=== PATIENT | female | born 1935 | race Caucasian/White ===

== ENCOUNTER 2016-07-01 | Outpatient (CLI) | END 2016-07-01 10:40 | disposition EMS.NT ==

== ENCOUNTER 2016-07-24 09:45 | Outpatient (CLI) | payer MEDICARE, MEDICAID | END 2016-07-24 09:46 | disposition home or self-care (01) | DX: R63.4 Abnormal weight loss (principal) ==

== ENCOUNTER 2016-09-04 15:56 | Outpatient (CLI) | payer OTHER, MEDICARE, MEDICAID | END 2016-09-04 15:57 | disposition critical access hospital (66) | DX: Z04.1 Encounter for examination and observation following transport accident (principal); V47.5XXA Car driver injured in collision with fixed or stationary object in traffic accident, initial encounter; Y92.414 Local residential or business street as the place of occurrence of the external cause | CPT/HCPCS: A0425; A0429 ==

== ENCOUNTER 2016-09-04 16:02 | Emergency (ER) | payer MEDICARE, MEDICAID | END 2016-09-04 17:35 | disposition home or self-care (01) | DX: Z04.1 Encounter for examination and observation following transport accident (principal); V47.0XXA Car driver injured in collision with fixed or stationary object in nontraffic accident, initial encounter; R25.1 Tremor, unspecified; M75.01 Adhesive capsulitis of right shoulder; I10 Essential (primary) hypertension; E11.9 Type 2 diabetes mellitus without complications; Z79.84 Long term (current) use of oral hypoglycemic drugs; Z79.82 Long term (current) use of aspirin ==

== ENCOUNTER 2017-05-08 08:11 | Outpatient (CLI) | payer MEDICARE, MEDICAID | END 2017-05-08 08:12 | disposition EMS.NT | LOC: EMS 08:11 | PROVIDERS: ATTEND Surgery | DX: M25.562 Pain in left knee (principal); W01.0XXA Fall on same level from slipping, tripping and stumbling without subsequent striking against object, initial encounter; Y93.K1 Activity, walking an animal; Y92.008 Other place in unspecified non-institutional (private) residence as the place of occurrence of the external cause ==

== ENCOUNTER 2017-06-02 16:04 | Outpatient (CLI) | payer MEDICARE, MEDICAID | END 2017-06-02 16:05 | disposition EMS.NT | LOC: EMS 16:04 | PROVIDERS: ATTEND Surgery | DX: Z03.89 Encounter for observation for other suspected diseases and conditions ruled out (principal) ==

== ENCOUNTER 2017-06-06 15:24 | Outpatient (CLI) | payer MEDICARE, MEDICAID | END 2017-06-06 15:25 | disposition critical access hospital (66) | LOC: EMS 15:24 | PROVIDERS: ATTEND Surgery | DX: S01.81XA Laceration without foreign body of other part of head, initial encounter (principal); W19.XXXA Unspecified fall, initial encounter; Y93.9 Activity, unspecified; Y92.9 Unspecified place or not applicable | CPT/HCPCS: A0425; A0429 ==

== ENCOUNTER 2017-06-06 15:31 | Emergency (ER) | payer MEDICARE, MEDICAID ==
--- NOTE | 2017-06-06 15:42 | ED Physician Documentation ---
PD HPI Fall - Stated complaint Stated Complaint: FALL - History obtained from History obtained from: Patient, EMS - History of Present Illness Mechanism of injury: Other (81-year-old woman with history of essential tremor and frozen right shoulder who sometimes uses a cane but is not very scientology about it has had 2 falls over the last day. She fell at home last night injuring her nose. She also fell today injuring the back of her head and her left knee. Tetanus is unknown.) Review of Systems Ten Systems: 10 systems reviewed and negative Constitutional: reports: Reviewed and negative Throat: reports: Reviewed and negative Cardiac: reports: Reviewed and negative Respiratory: reports: Reviewed and negative PD PAST MEDICAL HISTORY - Past Medical History Cardiovascular: Hypertension, High cholesterol, Arrhythmia, Other Respiratory: Sleep apnea Neuro: Headache/migraine Endocrine/Autoimmune: Type 2 diabetes GI: GERD, Colon polyps : Incontinence, Chronic bladder infection Psych: Depression, Anxiety - Past Surgical History Past Surgical History: Yes General: 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 - Present Medications Home Medications: Ambulatory Orders Medication Instructions Recorded Confirmed Atenolol 10 mg PO DAILY 11/21/14 09/04/16 Atorvastatin Calcium 40 mg PO DAILY 11/21/14 09/04/16 Escitalopram Oxalate 20 mg PO DAILY 11/21/14 09/04/16 Gabapentin 600 mg PO BID 11/21/14 09/04/16 LORazepam [Lorazepam] 2 mg PO DAILY 11/21/14 09/04/16 Losartan Potassium 0 mg PO DAILY 11/21/14 09/04/16 Aspirin Chewable [[facility] 81 mg PO DAILY 09/04/16 09/04/16 Aspirin] Propranolol [Inderal] 10 mg PO DAILY 09/04/16 06/06/17 metFORMIN [Glucophage] 500 mg PO DAILY 09/04/16 06/06/17 - Allergies Allergies/Adverse Reactions: Allergies Allergy/AdvReac Type Severity Reaction Status Date / Time codeine [Codeine] AdvReac Intermediate Nausea Verified 06/06/17 15:41 - Social History Does the pt smoke?: No Smoking Status: Never smoker Does the pt drink ETOH?: No Does the pt have substance abuse?: No - Family History Family history: reports: Non contributory - Immunizations Immunizations are current?: Yes PD ED PE NORMAL - Vitals Vital signs reviewed: Yes - General General: Alert and oriented X 3, Other (Tremulous especially in the facial muscles which is pre-existing per her.) - HEENT HEENT: Other (Large pupils bilaterally with sequela of previous cataract repair , both are reactive. Deep abrasion over the right parietal area without deformity. Nothing that needs sutures or specific intervention.) - Neck Neck: Supple, no meningeal sign, No bony TTP - Cardiac Cardiac: RRR, No murmur - Respiratory Respiratory: No respiratory distress, Clear bilaterally - Abdomen Abdomen: Soft, Non tender, Non distended - Extremities Extremities: Other (There is an abrasion over the anterior part of the left knee with mild underlying tenderness but no limited range of motion.) - Neuro Neuro: Alert and oriented X 3, Normal speech Eye Opening: Spontaneous Motor: Obeys Commands Verbal: Oriented GCS Score: 15 - Psych Psych: Normal mood, Normal affect Results - Vitals Vitals: Vital Signs - 24 hr 06/06/17 06/06/17 06/06/17 15:37 16:25 17:31 Temperature 37.3 C 36.6 C Heart Rate 64 60 61 Respiratory 18 16 15 Rate Blood Pressure 140/82 H 129/70 176/83 H O2 Saturation 97 96 100 Oxygen O2 Source [] Room air O2 Source Room air - Labs Labs: Laboratory Tests 06/06/17 06/06/17 06/06/17 15:50 15:50 18:20 WBC 6.8 RBC 4.23 Hgb 12.5 Hct 37.8 MCV 89.4 MCH 29.6 MCHC 33.1 RDW 14.7 Plt Count 287 MPV 8.3 Neut # 3.9 Lymph # 1.9 [place] # 0.7 Eos # 0.1 Baso # 0.1 Absolute Nucleated RBC 0.00 Nucleated RBC % 0.0 Sodium 134 L Potassium 3.8 Chloride 99 L Carbon Dioxide 26 Anion Gap 9.0 BUN 13 Creatinine 0.5 Estimated GFR (MDRD) 118 Glucose 124 H Calcium 9.6 Total Bilirubin 0.8 AST 19 ALT 12 Alkaline Phosphatase 42 Total Protein 7.1 Albumin 4.1 Globulin 3.0 Albumin/Globulin Ratio 1.4 Lipase 28 Urine Color YELLOW Urine Clarity CLEAR Urine pH 6.0 Ur Specific [place] 1.015 Urine Protein NEGATIVE Urine Glucose (UA) NEGATIVE Urine Ketones TRACE Urine Occult Blood NEGATIVE Urine Nitrite NEGATIVE Urine Bilirubin NEGATIVE Urine Urobilinogen 0.2 (NORMAL) Ur Leukocyte Esterase NEGATIVE Ur Microscopic Review NOT INDICATED Urine Culture Comments NOT INDICATED Ethyl Alcohol < 5.0 - Rads (name of study) CT Head/ Cspine and L knee XR Radiology: EMP read contemporaneously (Degenerative and age-related changes without acute disease.) Procedures - Laceration (location) nasal bridge Length in cm: 1 Wound type: Linear Wound Preparation: Irrigated copiously NS Skin layer closure: Dermabond Other: Tetanus UTD Complexity: Simple PD MEDICAL DECISION MAKING - ED course Complexity details: reviewed old records (had tetanus in 2012) ED course: 81-year-old woman with 2 falls in the last 24 hours, she has an abrasion on her nasal bridge which had persistent bleeding and was Dermabond it. She also had an abrasion on the back of her head which did not require specific intervention. Relevant imaging was negative. She was ambulatory here with a walker without specific complaints. Departure - Departure Disposition: 01 Home, Self Care Clinical Impression: Fall Qualifiers: Encounter type: initial encounter Qualified Code(s): W19.XXXA - Unspecified fall, initial encounter Scalp contusion Qualifiers: Encounter type: initial encounter Qualified Code(s): S00.03XA - Contusion of scalp, initial encounter Nasal abrasion Qualifiers: Encounter type: initial encounter Qualified Code(s): S00.31XA - Abrasion of nose, initial encounter Contusion of left knee Qualifiers: Encounter type: initial encounter Qualified Code(s): S80.02XA - Contusion of left knee, initial encounter Condition: Good Record reviewed to determine appropriate education?: Yes Instructions: ED Head Injury Closed Comments: Follow-up with your family doctor, make the next available appointment. Return if worse. Soap and water on your wounds is fine, no other specific treatment is necessary. Tylenol as needed for pain. Your blood pressure was elevated today on check into the emergency department. This does not mean that you have hypertension, it is a common phenomenon to come to the emergency department and have elevated blood pressure. I recommend that you see your primary care physician within the week to have it rechecked when you are feeling better.
[2017-06-06 15:58] LABS: BASOPHILS # (AUTO) 0.1 10^3/uL (0.0-0.1); BASOPHILS % (AUTO) 1.4 %; EOSINOPHILS # (AUTO) 0.1 10^3/uL (0.0-0.7); EOSINOPHILS % (AUTO) 1.5 %; HCT - HEMATOCRIT 37.8 % (37.0-47.0); HGB - HEMOGLOBIN 12.5 g/dL (12.0-16.0); LYMPHOCYTES # (AUTO) 1.9 10^3/uL (1.5-3.5); LYMPHOCYTES % (AUTO) 28.5 %; MEAN CORPUSCULAR HEMOGLOBIN 29.6 pg (27.0-31.0); MEAN CORPUSCULAR HGB CONC 33.1 g/dL (32.0-36.0); MEAN CORPUSCULAR VOLUME 89.4 fL (81.0-99.0); MEAN PLATELET VOLUME 8.3 fL (7.9-10.8); MONOCYTES # (AUTO) 0.7 10^3/uL (0.0-1.0); MONOCYTES % (AUTO) 10.5 %; NEUTROPHILS # (AUTO) 3.9 10^3/uL (1.5-6.6); NEUTROPHILS % (AUTO) 58.1 %; RED BLOOD COUNT 4.23 10^6/uL (4.20-5.40); RED CELL DISTRIBUTION WIDTH 14.7 % (12.0-15.0); UNCORRECTED WHITE BLOOD COUNT 6.8 x10^3/uL; WHITE BLOOD COUNT 6.8 x10^3/uL (4.8-10.8)
[2017-06-06 16:09] LABS: ALBUMIN/GLOBULIN RATIO 1.4 (1.0-2.2); BILIRUBIN,TOTAL 0.8 mg/dL (0.2-1.0); BUN - BLOOD UREA NITROGEN 13 mg/dL (6-20); CALCIUM 9.6 mg/dL (8.5-10.3); CARBON DIOXIDE - CO2 26 mmol/L (21-32); CHLORIDE 99 mmol/L (101-111); CREATININE 0.5 mg/dL (0.4-1.0); GFR - MDRD 118 (>89); GLUCOSE 124 mg/dL (70-100); LIPASE 28 U/L (22-51); POTASSIUM 3.8 mmol/L (3.5-5.0); SODIUM 134 mmol/L (135-145); TOTAL PROTEIN 7.1 g/dL (6.7-8.2)
--- NOTE | 2017-06-06 16:21 | XRAY Report ---
EXAM: LEFT KNEE RADIOGRAPHY EXAM DATE: 06/06/2017 04:06 PM. CLINICAL HISTORY: Fall, pain. COMPARISON: 05/17/2013. TECHNIQUE: 4 views, including oblique views. FINDINGS: Bones: Osteopenia. No definite fracture or other bone lesion. Joints: Moderate to marked 3 compartment joint space narrowing with small marginal osteophytes. Media l compartment sclerosis. No definite effusion. Soft Tissues: Unremarkable. IMPRESSION: Moderate to marked degenerative joint disease. [facility] Referring Provider Line: [phone] SITE ID: [id number]
--- NOTE | 2017-06-06 16:27 | CT Report ---
EXAM: CT HEAD EXAM DATE: 06/06/2017 04:14 PM. CLINICAL HISTORY: Fall, head inj. COMPARISON: 11/21/2014. TECHNIQUE: Multiaxial CT images were obtained from the foramen magnum to the vertex. Reformats: Coron al. IV contrast: None. In accordance with CT protocol optimization, one or more of the following dose reduction techniques w ere utilized for this exam: automated exposure control, adjustment of mA and/or KV based on patient s ize, or use of iterative reconstructive technique. FINDINGS: Parenchyma: No intraparenchymal hemorrhage. No evidence of mass, midline shift, or CT findings of acu te infarction. Lou-white differentiation is distinct. Diffuse chronic microangiopathic white matter changes. Extraaxial Spaces: Normal for age. No subdural or epidural collections. Ventricles: The ventricles and cortical sulci are enlarged, consistent with age-related tissue loss. Sinuses and orbits: Imaged paranasal sinuses, orbits, and mastoids show no significant abnormality. Bones: Unremarkable. Other: None. IMPRESSION: Generalized age-related cortical atrophic changes without evidence of acute intracranial abnormality. [facility] Referring Provider Line: [phone] SITE ID: [id number]
--- NOTE | 2017-06-06 16:30 | CT Report ---
EXAM: CT CERVICAL SPINE WITHOUT CONTRAST DATE: 06/06/2017 04:14 PM. HISTORY: Fall, pain. COMPARISONS: 05/17/2013. TECHNIQUE: Thin-section axial images were acquired of the cervical spine without contrast. Post-proce ssing: Coronal and sagittal reformats. Other: None. In accordance with CT protocol optimization, one or more of the following dose reduction techniques w ere utilized for this exam: automated exposure control, adjustment of mA and/or KV based on patient s ize, or use of iterative reconstructive technique. FINDINGS: Alignment: No scoliosis or spondylolisthesis. Bones: No fracture or bone lesion. Interspace Levels/Facets: Mild disk space narrowing at C5-C6 with marginal lipping. Mild generalized degenerative changes. Musculature: Unremarkable. Other: Groundglass density in right lung apex similar to previous study. Otherwise unremarkable. No p revertebral soft tissue swelling. IMPRESSION: Chronic findings. No acute disease. [facility] Referring Provider Line: [phone] SITE ID: [id number]
[2017-06-06 17:32] VITALS: BP 176/83
[2017-06-06 18:32] LABS: BILIRUBIN,URINE NEGATIVE (NEGATIVE)
[2017-06-06 18:35] LABS: UA CHARGE (STRIP ONLY) YES; UR CULTURE IF IND NOT INDICATED
== END 2017-06-06 19:50 | disposition home or self-care (01) ==
LOC: EDUNIT# → ED 15:31
DX: S01.21XA Laceration without foreign body of nose, initial encounter (principal); S00.03XA Contusion of scalp, initial encounter; S80.02XA Contusion of left knee, initial encounter; W01.0XXA Fall on same level from slipping, tripping and stumbling without subsequent striking against object, initial encounter; Y92.009 Unspecified place in unspecified non-institutional (private) residence as the place of occurrence of the external cause; I10 Essential (primary) hypertension; E78.00 Pure hypercholesterolemia, unspecified; E11.9 Type 2 diabetes mellitus without complications; Z79.84 Long term (current) use of oral hypoglycemic drugs
CPT/HCPCS: 12011; 36415; 70450; 72125; 73564; 80053; 81003; 83690; 85025; 99283; 99284; G0480; 80320; 81001; 87086

== ENCOUNTER 2017-07-06 09:36 | Outpatient (CLI) | payer MEDICARE, MEDICAID | END 2017-07-06 09:37 | disposition EMS.NT | LOC: EMS 09:36 | PROVIDERS: ATTEND Surgery | DX: R53.1 Weakness (principal); W18.11XA Fall from or off toilet without subsequent striking against object, initial encounter; Y92.031 Bathroom in apartment as the place of occurrence of the external cause ==

== ENCOUNTER 2017-07-14 10:35 | Outpatient (CLI) | payer MEDICARE, MEDICAID | END 2017-07-14 10:36 | disposition EMS.NT | LOC: EMS 10:35 | PROVIDERS: ATTEND Surgery | DX: R10.10 Upper abdominal pain, unspecified (principal); R07.81 Pleurodynia ==

== ENCOUNTER 2017-08-16 13:31 | Outpatient (CLI) | payer MEDICARE, MEDICAID | END 2017-08-16 13:32 | disposition EMS.NT | LOC: EMS 13:31 | PROVIDERS: ATTEND Surgery | DX: Z03.89 Encounter for observation for other suspected diseases and conditions ruled out (principal); W01.0XXA Fall on same level from slipping, tripping and stumbling without subsequent striking against object, initial encounter; Y92.039 Unspecified place in apartment as the place of occurrence of the external cause ==

== ENCOUNTER 2017-08-22 12:26 | Outpatient (CLI) | payer MEDICARE, MEDICAID | END 2017-08-22 12:27 | disposition critical access hospital (66) | LOC: EMS 12:26 | PROVIDERS: ATTEND Surgery | DX: R25.9 Unspecified abnormal involuntary movements (principal); R41.82 Altered mental status, unspecified; R51 Headache; R42 Dizziness and giddiness ==

== ENCOUNTER 2017-08-22 12:29 | Emergency (ER) | payer MEDICARE, MEDICAID ==
[2017-08-22 12:58] LABS: BILIRUBIN,URINE NEGATIVE (NEGATIVE); GLUCOSE, URINE (UA) 250 mg/dL (NEGATIVE); KETONES,URINE (UA) >=80 mg/dL (NEGATIVE); LEUKOCYTE ESTERASE, URINE NEGATIVE (NEGATIVE); NITRITE,URINE NEGATIVE (NEGATIVE); OCCULT BLOOD,URINE SMALL (NEGATIVE); PROTEIN,URINE 100 mg/dL (NEGATIVE); UROBILINOGEN,URINE 0.2 (NORMAL) E.U./dL (NORMAL)
[2017-08-22 12:59] LABS: CLARITY,URINE CLEAR (CLEAR)
[2017-08-22] MEDS ORDERED: HYDROcod/ACETAM 5/325 MG TABLET PO STA (13:10)
[2017-08-22] MEDS ORDERED: SODIUM CHLORIDE 0.9% 1,000 ML IV ONE (13:11)
[2017-08-22 13:12] LABS: RBC,URINE 0-5 /HPF (0-5); SQUAMOUS EPITHELIAL CELL,UR NONE SEEN (<= Few)
[2017-08-22 13:13] LABS: BACTERIA,URINE None Seen /HPF (None Seen); CASTS, URINE 0-2 Hyaline Casts /LPF
--- NOTE | 2017-08-22 13:18 | ED Physician Documentation ---
PD HPI FOCAL NEURO - Stated complaint Stated Complaint: YOUNG/DIZZINESS - Chief complaint Chief Complaint: Neuro - History obtained from History obtained from: Patient, Family, EMS - History of Present Illness Timing - onset: Yesterday (This is an 81-year-old woman with severe essential tremor, at baseline usually walks on her own. Over the last day she has been veering to the right and her daughter went over her place today and found her laying on the couch soiled with urine. She is very weak and complains of low back pain. She also had a headache yesterday.) Review of Systems Constitutional: reports: Fatigue. 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 - Present Medications Home Medications: Ambulatory Orders Medication Instructions Recorded Confirmed Atorvastatin Calcium 40 mg PO DAILY 11/21/14 09/04/16 Gabapentin 600 mg PO BID 11/21/14 09/04/16 LORazepam [Lorazepam] 2 mg PO DAILY 11/21/14 09/04/16 Losartan Potassium 0 mg PO DAILY 11/21/14 09/04/16 Aspirin Chewable [[facility] 81 mg PO DAILY 09/04/16 09/04/16 Aspirin] Propranolol [Inderal] 10 mg PO DAILY 09/04/16 06/06/17 metFORMIN [Glucophage] 500 mg PO DAILY 09/04/16 06/06/17 - Allergies Allergies/Adverse Reactions: Allergies Allergy/AdvReac Type Severity Reaction Status Date / Time codeine [Codeine] AdvReac Intermediate Nausea Verified 08/22/17 12:54 - Social History Does the pt smoke?: No Smoking Status: Never smoker Does the pt drink ETOH?: No Does the pt have substance abuse?: No - Immunizations Immunizations are current?: Yes PD ED PE NORMAL - Vitals Vital signs reviewed: Yes - General General: Alert and oriented X 3, Other (She is a severe essential tremor, she is very weak and is basically a 2 person assist to sit her up.) - HEENT HEENT: PERRL, Other (Extraocular movements are okay laterally in either direction but does not seem to be able to look up or down either side.) - Neck Neck: Supple, no meningeal sign, No bony TTP - Cardiac Cardiac: RRR, No murmur - Respiratory Respiratory: No respiratory distress, Clear bilaterally - Abdomen Abdomen: Normal bowel sounds, Soft, Non tender - Back Back: No CVA TTP, No spinal TTP - Extremities Extremities: No edema, No calf tenderness / cord - Neuro Neuro: Alert and oriented X 3 Eye Opening: Spontaneous Motor: Obeys Commands Verbal: Oriented GCS Score: 15 - Psych Psych: Normal mood, Normal affect Results - Vitals Vitals: Vital Signs - 24 hr 08/22/17 08/22/17 08/22/17 12:31 13:25 14:54 Temperature 37.1 C 36.7 C Heart Rate 97 89 94 Respiratory 20 18 Rate Blood Pressure 181/77 H 158/96 H 173/92 H O2 Saturation 96 100 08/22/17 08/22/17 08/22/17 15:02 15:11 15:18 Temperature Heart Rate 101 H 107 H 114 H Respiratory 20 Rate Blood Pressure 160/82 H 150/73 H 135/74 H O2 Saturation 100 08/22/17 15:25 Temperature 37.4 C Heart Rate 101 H Respiratory 18 Rate Blood Pressure 128/88 H O2 Saturation 99 Oxygen O2 Source [] Room air O2 Source Room air - EKG (time done) 1433 Rate: Rate (enter#) (90) Rhythm: NSR [place]: Normal Intervals: Normal MO Ischemia: Normal ST segments Computer interpretation: Disagree with computer - Labs Labs: Laboratory Tests 08/22/17 08/22/17 08/22/17 12:45 14:26 14:26 WBC 12.7 H RBC 4.30 Hgb 12.9 Hct 37.7 MCV 87.7 MCH 30.0 MCHC 34.2 RDW 14.0 Plt Count 324 MPV 8.1 Neut # 10.9 H Lymph # 0.8 L [place] # 0.9 Eos # 0.0 Baso # 0.0 Absolute Nucleated RBC 0.00 Nucleated RBC % 0.0 PT INR Sodium 136 Potassium 2.9 L Chloride 102 Carbon Dioxide 20 L Anion Gap 14.0 H BUN 12 Creatinine 0.4 Estimated GFR (MDRD) 153 Glucose 197 H Calcium 9.4 Total Bilirubin 1.2 H AST 23 ALT 13 Alkaline Phosphatase 41 L Total Creatine Kinase 172 Troponin I Total Protein 7.3 Albumin 4.2 Globulin 3.1 Albumin/Globulin Ratio 1.4 Lipase 11 L Urine Color YELLOW Urine Clarity CLEAR Urine pH 6.0 Ur Specific [place] 1.025 Urine Protein 100 H Urine Glucose (UA) 250 H Urine Ketones >=80 H Urine Occult Blood SMALL H Urine Nitrite NEGATIVE Urine Bilirubin NEGATIVE Urine Urobilinogen 0.2 (NORMAL) Ur Leukocyte Esterase NEGATIVE Urine RBC 0-5 Urine WBC 0-3 Ur Squamous Epith Cells NONE SEEN Urine Bacteria None Seen Urine Casts 0-2 Hyaline Casts Ur Microscopic Review INDICATED Urine Culture Comments NOT INDICATED 08/22/17 08/22/17 14:26 14:26 WBC RBC Hgb Hct MCV MCH MCHC RDW Plt Count MPV Neut # Lymph # [place] # Eos # Baso # Absolute Nucleated RBC Nucleated RBC % PT 14.1 H INR 1.3 H Sodium Potassium Chloride Carbon Dioxide Anion Gap BUN Creatinine Estimated GFR (MDRD) Glucose Calcium Total Bilirubin AST ALT Alkaline Phosphatase Total Creatine Kinase Troponin I 0.05 Total Protein Albumin Globulin Albumin/Globulin Ratio Lipase Urine Color Urine Clarity Urine pH Ur Specific [place] Urine Protein Urine Glucose (UA) Urine Ketones Urine Occult Blood Urine Nitrite Urine Bilirubin Urine Urobilinogen Ur Leukocyte Esterase Urine RBC Urine WBC Ur Squamous Epith Cells Urine Bacteria Urine Casts Ur Microscopic Review Urine Culture Comments - Rads (name of study) CT head Radiology: EMP read contemporaneously (Intraventricular hemorrhage involving the third, fourth, and lateral ventricles with layering blood products in the occipital horn of the lateral ventricles. There is ventricular enlargement with a slight increase compared to June 06, 2017, there is also parenchymal volume loss and chronic white matter changes with a remote left frontal infarct that are unchanged from prior.) 1v chest Radiology: EMP read contemporaneously (NAD) L spine CT Radiology: EMP read contemporaneously (No acute fracture, grade 1 2 anterolisthesis of L4-L5 with a right L4 pars interarticularis defect and moderate to severe right foraminal stenosis and canal stenosis. 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 Notable that she has trouble with extraocular movements on examination and head CT is notable for intraventricular hemorrhage near the brainstem. Images were sent to [facility] and she was started on a Cardene drip. Accepted by Dr Wu at [facility] at 1442. [place] completed. ALNW unable to fly due to ice/wind - Critical Care Time(min): 45 Time Includes: Direct patient care, Review records, Reassess patient, Document care, Coordinate care, Medical consult, Family consult for tx dec Data interpretation: Labs Procedures included in critical care time: Peripheral IV Procedures excluded from critical care time: EKG Departure - Departure Disposition: 02 Transfer Acute Care Hosp Clinical Impression: Intraventricular hemorrhage, Muscle weakness Altered mental status Qualifiers: Altered mental status type: disorientation Qualified Code(s): R41.0 - Disorientation, unspecified Condition: Critical Discharge Date/Time: 08/22/17 15:30
--- NOTE | 2017-08-22 14:21 | CT Preliminary Report ---
Exam: CT HEAD W/O IMPRESSION: 1. Intraventricular hemorrhage involving the third ventricle, fourth ventricles and lateral ventricle s with layering blood products within the occipital horn of both lateral ventricles. 2. Ventricular enlargement with slight increase in size compared to 06/06/2017. 3. Parenchymal volumes loss and chronic white matter changes. Remote left frontal lobe infarct, uncha nged. [facility] SITE ID: [id number]
--- NOTE | 2017-08-22 14:25 | XRAY Report ---
EXAM: CHEST RADIOGRAPHY EXAM DATE: 08/22/2017 02:11 PM. CLINICAL HISTORY: Back pain, altered, R weakness. COMPARISON: 05/17/2013. TECHNIQUE: 1 view. FINDINGS: Lungs/Pleura: No focal opacities evident. No pleural effusion. No pneumothorax. Mediastinum: Cardiomegaly. Aortic tortuosity. Other: Surgical clips are seen in the right upper quadrant as before. IMPRESSION: 1. No acute disease in the chest. [facility] Referring Provider Line: [phone] SITE ID: [id number]
[2017-08-22 14:32] LABS: BASOPHILS % (AUTO) 0.3 %; HGB - HEMOGLOBIN 12.9 g/dL (12.0-16.0); LYMPHOCYTES # (AUTO) 0.8 10^3/uL (1.5-3.5); LYMPHOCYTES % (AUTO) 6.2 %; MEAN CORPUSCULAR HGB CONC 34.2 g/dL (32.0-36.0); MEAN CORPUSCULAR VOLUME 87.7 fL (81.0-99.0); MEAN PLATELET VOLUME 8.1 fL (7.9-10.8); MONOCYTES # (AUTO) 0.9 10^3/uL (0.0-1.0); MONOCYTES % (AUTO) 7.3 %; NEUTROPHILS # (AUTO) 10.9 10^3/uL (1.5-6.6); NEUTROPHILS % (AUTO) 86.2 %; PLT - PLATELET COUNT 324 10^3/uL (130-450); WHITE BLOOD COUNT 12.7 x10^3/uL (4.8-10.8)
[2017-08-22 14:38] LABS: INR 1.3 (0.8-1.2); PT - PROTHROMBIN TIME 14.1 secs (9.9-12.6)
[2017-08-22] MEDS ORDERED: niCARdipine 20 MG/200 ML 20 MG/200 ML BAG IV STA (14:41)
--- NOTE | 2017-08-22 14:49 | CT Report ---
EXAM: CT HEAD EXAM DATE: 08/22/2017 01:59 PM. CLINICAL HISTORY: Back pain. Altered level of consciousness. Right-sided weakness. COMPARISON: 06/06/2017. TECHNIQUE: Multiaxial CT images were obtained from the foramen magnum to the vertex. Reformats: Coron al. IV contrast: None. In accordance with CT protocol optimization, one or more of the following dose reduction techniques w ere utilized for this exam: automated exposure control, adjustment of mA and/or KV based on patient s ize, or use of iterative reconstructive technique. FINDINGS: Parenchyma: Parenchymal volume loss with periventricular regions of low attenuation. Prior left front al lobe infarct. No midline shift. Extraaxial Spaces: Extra-axial spaces are prominent. No subdural or epidural collections identified. Ventricles: Intraventricular hemorrhage is noted seen within the lateral ventricles in both the front al and occipital horns, layering within the occipital horns, as well as largely within the third vent ricle which appears slightly more prominent in size. In addition, there are intraventricular blood pr oducts in the fourth ventricle. Ventricles are slightly larger in size. Sinuses and Orbits: Imaged paranasal sinuses, orbits, and mastoids show no significant abnormality. Bones: No evidence of fracture or calvarial defect. Other: Changes are seen from bilateral lens surgery. Otherwise globes and orbits are unremarkable. Va scular calcifications are noted. IMPRESSION: 1. Intraventricular hemorrhage involving the third ventricle, fourth ventricles and lateral ventricle s with layering blood products within the occipital horn of both lateral ventricles. 2. Ventricular enlargement with slight increase in size compared to 06/06/2017. 3. Parenchymal volume loss and chronic white matter changes. Remote left frontal lobe infarct, unchan ged. Critical result: Findings discussed with Dr. Mittal at 1419 hours on 08/22/2017. [facility] Referring Provider Line: [phone] SITE ID: [id number]
[2017-08-22 14:50] LABS: ALBUMIN 4.2 g/dL (3.2-5.5); ALBUMIN/GLOBULIN RATIO 1.4 (1.0-2.2); BILIRUBIN,TOTAL 1.2 mg/dL (0.2-1.0); CALCIUM 9.4 mg/dL (8.5-10.3); CREATININE 0.4 mg/dL (0.4-1.0); TOTAL PROTEIN 7.3 g/dL (6.7-8.2)
--- NOTE | 2017-08-22 14:58 | CT Report ---
EXAM: CT LUMBAR SPINE WITHOUT CONTRAST EXAM DATE: 08/22/2017 02:15 PM. CLINICAL HISTORY: Back pain, altered, R weakness. COMPARISONS: 07/10/2005 CT. TECHNIQUE: Thin-section axial images were acquired of the lumbar spine from T12 to S1 without contras t. Post-processing: Coronal and sagittal reformats. Other: None. In accordance with CT protocol optimization, one or more of the following dose reduction techniques w ere utilized for this exam: automated exposure control, adjustment of mA and/or KV based on patient s ize, or use of iterative reconstructive technique. FINDINGS: Alignment: Interstitial subluxation of L4 on L5 measuring 8 mm. Minimal anterior subluxation of L5 on S1. Bones: Five [id number] lumbar vertebral bodies are present. No fractures or bone lesions. Disk Levels/Facets: Anterior subluxation of L4 on L5 with broad-based disk bulge and advanced facet arthrosis causing mod erate to severe foraminal stenosis, mild left foraminal stenosis and mild spinal canal stenosis. Mild stenosis of ventral thecal sac at additional levels due to small disk bulges. Advanced multilevel fa cet arthrosis. Moderate right foraminal stenosis at L5-S1 Musculature: Fatty atrophy. Other: Severe right hydronephrosis likely increased from 2005 without dilation of the right ureter. S igmoid diverticulosis. IMPRESSION: 1. No acute fracture. 2. Grade 1/2 anterolisthesis of L4 on L5 with a right L4 pars interarticularis defect intervene to mo derate to severe right foraminal stenosis and mild spinal canal stenosis. 3. Minimal anterolisthesis of L5 on S1. Moderate right L5-S1 foraminal stenosis. Advanced multilevel facet arthrosis. 4. Severe right hydronephrosis is likely increased from 2005 and favored to represent chronic UPJ obs truction. [facility] Referring Provider Line: [phone] SITE ID: [id number]
[2017-08-22 15:37] VITALS: BP 128/88
[2017-08-22] MEDS ORDERED: niCARdipine 20 MG/200 ML 20 MG/200 ML BAG IV ONE (15:39)
== END 2017-08-22 15:30 | disposition short-term general hospital (02) ==
LOC: EDUNIT# → ED 12:29
DX: I61.5 Nontraumatic intracerebral hemorrhage, intraventricular (principal); M62.81 Muscle weakness (generalized); R41.0 Disorientation, unspecified; I10 Essential (primary) hypertension; E78.00 Pure hypercholesterolemia, unspecified; E11.9 Type 2 diabetes mellitus without complications; Z79.84 Long term (current) use of oral hypoglycemic drugs; Z79.82 Long term (current) use of aspirin
CPT/HCPCS: 36415; 51701; 70450; 71045; 72131; 80053; 81001; 82550; 83690; 84484; 85025; 85610; 93005; 96365; 99284; 99291; A9270; 81003; 87086; 99285

== ENCOUNTER 2017-08-22 15:36 | Outpatient (CLI) | payer MEDICARE, MEDICAID | END 2017-08-22 15:37 | disposition short-term general hospital (02) | LOC: EMS 15:36 | PROVIDERS: ATTEND Surgery | DX: I62.9 Nontraumatic intracranial hemorrhage, unspecified (principal); R51 Headache; R42 Dizziness and giddiness; R41.82 Altered mental status, unspecified; R25.9 Unspecified abnormal involuntary movements | CPT/HCPCS: A0170; A0425; A0426; A0429 ==

== ENCOUNTER 2017-09-16 12:00 | Outpatient (CLI) | payer MEDICAID, MEDICARE, OTHER ==
[2017-09-16 13:32] LABS: BUN - BLOOD UREA NITROGEN 13 mg/dL (6-20); CALCIUM 8.9 mg/dL (8.5-10.3); CARBON DIOXIDE - CO2 25 mmol/L (21-32); CHLORIDE 94 mmol/L (101-111); GLUCOSE 133 mg/dL (70-100); SODIUM 127 mmol/L (135-145)
[2017-09-16 13:43] LABS: CREATININE < 0.3 mg/dL (0.4-1.0); GFR - MDRD 214 (>89)
== END 2017-09-16 12:01 ==
LOC: LAB.R 12:00
DX: I60.0 Nontraumatic subarachnoid hemorrhage from carotid siphon and bifurcation (principal)
CPT/HCPCS: 80048

== ENCOUNTER 2017-10-29 19:15 | Outpatient (CLI) | payer MEDICARE, MEDICAID ==
[2017-10-29 20:23] LABS: CALCIUM 8.7 mg/dL (8.5-10.3); CREATININE 0.4 mg/dL (0.4-1.0)
== END 2017-10-29 19:16 | disposition home or self-care (01) ==
LOC: LAB.R 19:15
DX: R79.89 Other specified abnormal findings of blood chemistry (principal); I10 Essential (primary) hypertension
CPT/HCPCS: 80048

== ENCOUNTER 2017-12-23 08:00 | Outpatient (CLI) | payer MEDICARE, MEDICAID ==
[2017-12-23 13:16] LABS: BASOPHILS % (AUTO) 0.8 %; EOSINOPHILS # (AUTO) 0.2 10^3/uL (0.0-0.7); EOSINOPHILS % (AUTO) 3.6 %; HGB - HEMOGLOBIN 11.9 g/dL (12.0-16.0); LYMPHOCYTES # (AUTO) 1.5 10^3/uL (1.5-3.5); LYMPHOCYTES % (AUTO) 29.1 %; MEAN CORPUSCULAR HEMOGLOBIN 32.3 pg (27.0-31.0); MEAN CORPUSCULAR VOLUME 97.9 fL (81.0-99.0); MEAN PLATELET VOLUME 8.8 fL (7.9-10.8); MONOCYTES # (AUTO) 0.5 10^3/uL (0.0-1.0); MONOCYTES % (AUTO) 10.6 %; NEUTROPHILS # (AUTO) 2.9 10^3/uL (1.5-6.6); NEUTROPHILS % (AUTO) 55.9 %; PLT - PLATELET COUNT 291 10^3/uL (130-450); RED BLOOD COUNT 3.68 10^6/uL (4.20-5.40); RED CELL DISTRIBUTION WIDTH 13.1 % (12.0-15.0); WHITE BLOOD COUNT 5.2 x10^3/uL (4.8-10.8)
[2017-12-23 13:27] LABS: ALBUMIN 3.5 g/dL (3.2-5.5); BILIRUBIN,TOTAL 0.6 mg/dL (0.2-1.0); CALCIUM 9.2 mg/dL (8.5-10.3); CREATININE 0.6 mg/dL (0.4-1.0); MAGNESIUM 2.1 mg/dL (1.7-2.8); TOTAL PROTEIN 6.9 g/dL (6.7-8.2)
[2017-12-23 13:35] LABS: HB2 TOTAL 12.7 g/dL; HEMOGLOBIN A1C 0.61 g/dL; HEMOGLOBIN A1C % 6.5 % (4.6-6.2)
== END 2017-12-23 08:01 | disposition home or self-care (01) ==
LOC: LAB.R 08:00
DX: R79.89 Other specified abnormal findings of blood chemistry (principal); I13.0 Hypertensive heart and chronic kidney disease with heart failure and stage 1 through stage 4 chronic kidney disease, or unspecified chronic kidney disease; R94.6 Abnormal results of thyroid function studies; R73.09 Other abnormal glucose
CPT/HCPCS: 80053; 83036; 83735; 83880; 84134; 84443; 85025

== ENCOUNTER 2018-02-11 18:05 | Outpatient (CLI) | payer MEDICARE, MEDICAID ==
[2018-02-11 19:32] LABS: CALCIUM 9.4 mg/dL (8.5-10.3); CREATININE 0.5 mg/dL (0.4-1.0)
[2018-02-11 19:37] LABS: HB2 TOTAL 12.6 g/dL; HEMOGLOBIN A1C 0.73 g/dL; HEMOGLOBIN A1C % 7.5 % (4.6-6.2)
== END 2018-02-11 18:06 | disposition home or self-care (01) ==
LOC: LAB.R 18:05
DX: E11.65 Type 2 diabetes mellitus with hyperglycemia (principal)
CPT/HCPCS: 80048; 83036

== ENCOUNTER 2018-03-07 20:12 | Outpatient (CLI) | payer MEDICARE, MEDICAID | END 2018-03-07 20:13 | disposition critical access hospital (66) | LOC: EMS 20:12 | PROVIDERS: ATTEND Surgery | DX: M25.562 Pain in left knee (principal); W18.30XA Fall on same level, unspecified, initial encounter; Y93.E2 Activity, laundry; Y92.032 Bedroom in apartment as the place of occurrence of the external cause | CPT/HCPCS: A0425; A0429 ==

== ENCOUNTER 2018-03-07 20:21 | Emergency (ER) | payer MEDICARE, MEDICAID ==
[2018-03-07 20:36] VITALS: BP 120/91
--- NOTE | 2018-03-07 21:06 | ED Physician Documentation ---
PD HPI LOWER EXT INJURY - Stated complaint Stated Complaint: GLF, KNEE PX - Chief complaint Chief Complaint: Ext Problem - History obtained from History obtained from: Patient - History of Present Illness PD HPI LOW EXT INJURY LOCATION: Left, Knee Type of injury: Fall, Blunt / blow Where injury occurred: Home Timing - onset: Today Timing - duration: Minutes (30) Pain level max: 5 Pain level now: 0 Improved by: Rest Worsened by: Moving Associated symptoms: No: Weakness, Numbness, Tingling, Swelling, Discolored Similar symptoms before: Has not had sx before Recently seen: Not recently seen Review of Systems Constitutional: denies: Fever PD PAST MEDICAL HISTORY - Past Medical History Past Medical History: Yes Cardiovascular: Hypertension, High cholesterol, Arrhythmia, Other Respiratory: Sleep apnea Neuro: None Endocrine/Autoimmune: Type 2 diabetes GI: GERD, Colon polyps TOP STEEP TENDER: None : Incontinence, Chronic bladder infection HEENT: None Psych: Depression, Anxiety - Past Surgical History Past Surgical History: Yes General: 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 Ortho: Other /TOP STEEP TENDER: Hysterectomy - Present Medications Home Medications: Ambulatory Orders Medication Instructions Recorded Confirmed Atorvastatin Calcium 40 mg PO DAILY 11/21/14 09/04/16 Gabapentin 600 mg PO BID 11/21/14 09/04/16 LORazepam [Lorazepam] 2 mg PO DAILY 11/21/14 09/04/16 Losartan Potassium 0 mg PO DAILY 11/21/14 09/04/16 Aspirin Chewable [[place] 81 mg PO DAILY 09/04/16 09/04/16 Aspirin] Propranolol [Inderal] 10 mg PO DAILY 09/04/16 06/06/17 metFORMIN [Glucophage] 500 mg PO DAILY 09/04/16 06/06/17 - Allergies Allergies/Adverse Reactions: Allergies Allergy/AdvReac Type Severity Reaction Status Date / Time codeine [Codeine] AdvReac Intermediate Nausea Verified 03/07/18 20:29 - Social History Does the pt smoke?: No Smoking Status: Never smoker Does the pt drink ETOH?: No Does the pt have substance abuse?: No - Immunizations Immunizations are current?: Yes - POLST Patient has POLST: No Results - Vitals Vitals: Vital Signs - 24 hr 03/07/18 20:28 Temperature 37.1 C Heart Rate 99 Respiratory 18 Rate Blood Pressure 120/91 H O2 Saturation 98 Oxygen O2 Source [With Activity] Room air O2 Source Room air - Rads (name of study) XR knee Radiology: Final report received (IMPRESSION: 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 Medial knee soft tissue swelling. No evidence for acute fracture. ) PD MEDICAL DECISION MAKING - ED course ED course: Reevaluation the patient resting comfortably, her pain appears to be under control and the patient appears appropriate for discharge home. I discussed with her the findings on the x-ray. I advised close follow-up with primary care. I discussed warning signs and recommended returning to the emergency department for any worsening or any concerns - Sepsis Event Vital Signs: Vital Signs - 24 hr 03/07/18 20:28 Temperature 37.1 C Heart Rate 99 Respiratory 18 Rate Blood Pressure 120/91 H O2 Saturation 98 Oxygen O2 Source [With Activity] Room air O2 Source Room air Departure - Departure Disposition: 01 Home, Self Care Clinical Impression: Knee pain, acute Qualifiers: Laterality: left Qualified Code(s): M25.562 - Pain in left knee Condition: Good Instructions: ED Knee Pain [facility] Follow-Up: Oscar Li PA [Primary Care Provider] - Comments: Please return to the ER for worsening symptoms or any concerns
--- NOTE | 2018-03-07 21:31 | XRAY Report ---
Reason: fall, direct blow Procedure Date: 03/07/2018 Accession Number: [id number] / [id number] Procedure: XR - Knee 2 View LT CPT Code: FULL RESULT: EXAM: LEFT KNEE RADIOGRAPHY EXAM DATE: 03/07/2018 09:09 PM. CLINICAL HISTORY: Fall, direct blow. Left knee pain and redness after ground-level fall. COMPARISON: None. TECHNIQUE: 2 views. FINDINGS: Bones: Normal. No fractures or bone lesions. Joints: Moderate medial compartment femoral tibial joint space narrowing and osteophytes. Mild patellofemoral osteophytes. No subluxation. No knee joint effusion. Soft Tissues: Medial knee soft tissue swelling. 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 Medial knee soft tissue swelling. No evidence for acute fracture. RADIA
== END 2018-03-07 21:53 | disposition home or self-care (01) ==
LOC: EDBD → EDUNIT# → ED 20:21
DX: M25.562 Pain in left knee (principal); I10 Essential (primary) hypertension; E11.9 Type 2 diabetes mellitus without complications; Z79.82 Long term (current) use of aspirin; Z79.84 Long term (current) use of oral hypoglycemic drugs; W19.XXXA Unspecified fall, initial encounter; Y93.01 Activity, walking, marching and hiking; Y92.009 Unspecified place in unspecified non-institutional (private) residence as the place of occurrence of the external cause
CPT/HCPCS: 99282; 99283

== ENCOUNTER 2018-03-10 12:33 | Outpatient (CLI) | payer MEDICARE, MEDICAID | END 2018-03-10 12:34 | disposition critical access hospital (66) | LOC: EMS 12:33 | PROVIDERS: ATTEND Surgery | DX: R56.9 Unspecified convulsions (principal) | CPT/HCPCS: A0425; A0429 ==

== ENCOUNTER 2018-03-10 12:37 | Emergency (ER) | payer MEDICARE, MEDICAID ==
--- NOTE | 2018-03-10 12:57 | ED Physician Documentation ---
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 There was then some general tremoring of extremities. This stopped in few seconds and the patient awoke. She was foggy and disoriented for few minutes but improved by time of EMS arrival.). No: Incontinent Injury during seizure: None. No: Fell, Head injury, Bit tongue Associated symptoms: Other (weakness and poor appetite/intake the past 2 days. Had gotten out of [facility] and back to her apartment just a week or so ago.). No: Headache, Chest pain, Nausea / vomiting Contributing factors: No: Changed meds, Low blood sugar Similar symptoms before: Has not had sx before Review of Systems Constitutional: denies: Fever Nose: denies: Rhinorrhea / runny nose, Congestion Throat: denies: Sore throat Cardiac: denies: Chest pain / pressure, Palpitations Respiratory: denies: Dyspnea, Cough GI: reports: Nausea. denies: Abdominal Pain, Vomiting, Diarrhea : denies: Dysuria Skin: denies: Abrasion (s), Laceration (s) Neurologic: reports: Generalized weakness. denies: Focal weakness, Altered mental status, Headache PD PAST MEDICAL HISTORY - Past Medical History Cardiovascular: Hypertension, High cholesterol, Arrhythmia, Other Respiratory: Sleep apnea Neuro: Parkinson's Endocrine/Autoimmune: Type 2 diabetes GI: GERD, Colon polyps MACHINE EDGE BANDER: None : Incontinence, Chronic bladder infection HEENT: None Psych: Depression, Anxiety - Past Surgical History Past Surgical History: Yes General: 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 Ortho: Other /MACHINE EDGE BANDER: Hysterectomy - Present Medications Home Medications: Ambulatory Orders Medication Instructions Recorded Confirmed Losartan Potassium 0 mg PO DAILY 11/21/14 09/04/16 Propranolol [Inderal] 10 mg PO DAILY 09/04/16 06/06/17 metFORMIN [Glucophage] 500 mg PO DAILY 09/04/16 06/06/17 Carbidopa/Levodopa 25/100 [Sinemet 03/10/18 25 mg/100 mg] Cephalexin [Keflex] 500 mg PO BID #14 capsule 03/10/18 Escitalopram [Lexapro] 20 mg 03/10/18 Melatonin 03/10/18 03/10/18 Mirtazapine 03/10/18 Ondansetron HCl [Zofran] 4 mg PO Q6H PRN #15 tablet 03/10/18 Potassium Chloride [Micro-K] 10 meq PO 03/10/18 Ubidecarenone [Co Q-10] 03/10/18 hydrALAZINE [Apresoline] 03/10/18 03/10/18 - Allergies Allergies/Adverse Reactions: Allergies Allergy/AdvReac Type Severity Reaction Status Date / Time codeine [Codeine] AdvReac Intermediate Nausea Verified 03/10/18 12:50 - Social History Does the pt smoke?: No Smoking Status: Never smoker Does the pt drink ETOH?: No Does the pt have substance abuse?: No - Immunizations Immunizations are current?: Yes - POLST Patient has POLST: No PD ED PE NORMAL - Vitals Vital signs reviewed: Yes - General General: Alert and oriented X 3, No acute distress, Well developed/nourished - HEENT HEENT: Atraumatic, Ears normal, Pharynx benign. No: Moist mucous membranes - Neck Neck: Supple, no meningeal sign, No adenopathy - Cardiac Cardiac: RRR, No murmur - Respiratory Respiratory: Clear bilaterally - Abdomen Abdomen: Soft, Non tender - Female Female : Deferred - Rectal Rectal: Deferred - Back Back: No CVA TTP - Derm Derm: Normal color, Warm and dry - Extremities Extremities: No deformity, No tenderness to palpate, Normal ROM s pain, No edema, No calf tenderness / cord - Neuro Neuro: Alert and oriented X 3, imaging technologist 2-12 intact, No motor deficit, No sensory deficit, Normal speech, Other (slight tremor c/w parkinsons) Eye Opening: Spontaneous Motor: Obeys Commands Verbal: Oriented GCS Score: 15 - Psych Psych: Normal mood Results - Vitals Vitals: Vital Signs - 24 hr 03/10/18 03/10/18 03/10/18 12:45 14:50 15:58 Temperature 36.5 C 37 C Heart Rate 64 70 67 Respiratory 20 18 18 Rate Blood Pressure 97/56 L 149/72 H 146/95 H O2 Saturation 98 100 99 Oxygen O2 Source [With Activity] Room air O2 Source Room air - EKG (time done) 13:48 Rate: Rate (enter#) (66) Rhythm: NSR [place]: Normal Intervals: Normal VT Ischemia: Normal ST segments. No: ST elevation c/w ischemia, ST depression - Labs Labs: Laboratory Tests 03/10/18 03/10/18 03/10/18 13:40 13:40 13:40 WBC 7.6 RBC 4.01 L Hgb 12.6 Hct 37.0 MCV 92.2 MCH 31.3 H MCHC 34.0 RDW 13.5 Plt Count 268 MPV 8.5 Neut # (Auto) 5.2 Lymph # (Auto) 1.7 [place] # (Auto) 0.6 Eos # (Auto) 0.1 Baso # (Auto) 0.0 Absolute Nucleated RBC 0.00 Nucleated RBC % 0.0 Sodium 138 Potassium 3.7 Chloride 102 Carbon Dioxide 25 Anion Gap 11.0 BUN 15 Creatinine 0.6 Estimated GFR (MDRD) 96 Glucose 196 H Calcium 9.4 Magnesium 2.1 Total Bilirubin 0.8 AST 21 ALT < 10 L Alkaline Phosphatase 50 Troponin I < 0.04 Total Protein 6.7 Albumin 3.8 Globulin 2.9 Albumin/Globulin Ratio 1.3 Lipase 32 Urine Color Urine Clarity Urine pH Ur Specific [place] Urine Protein Urine Glucose (UA) Urine Ketones Urine Occult Blood Urine Nitrite Urine Bilirubin Urine Urobilinogen Ur Leukocyte Esterase Urine RBC Urine WBC Urine WBC Clumps Ur Squamous Epith Cells Urine Bacteria Ur Microscopic Review Urine Culture Comments 03/10/18 13:50 WBC RBC Hgb Hct MCV MCH MCHC RDW Plt Count MPV Neut # (Auto) Lymph # (Auto) [place] # (Auto) Eos # (Auto) Baso # (Auto) Absolute Nucleated RBC Nucleated RBC % Sodium Potassium Chloride Carbon Dioxide Anion Gap BUN Creatinine Estimated GFR (MDRD) Glucose Calcium Magnesium Total Bilirubin AST ALT Alkaline Phosphatase Troponin I Total Protein Albumin Globulin Albumin/Globulin Ratio Lipase Urine Color YELLOW Urine Clarity CLEAR Urine pH 5.5 Ur Specific [place] 1.015 Urine Protein NEGATIVE Urine Glucose (UA) NEGATIVE Urine Ketones NEGATIVE Urine Occult Blood NEGATIVE Urine Nitrite POSITIVE H Urine Bilirubin NEGATIVE Urine Urobilinogen 0.2 (NORMAL) Ur Leukocyte Esterase TRACE H Urine RBC 0-5 Urine WBC 6-10 H Urine WBC Clumps PRESENT Ur Squamous Epith Cells NONE SEEN Urine Bacteria Many H Ur Microscopic Review INDICATED Urine Culture Comments INDICATED - Rads (name of study) head CT Radiology: Prelim report reviewed (age related changes. No acute process. ) PD MEDICAL DECISION MAKING - ED course Complexity details: reviewed results, re-evaluated patient (she is feeling much better with IV fluids. ), considered differential (syncope vs seizure, without history of seizures. She had been not feeling well for 2-3 days, was just back out of careage to her apartment and said she had not been eating nor drinking well the past couple days. ), d/w patient, d/w family (granddaughter) - Sepsis Event Vital Signs: Vital Signs - 24 hr 03/10/18 03/10/18 03/10/18 12:45 14:50 15:58 Temperature 36.5 C 37 C Heart Rate 64 70 67 Respiratory 20 18 18 Rate Blood Pressure 97/56 L 149/72 H 146/95 H O2 Saturation 98 100 99 Oxygen O2 Source [With Activity] Room air O2 Source Room air Departure - Departure Disposition: 01 Home, Self Care Clinical Impression: Dehydration Episode of syncope Qualifiers: Syncope type: unspecified Qualified Code(s): R55 - Syncope and collapse UTI (urinary tract infection) Qualifiers: Urinary tract infection type: acute cystitis Hematuria presence: without hematuria Qualified Code(s): N30.00 - Acute cystitis without hematuria Condition: Stable Record reviewed to determine appropriate education?: Yes Instructions: ED Dehydration, ED Fainting Unkn Cause Follow-Up: Oscar Li PA [Primary Care Provider] - Prescriptions: Cephalexin [Keflex] 500 mg PO BID #14 capsule Ondansetron HCl [Zofran] 4 mg PO Q6H PRN #15 tablet PRN Reason: Nausea / Vomiting Comments: Encourage you to drink lots of fluids. I think your episode today was a fainting episode and likely related to under hydration and your bladder infection. Cephalexin as directed for a week for the infection. Ondansetron if needed for nausea. Drink lots of fluids. Continue your other usual medicines. Recheck if recurrent episodes of fainting or seizure like activity as we would have to then rethink the cause. Right now your blood tests vital signs and head scan are normal so does not show a more significant cause. Discharge Date/Time: 03/10/18 15:59
[2018-03-10] MEDS ORDERED: SODIUM CHLORIDE 0.9% 1,000 ML IV ONE ×2 (13:28→13:30)
[2018-03-10 13:47] LABS: BASOPHILS % (AUTO) 0.6 %; EOSINOPHILS # (AUTO) 0.1 10^3/uL (0.0-0.7); EOSINOPHILS % (AUTO) 1.1 %; HGB - HEMOGLOBIN 12.6 g/dL (12.0-16.0); LYMPHOCYTES # (AUTO) 1.7 10^3/uL (1.5-3.5); LYMPHOCYTES % (AUTO) 21.9 %; MEAN CORPUSCULAR HEMOGLOBIN 31.3 pg (27.0-31.0); MEAN CORPUSCULAR VOLUME 92.2 fL (81.0-99.0); MEAN PLATELET VOLUME 8.5 fL (7.9-10.8); MONOCYTES # (AUTO) 0.6 10^3/uL (0.0-1.0); MONOCYTES % (AUTO) 7.8 %; NEUTROPHILS # (AUTO) 5.2 10^3/uL (1.5-6.6); NEUTROPHILS % (AUTO) 68.6 %; PLT - PLATELET COUNT 268 10^3/uL (130-450); RED BLOOD COUNT 4.01 10^6/uL (4.20-5.40); RED CELL DISTRIBUTION WIDTH 13.5 % (12.0-15.0); WHITE BLOOD COUNT 7.6 x10^3/uL (4.8-10.8)
[2018-03-10 13:59] LABS: ALBUMIN 3.8 g/dL (3.2-5.5); ALBUMIN/GLOBULIN RATIO 1.3 (1.0-2.2); ALKALINE PHOSPHATASE 50 IU/L (42-121); ALT ALANINE AMINOTRANSFERASE < 10 IU/L (10-60); AST ASPARTATE AMINOTRANSFERASE 21 IU/L (10-42); BILIRUBIN,TOTAL 0.8 mg/dL (0.2-1.0); BUN - BLOOD UREA NITROGEN 15 mg/dL (6-20); CALCIUM 9.4 mg/dL (8.5-10.3); CARBON DIOXIDE - CO2 25 mmol/L (21-32); CHLORIDE 102 mmol/L (101-111); CREATININE 0.6 mg/dL (0.4-1.0); GFR - MDRD 96 (>89); GLUCOSE 196 mg/dL (70-100); LIPASE 32 U/L (22-51); MAGNESIUM 2.1 mg/dL (1.7-2.8); SODIUM 138 mmol/L (135-145); TOTAL PROTEIN 6.7 g/dL (6.7-8.2)
[2018-03-10 14:16] LABS: BILIRUBIN,URINE NEGATIVE (NEGATIVE); GLUCOSE, URINE (UA) NEGATIVE (NEGATIVE); KETONES,URINE (UA) NEGATIVE (NEGATIVE); LEUKOCYTE ESTERASE, URINE TRACE (NEGATIVE); NITRITE,URINE POSITIVE (NEGATIVE); OCCULT BLOOD,URINE NEGATIVE (NEGATIVE); PH,URINE 5.5 PH (5.0-7.5); PROTEIN,URINE NEGATIVE (NEGATIVE); UROBILINOGEN,URINE 0.2 (NORMAL) E.U./dL (NORMAL)
[2018-03-10 14:21] LABS: CLARITY,URINE CLEAR (CLEAR)
[2018-03-10 14:22] LABS: BACTERIA,URINE Many /HPF (None Seen); RBC,URINE 0-5 /HPF (0-5); SQUAMOUS EPITHELIAL CELL,UR NONE SEEN (<= Few); WBC CLUMPS,URINE PRESENT
--- NOTE | 2018-03-10 14:38 | XRAY Report ---
Reason: fainting episode Procedure Date: 03/10/2018 Accession Number: [id number] / [id number] Procedure: XR - Chest 2 View X-Ray CPT Code: 27295 FULL RESULT: EXAM: CHEST RADIOGRAPHY EXAM DATE: 03/10/2018 02:22 PM. CLINICAL HISTORY: Fainting episode. COMPARISON: None. TECHNIQUE: 2 views. FINDINGS: Lungs/Pleura: No focal opacities evident. No pleural effusion. No pneumothorax. Normal volumes. Mediastinum: Borderline heart size. Heart and mediastinal contours appear otherwise unremarkable. Upper abdominal clips are noted. IMPRESSION: No evidence of acute thoracic process [facility]
[2018-03-10] MEDS ORDERED: cefTRIAXone 1 GM VIAL IVP STA (14:42)
--- NOTE | 2018-03-10 14:43 | CT Report ---
Reason: sycnope vs seizure Procedure Date: 03/10/2018 Accession Number: [id number] / [id number] Procedure: CT - Head W/O CPT Code: FULL RESULT: EXAM: CT HEAD EXAM DATE: 03/10/2018 02:16 PM. CLINICAL HISTORY: Sycnope vs seizure. COMPARISON: 11/21/2014 brain MRI. TECHNIQUE: Multiaxial CT images were obtained from the foramen magnum to the vertex. Reformats: Coronal. IV contrast: None. In accordance with CT protocol optimization, one or more of the following dose reduction techniques were utilized for this exam: automated exposure control, adjustment of mA and/or KV based on patient size, or use of iterative reconstructive technique. FINDINGS: Parenchyma: No intraparenchymal hemorrhage. No evidence of mass, midline shift, or CT findings of infarction. Lou-white differentiation is distinct. There is mild to moderate parenchymal volume loss. There are moderate periventricular hypoattenuating foci, suggesting chronic sequela of microvascular angiopathy. Extraaxial Spaces: No subdural or epidural collections identified. Ventricles: Otherwise normal in size and position. Sinuses and Orbits: Postsurgical orbits are noted. Imaged paranasal sinuses, orbits, and mastoids otherwise show no significant abnormality. Bones: No evidence of fracture or calvarial defect. 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 No evidence of acute intracranial process. [facility]IA
[2018-03-10 15:59] VITALS: BP 146/95
== END 2018-03-10 15:59 | disposition home or self-care (01) ==
LOC: EDUNIT# → ED 12:37
DX: E86.0 Dehydration (principal); R55 Syncope and collapse; N30.00 Acute cystitis without hematuria; I10 Essential (primary) hypertension; E11.9 Type 2 diabetes mellitus without complications; Z79.84 Long term (current) use of oral hypoglycemic drugs
CPT/HCPCS: 36415; 70450; 71046; 80053; 81001; 81003; 83690; 83735; 84484; 85025; 87077; 87086; 87181; 93005; 93010; 96361; 96374; 99283

== ENCOUNTER 2018-03-19 19:20 | Outpatient (CLI) | payer MEDICARE, MEDICAID | END 2018-03-19 19:21 | disposition critical access hospital (66) | LOC: EMS 19:20 | PROVIDERS: ATTEND Surgery | DX: R29.6 Repeated falls (principal); R53.1 Weakness | CPT/HCPCS: A0425; A0427 ==

== ENCOUNTER 2018-03-19 19:24 | Emergency (ER) | payer MEDICARE, MEDICAID ==
[2018-03-19 20:03] LABS: BASOPHILS % (AUTO) 0.2 %; EOSINOPHILS # (AUTO) 0.2 10^3/uL (0.0-0.7); EOSINOPHILS % (AUTO) 2.5 %; HGB - HEMOGLOBIN 11.7 g/dL (12.0-16.0); LYMPHOCYTES # (AUTO) 2.1 10^3/uL (1.5-3.5); LYMPHOCYTES % (AUTO) 32.2 %; MEAN CORPUSCULAR HGB CONC 34.5 g/dL (32.0-36.0); MEAN CORPUSCULAR VOLUME 92.7 fL (81.0-99.0); MEAN PLATELET VOLUME 8.7 fL (7.9-10.8); MONOCYTES # (AUTO) 0.7 10^3/uL (0.0-1.0); MONOCYTES % (AUTO) 11.3 %; NEUTROPHILS # (AUTO) 3.5 10^3/uL (1.5-6.6); NEUTROPHILS % (AUTO) 53.8 %; PLT - PLATELET COUNT 285 10^3/uL (130-450); RED BLOOD COUNT 3.67 10^6/uL (4.20-5.40); RED CELL DISTRIBUTION WIDTH 14.1 % (12.0-15.0); WHITE BLOOD COUNT 6.6 x10^3/uL (4.8-10.8)
[2018-03-19 20:24] LABS: ALBUMIN 3.7 g/dL (3.2-5.5); ALBUMIN/GLOBULIN RATIO 1.3 (1.0-2.2); BILIRUBIN,TOTAL 0.3 mg/dL (0.2-1.0); CALCIUM 9.2 mg/dL (8.5-10.3); CREATININE 0.5 mg/dL (0.4-1.0); TOTAL PROTEIN 6.6 g/dL (6.7-8.2)
--- NOTE | 2018-03-19 20:54 | CT Report ---
Reason: fall head injury Procedure Date: 03/19/2018 Accession Number: [id number] / [id number] Procedure: CT - Head W/O CPT Code: FULL RESULT: EXAM: CT HEAD EXAM DATE: 03/19/2018 08:39 PM. CLINICAL HISTORY: Fall head injury. COMPARISON: 03/10/2018. TECHNIQUE: Multiaxial CT images were obtained from the foramen magnum to the vertex. Reformats: Sagittal and coronal. IV contrast: None. In accordance with CT protocol optimization, one or more of the following dose reduction techniques were utilized for this exam: automated exposure control, adjustment of mA and/or KV based on patient size, or use of iterative reconstructive technique. FINDINGS: Parenchyma: No intraparenchymal hemorrhage. No evidence of mass, midline shift, or CT findings of acute infarction. Lou-white differentiation is distinct. Diffuse chronic microangiopathic white matter changes are evident. Extraaxial Spaces: Normal for age. No subdural or epidural collections identified. Ventricles: The ventricles and cortical sulci are enlarged, consistent with age-related tissue loss. Sinuses and orbits: Imaged paranasal sinuses, orbits, and mastoids show no significant abnormality. Bones: No evidence of fracture or calvarial defect. Other: None. IMPRESSION: Generalized age-related cortical atrophic changes without evidence of acute intracranial abnormality or significant interval change. RADIA
[2018-03-19 21:27] LABS: BILIRUBIN,URINE NEGATIVE (NEGATIVE); GLUCOSE, URINE (UA) 250 mg/dL (NEGATIVE); KETONES,URINE (UA) NEGATIVE (NEGATIVE); LEUKOCYTE ESTERASE, URINE TRACE (NEGATIVE); NITRITE,URINE NEGATIVE (NEGATIVE); OCCULT BLOOD,URINE NEGATIVE (NEGATIVE); PH,URINE 5.5 PH (5.0-7.5); PROTEIN,URINE NEGATIVE (NEGATIVE); UROBILINOGEN,URINE 0.2 (NORMAL) E.U./dL (NORMAL)
--- NOTE | 2018-03-19 21:32 | XRAY Report ---
Reason: fall, injury Procedure Date: 03/19/2018 Accession Number: [id number] / [id number] Procedure: XR - Pelvis 1 View CPT Code: FULL RESULT: EXAM: PELVIS RADIOGRAPHY EXAM DATE: 03/19/2018 09:12 PM. CLINICAL HISTORY: Fall, injury. COMPARISON: None. TECHNIQUE: 1 view. FINDINGS: Bones: Normal. No fracture or bone lesion. Joints: The visualized hip, pubis symphysis, and sacroiliac joints are preserved. No subluxation. Soft Tissues: Multiple phleboliths within the pelvis. IMPRESSION: No evidence of fracture. [facility]
--- NOTE | 2018-03-19 21:34 | XRAY Report ---
Reason: fall, injury Procedure Date: 03/19/2018 Accession Number: [id number] / [id number] Procedure: XR - Elbow 2 View LT CPT Code: FULL RESULT: EXAM: LEFT ELBOW RADIOGRAPHY EXAM DATE: 03/19/2018 09:12 PM. CLINICAL HISTORY: Fall, injury. COMPARISON: None. TECHNIQUE: 2 views. FINDINGS: Bones: Normal. No fractures or bone lesions. Joints: Normal. No effusion. No subluxation. Soft Tissues: An intravenous line is present at the antecubital fossa. IMPRESSION: Normal elbow radiography. [facility]IA
[2018-03-19 21:36] LABS: CLARITY,URINE CLEAR (CLEAR)
--- NOTE | 2018-03-19 21:36 | XRAY Report ---
Reason: fall, injury Procedure Date: 03/19/2018 Accession Number: [id number] / [id number] Procedure: XR - Sacrum/Coccyx CPT Code: FULL RESULT: EXAM: SACRUM AND COCCYX RADIOGRAPHY EXAM DATE: 03/19/2018 09:12 PM. HISTORY: Fall, injury. COMPARISONS: None. TECHNIQUE: 3 views. FINDINGS: Alignment: Normal. The sacrum and coccyx are normally aligned. Bones: Normal. No fracture or bone lesion. Joints: No dislocation. 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 Soft Tissues: Unremarkable. IMPRESSION: 1. No definite evidence of sacrococcygeal fracture. 2. 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 RADIA
[2018-03-19 21:37] LABS: BACTERIA,URINE None Seen /HPF (None Seen); RBC,URINE None Seen /HPF (0-5); SQUAMOUS EPITHELIAL CELL,UR NONE SEEN (<= Few)
--- NOTE | 2018-03-19 21:42 | XRAY Report ---
Reason: fall, weakness Procedure Date: 03/19/2018 Accession Number: [id number] / [id number] Procedure: XR - Chest 2 View X-Ray CPT Code: 16740 FULL RESULT: EXAM: CHEST RADIOGRAPHY EXAM DATE: 03/19/2018 09:12 PM. CLINICAL HISTORY: Fall, weakness. COMPARISON: Chest x-ray 03/10/2018. TECHNIQUE: 2 views. FINDINGS: Lungs/Pleura: No focal opacities evident. No pleural effusion. No pneumothorax. Normal volumes. Mediastinum: Normal heart size with aortic tortuosity. Other: Surgical clips in the right upper quadrant. IMPRESSION: 1. No acute pulmonary consolidation. 2. Prominent tortuosity of the thoracic aorta, similar to the prior exam. RADIA
[2018-03-19 21:57] VITALS: BP 135/75
--- NOTE | 2018-03-19 21:59 | ED Physician Documentation ---
History of Present Illness - Stated complaint Stated Complaint: FALLS, WEAKNESS, DEC BP WHEN STANDING - Chief complaint Chief Complaint: Neuro - History obtained from History obtained from: Patient - Additonal information Additional information: 82-year-old female presents the emergency department after falling today while at home. The patient reports becoming weak and falling backwards striking her head, left elbow and buttocks. The patient reports head pain, left elbow pain and sacrum pain. The patient denies chest pain, palpitations, syncope before or after the event. The patient reports a skin tear on her left elbow. No other associated symptoms. Symptoms are described as moderate. Review of Systems Constitutional: denies: Fever Eyes: denies: Discharge Ears: denies: Ear pain Nose: denies: Congestion Throat: denies: Sore throat Cardiac: denies: Chest pain / pressure Respiratory: denies: Cough GI: denies: Abdominal Pain : denies: Dysuria Skin: reports: Other (Skin tear) Musculoskeletal: reports: Extremity pain Neurologic: reports: Generalized weakness, Head injury. denies: Difficulty speaking PD PAST MEDICAL HISTORY - Past Medical History Cardiovascular: Hypertension, High cholesterol, Arrhythmia, Other Respiratory: Sleep apnea Neuro: Parkinson's Endocrine/Autoimmune: Type 2 diabetes GI: GERD, Colon polyps PARTS CLEANER: None : Incontinence, Chronic bladder infection HEENT: None Psych: Depression, Anxiety - Past Surgical History Past Surgical History: Yes General: 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 Ortho: Other /PARTS CLEANER: Hysterectomy - Present Medications Home Medications: Ambulatory Orders Medication Instructions Recorded Confirmed Losartan Potassium 0 mg PO DAILY 11/21/14 09/04/16 Propranolol [Inderal] 10 mg PO DAILY 09/04/16 06/06/17 metFORMIN [Glucophage] 500 mg PO DAILY 09/04/16 06/06/17 Carbidopa/Levodopa 25/100 [Sinemet 03/10/18 25 mg/100 mg] Cephalexin [Keflex] 500 mg PO BID #14 capsule 03/10/18 Escitalopram [Lexapro] 20 mg 03/10/18 Melatonin 03/10/18 03/10/18 Mirtazapine 03/10/18 Ondansetron HCl [Zofran] 4 mg PO Q6H PRN #15 tablet 03/10/18 Potassium Chloride [Micro-K] 10 meq PO 03/10/18 Ubidecarenone [Co Q-10] 03/10/18 hydrALAZINE [Apresoline] 03/10/18 03/10/18 - Allergies Allergies/Adverse Reactions: Allergies Allergy/AdvReac Type Severity Reaction Status Date / Time codeine [Codeine] AdvReac Intermediate Nausea Verified 03/19/18 19:29 - Social History Does the pt smoke?: No Smoking Status: Never smoker Does the pt drink ETOH?: No Does the pt have substance abuse?: No - Immunizations Immunizations are current?: Yes - POLST Patient has POLST: No PD ED PE NORMAL - General General: Alert and oriented X 3 - HEENT HEENT: PERRL, EOMI, Ears normal. No: Atraumatic (The patient has tenderness in the posterior aspect of the head, there is no laceration, no crepitus, no step- offs or hematomas observed on examination) - Neck Neck: No bony TTP - Cardiac Cardiac: RRR - Respiratory Respiratory: Clear bilaterally - Abdomen Abdomen: Soft, Non tender, Non distended - Derm Derm: Other (The patient has a small skin tear Over the olecranon of the left elbow; there is no area that would benefit from suture repair) - Extremities Extremities: No deformity, Normal ROM s pain, Other (The patient has full active range of motion of bilateral shoulders, elbows and wrists. The patient is tender palpation in the left elbow. The patient has normal radial pulses bilaterally and normal cap refill. The patient has full active range of motion of the bilateral hips, knees and ankles the patient is tender palpation over the sacrum. Normal dorsalis pedis pulses and normal cap refill) - Neuro Neuro: Alert and oriented X 3, No motor deficit, Normal speech - Psych Psych: Normal affect Results - Vitals Vitals: Vital Signs - 24 hr 03/19/18 03/19/18 03/19/18 19:26 21:21 21:57 Temperature 36.8 C Heart Rate 79 61 68 Respiratory 20 18 16 Rate Blood Pressure 138/75 H 175/89 H 135/75 H O2 Saturation 98 100 98 Oxygen O2 Source [With Activity] Room air O2 Source Room air - Labs Labs: Laboratory Tests 03/19/18 03/19/18 03/19/18 19:52 19:52 19:52 WBC 6.6 RBC 3.67 L Hgb 11.7 L Hct 34.0 L MCV 92.7 MCH 32.0 H MCHC 34.5 RDW 14.1 Plt Count 285 MPV 8.7 Neut # (Auto) 3.5 Lymph # (Auto) 2.1 [place] # (Auto) 0.7 Eos # (Auto) 0.2 Baso # (Auto) 0.0 Absolute Nucleated RBC 0.00 Nucleated RBC % 0.0 Sodium 138 Potassium 4.0 Chloride 105 Carbon Dioxide 25 Anion Gap 8.0 BUN 17 Creatinine 0.5 Estimated GFR (MDRD) 118 Glucose 232 H Calcium 9.2 Total Bilirubin 0.3 AST 23 ALT 16 Alkaline Phosphatase 46 Total Creatine Kinase 32 Troponin I Total Protein 6.6 L Albumin 3.7 Globulin 2.9 Albumin/Globulin Ratio 1.3 Lipase 38 Urine Color Urine Clarity Urine pH Ur Specific [place] Urine Protein Urine Glucose (UA) Urine Ketones Urine Occult Blood Urine Nitrite Urine Bilirubin Urine Urobilinogen Ur Leukocyte Esterase Urine RBC Urine WBC Ur Squamous Epith Cells Urine Bacteria Ur Microscopic Review Urine Culture Comments 03/19/18 03/19/18 19:52 21:21 WBC RBC Hgb Hct MCV MCH MCHC RDW Plt Count MPV Neut # (Auto) Lymph # (Auto) [place] # (Auto) Eos # (Auto) Baso # (Auto) Absolute Nucleated RBC Nucleated RBC % Sodium Potassium Chloride Carbon Dioxide Anion Gap BUN Creatinine Estimated GFR (MDRD) Glucose Calcium Total Bilirubin AST ALT Alkaline Phosphatase Total Creatine Kinase Troponin I < 0.04 Total Protein Albumin Globulin Albumin/Globulin Ratio Lipase Urine Color YELLOW Urine Clarity CLEAR Urine pH 5.5 Ur Specific [place] <=1.005 Urine Protein NEGATIVE Urine Glucose (UA) 250 H Urine Ketones NEGATIVE Urine Occult Blood NEGATIVE Urine Nitrite NEGATIVE Urine Bilirubin NEGATIVE Urine Urobilinogen 0.2 (NORMAL) Ur Leukocyte Esterase TRACE H Urine RBC None Seen Urine WBC 4-5 Ur Squamous Epith Cells NONE SEEN Urine Bacteria None Seen Ur Microscopic Review INDICATED Urine Culture Comments INDICATED - Rads (name of study) CT head Radiology: Final report received (IMPRESSION: Generalized age-related cortical atrophic changes without evidence of acute intracranial abnormality or significant interval change.) XR pelvis/sacrum Radiology: Final report received (IMPRESSION: No evidence of fracture. IMPRESSION:1. No definite evidence of sacrococcygeal fracture. 2. 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 ) Elbow Radiology: Final report received (IMPRESSION: Normal elbow radiography. ) CXR Radiology: Final report received (1. No acute pulmonary consolidation. 2. Promi nent tortuosity of the thoracic aorta, similar to the prior exam. ) PD MEDICAL DECISION MAKING - ED course ED course: The patient sustained a fall at home today That thankfully did not result in any serious injury and the patient's metabolic workup is unremarkable. The patient appears appropriate for discharge home since there was no acute finding on her workup that would necessitate admission to the hospital. The patient and her daughter are comfortable with this plan. I discussed with them ways to manage the skin tear on her elbow. Nursing will address that here in the emergency department. I discussed warning signs and recommended returning to the emergency department for any worsening or concerns. - Sepsis Event Vital Signs: Vital Signs - 24 hr 03/19/18 03/19/18 03/19/18 19:26 21:21 21:57 Temperature 36.8 C Heart Rate 79 61 68 Respiratory 20 18 16 Rate Blood Pressure 138/75 H 175/89 H 135/75 H O2 Saturation 98 100 98 Oxygen O2 Source [With Activity] Room air O2 Source Room air Departure - Departure Disposition: 01 Home, Self Care Clinical Impression: Weakness Fall Qualifiers: Encounter type: initial encounter Qualified Code(s): W19.XXXA - Unspecified fall, initial encounter Head injury Qualifiers: Encounter type: initial encounter Qualified Code(s): S09.90XA - Unspecified injury of head, initial encounter Contusion of sacrum Qualifiers: Encounter type: initial encounter Qualified Code(s): S30.0XXA - Contusion of lower back and pelvis, initial encounter Skin tear of elbow without complication Qualifiers: Encounter type: initial encounter Laterality: left Qualified Code(s): S51.012A - Laceration without foreign body of left elbow, initial encounter Elbow contusion Qualifiers: Encounter type: initial encounter Laterality: left Qualified Code(s): S50.02XA - Contusion of left elbow, initial encounter Condition: Good Instructions: ED Contusion Back, ED Head Injury Closed Ch, ED Laceration All, ED Contusion Elbow Ch Follow-Up: Oscar Li PA [Primary Care Provider] - Within 1 week Comments: Please return to the emergency department for worsening symptoms or any concerns.
== END 2018-03-19 22:20 | disposition home or self-care (01) ==
LOC: EDUNIT# → ED 19:24
DX: S09.90XA Unspecified injury of head, initial encounter (principal); S30.0XXA Contusion of lower back and pelvis, initial encounter; S51.012A Laceration without foreign body of left elbow, initial encounter; S50.02XA Contusion of left elbow, initial encounter; I10 Essential (primary) hypertension; E11.9 Type 2 diabetes mellitus without complications; Z79.84 Long term (current) use of oral hypoglycemic drugs; W19.XXXA Unspecified fall, initial encounter; W22.8XXA Striking against or struck by other objects, initial encounter; Y92.009 Unspecified place in unspecified non-institutional (private) residence as the place of occurrence of the external cause
CPT/HCPCS: 36415; 70450; 71046; 72170; 72220; 80053; 81001; 81003; 82550; 83690; 84484; 85025; 87086; 93005; 99283; 99284

== ENCOUNTER 2018-07-08 13:33 | Outpatient (CLI) | payer MEDICARE, MEDICAID ==
[2018-07-08 18:55] LABS: BASOPHILS # (AUTO) 0.1 10^3/uL (0.0-0.1); BASOPHILS % (AUTO) 0.9 %; EOSINOPHILS # (AUTO) 0.1 10^3/uL (0.0-0.7); EOSINOPHILS % (AUTO) 1.4 %; HGB - HEMOGLOBIN 10.8 g/dL (12.0-16.0); LYMPHOCYTES # (AUTO) 1.8 10^3/uL (1.5-3.5); LYMPHOCYTES % (AUTO) 27.8 %; MEAN CORPUSCULAR HEMOGLOBIN 26.3 pg (27.0-31.0); MEAN CORPUSCULAR VOLUME 82.2 fL (81.0-99.0); MEAN PLATELET VOLUME 8.7 fL (7.9-10.8); MONOCYTES # (AUTO) 0.6 10^3/uL (0.0-1.0); MONOCYTES % (AUTO) 9.7 %; NEUTROPHILS # (AUTO) 3.9 10^3/uL (1.5-6.6); NEUTROPHILS % (AUTO) 60.2 %; PLT - PLATELET COUNT 364 10^3/uL (130-450); RED BLOOD COUNT 4.11 10^6/uL (4.20-5.40); RED CELL DISTRIBUTION WIDTH 16.7 % (12.0-15.0); WHITE BLOOD COUNT 6.5 x10^3/uL (4.8-10.8)
[2018-07-08 19:46] LABS: % IRON SATURATION 10 % (20-50); ALBUMIN/GLOBULIN RATIO 1.3 (1.0-2.2); ALKALINE PHOSPHATASE 50 IU/L (42-121); ALT ALANINE AMINOTRANSFERASE < 10 IU/L (10-60); AST ASPARTATE AMINOTRANSFERASE 19 IU/L (10-42); BILIRUBIN,TOTAL 0.5 mg/dL (0.2-1.0); BUN - BLOOD UREA NITROGEN 16 mg/dL (6-20); CALCIUM 9.6 mg/dL (8.5-10.3); CARBON DIOXIDE - CO2 25 mmol/L (21-32); CHLORIDE 105 mmol/L (101-111); CREATININE 0.6 mg/dL (0.4-1.0); GFR - MDRD 96 (>89); GLUCOSE 180 mg/dL (70-100); IRON 40 ug/dL (28-170); PREALBUMIN 23 mg/dL (18-45); SODIUM 138 mmol/L (135-145); TOTAL IRON BINDING CAPACITY 385 ug/dL (250-450); TOTAL PROTEIN 7.1 g/dL (6.7-8.2); TRANSFERRIN 275 mg/dL (192-382)
[2018-07-08 19:50] LABS: HB2 TOTAL 11.1 g/dL; HEMOGLOBIN A1C 0.61 g/dL; HEMOGLOBIN A1C % 7.2 % (4.6-6.2)
[2018-07-08 19:58] LABS: FERRITIN 8.6 ng/mL (11.0-306.8)
== END 2018-07-08 23:59 | disposition home or self-care (01) ==
LOC: LAB.WCP 13:33
PROVIDERS: ATTEND Family Medicine
DX: I10 Essential (primary) hypertension (principal); E11.9 Type 2 diabetes mellitus without complications; G20 Parkinson's disease; D50.9 Iron deficiency anemia, unspecified
CPT/HCPCS: 36415; 80053; 82728; 83036; 83540; 84134; 84443; 84466; 85025

== ENCOUNTER 2019-04-07 10:35 | Outpatient (CLI) | payer MEDICARE, MEDICAID ==
[2019-04-07 10:55] LABS: BASOPHILS # (AUTO) 0.1 10^3/uL (0.0-0.1); BASOPHILS % (AUTO) 0.9 %; EOSINOPHILS # (AUTO) 0.2 10^3/uL (0.0-0.7); EOSINOPHILS % (AUTO) 3.2 %; LYMPHOCYTES # (AUTO) 1.6 10^3/uL (1.5-3.5); LYMPHOCYTES % (AUTO) 28.4 %; MEAN CORPUSCULAR HEMOGLOBIN 28.5 pg (27.0-31.0); MEAN CORPUSCULAR HGB CONC 31.8 g/dL (32.0-36.0); MEAN CORPUSCULAR VOLUME 89.6 fL (81.0-99.0); MEAN PLATELET VOLUME 9.9 fL (7.9-10.8); MONOCYTES # (AUTO) 0.5 10^3/uL (0.0-1.0); MONOCYTES % (AUTO) 8.3 %; NEUTROPHILS # (AUTO) 3.3 10^3/uL (1.5-6.6); NEUTROPHILS % (AUTO) 58.8 %; PLT - PLATELET COUNT 358 10^3/uL (130-450); RED BLOOD COUNT 3.86 10^6/uL (4.20-5.40); RED CELL DISTRIBUTION WIDTH 16.2 % (12.0-15.0); WHITE BLOOD COUNT 5.7 x10^3/uL (4.8-10.8)
[2019-04-07 11:13] LABS: ALBUMIN 3.7 g/dL (3.2-5.5); ALBUMIN/GLOBULIN RATIO 1.2 (1.0-2.2); ALKALINE PHOSPHATASE 50 IU/L (42-121); ALT ALANINE AMINOTRANSFERASE < 10 IU/L (10-60); AST ASPARTATE AMINOTRANSFERASE 13 IU/L (10-42); BILIRUBIN,TOTAL 0.5 mg/dL (0.2-1.0); BUN - BLOOD UREA NITROGEN 17 mg/dL (6-20); CALCIUM 9.4 mg/dL (8.5-10.3); CARBON DIOXIDE - CO2 27 mmol/L (21-32); CHLORIDE 102 mmol/L (101-111); CHOL/HDL RATIO 2.6 (<4.4); CHOLESTEROL 110 mg/dL; CK- CREATINE KINASE 49 IU/L (22-269); CREATININE 0.5 mg/dL (0.4-1.0); GFR - MDRD 118 (>89); GLUCOSE 223 mg/dL (70-100); HDL CHOLESTEROL 42 mg/dL; LDL CHOLESTEROL,CALCULATED 50 mg/dL; LDL/HDL RATIO 1.2 (<4.4); SODIUM 140 mmol/L (135-145); TOTAL PROTEIN 6.9 g/dL (6.7-8.2); VLDL CHOLESTEROL 18 mg/dL
[2019-04-07 11:25] LABS: HB2 TOTAL 11.5 g/dL; HEMOGLOBIN A1C 0.9 g/dL; HEMOGLOBIN A1C % 9.3 % (4.6-6.2)
[2019-04-07 11:46] LABS: THYROID STIMULATING HORMONE 1.23 uIU/mL (0.34-5.60)
== END 2019-04-07 10:36 | disposition home or self-care (01) ==
LOC: LAB 10:35
PROVIDERS: ATTEND Internal Medicine
DX: R41.0 Disorientation, unspecified (principal); E11.9 Type 2 diabetes mellitus without complications; I63.9 Cerebral infarction, unspecified; R25.1 Tremor, unspecified; F32.9 Major depressive disorder, single episode, unspecified; Z79.899 Other long term (current) drug therapy; Z13.6 Encounter for screening for cardiovascular disorders
CPT/HCPCS: 36415; 80053; 80061; 82550; 82607; 83036; 83721; 84443; 85025

== ENCOUNTER 2019-06-18 16:20 | Outpatient (CLI) | payer MEDICARE, MEDICAID | END 2019-06-18 16:21 | disposition critical access hospital (66) | LOC: EMS 16:20 | PROVIDERS: ATTEND Surgery | DX: R53.1 Weakness (principal); R03.0 Elevated blood-pressure reading, without diagnosis of hypertension; R25.1 Tremor, unspecified; R26.2 Difficulty in walking, not elsewhere classified | CPT/HCPCS: A0425; A0429 ==

== ENCOUNTER 2019-06-18 16:25 | Emergency (ER) | payer MEDICARE, MEDICAID ==
--- NOTE | 2019-06-18 16:40 | ED Physician Documentation ---
History of Present Illness - Stated complaint Stated Complaint: GLF - Chief complaint Chief Complaint: General - History obtained from History obtained from: Patient (This is an 83-year-old woman who lives alone. She has a history of essential tremor and intraventricular hemorrhage a couple of years ago. She sat down on the couch and was too weak to get back up which is very atypical. 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 : Incontinence, Chronic bladder infection HEENT: None Psych: Depression, Anxiety - Past Surgical History Past Surgical History: Yes General: 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 Ortho: Other /INSTRUMENTATION TECHNOLOGIST: Hysterectomy - Present Medications Home Medications: Ambulatory Orders Medication Instructions Recorded Confirmed Losartan Potassium 0 mg PO DAILY 11/21/14 09/04/16 Propranolol [Inderal] 10 mg PO DAILY 09/04/16 06/06/17 metFORMIN [Glucophage] 500 mg PO DAILY 09/04/16 06/06/17 Carbidopa/Levodopa 25/100 [Sinemet 03/10/18 25 mg/100 mg] Cephalexin [Keflex] 500 mg PO BID #14 capsule 03/10/18 Escitalopram [Lexapro] 20 mg 03/10/18 Melatonin 03/10/18 03/10/18 Mirtazapine 03/10/18 Ondansetron HCl [Zofran] 4 mg PO Q6H PRN #15 tablet 03/10/18 Potassium Chloride [Micro-K] 10 meq PO 03/10/18 Ubidecarenone [Co Q-10] 03/10/18 hydrALAZINE [Apresoline] 03/10/18 03/10/18 Ciprofloxacin HCl 250 mg PO BID #10 tablet 06/18/19 - Allergies Allergies/Adverse Reactions: Allergies Allergy/AdvReac Type Severity Reaction Status Date / Time codeine [Codeine] AdvReac Intermediate Nausea Verified 06/18/19 16:28 - Social History Does the pt smoke?: No Smoking Status: Never smoker Does the pt drink ETOH?: No Does the pt have substance abuse?: No - Immunizations Immunizations are current?: Yes - POLST Patient has POLST: No PD ED PE NORMAL - Vitals Vital signs reviewed: Yes - General General: Alert and oriented X 3, No acute distress (Severe Essential tremor) - HEENT HEENT: Other (She has extraocular movements normal in the horizontal direction but has significant difficulty looking up more than down.) - Neck Neck: Supple, no meningeal sign, No bony TTP - Cardiac Cardiac: RRR, No murmur - Respiratory Respiratory: No respiratory distress, Clear bilaterally - Abdomen Abdomen: Normal bowel sounds, Soft, Non tender - Back Back: No CVA TTP, No spinal TTP - Derm Derm: Normal color, Warm and dry - Extremities Extremities: No edema, No calf tenderness / cord, Other (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) - Neuro Neuro: Alert and oriented X 3, inter fold roll cutter 2-12 intact, No motor deficit, No sensory deficit, Normal speech Results - Vitals Vitals: Vital Signs - 24 hr 06/18/19 16:28 Temperature 37.0 C Heart Rate 81 Respiratory 14 Rate Blood Pressure 183/105 H O2 Saturation 97 Oxygen O2 Source [With Activity] Room air O2 Source Room air - Labs Labs: Laboratory Tests 06/18/19 06/18/19 06/18/19 17:20 17:20 17:20 WBC 7.0 RBC 4.33 Hgb 12.6 Hct 39.8 MCV 91.9 MCH 29.1 MCHC 31.7 L RDW 15.5 H Plt Count 307 MPV 10.4 Neut # (Auto) 3.2 Lymph # (Auto) 3.0 [place] # (Auto) 0.7 Eos # (Auto) 0.1 Baso # (Auto) 0.0 Absolute Nucleated RBC 0.00 Nucleated RBC % 0.0 PT INR Sodium 140 Potassium 3.6 Chloride 105 Carbon Dioxide 26 Anion Gap 9.0 BUN 12 Creatinine 0.5 Estimated GFR (MDRD) 118 Glucose 171 H Lactic Acid 1.4 Calcium 9.9 Total Bilirubin 0.7 AST 20 ALT 17 Alkaline Phosphatase 47 Total Creatine Kinase 25 Total Protein 7.2 Albumin 4.0 Globulin 3.2 Albumin/Globulin Ratio 1.3 Lipase 34 Urine Color Urine Clarity Urine pH Ur Specific [place] Urine Protein Urine Glucose (UA) Urine Ketones Urine Occult Blood Urine Nitrite Urine Bilirubin Urine Urobilinogen Ur Leukocyte Esterase Ur Microscopic Review Urine Culture Comments Ethyl Alcohol < 5.0 06/18/19 06/18/19 17:20 17:51 WBC RBC Hgb Hct MCV MCH MCHC RDW Plt Count MPV Neut # (Auto) Lymph # (Auto) [place] # (Auto) Eos # (Auto) Baso # (Auto) Absolute Nucleated RBC Nucleated RBC % PT 13.1 H INR 1.2 Sodium Potassium Chloride Carbon Dioxide Anion Gap BUN Creatinine Estimated GFR (MDRD) Glucose Lactic Acid Calcium Total Bilirubin AST ALT Alkaline Phosphatase Total Creatine Kinase Total Protein Albumin Globulin Albumin/Globulin Ratio Lipase Urine Color YELLOW Urine Clarity HAZY Urine pH 5.0 Ur Specific [place] >=1.030 H Urine Protein NEGATIVE Urine Glucose (UA) 250 H Urine Ketones 15 H Urine Occult Blood NEGATIVE Urine Nitrite NEGATIVE Urine Bilirubin NEGATIVE Urine Urobilinogen 0.2 (NORMAL) Ur Leukocyte Esterase TRACE H Ur Microscopic Review INDICATED Urine Culture Comments Not Reportable Ethyl Alcohol PD MEDICAL DECISION MAKING - ED course ED course: 83-year-old woman presents by ambulance after a lift assist because she was too weak to get off the couch today. She really did not want any specific intervention or testing, but her examination is concerning for either hydrocephalus or progressive supranuclear palsy. Her head CT is without acute change. She wanted to be discharged. We will try road testing her first to make sure she is steady. Departure - Departure Disposition: Home, Self Care Clinical Impression: Muscle weakness UTI (urinary tract infection) Qualifiers: Urinary tract infection type: acute cystitis Hematuria presence: without hematuria Qualified Code(s): N30.00 - Acute cystitis without hematuria Condition: Good Record reviewed to determine appropriate education?: Yes Instructions: ED UTI Cystitis Female Follow-Up: Roseann Ramirez MD [Physician No Access] - (next available) Prescriptions: Ciprofloxacin HCl 250 mg PO BID #10 tablet Comments: As discussed, today your examination is concerning for something called progressive supranuclear palsy. I think he should follow-up with a neurologist to better evaluate this. You need to walk with a walker until that is clarified. Return if worse.
[2019-06-18 17:27] LABS: BASOPHILS % (AUTO) 0.6 %; EOSINOPHILS # (AUTO) 0.1 10^3/uL (0.0-0.7); EOSINOPHILS % (AUTO) 1.4 %; HGB - HEMOGLOBIN 12.6 g/dL (12.0-16.0); LYMPHOCYTES % (AUTO) 42.7 %; MEAN CORPUSCULAR HEMOGLOBIN 29.1 pg (27.0-31.0); MEAN CORPUSCULAR HGB CONC 31.7 g/dL (32.0-36.0); MEAN CORPUSCULAR VOLUME 91.9 fL (81.0-99.0); MEAN PLATELET VOLUME 10.4 fL (7.9-10.8); MONOCYTES # (AUTO) 0.7 10^3/uL (0.0-1.0); MONOCYTES % (AUTO) 9.6 %; NEUTROPHILS # (AUTO) 3.2 10^3/uL (1.5-6.6); NEUTROPHILS % (AUTO) 45.4 %; PLT - PLATELET COUNT 307 10^3/uL (130-450); RED BLOOD COUNT 4.33 10^6/uL (4.20-5.40); RED CELL DISTRIBUTION WIDTH 15.5 % (12.0-15.0)
[2019-06-18 17:32] LABS: INR 1.2 (0.8-1.2); PT - PROTHROMBIN TIME 13.1 secs (9.9-12.6)
--- NOTE | 2019-06-18 17:32 | CT Report ---
Reason: weak, unable to look up Procedure Date: 06/18/2019 Accession Number: [id number] / [id number] Procedure: CT - HEAD WO CPT Code: Final Report FULL RESULT: EXAM: CT HEAD EXAM DATE: 06/18/2019 04:54 PM. CLINICAL HISTORY: Weak, unable to look up. Fall. COMPARISON: HEAD W/O 03/19/2018 8:39 PM. TECHNIQUE: Multiaxial CT images were obtained from the foramen magnum to the vertex. Reformats: Sagittal and coronal. IV contrast: None. In accordance with CT protocol optimization, one or more of the following dose reduction techniques were utilized for this exam: automated exposure control, adjustment of mA and/or KV based on patient size, or use of iterative reconstructive technique. FINDINGS: Parenchyma: No acute intraparenchymal hemorrhage. No evidence of midline shift. Lou-white differentiation is distinct. Generalized cerebral volume loss. Nonspecific hypodense changes into the periventricular white matter, which can be seen with chronic small vessel ischemic disease. Extraaxial Spaces: No subdural or epidural collections identified. Ventricles: Ex vacuo dilation of the ventricles. Sinuses and Orbits: Imaged paranasal sinuses, orbits, and mastoids show no significant abnormality. Bones: No evidence of fracture or calvarial defect. Other: None. IMPRESSION: No acute intracranial findings. An acute infarct may not be visible by CT. Follow-up examinations recommended as clinically indicated. [facility]
[2019-06-18 17:41] LABS: ALBUMIN/GLOBULIN RATIO 1.3 (1.0-2.2); ALKALINE PHOSPHATASE 47 IU/L (42-121); ALT ALANINE AMINOTRANSFERASE 17 IU/L (10-60); AST ASPARTATE AMINOTRANSFERASE 20 IU/L (10-42); BILIRUBIN,TOTAL 0.7 mg/dL (0.2-1.0); BUN - BLOOD UREA NITROGEN 12 mg/dL (6-20); CALCIUM 9.9 mg/dL (8.5-10.3); CARBON DIOXIDE - CO2 26 mmol/L (21-32); CHLORIDE 105 mmol/L (101-111); CK- CREATINE KINASE 25 IU/L (22-269); CREATININE 0.5 mg/dL (0.4-1.0); GFR - MDRD 118 (>89); GLUCOSE 171 mg/dL (70-100); LIPASE 34 U/L (22-51); SODIUM 140 mmol/L (135-145); TOTAL PROTEIN 7.2 g/dL (6.7-8.2)
[2019-06-18 17:59] LABS: GLUCOSE, URINE (UA) 250 mg/dL (NEGATIVE); KETONES,URINE (UA) 15 mg/dL (NEGATIVE); LEUKOCYTE ESTERASE, URINE TRACE (NEGATIVE); NITRITE,URINE NEGATIVE (NEGATIVE); OCCULT BLOOD,URINE NEGATIVE (NEGATIVE); PROTEIN,URINE NEGATIVE (NEGATIVE); UROBILINOGEN,URINE 0.2 (NORMAL) E.U./dL (NORMAL)
[2019-06-18 18:02] LABS: BILIRUBIN,URINE NEGATIVE (NEGATIVE); CLARITY,URINE HAZY (CLEAR); ICTOTEST,URINE NEGATIVE
[2019-06-18] MEDS ORDERED: CIPROFLOXACIN 250 MG TABLET PO STA (18:08)
[2019-06-18 18:10] LABS: BACTERIA,URINE Moderate /HPF (None Seen); RBC,URINE 0-5 /HPF (0-5); SQUAMOUS EPITHELIAL CELL,UR NONE SEEN (<= Few)
[2019-06-18 18:20] VITALS: BP 170/91
== END 2019-06-18 18:33 | disposition home or self-care (01) ==
LOC: EDBD → EDUNIT# → ED 16:25
DX: M62.81 Muscle weakness (generalized) (principal); N30.00 Acute cystitis without hematuria; I10 Essential (primary) hypertension; E11.9 Type 2 diabetes mellitus without complications; Z79.84 Long term (current) use of oral hypoglycemic drugs; G20 Parkinson's disease
CPT/HCPCS: 36415; 70450; 80053; 81001; 82550; 83605; 83690; 85025; 85610; 87086; 99283; 99284; A9270; 80320; 81003

== ENCOUNTER 2019-06-23 10:08 | Outpatient (CLI) | payer MEDICARE, MEDICAID | END 2019-06-23 10:09 | disposition EMS.NT | LOC: EMS 10:08 | PROVIDERS: ATTEND Surgery | DX: Z03.89 Encounter for observation for other suspected diseases and conditions ruled out (principal) ==

== ENCOUNTER 2019-06-26 11:10 | Outpatient (CLI) | payer MEDICARE, MEDICAID | END 2019-06-26 11:11 | disposition critical access hospital (66) | LOC: EMS 11:10 | PROVIDERS: ATTEND Surgery | DX: R53.1 Weakness (principal) | CPT/HCPCS: A0425; A0429 ==

== ENCOUNTER 2019-06-26 11:17 | Emergency (ER) | payer MEDICARE, MEDICAID ==
[2019-06-26 12:33] LABS: BASOPHILS # (AUTO) 0.1 10^3/uL (0.0-0.1); BASOPHILS % (AUTO) 0.9 %; EOSINOPHILS # (AUTO) 0.1 10^3/uL (0.0-0.7); EOSINOPHILS % (AUTO) 1.3 %; HGB - HEMOGLOBIN 11.9 g/dL (12.0-16.0); LYMPHOCYTES # (AUTO) 2.1 10^3/uL (1.5-3.5); LYMPHOCYTES % (AUTO) 38.1 %; MEAN CORPUSCULAR HGB CONC 31.8 g/dL (32.0-36.0); MEAN CORPUSCULAR VOLUME 91.2 fL (81.0-99.0); MEAN PLATELET VOLUME 10.3 fL (7.9-10.8); MONOCYTES # (AUTO) 0.5 10^3/uL (0.0-1.0); MONOCYTES % (AUTO) 9.3 %; NEUTROPHILS # (AUTO) 2.8 10^3/uL (1.5-6.6); NEUTROPHILS % (AUTO) 50.2 %; PLT - PLATELET COUNT 298 10^3/uL (130-450); RED CELL DISTRIBUTION WIDTH 15.8 % (12.0-15.0); WHITE BLOOD COUNT 5.5 x10^3/uL (4.8-10.8)
--- NOTE | 2019-06-26 12:45 | XRAY Report ---
Reason: weakness Procedure Date: 06/26/2019 Accession Number: [id number] / [id number] Procedure: XR - Chest 1 View X-Ray CPT Code: 19685 Final Report FULL RESULT: EXAM: CHEST RADIOGRAPHY EXAM DATE: 06/26/2019 12:19 PM. CLINICAL HISTORY: Lethargy. COMPARISON: CHEST 2 VIEW 03/19/2018 8:37 PM. TECHNIQUE: 1 view. FINDINGS: Lungs/Pleura: No focal opacities evident. No pleural effusion. No pneumothorax. Mediastinum: Mild aortic unfolding. The heart size lies within normal limits. 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 There is a healed fracture of the right surgical neck of humerus. IMPRESSION: No acute pathology. [facility]
[2019-06-26 12:46] LABS: ALBUMIN 3.7 g/dL (3.2-5.5); ALBUMIN/GLOBULIN RATIO 1.3 (1.0-2.2); BILIRUBIN,TOTAL 0.7 mg/dL (0.2-1.0); CALCIUM 9.4 mg/dL (8.5-10.3); CREATININE 0.5 mg/dL (0.4-1.0); TOTAL PROTEIN 6.5 g/dL (6.7-8.2)
--- NOTE | 2019-06-26 13:33 | ED Physician Documentation ---
History of Present Illness - Stated complaint Stated Complaint: WEAKNESS - Chief complaint Chief Complaint: General - History obtained from History obtained from: Patient - Additonal information Additional information: This is an 83-year-old woman who lives alone and has had to call the ambulance 3 of the last 5 days because she could not get up out of bed. She was in [facility] 3 months for similar episode of weakness and went back home to live alone since February. She is currently being treated for urinary tract infection. She has an aide that comes and 4-1/2 days a week but her daughter also checks on her most nights and make sure that she has eaten. She will eat the food that the aide has made because she thinks the aide does not wash her hands. There is conflicting stories about whether or not she has fallen patient is adamant that she has not fallen. She denies any pain anywhere. Sounds like she really did not want to come to the emergency department today but because it was the third call was pretty much insisted upon. Review of Systems Constitutional: denies: Fever Ears: denies: Ear pain Nose: denies: Congestion Throat: denies: Sore throat Cardiac: denies: Chest pain / pressure, Palpitations Respiratory: denies: Dyspnea GI: denies: Abdominal Pain, Nausea, Vomiting, Diarrhea : reports: Other (Current antibiotics for urinary tract infection). denies: Dysuria Skin: denies: Rash Neurologic: reports: Generalized weakness. denies: Focal weakness, Syncope, Head injury PD PAST MEDICAL HISTORY - Past Medical History Past Medical History: Yes Cardiovascular: Hypertension, High cholesterol, Arrhythmia, Other Respiratory: Sleep apnea Neuro: Parkinson's Endocrine/Autoimmune: Type 2 diabetes GI: GERD, Colon polyps [employer] NETWORK ENGINEER: None : Incontinence, Chronic bladder infection HEENT: None Psych: Depression, Anxiety - Past Surgical History Past Surgical History: Yes General: 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 Ortho: Other /[employer]WORK ENGINEER: Hysterectomy - Present Medications Home Medications: Ambulatory Orders Medication Instructions Recorded Confirmed Losartan Potassium 0 mg PO DAILY 11/21/14 06/26/19 Propranolol [Inderal] 10 mg PO BID 09/04/16 06/06/17 metFORMIN [Glucophage] 500 mg PO DAILY 09/04/16 06/26/19 Carbidopa/Levodopa 25/100 [Sinemet 200 mg PO DAILY 03/10/18 06/26/19 25 mg/100 mg] Cephalexin [Keflex] 500 mg PO BID #14 capsule 03/10/18 06/26/19 Escitalopram [Lexapro] 20 mg PO DAILY 03/10/18 Melatonin 5 mg PO DAILY 03/10/18 06/26/19 Mirtazapine 7.5 mg PO BID 03/10/18 06/26/19 Ondansetron HCl [Zofran] 4 mg PO Q6H PRN #15 tablet 03/10/18 06/26/19 Potassium Chloride [Micro-K] 10 meq PO DAILY 03/10/18 06/26/19 Ubidecarenone [Co Q-10] 100 mg PO DAILY 03/10/18 06/26/19 hydrALAZINE [Apresoline] 25 mg PO DAILY 03/10/18 06/26/19 Ciprofloxacin HCl 250 mg PO BID #10 tablet 06/18/19 06/26/19 - Allergies Allergies/Adverse Reactions: Allergies Allergy/AdvReac Type Severity Reaction Status Date / Time codeine [Codeine] AdvReac Intermediate Nausea Verified 06/26/19 11:26 - Social History Does the pt smoke?: No Smoking Status: Never smoker Does the pt drink ETOH?: No Does the pt have substance abuse?: No - Immunizations Immunizations are current?: Yes - POLST Patient has POLST: No PD ED PE NORMAL - Vitals Vital signs reviewed: Yes - General General: Alert and oriented X 3, No acute distress, Well developed/nourished - HEENT HEENT: Atraumatic, PERRL. No: Moist mucous membranes (Mucous membranes are dry) - Neck Neck: No adenopathy, No JVD - Cardiac Cardiac: RRR, No murmur, Strong equal pulses - Respiratory Respiratory: No respiratory distress, Clear bilaterally - Abdomen Abdomen: Normal bowel sounds, Soft, Other - Derm Derm: Normal color, Warm and dry, No rash - Extremities Extremities: No tenderness to palpate, Normal ROM s pain, No edema - Neuro Neuro: Alert and oriented X 3, environmental adviser 2-12 intact, No motor deficit, No sensory deficit, Normal speech, Other (She is noted to have a resting tremor) - Psych Psych: Normal mood, Normal affect Results - Vitals Vitals: Vital Signs - 24 hr 06/26/19 06/26/19 06/26/19 11:17 12:36 14:22 Temperature 36.9 C Heart Rate 76 66 75 Respiratory 20 16 17 Rate Blood Pressure 153/89 H 148/62 H 148/62 H O2 Saturation 97 94 95 06/26/19 16:48 Temperature 36.7 C Heart Rate 82 Respiratory 14 Rate Blood Pressure 160/97 H O2 Saturation 96 Oxygen O2 Source [] Room air O2 Source Room air - EKG (time done) 1218 Rate: Rate (enter#) (68) Rhythm: NSR Intervals: No: Wide QRS Ischemia: Non specific changes Other comments: Other comments (Artifact) - Labs Labs: Laboratory Tests 06/26/19 06/26/19 06/26/19 12:27 12:27 12:27 WBC 5.5 RBC 4.10 L Hgb 11.9 L Hct 37.4 MCV 91.2 MCH 29.0 MCHC 31.8 L RDW 15.8 H Plt Count 298 MPV 10.3 Neut # (Auto) 2.8 Lymph # (Auto) 2.1 [place] # (Auto) 0.5 Eos # (Auto) 0.1 Baso # (Auto) 0.1 Absolute Nucleated RBC 0.00 Nucleated RBC % 0.0 Sodium 143 Potassium 3.8 Chloride 106 Carbon Dioxide 29 Anion Gap 8.0 BUN 19 Creatinine 0.5 Estimated GFR (MDRD) 118 Glucose 158 H Calcium 9.4 Total Bilirubin 0.7 AST 18 ALT 13 Alkaline Phosphatase 47 Troponin I High Sens 4.2 Total Protein 6.5 L Albumin 3.7 Globulin 2.8 Albumin/Globulin Ratio 1.3 Lipase 40 Urine Color Urine Clarity Urine pH Ur Specific [place] Urine Protein Urine Glucose (UA) Urine Ketones Urine Occult Blood Urine Nitrite Urine Bilirubin Urine Urobilinogen Ur Leukocyte Esterase Ur Microscopic Review Urine Culture Comments 06/26/19 13:50 WBC RBC Hgb Hct MCV MCH MCHC RDW Plt Count MPV Neut # (Auto) Lymph # (Auto) [place] # (Auto) Eos # (Auto) Baso # (Auto) Absolute Nucleated RBC Nucleated RBC % Sodium Potassium Chloride Carbon Dioxide Anion Gap BUN Creatinine Estimated GFR (MDRD) Glucose Calcium Total Bilirubin AST ALT Alkaline Phosphatase Troponin I High Sens Total Protein Albumin Globulin Albumin/Globulin Ratio Lipase Urine Color YELLOW Urine Clarity CLEAR Urine pH 5.5 Ur Specific [place] >=1.030 H Urine Protein NEGATIVE Urine Glucose (UA) 250 H Urine Ketones 15 H Urine Occult Blood NEGATIVE Urine Nitrite NEGATIVE Urine Bilirubin NEGATIVE Urine Urobilinogen 0.2 (NORMAL) Ur Leukocyte Esterase NEGATIVE Ur Microscopic Review NOT INDICATED Urine Culture Comments NOT INDICATED - Rads (name of study) CXR Radiology: See rad report (Neg acute) PD MEDICAL DECISION MAKING - ED course Complexity details: reviewed results, d/w patient, d/w family ED course: Patient's urinalysis is very concentrated and she does not have signs of urinary tract infection. She is currently on antibiotics. She is not anemic and her kidney function is good. Chest x-ray shows no pneumonia. She will be hydrated with a liter of fluids and the daughter feels like she can go home tonight but had a discussion with the patient that she cannot keep calling 911 for lift assist or they may need to seek placement. Departure - Departure Disposition: 01 Home, Self Care Clinical Impression: Dehydration, Weakness Condition: Good Instructions: ED Dehydration Follow-Up: Bre Spivey MD [Primary Care Provider] - Comments: Make sure that you are drinking plenty of fluids and eating regular meals. Follow-up with your primary care provider as needed. Return to the emergency department as needed. Discharge Date/Time: 06/26/19 17:44
[2019-06-26 14:29] LABS: BILIRUBIN,URINE NEGATIVE (NEGATIVE); GLUCOSE, URINE (UA) 250 mg/dL (NEGATIVE); KETONES,URINE (UA) 15 mg/dL (NEGATIVE); LEUKOCYTE ESTERASE, URINE NEGATIVE (NEGATIVE); NITRITE,URINE NEGATIVE (NEGATIVE); OCCULT BLOOD,URINE NEGATIVE (NEGATIVE); PH,URINE 5.5 PH (5.0-7.5); PROTEIN,URINE NEGATIVE (NEGATIVE); UROBILINOGEN,URINE 0.2 (NORMAL) E.U./dL (NORMAL)
[2019-06-26 14:30] LABS: CLARITY,URINE CLEAR (CLEAR)
[2019-06-26] MEDS ORDERED: SODIUM CHLORIDE 0.9% 1,000 ML IV ONE (15:14)
[2019-06-26 16:49] VITALS: BP 160/97
== END 2019-06-26 17:44 | disposition home or self-care (01) ==
LOC: EDUNIT# → ED 11:17
DX: E86.0 Dehydration (principal); R53.1 Weakness; I10 Essential (primary) hypertension; E11.9 Type 2 diabetes mellitus without complications; Z79.84 Long term (current) use of oral hypoglycemic drugs; G20 Parkinson's disease
CPT/HCPCS: 36415; 51701; 71045; 80053; 81001; 81003; 83690; 84484; 85025; 87086; 93005; 96360; 99283

== ENCOUNTER 2019-07-09 07:37 | Outpatient (CLI) | payer MEDICARE, MEDICAID | END 2019-07-09 07:38 | disposition EMS.NT | LOC: EMS 07:37 | PROVIDERS: ATTEND Surgery | DX: Z03.89 Encounter for observation for other suspected diseases and conditions ruled out (principal) ==

== ENCOUNTER 2019-07-17 15:52 | Outpatient (CLI) | payer MEDICARE, MEDICAID | END 2019-07-17 15:53 | disposition EMS.NT | LOC: EMS 15:52 | PROVIDERS: ATTEND Surgery | DX: Z03.89 Encounter for observation for other suspected diseases and conditions ruled out (principal) ==

== ENCOUNTER 2019-07-20 11:36 | Outpatient (CLI) | payer MEDICARE, MEDICAID | END 2019-07-20 11:37 | disposition EMS.NT | LOC: EMS 11:36 | PROVIDERS: ATTEND Surgery | DX: Z03.89 Encounter for observation for other suspected diseases and conditions ruled out (principal) ==

== ENCOUNTER 2019-07-20 19:08 | Outpatient (CLI) | payer MEDICARE, MEDICAID | END 2019-07-20 19:09 | disposition critical access hospital (66) | LOC: EMS 19:08 | PROVIDERS: ATTEND Surgery | DX: R53.1 Weakness (principal); W01.0XXA Fall on same level from slipping, tripping and stumbling without subsequent striking against object, initial encounter; Y92.039 Unspecified place in apartment as the place of occurrence of the external cause | CPT/HCPCS: A0425; A0429 ==

== ENCOUNTER 2019-07-20 19:11 | Emergency (ER) | payer MEDICARE, MEDICAID ==
--- NOTE | 2019-07-20 19:30 | ED Physician Documentation ---
PD HPI HEAD INJURY - Stated complaint Stated Complaint: GENERALIZED WEAKNESS - Chief complaint Chief Complaint: Neuro - History obtained from History obtained from: Patient, EMS - History of Present Illness Mechanism of head injury: Other (The history is primarily obtained from the nurse to obtain history from EMS. The patient apparently has progressive dementia and she lives at home by herself and does have a supervisor general who checks on her once daily however her supervisor general did not show up to evaluate her today EMS then went on a well check and found the patient sitting on the floor with no signs of trauma and brought the patient to the emergency department for evaluation.The patient denies any complaints currently however she is not oriented to time but she is oriented to place and person.) Review of Systems Unable to obtain: Dementia PD PAST MEDICAL HISTORY - Past Medical History Cardiovascular: Hypertension, High cholesterol, Arrhythmia, Other Respiratory: Sleep apnea Neuro: Parkinson's Endocrine/Autoimmune: Type 2 diabetes GI: GERD, Colon polyps SERVICES MGR: None : Incontinence, Chronic bladder infection HEENT: None Psych: Depression, Anxiety - Past Surgical History Past Surgical History: Yes General: 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 Ortho: Other /SERVICES MGR: Hysterectomy - Present Medications Home Medications: Ambulatory Orders Medication Instructions Recorded Confirmed Losartan Potassium 0 mg PO DAILY 11/21/14 06/26/19 Propranolol [Inderal] 10 mg PO BID 09/04/16 06/06/17 metFORMIN [Glucophage] 500 mg PO DAILY 09/04/16 06/26/19 Carbidopa/Levodopa 25/100 [Sinemet 200 mg PO DAILY 03/10/18 06/26/19 25 mg/100 mg] Cephalexin [Keflex] 500 mg PO BID #14 capsule 03/10/18 06/26/19 Escitalopram [Lexapro] 20 mg PO DAILY 03/10/18 Melatonin 5 mg PO DAILY 03/10/18 06/26/19 Mirtazapine 7.5 mg PO BID 03/10/18 06/26/19 Ondansetron HCl [Zofran] 4 mg PO Q6H PRN #15 tablet 03/10/18 06/26/19 Potassium Chloride [Micro-K] 10 meq PO DAILY 03/10/18 06/26/19 Ubidecarenone [Co Q-10] 100 mg PO DAILY 03/10/18 06/26/19 hydrALAZINE [Apresoline] 25 mg PO DAILY 03/10/18 06/26/19 Ciprofloxacin HCl 250 mg PO BID #10 tablet 06/18/19 06/26/19 - Allergies Allergies/Adverse Reactions: Allergies Allergy/AdvReac Type Severity Reaction Status Date / Time codeine [Codeine] AdvReac Intermediate Nausea Verified 06/26/19 11:26 - Social History Does the pt smoke?: No Smoking Status: Never smoker Does the pt drink ETOH?: No Does the pt have substance abuse?: No - Immunizations Immunizations are current?: Yes - POLST Patient has POLST: No PD ED PE NORMAL - Vitals Vital signs reviewed: Yes - General General: No acute distress, Other (The patient's disheveled there is no obvious signs of trauma there is no skull depression or deformities she does arrive in a c-collar however the c-collar was removed by myself.As there is no cervical tenderness palpation there is no obvious signs of trauma the patient is able to move all of her extremities and follow commands.) - HEENT HEENT: PERRL, Other (The patient has dry mucous membranes she has poor hygiene and poor dentition) - Neck Neck: Supple, no meningeal sign - Cardiac Cardiac: RRR, No murmur - Respiratory Respiratory: Clear bilaterally - Abdomen Abdomen: Normal bowel sounds, Soft, Non tender, Non distended - Derm Derm: Warm and dry - Extremities Extremities: No deformity - Neuro Neuro: Other (The patient is confused, she is not oriented to time or place but she will respond appropriately there is no gross deformities there is no obvious facial droop or unilateral weakness.) - Psych Psych: Normal mood, Normal affect Results - Vitals Vitals: Vital Signs - 24 hr 07/20/19 07/20/19 07/20/19 19:13 21:20 23:17 Temperature 36.4 C L Heart Rate 72 75 64 Respiratory 18 14 18 Rate Blood Pressure 123/71 111/65 124/55 L O2 Saturation 97 94 100 07/21/19 07/21/19 01:00 01:30 Temperature Heart Rate 81 82 Respiratory 17 11 L Rate Blood Pressure 124/57 L 146/123 H O2 Saturation 95 92 Oxygen O2 Source [] Room air O2 Source Room air - EKG (time done) 19:55 Rhythm: NSR [place]: Normal Intervals: Normal CO QRS: Normal Ischemia: T wave inversion Other comments: Other comments - Labs Labs: Laboratory Tests 07/20/19 07/20/19 07/20/19 19:56 19:56 19:56 WBC 8.6 RBC 4.08 L Hgb 12.1 Hct 37.0 MCV 90.7 MCH 29.7 MCHC 32.7 RDW 14.7 Plt Count 286 MPV 10.5 Neut # (Auto) 6.3 Lymph # (Auto) 1.4 L [place] # (Auto) 0.7 Eos # (Auto) 0.1 Baso # (Auto) 0.1 Absolute Nucleated RBC 0.00 Nucleated RBC % 0.0 PT 12.9 H INR 1.1 APTT 23.4 L Sodium 139 Potassium 3.6 Chloride 103 Carbon Dioxide 25 Anion Gap 11.0 BUN 14 Creatinine 0.5 Estimated GFR (MDRD) 118 Glucose 274 H Lactic Acid Calcium 9.1 Total Bilirubin 0.8 AST 24 ALT < 10 L Alkaline Phosphatase 40 L Total Creatine Kinase 25 CK-MB (CK-2) Troponin I High Sens B-Natriuretic Peptide Total Protein 6.5 L Albumin 3.8 Globulin 2.7 Albumin/Globulin Ratio 1.4 Lipase 35 TSH Urine Color Urine Clarity Urine pH Ur Specific [place] Urine Protein Urine Glucose (UA) Urine Ketones Urine Occult Blood Urine Nitrite Urine Bilirubin Urine Urobilinogen Ur Leukocyte Esterase Ur Microscopic Review Urine Culture Comments Salicylates < 6.0 Urine Opiates Screen Ur Oxycodone Screen Urine Methadone Screen Ur Propoxyphene Screen Acetaminophen < 10 L Ur Barbiturates Screen Ur Tricyclics Screen Ur Phencyclidine Scrn Ur Amphetamine Screen U Methamphetamines Scrn U Benzodiazepines Scrn Urine Cocaine Screen U Cannabinoids Screen Ethyl Alcohol < 5.0 07/20/19 07/20/19 07/20/19 19:56 19:56 19:56 WBC RBC Hgb Hct MCV MCH MCHC RDW Plt Count MPV Neut # (Auto) Lymph # (Auto) [place] # (Auto) Eos # (Auto) Baso # (Auto) Absolute Nucleated RBC Nucleated RBC % PT INR APTT Sodium Potassium Chloride Carbon Dioxide Anion Gap BUN Creatinine Estimated GFR (MDRD) Glucose Lactic Acid 2.5 H Calcium Total Bilirubin AST ALT Alkaline Phosphatase Total Creatine Kinase CK-MB (CK-2) 0.8 Troponin I High Sens B-Natriuretic Peptide 62 Total Protein Albumin Globulin Albumin/Globulin Ratio Lipase TSH Urine Color Urine Clarity Urine pH Ur Specific [place] Urine Protein Urine Glucose (UA) Urine Ketones Urine Occult Blood Urine Nitrite Urine Bilirubin Urine Urobilinogen Ur Leukocyte Esterase Ur Microscopic Review Urine Culture Comments Salicylates Urine Opiates Screen Ur Oxycodone Screen Urine Methadone Screen Ur Propoxyphene Screen Acetaminophen Ur Barbiturates Screen Ur Tricyclics Screen Ur Phencyclidine Scrn Ur Amphetamine Screen U Methamphetamines Scrn U Benzodiazepines Scrn Urine Cocaine Screen U Cannabinoids Screen Ethyl Alcohol 07/20/19 07/20/19 07/21/19 19:56 19:56 00:10 WBC RBC Hgb Hct MCV MCH MCHC RDW Plt Count MPV Neut # (Auto) Lymph # (Auto) [place] # (Auto) Eos # (Auto) Baso # (Auto) Absolute Nucleated RBC Nucleated RBC % PT INR APTT Sodium Potassium Chloride Carbon Dioxide Anion Gap BUN Creatinine Estimated GFR (MDRD) Glucose Lactic Acid Calcium Total Bilirubin AST ALT Alkaline Phosphatase Total Creatine Kinase CK-MB (CK-2) Troponin I High Sens 7.0 B-Natriuretic Peptide Total Protein Albumin Globulin Albumin/Globulin Ratio Lipase TSH 1.41 Urine Color YELLOW Urine Clarity CLEAR Urine pH 5.5 Ur Specific [place] 1.015 Urine Protein NEGATIVE Urine Glucose (UA) 250 H Urine Ketones [place]ACE Urine Occult Blood NEGATIVE Urine Nitrite NEGATIVE Urine Bilirubin NEGATIVE Urine Urobilinogen 0.2 (NORMAL) Ur Leukocyte Esterase NEGATIVE Ur Microscopic Review NOT INDICATED Urine Culture Comments NOT INDICATED Salicylates Urine Opiates Screen NEGATIVE Ur Oxycodone Screen NEGATIVE Urine Methadone Screen NEGATIVE Ur Propoxyphene Screen NEGATIVE Acetaminophen Ur Barbiturates Screen NEGATIVE Ur Tricyclics Screen NEGATIVE Ur Phencyclidine Scrn NEGATIVE Ur Amphetamine Screen NEGATIVE U Methamphetamines Scrn NEGATIVE U Benzodiazepines Scrn NEGATIVE Urine Cocaine Screen NEGATIVE U Cannabinoids Screen NEGATIVE Ethyl Alcohol Departure - Departure Disposition: 01 Home, Self Care Clinical Impression: Dementia Qualifiers: Dementia type: unspecified type Dementia behavioral disturbance: without behavioral disturbance Qualified Code(s): F03.90 - Unspecified dementia without behavioral disturbance Condition: Fair Instructions: ED Dementia Caregiver Support Follow-Up: Bre Spivey MD [Primary Care Provider] - Tomorrow
[2019-07-20] MEDS ORDERED: SODIUM CHLORIDE 0.9% 1,000 ML IV ONE (19:50)
[2019-07-20 20:07] LABS: BASOPHILS # (AUTO) 0.1 10^3/uL (0.0-0.1); BASOPHILS % (AUTO) 0.6 %; EOSINOPHILS # (AUTO) 0.1 10^3/uL (0.0-0.7); EOSINOPHILS % (AUTO) 0.9 %; HGB - HEMOGLOBIN 12.1 g/dL (12.0-16.0); LYMPHOCYTES # (AUTO) 1.4 10^3/uL (1.5-3.5); LYMPHOCYTES % (AUTO) 16.1 %; MEAN CORPUSCULAR HEMOGLOBIN 29.7 pg (27.0-31.0); MEAN CORPUSCULAR HGB CONC 32.7 g/dL (32.0-36.0); MEAN CORPUSCULAR VOLUME 90.7 fL (81.0-99.0); MEAN PLATELET VOLUME 10.5 fL (7.9-10.8); MONOCYTES # (AUTO) 0.7 10^3/uL (0.0-1.0); MONOCYTES % (AUTO) 8.4 %; NEUTROPHILS # (AUTO) 6.3 10^3/uL (1.5-6.6); NEUTROPHILS % (AUTO) 73.5 %; PLT - PLATELET COUNT 286 10^3/uL (130-450); RED BLOOD COUNT 4.08 10^6/uL (4.20-5.40); RED CELL DISTRIBUTION WIDTH 14.7 % (12.0-15.0); WHITE BLOOD COUNT 8.6 x10^3/uL (4.8-10.8)
[2019-07-20 20:10] LABS: INR 1.1 (0.8-1.2); PT - PROTHROMBIN TIME 12.9 secs (9.9-12.6)
[2019-07-20 20:18] LABS: PARTIAL THROMBOPLASTIN TIME 23.4 secs (24.9-33.3)
[2019-07-20 20:21] LABS: ACETAMINOPHEN < 10 ug/mL (10-30); ALBUMIN 3.8 g/dL (3.2-5.5); ALBUMIN/GLOBULIN RATIO 1.4 (1.0-2.2); ALKALINE PHOSPHATASE 40 IU/L (42-121); ALT ALANINE AMINOTRANSFERASE < 10 IU/L (10-60); AST ASPARTATE AMINOTRANSFERASE 24 IU/L (10-42); BILIRUBIN,TOTAL 0.8 mg/dL (0.2-1.0); BUN - BLOOD UREA NITROGEN 14 mg/dL (6-20); CALCIUM 9.1 mg/dL (8.5-10.3); CARBON DIOXIDE - CO2 25 mmol/L (21-32); CHLORIDE 103 mmol/L (101-111); CK- CREATINE KINASE 25 IU/L (22-269); CREATININE 0.5 mg/dL (0.4-1.0); GFR - MDRD 118 (>89); GLUCOSE 274 mg/dL (70-100); LIPASE 35 U/L (22-51); SALICYLATE < 6.0 mg/dL; SODIUM 139 mmol/L (135-145); TOTAL PROTEIN 6.5 g/dL (6.7-8.2)
--- NOTE | 2019-07-20 20:22 | XRAY Report ---
Reason: ams Procedure Date: 07/20/2019 Accession Number: [id number] / [id number] Procedure: XR - Chest 1 View X-Ray CPT Code: 73550 Final Report FULL RESULT: EXAM: CHEST RADIOGRAPHY EXAM DATE: 07/20/2019 08:13 PM. CLINICAL HISTORY: Altered mental status. COMPARISON: CHEST 1 VIEW 06/26/2019 12:02 PM. TECHNIQUE: 1 view. FINDINGS: Lungs/Pleura: No focal opacities evident. No pleural effusion. No pneumothorax. Mediastinum: Within exam limitations, the cardiomediastinal contour is normal. Other: Chronic right shoulder abnormalities noted. IMPRESSION: No acute abnormality or interval change. RADIA
--- NOTE | 2019-07-20 20:36 | CT Report ---
Reason: AMS Procedure Date: 07/20/2019 Accession Number: [id number] / [id number] Procedure: CT - HEAD WO CPT Code: Final Report FULL RESULT: EXAM: CT HEAD WITHOUT CONTRAST. EXAM DATE: 07/20/2019 08:22 PM. CLINICAL HISTORY: Altered mental status. COMPARISON: HEAD W/O 06/18/2019 4:49 PM. TECHNIQUE: Multiaxial CT images were obtained from the foramen magnum to the vertex. Reformats: Sagittal and coronal. IV contrast: None. In accordance with CT protocol optimization, one or more of the following dose reduction techniques were utilized for this exam: automated exposure control, adjustment of mA and/or KV based on patient size, or use of iterative reconstructive technique. FINDINGS: Parenchyma: Mild periventricular low density white matter changes without evidence of acute infarction or hemorrhage. Extraaxial Spaces: Normal for age. No subdural or epidural collections identified. Ventricles: Normal in size and position. Sinuses and Orbits: Hypoplastic left mastoid air cells. The right mastoid sinus and paranasal sinuses are unremarkable. The orbits are unremarkable. Bones: No evidence of fracture or calvarial defect. Other: None. IMPRESSION: No acute intracranial normality. RADIA
[2019-07-21 00:30] LABS: MUDS CUTOFF CONCENTRATIONS CUTOFF CONC BELOW:
[2019-07-21 00:35] LABS: BILIRUBIN,URINE NEGATIVE (NEGATIVE); GLUCOSE, URINE (UA) 250 mg/dL (NEGATIVE); KETONES,URINE (UA) TRACE mg/dL (NEGATIVE); LEUKOCYTE ESTERASE, URINE NEGATIVE (NEGATIVE); NITRITE,URINE NEGATIVE (NEGATIVE); OCCULT BLOOD,URINE NEGATIVE (NEGATIVE); PH,URINE 5.5 PH (5.0-7.5); PROTEIN,URINE NEGATIVE (NEGATIVE); UROBILINOGEN,URINE 0.2 (NORMAL) E.U./dL (NORMAL)
[2019-07-21 00:40] LABS: CLARITY,URINE CLEAR (CLEAR)
[2019-07-21 00:44] LABS: AMPHETAMINE SCREEN,URINE NEGATIVE (NEGATIVE); BENZODIAZEPINES SCREEN, URINE NEGATIVE (NEGATIVE); COCAINE SCREEN URINE NEGATIVE (NEGATIVE); METHADONE SCREEN, URINE NEGATIVE (NEGATIVE); METHAMPHETAMINES SCREEN, URINE NEGATIVE (NEGATIVE); OPIATE SCREEN, URINE NEGATIVE (NEGATIVE); OXYCODONE SCREEN, URINE NEGATIVE (NEGATIVE); PROPOXYPHENE SCREEN, URINE NEGATIVE (NEGATIVE); TRICYCLIC ANTIDEPRESSANT,URINE NEGATIVE (NEGATIVE)
[2019-07-21 01:32] VITALS: BP 146/123
== END 2019-07-21 02:40 | disposition home or self-care (01) ==
LOC: EDUNIT# → ED 19:11
DX: G20 Parkinson's disease (principal); F02.80 Dementia in other diseases classified elsewhere, unspecified severity, without behavioral disturbance, psychotic disturbance, mood disturbance, and anxiety; I10 Essential (primary) hypertension; E11.9 Type 2 diabetes mellitus without complications; Z79.84 Long term (current) use of oral hypoglycemic drugs
CPT/HCPCS: 36415; 51701; 51798; 70450; 71045; 80053; 80306; 80307; 80320; 80329; 81001; 81003; 82550; 82553; 83605; 83690; 83880; 84443; 84484; 85025; 85610; 85730; 87086; 93005; 99281

== ENCOUNTER 2019-08-08 17:00 | Outpatient (CLI) | payer MEDICARE, MEDICAID ==
[2019-08-08 18:11] LABS: BASOPHILS % (AUTO) 0.6 %; EOSINOPHILS # (AUTO) 0.1 10^3/uL (0.0-0.7); EOSINOPHILS % (AUTO) 1.1 %; LYMPHOCYTES # (AUTO) 2.7 10^3/uL (1.5-3.5); LYMPHOCYTES % (AUTO) 40.9 %; MEAN CORPUSCULAR HEMOGLOBIN 29.4 pg (27.0-31.0); MEAN CORPUSCULAR HGB CONC 32.2 g/dL (32.0-36.0); MEAN CORPUSCULAR VOLUME 91.4 fL (81.0-99.0); MEAN PLATELET VOLUME 10.5 fL (7.9-10.8); MONOCYTES # (AUTO) 0.7 10^3/uL (0.0-1.0); MONOCYTES % (AUTO) 9.9 %; NEUTROPHILS # (AUTO) 3.1 10^3/uL (1.5-6.6); NEUTROPHILS % (AUTO) 47.2 %; PLT - PLATELET COUNT 372 10^3/uL (130-450); RED BLOOD COUNT 4.42 10^6/uL (4.20-5.40); RED CELL DISTRIBUTION WIDTH 14.4 % (12.0-15.0); WHITE BLOOD COUNT 6.6 x10^3/uL (4.8-10.8)
[2019-08-08 18:25] LABS: ALBUMIN 4.3 g/dL (3.2-5.5); ALBUMIN/GLOBULIN RATIO 1.3 (1.0-2.2); BILIRUBIN,TOTAL 0.6 mg/dL (0.2-1.0); CALCIUM 9.9 mg/dL (8.5-10.3); CREATININE 0.5 mg/dL (0.4-1.0); TOTAL PROTEIN 7.6 g/dL (6.7-8.2)
[2019-08-08 18:32] LABS: HB2 TOTAL 12.9 g/dL; HEMOGLOBIN A1C 0.8 g/dL; HEMOGLOBIN A1C % 7.8 % (4.6-6.2)
--- NOTE | 2019-08-09 14:19 | XRAY Report ---
Reason: DECLINE IN FUNCTIONAL STATUS, HIP JOINT PAIN, RIGH Procedure Date: 08/08/2019 Accession Number: [id number] / [id number] Procedure: XR - Hip w/Pelvis 2-3V RT CPT Code: Final Report FULL RESULT: EXAM: RIGHT HIP RADIOGRAPHY EXAM DATE: 08/08/2019 05:31 PM. CLINICAL HISTORY: Decline in functional status, hip joint pain, right. COMPARISON: PELVIS 1 VIEW 03/19/2018 8:37 PM. TECHNIQUE: 2 views. FINDINGS: Bones: Normal. No fractures or bone lesion. Joints: Mild bilateral hip joint space narrowing similar to prior. Mild osteitis pubis. Soft Tissues: Numerous pelvic phleboliths. Degenerative changes in the lower lumbar spine. IMPRESSION: 1. Mild bilateral hip osteoarthritis. Unchanged. RADIA
--- NOTE | 2019-08-09 14:19 | XRAY Report ---
Reason: DECLINE IN FUNCTIONAL STATUS, HIP JOINT PAIN, RIGH Procedure Date: 08/08/2019 Accession Number: [id number] / [id number] Procedure: XR - Shoulder 3 View RT CPT Code: Final Report FULL RESULT: EXAM: RIGHT SHOULDER RADIOGRAPHY EXAM DATE: 08/08/2019 05:31 PM. CLINICAL HISTORY: Decline in functional status, hip joint pain, right. COMPARISON: None. TECHNIQUE: 3 views. FINDINGS: Bones: Normal. No fracture or bone lesion. Joints: Severe glenohumeral joint space narrowing with large marginal osteophyte formation and subchondral sclerosis. Small osteophytes at the acromioclavicular joint. Soft tissues: Unremarkable. IMPRESSION: 1. Severe glenohumeral osteoarthritis. RADIA
== END 2019-08-08 17:01 | disposition home or self-care (01) ==
LOC: DI 17:00
PROVIDERS: ATTEND Family Medicine
DX: M19.011 Primary osteoarthritis, right shoulder (principal); M16.0 Bilateral primary osteoarthritis of hip; E11.49 Type 2 diabetes mellitus with other diabetic neurological complication; G20 Parkinson's disease; G31.84 Mild cognitive impairment of uncertain or unknown etiology; R63.4 Abnormal weight loss; D50.9 Iron deficiency anemia, unspecified; I49.9 Cardiac arrhythmia, unspecified; R25.1 Tremor, unspecified
CPT/HCPCS: 36415; 80053; 83036; 85025

== ENCOUNTER 2019-08-11 07:42 | Outpatient (CLI) | payer MEDICARE, MEDICAID | END 2019-08-11 07:43 | disposition EMS.NT | LOC: EMS 07:42 | PROVIDERS: ATTEND Surgery | DX: Z03.89 Encounter for observation for other suspected diseases and conditions ruled out (principal) ==

== ENCOUNTER 2019-08-19 10:10 | Outpatient (CLI) | payer MEDICARE, MEDICAID | END 2019-08-19 10:11 | disposition EMS.NT | LOC: EMS 10:10 | PROVIDERS: ATTEND Surgery | DX: R19.8 Other specified symptoms and signs involving the digestive system and abdomen (principal) ==

== ENCOUNTER 2019-08-24 09:30 | Outpatient (CLI) | payer MEDICARE, MEDICAID | END 2019-08-24 09:31 | disposition EMS.NT | LOC: EMS 09:30 | PROVIDERS: ATTEND Surgery | DX: R53.1 Weakness (principal) ==

== ENCOUNTER 2019-09-09 10:10 | Outpatient (CLI) | payer MEDICARE, MEDICAID | END 2019-09-09 10:11 | disposition EMS.NT | LOC: EMS 10:10 | PROVIDERS: ATTEND Surgery | DX: Z03.89 Encounter for observation for other suspected diseases and conditions ruled out (principal) ==

== ENCOUNTER 2019-09-14 19:53 | Outpatient (CLI) | payer MEDICARE, MEDICAID | END 2019-09-14 23:59 | disposition critical access hospital (66) | LOC: EMS 19:53 | PROVIDERS: ATTEND Surgery | DX: K92.1 Melena (principal); R53.1 Weakness | CPT/HCPCS: A0425; A0429 ==

== ENCOUNTER 2019-09-14 19:58 | Emergency (ER) | payer MEDICARE, MEDICAID ==
--- NOTE | 2019-09-14 20:18 | ED Physician Documentation ---
History of Present Illness - Stated complaint Stated Complaint: WEAKNESS - Chief complaint Chief Complaint: General - History obtained from History obtained from: Patient (the patient is an 83 y/o f who p/w a cc of weakness from ems. she was noted to have had a large dark bm on her self. denies taking anticoagulants. denies any complaints other than that. denies fevers, crockett, cp, rash, recent abx use or bloody stools.) Review of Systems Constitutional: reports: Reviewed and negative Eyes: reports: Reviewed and negative Ears: reports: Reviewed and negative Nose: reports: Reviewed and negative Throat: reports: Reviewed and negative Cardiac: reports: Reviewed and negative Respiratory: reports: Reviewed and negative GI: reports: Bloody / black stool : reports: Reviewed and negative Skin: reports: Reviewed and negative Musculoskeletal: reports: Reviewed and negative Neurologic: reports: Reviewed and negative Psychiatric: reports: Reviewed and negative Endocrine: reports: Reviewed and negative Immunocompromised: reports: Reviewed and negative PD PAST MEDICAL HISTORY - Past Medical History Cardiovascular: Hypertension, High cholesterol, Arrhythmia, Other Respiratory: Sleep apnea Neuro: Parkinson's Endocrine/Autoimmune: Type 2 diabetes GI: GERD, Colon polyps RESEARCH EDITOR: None : Incontinence, Chronic bladder infection HEENT: None Psych: Depression, Anxiety - Past Surgical History Past Surgical History: Yes General: 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 Ortho: Other /RESEARCH EDITOR: Hysterectomy - Present Medications Home Medications: Ambulatory Orders Medication Instructions Recorded Confirmed Losartan Potassium 12.5 mg PO DAILY 11/21/14 06/26/19 Propranolol [Inderal] 5 mg PO BID 09/04/16 06/06/17 metFORMIN [Glucophage] 500 mg PO DAILY 09/04/16 06/26/19 Carbidopa/Levodopa 25/100 [Sinemet 200 mg PO DAILY 03/10/18 06/26/19 25 mg/100 mg] Escitalopram [Lexapro] 20 mg PO DAILY 03/10/18 Melatonin 5 mg PO DAILY 03/10/18 06/26/19 Mirtazapine 0.5 tab PO BID 03/10/18 06/26/19 Atorvastatin Calcium 20 mg 09/14/19 Primidone 12.5 mg 09/14/19 - Allergies Allergies/Adverse Reactions: Allergies Allergy/AdvReac Type Severity Reaction Status Date / Time codeine [Codeine] AdvReac Intermediate Nausea Verified 09/14/19 20:28 - Social History Does the pt smoke?: No Smoking Status: Never smoker Does the pt drink ETOH?: No Does the pt have substance abuse?: No - Immunizations Immunizations are current?: Yes - POLST Patient has POLST: No PD ED PE NORMAL - Vitals Vital signs reviewed: Yes - General General: Alert and oriented X 3, No acute distress, Well developed/nourished - HEENT HEENT: Atraumatic, PERRL, Moist mucous membranes, Pharynx benign - Neck Neck: Supple, no meningeal sign, No adenopathy, No JVD - Cardiac Cardiac: RRR, No murmur, Strong equal pulses - Respiratory Respiratory: No respiratory distress, Clear bilaterally - Abdomen Abdomen: Normal bowel sounds, Soft, Non tender, Non distended - Rectal Rectal: Other (female nurse in room, patient is covered in dark stool, no blood, good rectal tone, hemoccult pending.) - Back Back: No CVA TTP, No spinal TTP - Derm Derm: Normal color, Warm and dry, No rash - Extremities Extremities: No deformity, No tenderness to palpate, Normal ROM s pain, No edema, No calf tenderness / cord - Neuro Neuro: Alert and oriented X 3, 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, No motor deficit, No sensory deficit, Normal speech - Psych Psych: Normal mood, Normal affect Results - Vitals Vitals: Vital Signs - 24 hr 09/14/19 09/14/19 20:01 22:41 Temperature 37.5 C Heart Rate 80 81 Respiratory 14 14 Rate Blood Pressure 122/69 151/87 H O2 Saturation 96 99 Oxygen O2 Source [] Room air O2 Source Nasal cannula - EKG (time done) 20:33 Rate: Other (no stemi) - Labs Labs: Microbiology 09/14/19 20:20 Occult Blood - Final Stool Laboratory Tests 09/14/19 09/14/19 09/14/19 20:33 20:33 20:33 WBC 7.0 RBC 3.84 L Hgb 11.6 L Hct 36.2 L MCV 94.3 MCH 30.2 MCHC 32.0 RDW 15.1 H Plt Count 304 MPV 10.8 Neut # (Auto) 3.9 Lymph # (Auto) 2.2 Walsh # (Auto) 0.8 Eos # (Auto) 0.1 Baso # (Auto) 0.0 Absolute Nucleated RBC 0.00 Nucleated RBC % 0.0 PT 12.8 H INR 1.1 APTT 26.7 Sodium Potassium Chloride Carbon Dioxide Anion Gap BUN Creatinine Estimated GFR (MDRD) Glucose Lactic Acid 2.8 H Calcium Magnesium Total Creatine Kinase Troponin I High Sens TSH Urine Color Urine Clarity Urine pH Ur Specific [place] Urine Protein Urine Glucose (UA) Urine Ketones Urine Occult Blood Urine Nitrite Urine Bilirubin Urine Urobilinogen Ur Leukocyte Esterase Ur Microscopic Review Urine Culture Comments Urine Opiates Screen Ur Oxycodone Screen Urine Methadone Screen Ur Propoxyphene Screen Ur Barbiturates Screen Ur Tricyclics Screen Ur Phencyclidine Scrn Ur Amphetamine Screen U Methamphetamines Scrn U Benzodiazepines Scrn Urine Cocaine Screen U Cannabinoids Screen Ethyl Alcohol 09/14/19 09/14/19 09/14/19 20:33 21:04 21:04 WBC RBC Hgb Hct MCV MCH MCHC RDW Plt Count MPV Neut # (Auto) Lymph # (Auto) Walsh # (Auto) Eos # (Auto) Baso # (Auto) Absolute Nucleated RBC Nucleated RBC % PT INR APTT Sodium 139 Potassium 3.1 L Chloride 106 Carbon Dioxide 23 Anion Gap 10.0 BUN 29 H Creatinine 0.6 Estimated GFR (MDRD) 95 Glucose 178 H Lactic Acid Calcium 9.2 Magnesium 1.9 Total Creatine Kinase 27 Troponin I High Sens 7.0 TSH 1.05 Urine Color Urine Clarity Urine pH Ur Specific [place] Urine Protein Urine Glucose (UA) Urine Ketones Urine Occult Blood Urine Nitrite Urine Bilirubin Urine Urobilinogen Ur Leukocyte Esterase Ur Microscopic Review Urine Culture Comments Urine Opiates Screen Ur Oxycodone Screen Urine Methadone Screen Ur Propoxyphene Screen Ur Barbiturates Screen Ur Tricyclics Screen Ur Phencyclidine Scrn Ur Amphetamine Screen U Methamphetamines Scrn U Benzodiazepines Scrn Urine Cocaine Screen U Cannabinoids Screen Ethyl Alcohol < 5.0 09/14/19 21:50 WBC RBC Hgb Hct MCV MCH MCHC RDW Plt Count MPV Neut # (Auto) Lymph # (Auto) Walsh # (Auto) Eos # (Auto) Baso # (Auto) Absolute Nucleated RBC Nucleated RBC % PT INR APTT Sodium Potassium Chloride Carbon Dioxide Anion Gap BUN Creatinine Estimated GFR (MDRD) Glucose Lactic Acid Calcium Magnesium Total Creatine Kinase Troponin I High Sens TSH Urine Color YELLOW Urine Clarity CLEAR Urine pH 5.0 Ur Specific [place] >=1.030 H Urine Protein NEGATIVE Urine Glucose (UA) 250 H Urine Ketones TRACE Urine Occult Blood NEGATIVE Urine Nitrite NEGATIVE Urine Bilirubin NEGATIVE Urine Urobilinogen 0.2 (NORMAL) Ur Leukocyte Esterase NEGATIVE Ur Microscopic Review NOT INDICATED Urine Culture Comments NOT INDICATED Urine Opiates Screen NEGATIVE Ur Oxycodone Screen NEGATIVE Urine Methadone Screen NEGATIVE Ur Propoxyphene Screen NEGATIVE Ur Barbiturates Screen NEGATIVE Ur Tricyclics Screen NEGATIVE Ur Phencyclidine Scrn NEGATIVE Ur Amphetamine Screen NEGATIVE U Methamphetamines Scrn NEGATIVE U Benzodiazepines Scrn NEGATIVE Urine Cocaine Screen NEGATIVE U Cannabinoids Screen NEGATIVE Ethyl Alcohol PD MEDICAL DECISION MAKING - ED course Complexity details: re-evaluated patient (workup is unremarkable, patient has some dementia at baseline, no signs of infection, cth unremarkable, cxr, ekg, labs unremarkable. patient will be dcd home and f/u w pcp this week.), considered differential (gi bleed, metabolic derangement, acs, uti, intracranial process) Departure - Departure Disposition: 01 Home, Self Care Clinical Impression: Weakness Condition: Stable Instructions: ED Weakness [facility]O Follow-Up: Oscar Bergeron MD [Primary Care Provider] - Tomorrow Discharge Date/Time: 09/14/19 22:42
[2019-09-14] MEDS ORDERED: SODIUM CHLORIDE 0.9% 1,000 ML IV ONE (20:27)
[2019-09-14 20:39] LABS: BASOPHILS % (AUTO) 0.6 %; EOSINOPHILS # (AUTO) 0.1 10^3/uL (0.0-0.7); HGB - HEMOGLOBIN 11.6 g/dL (12.0-16.0); LYMPHOCYTES # (AUTO) 2.2 10^3/uL (1.5-3.5); LYMPHOCYTES % (AUTO) 31.9 %; MEAN CORPUSCULAR HEMOGLOBIN 30.2 pg (27.0-31.0); MEAN CORPUSCULAR VOLUME 94.3 fL (81.0-99.0); MEAN PLATELET VOLUME 10.8 fL (7.9-10.8); MONOCYTES # (AUTO) 0.8 10^3/uL (0.0-1.0); MONOCYTES % (AUTO) 10.9 %; NEUTROPHILS # (AUTO) 3.9 10^3/uL (1.5-6.6); NEUTROPHILS % (AUTO) 55.5 %; PLT - PLATELET COUNT 304 10^3/uL (130-450); RED BLOOD COUNT 3.84 10^6/uL (4.20-5.40); RED CELL DISTRIBUTION WIDTH 15.1 % (12.0-15.0)
[2019-09-14 20:45] LABS: INR 1.1 (0.8-1.2); PT - PROTHROMBIN TIME 12.8 secs (9.9-12.6)
[2019-09-14 20:52] LABS: PARTIAL THROMBOPLASTIN TIME 26.7 secs (24.9-33.3)
--- NOTE | 2019-09-14 20:52 | XRAY Report ---
Reason: ams Procedure Date: 09/14/2019 Accession Number: [id number] / [id number] Procedure: XR - Chest 1 View X-Ray CPT Code: 71758 Final Report FULL RESULT: EXAM: CHEST RADIOGRAPHY EXAM DATE: 09/14/2019 08:33 PM. CLINICAL HISTORY: Altered mental status. Weakness. COMPARISON: CHEST 1 VIEW 07/20/2019 7:49 PM. TECHNIQUE: Upright AP view. FINDINGS: Lungs/Pleura: No focal opacities evident. No pleural effusion. No pneumothorax. Mediastinum: Within exam limitations, the cardiomediastinal contour is normal. Other: Bilateral shoulder chronic arthritis. Minimal right convex thoracic spine curvature. IMPRESSION: No evidence of active cardiopulmonary disease. RADIA
--- NOTE | 2019-09-14 21:20 | CT Report ---
Reason: weakness Procedure Date: 09/14/2019 Accession Number: [id number] / [id number] Procedure: CT - HEAD WO CPT Code: Final Report FULL RESULT: EXAM: CT HEAD EXAM DATE: 09/14/2019 09:01 PM. CLINICAL HISTORY: Weakness. COMPARISON: HEAD W/O 07/20/2019 8:20 PM. TECHNIQUE: Multiaxial CT images were obtained from the foramen magnum to the vertex. Reformats: Sagittal and coronal. IV contrast: None. In accordance with CT protocol optimization, one or more of the following dose reduction techniques were utilized for this exam: automated exposure control, adjustment of mA and/or KV based on patient size, or use of iterative reconstructive technique. FINDINGS: Parenchyma: No intraparenchymal hemorrhage. No mass-effect or midline shift. Lou-white differentiation is distinct. Scattered areas of decreased attenuation in the periventricular and deep white matter. No change compared to 07/20/2019. Extraaxial Spaces: Normal for age. No subdural or epidural collections identified. Ventricles: Normal in size and position. Sinuses and Orbits: Imaged paranasal sinuses, orbits, and mastoids show no significant abnormality. Bones: Hyperostosis frontalis. No fractures. Other: None. IMPRESSION: No acute intracranial abnormality. RADIA
[2019-09-14 21:22] LABS: BUN - BLOOD UREA NITROGEN 29 mg/dL (6-20); CALCIUM 9.2 mg/dL (8.5-10.3); CARBON DIOXIDE - CO2 23 mmol/L (21-32); CHLORIDE 106 mmol/L (101-111); CK- CREATINE KINASE 27 IU/L (22-269); CREATININE 0.6 mg/dL (0.4-1.0); GLUCOSE 178 mg/dL (70-100); MAGNESIUM 1.9 mg/dL (1.7-2.8); SODIUM 139 mmol/L (135-145)
[2019-09-14 22:06] LABS: MUDS CUTOFF CONCENTRATIONS CUTOFF CONC BELOW:
[2019-09-14 22:08] LABS: BILIRUBIN,URINE NEGATIVE (NEGATIVE); GLUCOSE, URINE (UA) 250 mg/dL (NEGATIVE); KETONES,URINE (UA) TRACE mg/dL (NEGATIVE); LEUKOCYTE ESTERASE, URINE NEGATIVE (NEGATIVE); NITRITE,URINE NEGATIVE (NEGATIVE); OCCULT BLOOD,URINE NEGATIVE (NEGATIVE); PROTEIN,URINE NEGATIVE (NEGATIVE); UROBILINOGEN,URINE 0.2 (NORMAL) E.U./dL (NORMAL)
[2019-09-14 22:10] LABS: CLARITY,URINE CLEAR (CLEAR)
[2019-09-14 22:17] LABS: AMPHETAMINE SCREEN,URINE NEGATIVE (NEGATIVE); BENZODIAZEPINES SCREEN, URINE NEGATIVE (NEGATIVE); COCAINE SCREEN URINE NEGATIVE (NEGATIVE); METHADONE SCREEN, URINE NEGATIVE (NEGATIVE); METHAMPHETAMINES SCREEN, URINE NEGATIVE (NEGATIVE); OPIATE SCREEN, URINE NEGATIVE (NEGATIVE); OXYCODONE SCREEN, URINE NEGATIVE (NEGATIVE); PROPOXYPHENE SCREEN, URINE NEGATIVE (NEGATIVE); TRICYCLIC ANTIDEPRESSANT,URINE NEGATIVE (NEGATIVE)
[2019-09-14 22:42] VITALS: BP 151/87
== END 2019-09-14 22:42 | disposition home or self-care (01) ==
LOC: EDUNIT# → ED 19:58
DX: R53.1 Weakness (principal); I10 Essential (primary) hypertension; E11.9 Type 2 diabetes mellitus without complications; F03.90 Unspecified dementia, unspecified severity, without behavioral disturbance, psychotic disturbance, mood disturbance, and anxiety; Z79.84 Long term (current) use of oral hypoglycemic drugs; G20 Parkinson's disease
CPT/HCPCS: 36415; 70450; 71045; 80048; 80306; 80320; 81001; 81003; 82272; 82274; 82550; 83605; 83735; 84443; 84484; 85025; 85610; 85730; 87086; 93005; 96360; 99283

== ENCOUNTER 2019-10-12 13:55 | Outpatient (CLI) | payer MEDICARE, MEDICAID | END 2019-10-12 13:56 | disposition critical access hospital (66) | LOC: EMS 13:55 | PROVIDERS: ATTEND Surgery | DX: R53.1 Weakness (principal); R41.0 Disorientation, unspecified | CPT/HCPCS: A0425; A0429 ==

== ENCOUNTER 2019-10-12 13:59 | Emergency (ER) | payer MEDICARE, MEDICAID ==
[2019-10-12] MEDS ORDERED: SODIUM CHLORIDE 0.9% 1,000 ML IV ONE (14:29)
--- NOTE | 2019-10-12 14:34 | ED Physician Documentation ---
History of Present Illness - Stated complaint Stated Complaint: WEAKNESS - Chief complaint Chief Complaint: General - History obtained from History obtained from: Patient, EMS - History of Present Illness Timing: Today Pain level max: 0 Pain level now: 0 - Additonal information Additional information: Patient is an 83-year-old female with a history of tremors and dementia. She states that today she had trouble getting out of bed and so called 911 to help her. She states she did not want to come to the hospital but the EMS crew forced her to come. She states that this happens quite often and that the weakness passes within a few hours. No fall. No headache. No abdominal pain. No focal neurological deficits. Nothing makes it better or worse. Review of Systems Ten Systems: 10 systems reviewed and negative Constitutional: denies: Fever, Chills Throat: denies: Sore throat Cardiac: denies: Chest pain / pressure Respiratory: denies: Cough GI: denies: Vomiting, Diarrhea : denies: Dysuria, Frequency, Hesitancy Musculoskeletal: denies: Neck pain, Back pain Neurologic: denies: Focal weakness, Numbness, Confused, Headache, Head injury, LOC PD PAST MEDICAL HISTORY - Past Medical History Cardiovascular: Hypertension, High cholesterol, Arrhythmia, Other Respiratory: Sleep apnea Neuro: Parkinson's Endocrine/Autoimmune: Type 2 diabetes GI: GERD, Colon polyps HOG WORKER: 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 : Incontinence, Chronic bladder infection HEENT: None Psych: Depression, Anxiety - Past Surgical History Past Surgical History: Yes General: 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 Ortho: Other /HOG WORKER: Hysterectomy - Present Medications Home Medications: Ambulatory Orders Medication Instructions Recorded Confirmed Losartan Potassium 12.5 mg PO DAILY 11/21/14 06/26/19 Propranolol [Inderal] 5 mg PO BID 09/04/16 06/06/17 metFORMIN [Glucophage] 500 mg PO DAILY 09/04/16 06/26/19 Carbidopa/Levodopa 25/100 [Sinemet 200 mg PO DAILY 03/10/18 06/26/19 25 mg/100 mg] Escitalopram [Lexapro] 20 mg PO DAILY 03/10/18 Melatonin 5 mg PO DAILY 03/10/18 06/26/19 Mirtazapine 0.5 tab PO BID 03/10/18 06/26/19 Atorvastatin Calcium 20 mg 09/14/19 Primidone 12.5 mg 09/14/19 Cephalexin [Keflex] 500 mg PO Q6H #20 capsule 10/12/19 - Allergies Allergies/Adverse Reactions: Allergies Allergy/AdvReac Type Severity Reaction Status Date / Time codeine [Codeine] AdvReac Intermediate Nausea Verified 10/12/19 14:13 - Social History Does the pt smoke?: No Smoking Status: Never smoker Does the pt drink ETOH?: No Does the pt have substance abuse?: No - Immunizations Immunizations are current?: Yes - POLST Patient has POLST: No PD ED PE NORMAL - Vitals Vital signs reviewed: Yes - General General: Alert and oriented X 3, No acute distress - HEENT HEENT: PERRL, Moist mucous membranes - Neck Neck: Supple, no meningeal sign - Cardiac Cardiac: RRR, Strong equal pulses - Respiratory Respiratory: No respiratory distress, Clear bilaterally - Abdomen Abdomen: Soft, Non tender, Non distended - Back Back: No spinal TTP - Derm Derm: Warm and dry - Extremities Extremities: No edema, No calf tenderness / cord - Neuro Neuro: Alert and oriented X 3, No motor deficit, No sensory deficit, Other (tremor present) - Psych Psych: Normal mood, Normal affect Results - Vitals Vitals: Vital Signs - 24 hr 10/12/19 10/12/19 14:07 15:03 Temperature 36.8 C Heart Rate 80 76 Respiratory 20 20 Rate Blood Pressure 156/100 H 164/80 H O2 Saturation 100 96 Oxygen O2 Source [With Activity] Room air O2 Source Room air - Labs Labs: Laboratory Tests 10/12/19 10/12/19 10/12/19 14:20 15:29 15:29 WBC 6.5 RBC 4.11 L Hgb 12.4 Hct 39.3 MCV 95.6 MCH 30.2 MCHC 31.6 L RDW 14.9 Plt Count 298 MPV 10.4 Neut # (Auto) 3.3 Lymph # (Auto) 2.4 [place] # (Auto) 0.6 Eos # (Auto) 0.1 Baso # (Auto) 0.0 Absolute Nucleated RBC 0.00 Nucleated RBC % 0.0 Sodium 140 Potassium 3.4 L Chloride 106 Carbon Dioxide 27 Anion Gap 7.0 BUN 19 Creatinine 0.6 Estimated GFR (MDRD) 95 Glucose 126 H Calcium 8.8 Total Bilirubin 0.8 AST 19 ALT 17 Alkaline Phosphatase 40 L Total Protein 7.2 Albumin 4.0 Globulin 3.2 Albumin/Globulin Ratio 1.3 Lipase 34 Urine Color DARK YELLOW Urine Clarity HAZY Urine pH 5.5 Ur Specific [place] 1.025 Urine Protein NEGATIVE Urine Glucose (UA) 250 H Urine Ketones NEGATIVE Urine Occult Blood NEGATIVE Urine Nitrite NEGATIVE Urine Bilirubin NEGATIVE Urine Urobilinogen 0.2 (NORMAL) Ur Leukocyte Esterase MODERATE H Urine RBC 0-5 Urine WBC 11-25 H Ur Epithelial Cells RARE Transitional Ur Squamous Epith Cells RARE Squamous Urine Bacteria Few Ur Microscopic Review INDICATED Urine Culture Comments INDICATED PD MEDICAL DECISION MAKING - ED course Complexity details: reviewed old records, reviewed results, re-evaluated patient, considered differential, d/w patient ED course: Patient with a UTI. Given Rocephin. She is able to ambulate well in the emergency department. She would like to go home. No evidence of sepsis. Patient counseled regarding signs and symptoms for which I believe and urgent re-evaluation would be necessary. Patient with good understanding of and agreement to plan and is comfortable going home at this time This document was made in part using voice recognition software. While efforts are made to proofread this document, sound alike and grammatical errors may occur. Departure - Departure Disposition: 01 Home, Self Care Clinical Impression: UTI (urinary tract infection) Qualifiers: Urinary tract infection type: acute cystitis Hematuria presence: without hematuria Qualified Code(s): N30.00 - Acute cystitis without hematuria Condition: Good Instructions: ED UTI Cystitis Female Follow-Up: Oscar Bergeron MD [Primary Care Provider] - Within 1 week Prescriptions: Cephalexin [Keflex] 500 mg PO Q6H #20 capsule Comments: Take all antibiotics until gone. Return if you worsen. Drink plenty of fluids and rest.
[2019-10-12 14:57] LABS: BILIRUBIN,URINE NEGATIVE (NEGATIVE); GLUCOSE, URINE (UA) 250 mg/dL (NEGATIVE); KETONES,URINE (UA) NEGATIVE (NEGATIVE); LEUKOCYTE ESTERASE, URINE MODERATE (NEGATIVE); NITRITE,URINE NEGATIVE (NEGATIVE); OCCULT BLOOD,URINE NEGATIVE (NEGATIVE); PH,URINE 5.5 PH (5.0-7.5); PROTEIN,URINE NEGATIVE (NEGATIVE); UROBILINOGEN,URINE 0.2 (NORMAL) E.U./dL (NORMAL)
[2019-10-12 14:58] LABS: CLARITY,URINE HAZY (CLEAR)
[2019-10-12 15:11] LABS: BACTERIA,URINE Few /HPF (None Seen); EPITHELIAL CELLS,UR RARE Transitional /HPF (<= Few); RBC,URINE 0-5 /HPF (0-5); SQUAMOUS EPITHELIAL CELL,UR RARE Squamous (<= Few)
[2019-10-12] MEDS ORDERED: cefTRIAXone 1 GM VIAL IVP STA (15:20)
[2019-10-12 15:36] LABS: BASOPHILS % (AUTO) 0.6 %; EOSINOPHILS # (AUTO) 0.1 10^3/uL (0.0-0.7); EOSINOPHILS % (AUTO) 2.2 %; HGB - HEMOGLOBIN 12.4 g/dL (12.0-16.0); LYMPHOCYTES # (AUTO) 2.4 10^3/uL (1.5-3.5); LYMPHOCYTES % (AUTO) 36.9 %; MEAN CORPUSCULAR HEMOGLOBIN 30.2 pg (27.0-31.0); MEAN CORPUSCULAR HGB CONC 31.6 g/dL (32.0-36.0); MEAN CORPUSCULAR VOLUME 95.6 fL (81.0-99.0); MEAN PLATELET VOLUME 10.4 fL (7.9-10.8); MONOCYTES # (AUTO) 0.6 10^3/uL (0.0-1.0); MONOCYTES % (AUTO) 8.5 %; NEUTROPHILS # (AUTO) 3.3 10^3/uL (1.5-6.6); NEUTROPHILS % (AUTO) 51.5 %; PLT - PLATELET COUNT 298 10^3/uL (130-450); RED BLOOD COUNT 4.11 10^6/uL (4.20-5.40); RED CELL DISTRIBUTION WIDTH 14.9 % (12.0-15.0); WHITE BLOOD COUNT 6.5 x10^3/uL (4.8-10.8)
[2019-10-12 15:48] LABS: ALBUMIN/GLOBULIN RATIO 1.3 (1.0-2.2); BILIRUBIN,TOTAL 0.8 mg/dL (0.2-1.0); CALCIUM 8.8 mg/dL (8.5-10.3); CREATININE 0.6 mg/dL (0.4-1.0); TOTAL PROTEIN 7.2 g/dL (6.7-8.2)
[2019-10-12 16:37] VITALS: BP 190/94
== END 2019-10-12 16:35 | disposition home or self-care (01) ==
LOC: EDUNIT# → ED 13:59
DX: N30.00 Acute cystitis without hematuria (principal); I10 Essential (primary) hypertension; I49.9 Cardiac arrhythmia, unspecified; G47.30 Sleep apnea, unspecified; G20 Parkinson's disease; F02.80 Dementia in other diseases classified elsewhere, unspecified severity, without behavioral disturbance, psychotic disturbance, mood disturbance, and anxiety; E11.9 Type 2 diabetes mellitus without complications; E78.00 Pure hypercholesterolemia, unspecified; R32 Unspecified urinary incontinence; F32.9 Major depressive disorder, single episode, unspecified; F41.9 Anxiety disorder, unspecified; Z79.84 Long term (current) use of oral hypoglycemic drugs
CPT/HCPCS: 36415; 80053; 81001; 81003; 83690; 85025; 87086; 96374; 99284

== ENCOUNTER 2019-10-19 11:15 | Outpatient (CLI) | payer MEDICARE, MEDICAID | END 2019-10-19 11:16 | disposition EMS.NT | LOC: EMS 11:15 | PROVIDERS: ATTEND Surgery | DX: Z03.89 Encounter for observation for other suspected diseases and conditions ruled out (principal) ==

== ENCOUNTER 2019-10-25 10:08 | Outpatient (CLI) | payer MEDICARE, MEDICAID | END 2019-10-25 10:09 | disposition EMS.NT | LOC: EMS 10:08 | PROVIDERS: ATTEND Surgery | DX: R53.1 Weakness (principal) ==

== ENCOUNTER 2019-12-04 10:44 | Outpatient (CLI) | payer MEDICARE, MEDICAID | END 2019-12-04 10:45 | disposition critical access hospital (66) | LOC: EMS 10:44 | PROVIDERS: ATTEND Surgery | DX: R47.81 Slurred speech (principal); R29.810 Facial weakness; R53.1 Weakness | CPT/HCPCS: A0425; A0429 ==

== ENCOUNTER 2019-12-04 10:49 | Inpatient (IN) | payer MEDICARE, MEDICAID ==
[2019-12-04] MEDS ORDERED: SODIUM CHLORIDE 0.9% 1,000 ML IV STA (10:56)
[2019-12-04] MEDS ORDERED: MORPHINE 2 MG/ML CARPUJECT IVP STA (10:57)
[2019-12-04 11:06] LABS: BASOPHILS % (AUTO) 0.4 %; EOSINOPHILS # (AUTO) 0.1 10^3/uL (0.0-0.7); HGB - HEMOGLOBIN 13.3 g/dL (12.0-16.0); LYMPHOCYTES # (AUTO) 1.6 10^3/uL (1.5-3.5); LYMPHOCYTES % (AUTO) 23.1 %; MEAN CORPUSCULAR HEMOGLOBIN 29.9 pg (27.0-31.0); MEAN CORPUSCULAR HGB CONC 31.5 g/dL (32.0-36.0); MEAN CORPUSCULAR VOLUME 94.8 fL (81.0-99.0); MEAN PLATELET VOLUME 10.3 fL (7.9-10.8); MONOCYTES # (AUTO) 0.7 10^3/uL (0.0-1.0); MONOCYTES % (AUTO) 10.3 %; NEUTROPHILS # (AUTO) 4.5 10^3/uL (1.5-6.6); NEUTROPHILS % (AUTO) 65.1 %; PLT - PLATELET COUNT 296 10^3/uL (130-450); RED BLOOD COUNT 4.45 10^6/uL (4.20-5.40); RED CELL DISTRIBUTION WIDTH 13.8 % (12.0-15.0); WHITE BLOOD COUNT 6.9 x10^3/uL (4.8-10.8)
[2019-12-04 11:19] LABS: INR 1.1 (0.8-1.2); PT - PROTHROMBIN TIME 12.3 secs (9.9-12.6)
[2019-12-04 11:21] LABS: ALBUMIN 4.1 g/dL (3.2-5.5); ALBUMIN/GLOBULIN RATIO 1.1 (1.0-2.2); ALKALINE PHOSPHATASE 48 IU/L (42-121); ALT ALANINE AMINOTRANSFERASE < 10 IU/L (10-60); AST ASPARTATE AMINOTRANSFERASE 22 IU/L (10-42); BILIRUBIN,TOTAL 0.7 mg/dL (0.2-1.0); BUN - BLOOD UREA NITROGEN 30 mg/dL (6-20); CALCIUM 9.9 mg/dL (8.5-10.3); CARBON DIOXIDE - CO2 30 mmol/L (21-32); CHLORIDE 101 mmol/L (101-111); CREATININE 0.4 mg/dL (0.4-1.0); GLUCOSE 157 mg/dL (70-100); LIPASE 34 U/L (22-51); SODIUM 140 mmol/L (135-145); TOTAL PROTEIN 7.7 g/dL (6.7-8.2)
[2019-12-04 11:26] LABS: PARTIAL THROMBOPLASTIN TIME 27.4 secs (24.9-33.3)
--- NOTE | 2019-12-04 11:35 | CT Report ---
Reason: right face/side weakness this morning Procedure Date: 12/04/2019 Accession Number: [id number] / [id number] Procedure: CT - Head W/O Stroke Protocol CPT Code: Final Report FULL RESULT: PROCEDURE: Head W/O Stroke Protocol INDICATIONS: right face/side weakness this morning TECHNIQUE: Noncontrast 4.5 mm thick angled axial sections acquired from the foramen magnum to the vertex. For radiation dose reduction, the following was used: automated exposure control, adjustment of mA and/or kV according to patient size. COMPARISON: Head CT 09/14/2019. FINDINGS: Image quality: Excellent. CSF spaces: Basal cisterns are patent. No extra-axial fluid collections. There is mild to moderate cerebral volume loss with prominence of ventricles and sulci. Brain: No intracranial hemorrhage, mass, or mass effect. Lou-white matter interface appears preserved. There are periventricular and subcortical white matter hypodensities consistent with mild to moderate chronic small vessel ischemic changes. Skull and face: Calvarium and visualized facial bones are intact, without suspicious lesions. Sinuses: Visualized sinuses and mastoids are clear. IMPRESSION: 1. No acute intracranial abnormality. Specifically, no imaging contraindications to TPA identified. 2. Mild to moderate chronic white matter small vessel ischemic changes and cerebral volume loss. Findings discussed with Dr. Haynes on 12/04/2019 at 11:32 AM. Reviewed by: Yo Godoy MD on 12/04/2019 11:34 AM PDT Approved by: Yo Godoy MD on 12/04/2019 11:34 AM PDT Station ID: [id number]
[2019-12-04 11:59] LABS: BILIRUBIN,URINE NEGATIVE (NEGATIVE); GLUCOSE, URINE (UA) NEGATIVE (NEGATIVE); KETONES,URINE (UA) TRACE mg/dL (NEGATIVE); LEUKOCYTE ESTERASE, URINE NEGATIVE (NEGATIVE); NITRITE,URINE NEGATIVE (NEGATIVE); OCCULT BLOOD,URINE NEGATIVE (NEGATIVE); PROTEIN,URINE NEGATIVE (NEGATIVE); UROBILINOGEN,URINE 0.2 (NORMAL) E.U./dL (NORMAL)
--- NOTE | 2019-12-04 12:02 | CT Report ---
Reason: L sided facial droop Procedure Date: 12/04/2019 Accession Number: [id number] / [id number] Procedure: CT - ANGIO HEAD W/WO CPT Code: Final Report FULL RESULT: PROCEDURE: ANGIO HEAD W/WO INDICATIONS: L sided facial droop CONTRAST: IV CONTRAST: Optiray 320 ml: 80 PO CONTRAST: *NO PO CONTRAST TECHNIQUE: Precontrast 4.5 mm thick angled axial sections acquired from the foramen magnum to the vertex. After the administration of intravenous contrast, 1 mm thick sections acquired through the [place] of [place]. Postcontrast 4.5 mm thick sections then re-acquired from the foramen magnum to the vertex. 3-dimensional xkwxfkn-qbkwwsanl-bhehrairnm (MIP) and/or volume rendering reformats were acquired of the central intracranial vasculature. For radiation dose reduction, the following was used: automated exposure control, adjustment of mA and/or kV according to patient size. COMPARISON: Head CT dated 09/14/2019. CTA neck dated 04/06/2014 FINDINGS: Image quality: Excellent. Anterior circulation: Intracranial internal carotid arteries are normal in size and flow. The flow within the paired anterior cerebral arteries is normal and symmetric. The flow within the middle cerebral arteries is normal and symmetric. The anterior communicating artery is seen. No aneurysms are seen. Posterior circulation: Dominant right vertebral artery. Very diminutive left vertebral artery noted, demonstrating occlusion of the P1 segment as for. 3-4 mm prominent infundibulum seen at the origin of the left posterior cerebral artery. Normal appearing basilar artery. CSF spaces: Ventricles are normal in size and shape. Basal cisterns are patent. No extra-axial fluid collections. Brain: No midline shift. No intracranial bleeds or masses. Lou-white matter interface appears intact. Skull and face: Calvarium and facial bones appear intact, without suspicious lesions. Sinuses: Visualized sinuses and mastoids are clear. IMPRESSION: Normal appearance of the anterior circulation Dominant right vertebral artery. Redemonstrated diminutive left WINDER FIXER with occlusion of the P1 segment as before. Reviewed by: Fidel Martin MD on 12/04/2019 12:01 PM PDT Approved by: Fidel Martin MD on 12/04/2019 12:01 PM PDT Station ID: [id number]
[2019-12-04] MEDS ORDERED: ASPIRIN CHEW 81 MG TABLET PO STA (12:05)
[2019-12-04 12:06] LABS: CLARITY,URINE CLEAR (CLEAR)
[2019-12-04] MEDS ORDERED: IOVERSOL 320 100 ML VIAL IVP ONE (12:07)
--- NOTE | 2019-12-04 12:10 | CT Report ---
Reason: L sided facial droop, L neck pain Procedure Date: 12/04/2019 Accession Number: [id number] / [id number] Procedure: CT - ANGIO NECK W CPT Code: Final Report FULL RESULT: PROCEDURE: ANGIO NECK W INDICATIONS: L sided facial droop, L neck pain CONTRAST: IV CONTRAST: Optiray 320 ml: 80 PO CONTRAST: *NO PO CONTRAST TECHNIQUE: After the administration of intravenous contrast, 1.5 mm axial sections acquired from the aortic arch to the [place] of [place]. Coronal 3-D maximum intensity projection (MIP) and/or volume rendering reformats were then performed. For radiation dose reduction, the following was used: automated exposure control, adjustment of mA and/or kV according to patient size. COMPARISON: CTA neck dated 04/06/2014. FINDINGS: Image quality: Excellent. Carotid system: The great vessels demonstrate a conventional anatomy as they arise from the aortic arch. The origins of the common carotid arteries appear patent. The bifurcation regions appear normal bilaterally. The internal carotid arteries demonstrate normal caliber and course. Posterior circulation: Dominant appearance of the right vertebral artery as before. There is unchanged appearance of infundibulum at the origin of the left posterior cerebral artery which is diminutive, and occluded at the P1 segment as before. Scattered atherosclerotic plaque seen in the aorta and great vessels. Tortuous appearance of the right subclavian and common carotid arteries Soft tissues: Visualized neck soft tissues demonstrate no suspicious abnormalities. The thyroid gland is normal in size. Bones: No suspicious bony lesions. Visualized cervical spine appears normally aligned. 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 No hemodynamically significant ICA stenosis The estimate of stenosis included in the report of the imaging study was calculated using the NASCET method Reviewed by: Fidel Martin MD on 12/04/2019 12:08 PM PDT Approved by: Fidel Martin MD on 12/04/2019 12:08 PM PDT Station ID: [id number]
--- NOTE | 2019-12-04 12:23 | ED Physician Documentation ---
PD HPI FOCAL NEURO - Stated complaint Stated Complaint: POSS STROKE - Chief complaint Chief Complaint: Neuro - History obtained from History obtained from: Patient, Family, EMS, Caregiver - History of Present Illness Timing - onset: Today (Unclear the exact onset time. She is followed by her caregiver who came in this morning around 845 and noted the patient to be confused with difficulty speaking and to have a new right facial droop and right arm weakness. The patient had had difficulty going to the bathroom last night around 2 AM and slumped to the floor and needed assistance getting back up. At that point there was no notice of focal weaknesses per se according to the daughter. The patient had been having general weakness and a bit of confusion increased over baseline for the last couple of days.) Timing - duration: Hours (unknown exactly, from 2 to 8 hours.) Timing - details: Still present in ED Time of symptom onset unknown: Time of onset unknown Severity of deficit: Moderate Weakness: Face, Arm, Right. No: Leg Numbness: Face, Arm, Right. No: Leg Associated symptoms: No: Headache Contributing factors: negative: Anticoagulated, Atrial fibrillation Baseline status: positive: A&OX3, ambulatory, indep, Walker, Mildly confused Similar symptoms before: Has not had sx before Recently seen: Not recently seen Review of Systems Constitutional: reports: Myalgias, Fatigue. denies: Fever Nose: denies: Rhinorrhea / runny nose, Congestion Throat: denies: Sore throat Cardiac: reports: Chest pain / pressure. denies: Palpitations, Pedal edema, Calf pain GI: denies: Nausea, Vomiting, Diarrhea PD PAST MEDICAL HISTORY - Past Medical History Cardiovascular: Hypertension, High cholesterol, Arrhythmia, Other Respiratory: Sleep apnea Neuro: Parkinson's Endocrine/Autoimmune: Type 2 diabetes GI: GERD, Colon polyps HOP PICKER: None : Incontinence, Chronic bladder infection HEENT: None Psych: Depression, Anxiety - Past Surgical History Past Surgical History: Yes General: 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 Ortho: Other /HOP PICKER: Hysterectomy HEENT: Cataracts - Present Medications Home Medications: Ambulatory Orders Medication Instructions Recorded Confirmed Propranolol [Inderal] 10 mg PO BID 09/04/16 12/04/19 metFORMIN [Glucophage] 500 mg PO BID 09/04/16 12/04/19 Escitalopram [Lexapro] 20 mg PO DAILY 03/10/18 12/04/19 Mirtazapine 7.5 mg PO QPM 03/10/18 12/04/19 Atorvastatin Calcium 20 mg PO QPM 09/14/19 12/04/19 Primidone 25 mg PO QPM 09/14/19 12/04/19 Glimepiride [Amaryl] 2 mg PO DAILY 12/04/19 12/04/19 - Allergies Allergies/Adverse Reactions: Allergies Allergy/AdvReac Type Severity Reaction Status Date / Time codeine [Codeine] AdvReac Intermediate Nausea Verified 12/04/19 11:16 ssri Allergy Unknown Uncoded 12/04/19 11:16 - Social History Does the pt smoke?: No Smoking Status: Never smoker Does the pt drink ETOH?: No Does the pt have substance abuse?: No - Immunizations Immunizations are current?: Yes - POLST Patient has POLST: No PD ED PE NORMAL - Vitals Vital signs reviewed: Yes - General General: Alert and oriented X 3, No acute distress, Well developed/nourished - HEENT HEENT: Ears normal, Pharynx benign, Other (some right facial droop). No: Moist mucous membranes - Neck Neck: Supple, no meningeal sign, No adenopathy, No bruit - Cardiac Cardiac: RRR, No murmur - Respiratory Respiratory: Clear bilaterally - Abdomen Abdomen: Soft, Non tender, Non distended - Back Back: No CVA TTP - Derm Derm: Normal color, Warm and dry - Extremities Extremities: No deformity, No tenderness to palpate, Normal ROM s pain, No edema, No calf tenderness / cord - Neuro Neuro: Alert and oriented X 3, No motor deficit, Normal speech Eye Opening: Spontaneous Motor: Obeys Commands Verbal: Confused GCS Score: 14 NIHSS - Level of Consciousness Level of consciousness: (0) Alert, Keenly responsive LOC Questions: (1) Answers one Q correctly LOC Commands: (0) Performs both correctly - Gaze Best Gaze: (0) Normal - Visual Visual: (0) No loss - Facial Palsy Facial Palsy: (1) Minor paralysis - Motor Arms (both separate) Motor Arm (right): (1) Drift Motor Arm (left): (0) No drift - Motor Legs (both separate) Motor Leg (right): (0) No drift Motor Leg (left): (0) No drift - Limb Ataxia Limb Ataxia: (1) Present in 1 limb - Sensory Sensory: (0) Normal - Best Language Best Language: (1) [id number] - Dysarthria Dysarthria: (0) Normal - Extinction and Inattention (formally neg Extinction and inattention: (0) No abnormality - Total Score/Results Total Score/Result: 5 Results - Vitals Vitals: Vital Signs - 24 hr 12/04/19 12/04/19 12/04/19 10:53 11:19 11:49 Temperature 36.7 C Heart Rate 66 66 63 Respiratory 18 11 L 12 Rate Blood Pressure 141/82 H 141/69 H 140/67 H O2 Saturation 96 94 100 12/04/19 12:19 Temperature Heart Rate 67 Respiratory 16 Rate Blood Pressure 123/61 O2 Saturation 99 Oxygen O2 Source [With Activity] Room air O2 Source Room air - Labs Labs: Laboratory Tests 12/04/19 12/04/19 12/04/19 10:50 10:50 10:50 WBC 6.9 RBC 4.45 Hgb 13.3 Hct 42.2 MCV 94.8 MCH 29.9 MCHC 31.5 L RDW 13.8 Plt Count 296 MPV 10.3 Neut # (Auto) 4.5 Lymph # (Auto) 1.6 [place] # (Auto) 0.7 Eos # (Auto) 0.1 Baso # (Auto) 0.0 Absolute Nucleated RBC 0.00 Nucleated RBC % 0.0 PT 12.3 INR 1.1 APTT 27.4 Sodium 140 Potassium 3.5 Chloride 101 Carbon Dioxide 30 Anion Gap 9.0 BUN 30 H Creatinine 0.4 Estimated GFR (MDRD) 152 Glucose 157 H Calcium 9.9 Total Bilirubin 0.7 AST 22 ALT < 10 L Alkaline Phosphatase 48 Troponin I High Sens Total Protein 7.7 Albumin 4.1 Globulin 3.6 Albumin/Globulin Ratio 1.1 Lipase 34 Urine Color Urine Clarity Urine pH Ur Specific [place] Urine Protein Urine Glucose (UA) Urine Ketones Urine Occult Blood Urine Nitrite Urine Bilirubin Urine Urobilinogen Ur Leukocyte Esterase Ur Microscopic Review Urine Culture Comments 12/04/19 12/04/19 10:50 11:44 WBC RBC Hgb Hct MCV MCH MCHC RDW Plt Count MPV Neut # (Auto) Lymph # (Auto) [place] # (Auto) Eos # (Auto) Baso # (Auto) Absolute Nucleated RBC Nucleated RBC % PT INR APTT Sodium Potassium Chloride Carbon Dioxide Anion Gap BUN Creatinine Estimated GFR (MDRD) Glucose Calcium Total Bilirubin AST ALT Alkaline Phosphatase Troponin I High Sens 5.5 Total Protein Albumin Globulin Albumin/Globulin Ratio Lipase Urine Color DARK YELLOW Urine Clarity CLEAR Urine pH 5.0 Ur Specific [place] 1.025 Urine Protein NEGATIVE Urine Glucose (UA) NEGATIVE Urine Ketones TRACE Urine Occult Blood NEGATIVE Urine Nitrite NEGATIVE Urine Bilirubin NEGATIVE Urine Urobilinogen 0.2 (NORMAL) Ur Leukocyte Esterase NEGATIVE Ur Microscopic Review NOT INDICATED Urine Culture Comments NOT INDICATED - Rads (name of study) head CT Radiology: Prelim report reviewed, Discussed with rads (age related changes, no acute process), See rad report head/neck angio Radiology: Prelim report reviewed, Discussed with rads (no significant stenoses. ), See rad report PD MEDICAL DECISION MAKING - ED course Complexity details: considered differential ('s strokelike symptoms with right weakness some confusion. However she has had a couple of days of more general weakness so we will look for infections or electrolyte problems or such. She is not a intervention candidate based on timing of symptoms and unknown onset. I talked with [facility] neurology that suggested regular stroke work-up and to start an aspirin.), d/w patient Departure - Departure Disposition: ED Place in Observation Clinical Impression: Right sided weakness, Confusion Condition: Stable Record reviewed to determine appropriate education?: Yes Discharge Date/Time: 12/04/19 12:39
[2019-12-04] MEDS ORDERED: ONDANSETRON 4 MG/2 ML VIAL IVP PRN (12:28)
[2019-12-04] MEDS ORDERED: SODIUM CHLORIDE FLUSH 0.9% 10 ML SYRINGE IVP PRN (12:28)
[2019-12-04] MEDS ORDERED: ACETAMINOPHEN 325 MG TABLET PO PRN (12:28)
[2019-12-04] MEDS: D5NS W/20 MEQ KCL 1,000 ML IV SCH (13:32)
--- NOTE | 2019-12-04 15:09 | HISTORY & PHYSICAL EXAMINATION ---
DATE OF SERVICE: 12/04/2019 Physician: Ashlyn Melo MD CC PCP HISTORY OF PRESENT ILLNESS: This is an 84-year-old, white female with a history of diabetes, dementia, she has a tremor, but states she does not have Parkinson's. There is a history of hypertension and anxiety. 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 When the daughter last saw her, which was early this morning, the patient was still sleeping and when the caregiver arrived to awake her, the caregiver noticed right facial droop and right arm and leg weakness. EMS was called. This patient's last known well is therefore last night. In the ER, she was noted to be generally weak, had an overall tremor, bradykinetic with flat facies. She did have slight weakness of the right lower facial muscles plus right arm and leg weakness. She underwent a CT of the head and CTA of the head and neck, which did not show stroke but saw microangiopathy changes. There was no hemorrhage or midline shift. She was out of the window to have any intervention done by [facility]. Patient is being placed in Observation status to evaluate a TIA versus a stroke. PAST MEDICAL HISTORY: Diabetes, hypertension, dementia, Parkinson's disease, anxiety. ALLERGIES: CODEINE AND SSRIs. MEDICATIONS 1. Lipitor 20 mg every night. 2. Carbidopa/levodopa 25/100 mg daily. 3. Lexapro 20 mg daily. 4. Losartan 12.5 mg daily. 5. Melatonin 5 mg daily. 6. Metformin 500 mg daily. 7. Mirtazapine half a tablet of 7.5 mg b.i.d. 8. Primidone 12.5 mg daily. 9. Propranolol 10 mg b.i.d. FAMILY HISTORY: Patient states that there are no inherited diseases in the family. Patient had 8 children, 2 have . SOCIAL HISTORY: Patient is a nonsmoker, who never smoked in her life, drinks no alcohol, no illicit drug use history. According to the ER provider, the patient lives with her daughter, but the patient herself claims that she lives alone and the daughter visits every night after work. REVIEW OF SYSTEMS: A comprehensive review of systems was performed by chart review and talking to the patient, the pertinent positives are listed above, the rest are negative. PHYSICAL EXAMINATION GENERAL: Elderly, thin white female. She is bradykinetic with a resting tremor of her hands and has flat facies. VITAL SIGNS: Blood pressure 140/60, heart rate 70 and regular, afebrile, and room air saturation 100%. HEENT: Shows temporal wasting, moist oral mucosa, flat facies. NECK: No JVD in a vertical position. No carotid bruits. CHEST: Clear. HEART: Normal heart sounds. ABDOMEN: Soft, nontender. No guarding or rebound. EXTREMITIES: No clubbing, cyanosis or edema. Her skin has positive tenting. NEUROLOGIC: She has a resting tremor of her hands and her jaw. She has equal bilateral muscle strength during a smile and tongue protrusion. She has 4/5 strength of the right arm and right leg compared to 5/5 strength on the left. Her speech is normal and she is speaking appropriately and in full sentences. LABORATORY DATA: Normal electrolytes. Normal liver tests. Normal lipase. The BUN is 30 with creatinine 0.4. INR normal. CBC normal. Urinalysis normal. IMAGING: No chest x-ray was done. Head CT showed no acute abnormality. There were mild to moderate chronic white matter changes consistent with small vessel ischemic disease and cerebral volume loss. 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 EKG: Normal sinus rhythm at a rate of 66, ST scooping depressions in leads I, II, aVL and V4 through V6. IMPRESSION/DIAGNOSES 1. Transient ischemic attack versus possible completed cerebrovascular accident. 2. History of hypertension. 3. Parkinson's disease. 4. Dementia. 5. Prerenal azotemia. 6. Abnormal EKG. 7. History of anxiety. PLAN: Place the patient in Observation status, on telemetry watching for dysrhythmias like atrial fibrillation. Proceed to MRI imaging of the brain with MRI and MRA. She received an aspirin in the ER and continue with daily aspirin treatment. Check lipids and treat per guidelines with a potential statin. Obtain an Echo to rule out a cardiac source of embolus or an intracardiac shunt. Continue with her blood pressure medication with hold orders if blood pressure is under 140 to avoid hypoperfusion of the brain. Continue with her Parkinson's medication. Begin IV fluids for prerenal azotemia management given clinical signs of dehydration. Continue with her anxiety medication. Check troponin because of the abnormal EKG. PT and OT will be ordered to evaluate her functional status and whether rehab would be needed. If this patient's neurologic symptoms persist beyond the last known well, which was 0845 today, she could be admitted as an inpatient for diagnosis of completed stroke. DEEP VENOUS THROMBOSIS PROPHYLAXIS: SCDs. CODE STATUS: FULL CODE. I tried to confirm this with the patient and she says she does not know what she wants done; therefore, will default to being full code status. ATTESTATION: The patient is expected to be discharged or transferred to another facility within 96 hours: Yes. TD: 12/04/2019 14:37 S[place]
--- NOTE | 2019-12-04 16:48 | PHARMACY PROGRESS NOTE ---
- Best Possible Medication History Admit Date and Time: 12/04/19 1228 Processed by: Pharmacy Medication History completed: Yes Patient Interview: Completed Secondary Source(s): Physician records (PATIENT DOES NOT KNOW WHAT SHE TAKES; PHARMACY RECORD FROM ARTEM CARRILLO ), Pharmacy records, Insurance records As the person ultimately responsible for medication therapy, providers are able to order a medication from an existing home medication list in [facility] via the "Reconcile Routine" prior to Confirmation of that medication by manager product support. Such practice is discouraged except when the physician, in their clinical judgment, deems that a medical need exists for a medication without regard to previous use.
[2019-12-04] MEDS: INSULIN ASPART 300 UNIT/3 ML PEN SUBQ SCH ×2 (16:56→21:02)
[2019-12-04] MEDS: SODIUM CHLORIDE FLUSH 0.9% 10 ML SYRINGE IVP SCH (16:56)
[2019-12-04] MEDS: FAMOTIDINE 20 MG TABLET PO SCH (21:02)
[2019-12-05] MEDS: SODIUM CHLORIDE FLUSH 0.9% 10 ML SYRINGE IVP SCH ×3 (01:48→17:49)
[2019-12-05 05:29] LABS: BASOPHILS % (AUTO) 0.7 %; EOSINOPHILS # (AUTO) 0.1 10^3/uL (0.0-0.7); EOSINOPHILS % (AUTO) 2.4 %; HGB - HEMOGLOBIN 10.9 g/dL (12.0-16.0); LYMPHOCYTES % (AUTO) 43.6 %; MEAN CORPUSCULAR HEMOGLOBIN 31.8 pg (27.0-31.0); MEAN CORPUSCULAR HGB CONC 33.2 g/dL (32.0-36.0); MEAN CORPUSCULAR VOLUME 95.6 fL (81.0-99.0); MEAN PLATELET VOLUME 10.7 fL (7.9-10.8); MONOCYTES # (AUTO) 0.6 10^3/uL (0.0-1.0); MONOCYTES % (AUTO) 12.4 %; NEUTROPHILS # (AUTO) 1.9 10^3/uL (1.5-6.6); NEUTROPHILS % (AUTO) 40.7 %; PLT - PLATELET COUNT 263 10^3/uL (130-450); RED BLOOD COUNT 3.43 10^6/uL (4.20-5.40); RED CELL DISTRIBUTION WIDTH 13.8 % (12.0-15.0); WHITE BLOOD COUNT 4.6 x10^3/uL (4.8-10.8)
[2019-12-05 05:30] LABS: HEMOGLOBIN A1C 0.61 g/dL; HEMOGLOBIN A1C % 7.2 % (4.6-6.2)
[2019-12-05 05:36] LABS: BUN - BLOOD UREA NITROGEN 22 mg/dL (6-20); CALCIUM 8.9 mg/dL (8.5-10.3); CARBON DIOXIDE - CO2 28 mmol/L (21-32); CHLORIDE 107 mmol/L (101-111); CHOL/HDL RATIO 2.8 (<4.4); CHOLESTEROL 94 mg/dL; CREATININE 0.3 mg/dL (0.4-1.0); GLUCOSE 134 mg/dL (70-100); HDL CHOLESTEROL 34 mg/dL; LDL CHOLESTEROL,CALCULATED 47 mg/dL; LDL/HDL RATIO 1.4 (<4.4); SODIUM 141 mmol/L (135-145); VLDL CHOLESTEROL 13 mg/dL
[2019-12-05] MEDS: D5NS W/20 MEQ KCL 1,000 ML IV SCH (05:42)
[2019-12-05] MEDS: INSULIN ASPART 300 UNIT/3 ML PEN SUBQ SCH ×4 (08:58→21:53)
[2019-12-05] MEDS ORDERED: ASPIRIN EC 325 MG TABLET PO SCH (09:00)
[2019-12-05] MEDS: ESCITALOPRAM 10 MG TABLET PO SCH (10:01)
[2019-12-05] MEDS: FAMOTIDINE 20 MG TABLET PO SCH ×2 (10:01→21:50)
[2019-12-05] MEDS: PROPRANOLOL 10 MG TABLET PO SCH ×2 (10:01→21:53)
--- NOTE | 2019-12-05 16:35 | PROVIDER PROGRESS NOTE ---
Subjective - Prog Note Date Prog Note Date: 12/05/19 - Subjective Pt reports feeling: Improved Subjective: pt still present right side weakness. MRI is still pending now. she denies fever, chill, chest pain, shortness of breath. Current Medications - Current Medications Current Medications: Active Medications Acetaminophen (Tylenol) 650 mg PO Q4HR PRN PRN Reason: Pain 1 to 4 Aspirin (Ecotrin) 325 mg PO DAILY [facility] Last Admin: 12/05/19 10:00 Dose: 325 mg Atorvastatin Calcium (Lipitor) 20 mg PO QPM [facility] Escitalopram Oxalate (Lexapro) 20 mg PO DAILY [facility] Last Admin: 12/05/19 10:01 Dose: 20 mg Famotidine (Pepcid) 20 mg PO BID [facility] Last Admin: 12/05/19 10:01 Dose: 20 mg Potassium Chloride/Dextrose/Sod Cl () 1,000 mls @ 60 mls/hr IV .[id number] [facility] Last Admin: 12/05/19 05:42 Dose: 60 mls/hr Insulin Aspart (Novolog) 1 - 5 unit SUBQ 0800,1200,1700,2100 [facility]; Protocol Last Admin: 12/05/19 11:29 Dose: 2 unit Mirtazapine (Remeron) 7.5 mg PO QPM [facility] Ondansetron HCl (Zofran Inj) 4 mg IVP Q6HR PRN PRN Reason: Nausea / Vomiting Primidone (Mysoline) 25 mg PO QPM [facility] Propranolol HCl (Inderal) 10 mg PO BID [facility] Last Admin: 12/05/19 10:01 Dose: 10 mg Sodium Chloride (Normal Saline Flush 0.9%) 10 ml IVP PRN PRN PRN Reason: NEEDED PER PROVIDER ORDERS Sodium Chloride (Normal Saline Flush 0.9%) 10 ml IVP 0100,0900,1700 [facility] Last Admin: 12/05/19 10:01 Dose: 10 ml Propranolol [Inderal] 10 mg PO BID 09/04/16 metFORMIN [Glucophage] 500 mg PO BID 09/04/16 Escitalopram [Lexapro] 20 mg PO DAILY 03/10/18 Mirtazapine 7.5 mg PO QPM 03/10/18 Atorvastatin Calcium 20 mg PO QPM 09/14/19 Primidone 25 mg PO QPM 09/14/19 Glimepiride [Amaryl] 2 mg PO DAILY 12/04/19 Objective - Vital Signs/Intake & Output Vital Signs: Vital Signs x48h Temp Pulse Pulse Pulse Resp BP BP 12/05/19 16:12 37.0 C 80 18 144/69 H 12/05/19 12:58 69 72 154/71 H 12/05/19 11:56 37.0 C 65 18 132/72 H 12/05/19 10:30 69 72 154/71 H BP Pulse Ox Pulse Ox Pulse Ox 12/05/19 16:12 96 12/05/19 12:58 137/74 H 97 96 12/05/19 11:56 95 12/05/19 10:30 137/74 H Intake & Output: Intake & Output 12/02/19 12/03/19 12/04/19 12/05/19 23:59 23:59 23:59 23:59 Intake Total 1211 1410 Output Total 200 Balance 1211 1210 - Objective General Appearance: positive: No acute distress, Alert. negative: Lethargic Eyes Bilateral: positive: Normal inspection, PERRL, No lid inflammation ENT: positive: ENT inspection nml, No signs of dehydration, Purulent nasal drainage Neck: positive: Nml inspection, Thyroid nml, No JVD, Trachea midline. negative: Thyromegaly, Stiff neck, Tracheal deviation Respiratory: positive: Chest non-tender, No respiratory distress, Breath sounds nml. negative: Wheezes, Rhonchi Cardiovascular: positive: Regular rate & rhythm, No murmur, No gallop. negative: Irregularly irregular, Tachycardia, Bradycardia, Systolic murmur, Diastolic murmur Peripheral Pulses: 2+ Radial (R), 2+ Radial (L), 2+ Dorsalis pedis (R), 2+ Dorsalis pedis (L) Abdomen: positive: Non-tender, No organomegaly, Nml bowel sounds, No distention. negative: Tenderness, Guarding, Rebound Back: positive: Nml inspection Skin: positive: Color nml, No rash, Warm, Dry. negative: Cyanosis, Diaphoresis, Pallor Extremities: positive: Non-tender, Nml appearance. negative: Calf tenderness, Jamarcus's sign/cords Neurologic/Psychiatric: positive: Sensation nml, Weakness. negative: Sensory loss, Facial droop, Slurred/abnml speech, Depressed mood/affect - Lab Results Fish Bones: 12/05/19 04:40 12/05/19 04:40 Other Labs: Lab Results x24hrs 12/05/19 12/05/19 12/05/19 Range/Units 04:40 04:40 04:40 WBC 4.6 L (4.8-10.8) x10^3/uL RBC 3.43 L (4.20-5.40) 10^6/uL Hgb 10.9 L (12.0-16.0) g/dL Hct 32.8 L (37.0-47.0) % MCV 95.6 (81.0-99.0) fL MCH 31.8 H (27.0-31.0) pg MCHC 33.2 (32.0-36.0) g/dL RDW 13.8 (12.0-15.0) % Plt Count 263 (130-450) 10^3/uL MPV 10.7 (7.9-10.8) fL Neut # (Auto) 1.9 (1.5-6.6) 10^3/uL Lymph # (Auto) 2.0 (1.5-3.5) 10^3/uL [place] # (Auto) 0.6 (0.0-1.0) 10^3/uL Eos # (Auto) 0.1 (0.0-0.7) 10^3/uL Baso # (Auto) 0.0 (0.0-0.1) 10^3/uL Absolute Nucleated RBC 0.00 x10^3/uL Nucleated RBC % 0.0 /100WBC Sodium 141 (135-145) mmol/L Potassium 3.5 (3.5-5.0) mmol/L Chloride 107 (101-111) mmol/L Carbon Dioxide 28 (21-32) mmol/L Anion Gap 6.0 (6-13) BUN 22 H (6-20) mg/dL Creatinine 0.3 L (0.4-1.0) mg/dL Estimated GFR (MDRD) 212 (>89) Glucose 134 H (70-100) mg/dL Glycated Hemoglobin 7.2 H (4.6-6.2) % Estim Average Glucose 160 H (70-100) Calcium 8.9 (8.5-10.3) mg/dL Magnesium 2.0 (1.7-2.8) mg/dL Triglycerides 63 ( - 149) mg/dL Cholesterol 94 ( - 199) mg/dL LDL Cholesterol, Calc 47 ( - 129) mg/dL VLDL Cholesterol 13 mg/dL HDL Cholesterol 34 L (60 - ) mg/dL LDL/HDL Ratio 1.4 (<4.4) Cholesterol/HDL Ratio 2.8 (<4.4) ABX Reporting Has patient been on IV antibiotics over the past 48 hours?: No Sepsis Event Note (H) - Evaluation Current Stage of Sepsis: Ruled out Assessment/Plan - Problem List (1) Stroke-like symptoms Impression: Patient still present right side weakness. Facial droop symptoms is resolved. MRI is still pending. Continue aspirin, continue Lipitor, continue PT /OT evaluation and treatment (2) Tremor Impression: Patient continue has trauma, will continue home medication inderal (3) HTN (hypertension) Impression: Stable, will continue home medication inderal (4) T2DM (type 2 diabetes mellitus) Impression: Patient had A1c 7.2, will continue sliding scale, continue hypoglycemia protocol (5) Dementia Impression: Stable, patient has a history of dementia Qualifiers: Dementia type: unspecified type Dementia behavioral disturbance: without behavioral disturbance Qualified Code(s): F03.90 - Unspecified dementia without behavioral disturbance (6) Depression Impression: stable, will resume Lexapro, and mirtazapine
[2019-12-05] MEDS ORDERED: LORazepam 2 MG/ML VIAL IVP ONE (18:05)
[2019-12-05] MEDS ORDERED: MIRTAZAPINE 15 MG TABLET PO SCH (21:00)
[2019-12-05] MEDS ORDERED: PRIMIDONE 50 MG TABLET PO SCH (21:00)
[2019-12-05] MEDS ORDERED: ATORVASTATIN 10 MG TABLET PO SCH (21:00)
--- NOTE | 2019-12-05 21:28 | MRI Report ---
Reason: R sided weakness Procedure Date: 12/05/2019 Accession Number: [id number] / [id number] Procedure: MRI - Brain W/O CPT Code: Final Report FULL RESULT: PROCEDURE: Brain W/O INDICATIONS: R sided weakness TECHNIQUE: Noncontrast axial T1 spin echo, axial T2 fast spin echo, sagittal and axial FLAIR, coronal T2 fast spin echo, axial gradient echo, axial diffusion and ADC through the brain. COMPARISON: CT head dated 12/04/2019. FINDINGS: Image quality: Exam limited by patient motion artifact. Additionally, patient could not complete the duration of the study. CSF Spaces: Basal cisterns are patent. No extra-axial fluid collections. Ventricles are stable in size and shape. Brain: No intracranial masses. Brainstem appears normal. Diffusion-weighted images demonstrate no acute ischemic insult. No chronic ischemic insults. A focus of somewhat linear hyperintensity on the DWI sequence along the medial aspect of the left temporal lobe correlates with a hyperintense area on ADC map and is compatible with T2 shine through. Limited sagittal view demonstrates scattered T2 hyperintense foci compatible with chronic small vessel ischemic disease. Skull and face: Grossly unremarkable Sinuses: Unable to be assessed. IMPRESSION: Limited study secondary to moderate patient motion artifact. The patient was unable to complete the study. Overall, no MRI evidence for acute cerebral ischemia/infarction. Reviewed by: Kendall Singleton MD on 12/05/2019 9:27 PM PDT Approved by: Kendall Singleton MD on 12/05/2019 9:27 PM PDT Station ID: [id number]
[2019-12-06] MEDS: D5NS W/20 MEQ KCL 1,000 ML IV SCH (00:34)
[2019-12-06] MEDS: SODIUM CHLORIDE FLUSH 0.9% 10 ML SYRINGE IVP SCH ×2 (06:25→09:00)
[2019-12-06] MEDS ORDERED: PANTOPRAZOLE 40 MG TABLET PO SCH (08:00)
[2019-12-06] MEDS: INSULIN ASPART 300 UNIT/3 ML PEN SUBQ SCH ×2 (08:51→12:22)
[2019-12-06] MEDS: ESCITALOPRAM 10 MG TABLET PO SCH (08:56)
[2019-12-06] MEDS: FAMOTIDINE 20 MG TABLET PO SCH (08:56)
[2019-12-06] MEDS: PROPRANOLOL 10 MG TABLET PO SCH (08:57)
[2019-12-06] MEDS ORDERED: ASPIRIN CHEW 81 MG TABLET PO SCH (09:00)
--- NOTE | 2019-12-06 13:50 | Discharge Plan ---
Discharge Plan Problem Reviewed?: Yes Disposition: 06 Home Health Service Condition: Stable Prescriptions: Aspirin Chewable [[facility] Aspirin] 81 mg PO DAILY #10 tablet Omeprazole 20 mg PO DAILY #10 capsule. Diet: Diabetic Activity Restrictions: Activity as Tolerated Shower Restrictions: No (fall precaution, caregiver closely monitor ) Instruction Topics: TIA Health Concerns: Transient ischemic attack Plan of Treatment: your right facial droop was resolved and your right side weak was returned as your baseline. MRI of your brain did not support you have acute stroke at this time. Home health PT/OT and home health Aide are arranged for you. 81 mg Aspirin and 20 mg omeprazole are prescribed for you to prevent of stroke. you can continue your home meds as your scheduled. Care Goals: stabilization and improvement of your medical conditions. Assessment: discussed with you about the care plan, you understood. Additional Instructions or Follow Up instructions: You may followup with your PCP in one to weeks. Should your symptoms return or worsen, you may present ER or call 911 for help. Follow-Up Care: Home Health - PT, Home Health - OT No Smoking: If you smoke, Please STOP! Call for help. Follow-up with: Oscar Bergeron MD [Primary Care Provider] -
--- NOTE | 2019-12-06 14:05 | DISCHARGE SUMMARY ---
Discharge Summary Admit Date: 12/04/19 Discharge Date: 12/06/19 Discharging Provider: Cesar Cope Primary Care Provider: Oscar Rodriguez Condition at Discharge: Stable Discharge Disposition: Home Health Service Discharge Facility Name: home - DIAGNOSES Admission Diagnoses: (1) Stroke-like symptoms (2) Tremor (3) HTN (hypertension) (4) T2DM (type 2 diabetes mellitus) (5) Dementia (6) Depression Discharge Diagnoses with Status of Each Condition: (1) TIA Patient's right side weakness was resolved as her baseline. Facial droop symptoms is resolved. MRI of brain and ECHO, CTA of head and neck all were unremarkable for acute finding. pt was prescribed 81mg aspirin and 20 mg omeprazole, continue home Lipitor. PT /OT evaluation and treatment, and recommended pt has home health PT/OT, home health Aide. executive secretary social welfare was consulted for increase pt's caregiver time. Per our social work report patient canceled and reduced her social work arranged caregiver. (2) Tremor chronic, continue home medication (3) HTN (hypertension) chronic, continue home medication (4) T2DM (type 2 diabetes mellitus) chronic, Patient had A1c 7.2, continue home meds (5) Dementia Impression: chronic (6) Depression stable, continue home meds - HPI History of Present Illness: This is a 84 years old white female with a past medical history of diabetic, dementia, tremor, hypertension, anxiety, who present hospital for facial droop, right side side weakness. - HOSPITAL COURSE Hospital Course: Patient was admitted for TIA, right side facial droop, right-sided weakness. patient had MRI of brain, CTA of neck and head, echo which all show unremarkable for acute finding, patient had a PT/OT evaluation and treatment, patient was recommended to be discharged home with home health PT and OT and home health aide. Patient was prescribed 81 mg aspirin, 20 mg Omeprazole, plus patient home medication Lipitor to prevent stroke. - ALLERGIES Allergies/Adverse Reactions: Allergies Allergy/AdvReac Type Severity Reaction Status Date / Time codeine [Codeine] AdvReac Intermediate Nausea Verified 12/04/19 11:16 - MEDICATIONS Home Medications: Ambulatory Orders Medication Instructions Recorded Confirmed Propranolol [Inderal] 10 mg PO BID 09/04/16 12/04/19 metFORMIN [Glucophage] 500 mg PO BID 03/10/17 06/08/20 Escitalopram [Lexapro] 20 mg PO DAILY 03/10/18 12/04/19 Mirtazapine 7.5 mg PO QPM 03/10/18 12/04/19 Atorvastatin Calcium 20 mg PO QPM 09/14/19 12/04/19 Primidone 25 mg PO QPM 09/14/19 12/04/19 Glimepiride [Amaryl] 2 mg PO DAILY 12/04/19 12/04/19 Aspirin Chewable [[facility] 81 mg PO DAILY #10 tablet 12/06/19 Aspirin] Omeprazole 20 mg PO DAILY #10 capsule. 12/06/19 - PHYSICAL EXAM AT DISCHARGE General Appearance: positive: No acute distress, Alert. negative: Lethargic Eyes Bilateral: positive: Normal inspection, PERRL, No lid inflammation ENT: positive: ENT inspection nml, Pharynx nml, No signs of dehydration. negative: Purulent nasal drainage Neck: positive: Nml inspection, Thyroid nml, No JVD, Trachea midline. negative: Thyromegaly, Stiff neck, Tracheal deviation Respiratory: positive: Chest non-tender, No respiratory distress, Breath sounds nml. negative: Wheezes, Rales, Rhonchi Cardiovascular: positive: Regular rate & rhythm, No murmur, No gallop. negative: Irregularly irregular, Tachycardia, Bradycardia, Systolic murmur, Diastolic murmur Peripheral Pulses: positive: 2+ Abdomen: positive: Non-tender, No organomegaly, Nml bowel sounds, No distention. negative: Tenderness, Guarding, Rebound Back: positive: Nml inspection. negative: CVA tenderness (R), CVA tenderness (L) Skin: positive: Color nml, No rash, Warm, Dry. negative: Cyanosis, Diaphoresis, Pallor Extremities: positive: Non-tender, Full ROM, Nml appearance. negative: Calf tenderness, Jamarcus's sign/cords Neurologic/Psychiatric: positive: Sensation nml, Mood/affect nml. negative: Weakness, Sensory loss, Facial droop, Slurred/abnml speech, Depressed mood/affect - LABS Result Diagrams: 12/05/19 04:40 12/05/19 04:40 - SEPSIS Current Stage of Sepsis: Ruled out - FOLLOW UP Follow Up: your right facial droop was resolved and your right side weak was returned as your baseline. MRI of your brain did not support you have acute stroke at this time. Home health PT/OT and home health Aide are arranged for you. 81 mg Aspirin and 20 mg omeprazole are prescribed for you to prevent of stroke. you can continue your home meds as your scheduled. You may followup with your PCP in one to weeks. Should your symptoms return or worsen, you may present ER or call 911 for help. - TIME SPENT Time Spent in Discharge (Minutes): 30
[2019-12-06 15:31] VITALS: BP 126/72
== END 2019-12-06 16:45 | disposition home health service (06) | DRG 69 ==
LOC: EDUNIT# → EDBD → EDSEX → ED 10:49 → MS2 12:28 → OBSVTOIN 12-05 16:30
PROVIDERS: ADMIT Internal Medicine; ATTEND Nurse Practitioner Gerontology
DX: G45.9 Transient cerebral ischemic attack, unspecified (principal); E11.9 Type 2 diabetes mellitus without complications; G20 Parkinson's disease; F02.80 Dementia in other diseases classified elsewhere, unspecified severity, without behavioral disturbance, psychotic disturbance, mood disturbance, and anxiety; I10 Essential (primary) hypertension; F41.9 Anxiety disorder, unspecified; Z79.84 Long term (current) use of oral hypoglycemic drugs; I66.21 Occlusion and stenosis of right posterior cerebral artery; R94.31 Abnormal electrocardiogram [ECG] [EKG]
CPT/HCPCS: 36415; 70496; 70498; 70551; 80048; 80053; 80061; 81003; 83036; 83690; 83735; 84484; 85025; 85610; 85730; 93005; 93306; 96361; 96365; 96366; 97161; 97164; 97166; 97530; 99284; 99285; A9270; G0378; J2060; Q9967; 70450; 81001; 83721; 87086

== ENCOUNTER 2020-01-03 10:29 | Outpatient (CLI) | payer MEDICARE, MEDICAID | END 2020-01-03 10:30 | disposition critical access hospital (66) | LOC: EMS 10:29 | PROVIDERS: ATTEND Surgery | DX: M54.2 Cervicalgia (principal); X58.XXXA Exposure to other specified factors, initial encounter; Y92.009 Unspecified place in unspecified non-institutional (private) residence as the place of occurrence of the external cause | CPT/HCPCS: A0425; A0429 ==

== ENCOUNTER 2020-01-03 10:37 | Emergency (ER) | payer MEDICARE, MEDICAID ==
--- NOTE | 2020-01-03 10:45 | ED Physician Documentation ---
PD HPI Fall - Stated complaint Stated Complaint: FOUND DOWN - History obtained from History obtained from: Patient, EMS - Additional information Additional information: She has a history of Parkinson's and diabetes. Presents by ambulance because evidently at some point after 6 PM last night which was her last known normal she either fell or somehow ended up on the ground. Is unclear how long she was on the ground. Prehospital complaint was neck pain but she denies neck pain to me. She has vacillating complaints which include the blood pressure cuff and pain in her abdomen only when I am examining her. Review of Systems Ten Systems: 10 systems reviewed and negative Constitutional: denies: Fever, Chills Throat: denies: Dental pain / toothache, Sore throat Cardiac: denies: Chest pain / pressure, Palpitations Respiratory: denies: Dyspnea, Cough PD PAST MEDICAL HISTORY - Past Medical History Cardiovascular: Hypertension, High cholesterol, Arrhythmia, Other Respiratory: Sleep apnea Neuro: Parkinson's Endocrine/Autoimmune: Type 2 diabetes GI: GERD, Colon polyps RESEARCH EXECUTIVE: None : Incontinence, Chronic bladder infection HEENT: None Psych: Depression, Anxiety - Past Surgical History Past Surgical History: Yes General: 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 Ortho: Other /RESEARCH EXECUTIVE: Hysterectomy HEENT: Cataracts - Present Medications Home Medications: Ambulatory Orders Medication Instructions Recorded Confirmed Propranolol [Inderal] 10 mg PO BID 09/04/16 12/04/19 metFORMIN [Glucophage] 500 mg PO BID 09/04/16 12/04/19 Escitalopram [Lexapro] 20 mg PO DAILY 03/10/18 12/04/19 Mirtazapine 7.5 mg PO QPM 03/10/18 12/04/19 Atorvastatin Calcium 20 mg PO QPM 09/14/19 12/04/19 Primidone 25 mg PO QPM 09/14/19 12/04/19 Glimepiride [Amaryl] 2 mg PO DAILY 12/04/19 12/04/19 Aspirin Chewable [[facility] 81 mg PO DAILY #10 tablet 12/06/19 Aspirin] Omeprazole 20 mg PO DAILY #10 capsule. 12/06/19 - Allergies Allergies/Adverse Reactions: Allergies Allergy/AdvReac Type Severity Reaction Status Date / Time codeine [Codeine] AdvReac Intermediate Nausea Verified 12/04/19 11:16 ssri Allergy Unknown Uncoded 12/07/19 07:46 - Social History Does the pt smoke?: No Smoking Status: Never smoker Does the pt drink ETOH?: No Does the pt have substance abuse?: No - Immunizations Immunizations are current?: Yes - POLST Patient has POLST: No PD ED PE NORMAL - Vitals Vital signs reviewed: Yes - General General: No acute distress (She has a parkinsonian tremor), Other (She is alert and oriented to person. She does not know she is in the hospital. She gets the year right but not her age stating that she is 86.) - HEENT HEENT: PERRL, Other (She is unable to look up with either eye) - Neck Neck: Supple, no meningeal sign, No bony TTP - Cardiac Cardiac: RRR, No murmur - Respiratory Respiratory: No respiratory distress, Clear bilaterally - Abdomen Abdomen: Soft, Non tender - Extremities Extremities: Other (Cold feet bilaterally, symmetric with 4-second cap refill.) - Neuro Neuro: No motor deficit, No sensory deficit Eye Opening: Spontaneous Motor: Obeys Commands Results - Vitals Vitals: Vital Signs - 24 hr 01/03/20 01/03/20 10:54 13:26 Temperature 36.6 C 35.9 C L Heart Rate 66 61 Respiratory 11 L 18 Rate Blood Pressure 153/96 H 144/76 H O2 Saturation 99 97 Oxygen O2 Source [Without Activity] Room air O2 Source [With Activity] Room air O2 Source Room air - Labs Labs: Laboratory Tests 01/03/20 01/03/20 01/03/20 11:10 11:10 11:10 WBC 8.9 RBC 4.05 L Hgb 12.8 Hct 38.9 MCV 96.0 MCH 31.6 H MCHC 32.9 RDW 13.3 Plt Count 291 MPV 10.5 Neut # (Auto) 5.9 Lymph # (Auto) 2.2 [place] # (Auto) 0.7 Eos # (Auto) 0.1 Baso # (Auto) 0.0 Absolute Nucleated RBC 0.00 Nucleated RBC % 0.0 PT 12.2 INR 1.1 Sodium 142 Potassium 4.1 Chloride 101 Carbon Dioxide 32 Anion Gap 9.0 BUN 22 H Creatinine 0.4 Estimated GFR (MDRD) 152 Glucose 149 H Calcium 9.7 Total Bilirubin 0.8 AST 17 ALT 15 Alkaline Phosphatase 39 L Total Creatine Kinase 65 Troponin I High Sens Total Protein 7.6 Albumin 4.3 Globulin 3.3 Albumin/Globulin Ratio 1.3 Lipase 41 01/03/20 11:10 WBC RBC Hgb Hct MCV MCH MCHC RDW Plt Count MPV Neut # (Auto) Lymph # (Auto) [place] # (Auto) Eos # (Auto) Baso # (Auto) Absolute Nucleated RBC Nucleated RBC % PT INR Sodium Potassium Chloride Carbon Dioxide Anion Gap BUN Creatinine Estimated GFR (MDRD) Glucose Calcium Total Bilirubin AST ALT Alkaline Phosphatase Total Creatine Kinase Troponin I High Sens 5.2 Total Protein Albumin Globulin Albumin/Globulin Ratio Lipase PD MEDICAL DECISION MAKING - ED course ED course: 84-year-old woman presents from home, unclear downtime, up to 12+ hours. She has no specific complaints for me, was complaining of neck pain the paramedics. CT of the head and C-spine were done without pertinent positive findings. C- collar removed. No tenderness. Exam notable for some memory issues and parkinsonism. Discussed case by phone with her daughter Felipa who is her POA. They are trying to get her in to assisted living but the patient is refusing. Not sure she has capacity to do this anymore. Will ask social work to get involved. There is already an open APS case. Per paramedics she falls about thrice weekly and they are called often for lift assistance. I also wrote an email to her primary care physician discussing the potential need for a letter documenting her lack of capacity to make personal or medical related decisions anymore. Departure - Departure Disposition: 01 Home, Self Care Clinical Impression: Parkinson disease Dementia Qualifiers: Dementia type: unspecified type Dementia behavioral disturbance: without behavioral disturbance Qualified Code(s): F03.90 - Unspecified dementia without behavioral disturbance Fall Qualifiers: Encounter type: initial encounter Qualified Code(s): W19.XXXA - Unspecified fall, initial encounter Condition: Good Record reviewed to determine appropriate education?: Yes Instructions: ED Dementia Caregiver Support Follow-Up: Oscar Bergeron MD [Provider Admit Priv/Credential] - Comments: Please contact your primary care physician, I did write him an email today discussing the potential need for documentation to state that POA should be making all forward decisions given the question of whether or not the patient is competent anymore to make ongoing decisions for herself. Return if worse. Please copy note to Oscar Mcgee MD.
[2020-01-03 11:20] LABS: BASOPHILS % (AUTO) 0.3 %; EOSINOPHILS # (AUTO) 0.1 10^3/uL (0.0-0.7); EOSINOPHILS % (AUTO) 0.7 %; HGB - HEMOGLOBIN 12.8 g/dL (12.0-16.0); LYMPHOCYTES # (AUTO) 2.2 10^3/uL (1.5-3.5); LYMPHOCYTES % (AUTO) 24.8 %; MEAN CORPUSCULAR HEMOGLOBIN 31.6 pg (27.0-31.0); MEAN CORPUSCULAR HGB CONC 32.9 g/dL (32.0-36.0); MEAN PLATELET VOLUME 10.5 fL (7.9-10.8); MONOCYTES # (AUTO) 0.7 10^3/uL (0.0-1.0); MONOCYTES % (AUTO) 7.6 %; NEUTROPHILS # (AUTO) 5.9 10^3/uL (1.5-6.6); NEUTROPHILS % (AUTO) 66.3 %; PLT - PLATELET COUNT 291 10^3/uL (130-450); RED BLOOD COUNT 4.05 10^6/uL (4.20-5.40); RED CELL DISTRIBUTION WIDTH 13.3 % (12.0-15.0); WHITE BLOOD COUNT 8.9 x10^3/uL (4.8-10.8)
[2020-01-03 11:23] LABS: INR 1.1 (0.8-1.2); PT - PROTHROMBIN TIME 12.2 secs (9.9-12.6)
[2020-01-03 11:33] LABS: ALBUMIN 4.3 g/dL (3.2-5.5); ALBUMIN/GLOBULIN RATIO 1.3 (1.0-2.2); BILIRUBIN,TOTAL 0.8 mg/dL (0.2-1.0); CALCIUM 9.7 mg/dL (8.5-10.3); CREATININE 0.4 mg/dL (0.4-1.0); TOTAL PROTEIN 7.6 g/dL (6.7-8.2)
--- NOTE | 2020-01-03 11:37 | CT Report ---
PROCEDURE: CERVICAL SPINE WO INDICATIONS: FALL NECK PAIN TECHNIQUE: Noncontrast 3 mm thick sections acquired from the skull base to the T4 level. Sagittal and coronal r eformats were then constructed. For radiation dose reduction, the following was used: automated exp osure control, adjustment of mA and/or kV according to patient size. COMPARISON: CT angiogram of neck dated 12/04/2019. FINDINGS: Image quality: Excellent. Bones: No fractures or dislocations. Degenerative endplate changes and bilateral facet hypertrophic changes are again noted throughout cervical spine more prominent at C5-6 and C6-7 levels unchanged f rom prior study. Visualized superior ribs are intact. Soft tissues: Prevertebral soft tissues are normal in thickness. No paravertebral hematomas. No ap ical pneumothoraces. Right apical scarring is seen. IMPRESSION: 1. No acute cervical spine fracture or dislocation. 2. Mild to moderate degenerative disc disease throughout cervical spine unchanged from prior study. Reviewed by: Singh Tovar MD on 01/03/2020 11:36 AM PDT Approved by: Singh Tovar MD on 01/03/2020 11:36 AM PDT Station ID: [id number]
--- NOTE | 2020-01-03 11:39 | CT Report ---
PROCEDURE: HEAD WO INDICATIONS: FALL, POSS HEAD INJ TECHNIQUE: Noncontrast 4.5 mm thick angled axial sections acquired from the foramen magnum to the vertex. For r adiation dose reduction, the following was used: automated exposure control, adjustment of mA and/or kV according to patient size. COMPARISON: CT of brain dated 12/04/2019. MRI of brain dated 12/05/2019.. FINDINGS: Image quality: Excellent. CSF spaces: Basal cisterns are patent. No extra-axial fluid collections. The ventricles are symmet ruth in size and shape. Brain: No intracranial bleeds or masses. There is cerebral volume loss for age, with resultant vent ricular and sulcal prominence. There are periventricular and deep white matter chronic small vessel ischemic changes. There is intracranial internal carotid artery atherosclerosis. Skull and face: Calvarium and visualized facial bones appear intact, without suspicious lesions. Sinuses: Visualized sinuses and mastoids are clear. IMPRESSION: 1. No CT evidence of acute intracranial pathology. No significant changes from previous study. 2. Mild to moderate chronic white matter small vessel ischemic changes and cerebral volume loss. 3. No acute skull fracture. Reviewed by: Singh Tovar MD on 01/03/2020 11:38 AM PDT Approved by: Singh Tovar MD on 01/03/2020 11:38 AM PDT Station ID: [id number]
[2020-01-03 16:46] VITALS: BP 146/66
== END 2020-01-03 16:46 | disposition home or self-care (01) ==
LOC: EDUNIT# → EDBD → ED 10:37
DX: Z04.89 Encounter for examination and observation for other specified reasons (principal); G20 Parkinson's disease; F02.80 Dementia in other diseases classified elsewhere, unspecified severity, without behavioral disturbance, psychotic disturbance, mood disturbance, and anxiety; I10 Essential (primary) hypertension; E11.9 Type 2 diabetes mellitus without complications
CPT/HCPCS: 36415; 70450; 72125; 80053; 82550; 83690; 84484; 85025; 85610; 93005; 99283; 99284

== ENCOUNTER 2020-01-05 16:25 | Outpatient (CLI) | payer MEDICARE, MEDICAID | END 2020-01-05 16:26 | disposition EMS.NT | LOC: EMS 16:25 | PROVIDERS: ATTEND Surgery | DX: Z03.89 Encounter for observation for other suspected diseases and conditions ruled out (principal) ==

== ENCOUNTER 2020-01-24 07:00 | Outpatient (CLI) | payer MEDICARE, MEDICAID ==
[2020-01-24 12:15] LABS: BILIRUBIN,URINE NEGATIVE (NEGATIVE); GLUCOSE, URINE (UA) 100 mg/dL (NEGATIVE); KETONES,URINE (UA) TRACE mg/dL (NEGATIVE); LEUKOCYTE ESTERASE, URINE SMALL (NEGATIVE); NITRITE,URINE NEGATIVE (NEGATIVE); OCCULT BLOOD,URINE NEGATIVE (NEGATIVE); PH,URINE 5.5 PH (5.0-7.5); PROTEIN,URINE NEGATIVE (NEGATIVE); UROBILINOGEN,URINE 0.2 (NORMAL) E.U./dL (NORMAL)
[2020-01-24 12:25] LABS: BACTERIA,URINE None Seen /HPF (None Seen); CLARITY,URINE CLEAR (CLEAR); RBC,URINE None Seen /HPF (0-5); SQUAMOUS EPITHELIAL CELL,UR RARE Squamous (<= Few)
== END 2020-01-24 23:59 | disposition home or self-care (01) ==
LOC: LAB.R 07:00
PROVIDERS: ATTEND Family Medicine
DX: R81 Glycosuria (principal)
CPT/HCPCS: 81001

== ENCOUNTER 2020-02-11 07:37 | Outpatient (CLI) | payer MEDICARE, MEDICAID | END 2020-02-11 07:38 | disposition critical access hospital (66) | LOC: EMS 07:37 | PROVIDERS: ATTEND Surgery | DX: R53.1 Weakness (principal); R19.5 Other fecal abnormalities | CPT/HCPCS: A0425; A0427 ==

== ENCOUNTER 2020-02-11 07:41 | Emergency (ER) | payer MEDICARE, MEDICAID ==
--- NOTE | 2020-02-11 09:12 | ED Physician Documentation ---
History of Present Illness - Stated complaint Stated Complaint: WEAKNESS - Chief complaint Chief Complaint: General - History obtained from History obtained from: Patient - History of Present Illness Timing: Last night - Additonal information Additional information: 84-year-old female noticed last night that in her diaper pad she had dark stool she was concerned that this might be blood. She does have some generalized weakness which is chronic and she has Parkinson's disease. She lives alone in an apartment. Review of Systems Constitutional: denies: Fever Eyes: denies: Decreased vision Ears: denies: Ear pain Nose: denies: Congestion Throat: denies: Sore throat Cardiac: denies: Chest pain / pressure, Palpitations Respiratory: reports: Dyspnea, Cough GI: reports: Bloody / black stool. denies: Abdominal Pain, Nausea, Vomiting : denies: Dysuria, Frequency Skin: denies: Rash Musculoskeletal: denies: Neck pain, Back pain, Extremity pain Neurologic: reports: Generalized weakness. denies: Focal weakness, Numbness PD PAST MEDICAL HISTORY - Past Medical History Past Medical History: Yes Cardiovascular: Hypertension, High cholesterol, Arrhythmia, Other Respiratory: Sleep apnea Neuro: CVA, Parkinson's Endocrine/Autoimmune: Type 2 diabetes GI: GERD, Colon polyps WASTE MANAGEMENT SPECIALIST: None : Incontinence, Chronic bladder infection HEENT: None Psych: Depression, Anxiety - Past Surgical History Past Surgical History: Yes General: 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 Ortho: Other /WASTE MANAGEMENT SPECIALIST: Hysterectomy HEENT: Cataracts - Present Medications Home Medications: Ambulatory Orders Medication Instructions Recorded Confirmed Propranolol [Inderal] 10 mg PO BID 09/04/16 12/04/19 metFORMIN [Glucophage] 500 mg PO BID 09/04/16 12/04/19 Escitalopram [Lexapro] 20 mg PO DAILY 03/10/18 12/04/19 Mirtazapine 7.5 mg PO QPM 03/10/18 12/04/19 Atorvastatin Calcium 20 mg PO QPM 09/14/19 12/04/19 Primidone 25 mg PO QPM 09/14/19 12/04/19 Aspirin Chewable [[facility] 81 mg PO DAILY #10 tablet 12/06/19 Aspirin] - Allergies Allergies/Adverse Reactions: Allergies Allergy/AdvReac Type Severity Reaction Status Date / Time codeine [Codeine] AdvReac Intermediate Nausea Verified 02/11/20 07:50 ssri Allergy Unknown Uncoded 01/03/20 15:20 - Social History Does the pt smoke?: No Smoking Status: Never smoker Does the pt drink ETOH?: No Does the pt have substance abuse?: No - Immunizations Immunizations are current?: Yes - POLST Patient has POLST: No PD ED PE NORMAL - Vitals Vital signs reviewed: Yes (hypertensive ) - General General: Alert and oriented X 3, No acute distress, Well developed/nourished, Other (Thin elderly female with a vacant stare Parkinson's appears mildly anxious.) - HEENT HEENT: Atraumatic, PERRL, EOMI - Neck Neck: Supple, no meningeal sign, No bony TTP - Cardiac Cardiac: RRR, No murmur - Respiratory Respiratory: No respiratory distress, Clear bilaterally - Abdomen Abdomen: Normal bowel sounds, Soft, Non tender, Non distended, No organomegaly - Back Back: No CVA TTP, No spinal TTP - Derm Derm: Normal color, Warm and dry, No rash - Extremities Extremities: No deformity, No edema - Neuro Neuro: Alert and oriented X 3, hims coder 2-12 intact, No motor deficit, No sensory deficit, Normal speech Eye Opening: Spontaneous Motor: Obeys Commands Verbal: Oriented GCS Score: 15 - Psych Psych: Normal mood, Normal affect Results - Vitals Vitals: Vital Signs - 24 hr 02/11/20 02/11/20 02/11/20 07:50 07:54 08:04 Temperature 37.1 C Heart Rate 75 73 73 Respiratory 14 14 16 Rate Blood Pressure 169/132 H 148/113 H 120/89 H O2 Saturation 100 99 96 02/11/20 02/11/20 02/11/20 09:47 11:00 12:37 Temperature Heart Rate 77 74 77 Respiratory 14 16 15 Rate Blood Pressure 154/118 H 127/63 139/71 H O2 Saturation 97 95 97 Oxygen O2 Source [] Room air O2 Source [] Room air O2 Source Room air - Labs Labs: Microbiology 02/11/20 09:55 Occult Blood - Final Stool Laboratory Tests 02/11/20 02/11/20 02/11/20 10:06 10:06 10:25 WBC 6.1 RBC 4.17 L Hgb 13.0 Hct 40.3 MCV 96.6 MCH 31.2 H MCHC 32.3 RDW 13.7 Plt Count 278 MPV 10.7 Neut # (Auto) 3.4 Lymph # (Auto) 2.0 [place] # (Auto) 0.6 Eos # (Auto) 0.1 Baso # (Auto) 0.0 Absolute Nucleated RBC 0.00 Nucleated RBC % 0.0 Sodium 142 Potassium 3.4 L Chloride 104 Carbon Dioxide 27 Anion Gap 11.0 BUN 22 H Creatinine 0.5 Estimated GFR (MDRD) 118 Glucose 146 H Calcium 9.8 Total Bilirubin 0.6 AST 26 ALT 23 Alkaline Phosphatase 46 Total Protein 7.4 Albumin 4.2 Globulin 3.2 Albumin/Globulin Ratio 1.3 Lipase 29 Urine Color DARK YELLOW Urine Clarity CLEAR Urine pH 5.5 Ur Specific [place] >=1.030 H Urine Protein NEGATIVE Urine Glucose (UA) NEGATIVE Urine Ketones 40 H Urine Occult Blood NEGATIVE Urine Nitrite NEGATIVE Urine Bilirubin NEGATIVE Urine Urobilinogen 0.2 (NORMAL) Ur Leukocyte Esterase TRACE H Urine RBC 0-5 Urine WBC 0-3 Ur Squamous Epith Cells FEW Squamous Urine Bacteria Few Ur Microscopic Review INDICATED Urine Culture Comments INDICATED Procedures - IVC sono (time) 0900 Bedside IVC sono: IVC measures (cm) (1.64), [place] PD MEDICAL DECISION MAKING - ED course Complexity details: reviewed old records, reviewed results, re-evaluated patient, considered differential, d/w patient ED course: 84-year-old female with chronic weakness and Parkinson's disease comes to the emergency department this morning by ambulance with a complaint of dark tarry stool and concerns about the possibility of GI bleeding.She has copious dark stool in the diaper this is tested and is negative for blood. Her electrolytes are in the normal range and her blood counts are normal. Her urine does appear concentrated but her inferior vena cava appears to be adequate in size and collapse appropriately. She is encouraged to hydrate. Departure - Departure Disposition: 01 Home, Self Care Clinical Impression: Weakness Condition: Stable Instructions: ED Weakness [facility] Follow-Up: Oscar Bergeron MD [Primary Care Provider] - Comments: They there is no evidence of blood in the stool. Discharge Date/Time: 02/11/20 12:37
[2020-02-11 10:19] LABS: BASOPHILS % (AUTO) 0.5 %; EOSINOPHILS # (AUTO) 0.1 10^3/uL (0.0-0.7); EOSINOPHILS % (AUTO) 0.8 %; LYMPHOCYTES % (AUTO) 33.2 %; MEAN CORPUSCULAR HEMOGLOBIN 31.2 pg (27.0-31.0); MEAN CORPUSCULAR HGB CONC 32.3 g/dL (32.0-36.0); MEAN CORPUSCULAR VOLUME 96.6 fL (81.0-99.0); MEAN PLATELET VOLUME 10.7 fL (7.9-10.8); MONOCYTES # (AUTO) 0.6 10^3/uL (0.0-1.0); MONOCYTES % (AUTO) 9.6 %; NEUTROPHILS # (AUTO) 3.4 10^3/uL (1.5-6.6); NEUTROPHILS % (AUTO) 55.7 %; PLT - PLATELET COUNT 278 10^3/uL (130-450); RED BLOOD COUNT 4.17 10^6/uL (4.20-5.40); RED CELL DISTRIBUTION WIDTH 13.7 % (12.0-15.0); WHITE BLOOD COUNT 6.1 x10^3/uL (4.8-10.8)
[2020-02-11 10:28] LABS: ALBUMIN 4.2 g/dL (3.2-5.5); ALBUMIN/GLOBULIN RATIO 1.3 (1.0-2.2); BILIRUBIN,TOTAL 0.6 mg/dL (0.2-1.0); CALCIUM 9.8 mg/dL (8.5-10.3); CREATININE 0.5 mg/dL (0.4-1.0); TOTAL PROTEIN 7.4 g/dL (6.7-8.2)
[2020-02-11 10:55] LABS: BILIRUBIN,URINE NEGATIVE (NEGATIVE); GLUCOSE, URINE (UA) NEGATIVE (NEGATIVE); KETONES,URINE (UA) 40 mg/dL (NEGATIVE); LEUKOCYTE ESTERASE, URINE TRACE (NEGATIVE); NITRITE,URINE NEGATIVE (NEGATIVE); OCCULT BLOOD,URINE NEGATIVE (NEGATIVE); PH,URINE 5.5 PH (5.0-7.5); PROTEIN,URINE NEGATIVE (NEGATIVE); UROBILINOGEN,URINE 0.2 (NORMAL) E.U./dL (NORMAL)
[2020-02-11 11:09] LABS: CLARITY,URINE CLEAR (CLEAR); RBC,URINE 0-5 /HPF (0-5); SQUAMOUS EPITHELIAL CELL,UR FEW Squamous (<= Few)
[2020-02-11 11:10] LABS: BACTERIA,URINE Few /HPF (None Seen)
[2020-02-11 12:38] VITALS: BP 139/71
== END 2020-02-11 12:37 | disposition home or self-care (01) ==
LOC: EDUNIT# → ED 07:41
DX: R53.1 Weakness (principal); G20 Parkinson's disease; I10 Essential (primary) hypertension; E11.9 Type 2 diabetes mellitus without complications; Z79.84 Long term (current) use of oral hypoglycemic drugs
CPT/HCPCS: 36415; 80053; 81001; 81003; 82272; 83690; 85025; 87086; 99283

== ENCOUNTER 2020-03-26 12:00 | Emergency (ER) | payer MEDICARE, MEDICAID ==
--- NOTE | 2020-03-26 12:45 | ED Physician Documentation ---
History of Present Illness - Stated complaint Stated Complaint: SZ - Chief complaint Chief Complaint: Neuro - History obtained from History obtained from: Patient, Family - History of Present Illness Timing: Prior to arrival - Additonal information Additional information: 84-year-old female brought into the emergency department for evaluation of seizure-like activity. Patient does not remember event but daughter at bedside recalls that they were eating lunch approximately an hour and a half prior to arrival when patient simply slumped over to the right side and then began to jerk her shake uncontrollably for about 20 seconds. The daughter states that shortly after the shaking stopped her mom had some aphasia and she noticed that her right side of her face was more droopy than normal. She does have baseline right-sided facial droop since a CVA in 2017. There is no history of previous seizure activity. At baseline patient is ambulatory with a walker. She denies any recent cough cold congestion, no fevers, no headaches, no recent nausea vomiting diarrhea. No reports of dysuria urgency or frequency. Past medical history: Diabetes, hypertension, Parkinson's, history of CVA with right-sided deficits. Meds: Metformin primidone, propranolol, carbidopa-levodopa, Lexapro, mirtazapine, omeprazole, daily MVI. 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 : Incontinence, Chronic bladder infection HEENT: None Psych: Depression, Anxiety - Past Surgical History Past Surgical History: Yes General: 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 Ortho: Other /MACHINE GREASER: Hysterectomy HEENT: Cataracts - Present Medications Home Medications: Ambulatory Orders Medication Instructions Recorded Confirmed Propranolol [Inderal] 10 mg PO BID 09/04/16 12/04/19 metFORMIN [Glucophage] 500 mg PO BID 09/04/16 12/04/19 Escitalopram [Lexapro] 20 mg PO DAILY 03/10/18 12/04/19 Mirtazapine 7.5 mg PO QPM 03/10/18 12/04/19 Atorvastatin Calcium 20 mg PO QPM 09/14/19 12/04/19 Primidone 25 mg PO QPM 09/14/19 12/04/19 Aspirin Chewable [[facility] [place] 81 mg PO DAILY #10 tablet 12/06/19 Aspirin] - Allergies Allergies/Adverse Reactions: Allergies Allergy/AdvReac Type Severity Reaction Status Date / Time codeine [Codeine] AdvReac Intermediate Nausea Verified 02/11/20 07:50 ssri Allergy Unknown Uncoded 01/03/20 15:20 - Social History Does the pt smoke?: No Smoking Status: Never smoker Does the pt drink ETOH?: No Does the pt have substance abuse?: No - Immunizations Immunizations are current?: Yes - POLST Patient has POLST: No PD ED PE EXPANDED - General General: Alert, No acute distress - HEENT HEENT: Atraumatic, PERRL, EOMI - Eyes Eyes: PERRL - Neck Neck: Supple w/out meningeal sx - Cardiac Cardiac: Regular Rate, Regular Rhythm, Radial strong equal, Pedal strong equal (1+ PEDAL), Cap refill < 2 sec. No: Murmur Present - Respiratory Respiratory: Clear to ausultation andrea. No: Distress, Labored - Abdomen Abdomen: Normal Bowel sounds. No: Tender to palpation - Derm Derm: Normal color, Warm and dry - Extremities Extremities: Normal. No: Deformity, Tenderness - Neuro Neuro: Alert and Oriented X 3 (Mild right-sided facial droop as evidenced by right-sided tongue deviation loss of the nasolabial fold with smile.), Normal speech, Other (baseline mouth and hand tremor in setting of parkinsons). No: CNII-XII intact (normal sensation BUE to sharp and light touch, dorsiflexion BLE preserved, full strength with BUE finger extension. no pronator drift. Slow finger nose bilaterally with tremor (base line parkinsons)) - GCS Eye Opening: Spontaneous Motor: Obeys Commands Verbal: Oriented Total: 15 Results - Vitals Vitals: Vital Signs - 24 hr 03/26/20 03/26/20 03/26/20 12:07 12:12 14:06 Temperature 37.0 C Heart Rate 70 69 71 Respiratory 14 13 15 Rate Blood Pressure 120/68 116/54 L 97/75 O2 Saturation 95 96 97 03/26/20 14:36 Temperature Heart Rate 71 Respiratory 17 Rate Blood Pressure 119/72 O2 Saturation 97 Oxygen O2 Source [] Room air O2 Source [] Room air O2 Source Room air - EKG (time done) 1258 Rate: Rate (enter#) (67) Rhythm: NSR [place]: Normal Intervals: Normal [place] QRS: Normal Ischemia: Non specific changes Compare to prior EKG: Unchanged from prior EKG (sinus rythm) Computer interpretation: Disagree with computer - Labs Labs: Laboratory Tests 03/26/20 03/26/20 03/26/20 13:10 13:55 13:55 WBC 7.6 RBC 4.09 L Hgb 12.8 Hct 39.2 MCV 95.8 MCH 31.3 H MCHC 32.7 RDW 13.6 Plt Count 278 MPV 10.7 Neut # (Auto) 5.6 Lymph # (Auto) 1.3 L [place] # (Auto) 0.6 Eos # (Auto) 0.1 Baso # (Auto) 0.0 Absolute Nucleated RBC 0.00 Nucleated RBC % 0.0 Sodium 140 Potassium 3.6 Chloride 102 Carbon Dioxide 28 Anion Gap 10.0 BUN 20 Creatinine 0.6 Estimated GFR (MDRD) 95 Glucose 177 H Lactic Acid Calcium 9.7 Magnesium 2.0 Total Bilirubin 0.8 AST 21 ALT < 10 L Alkaline Phosphatase 40 L Troponin I High Sens Total Protein 7.0 Albumin 4.0 Globulin 3.0 Albumin/Globulin Ratio 1.3 Lipase 84 H TSH Urine Color YELLOW Urine Clarity CLEAR Urine pH 6.0 Ur Specific [place] 1.020 Urine Protein NEGATIVE Urine Glucose (UA) NEGATIVE Urine Ketones NEGATIVE Urine Occult Blood NEGATIVE Urine Nitrite NEGATIVE Urine Bilirubin NEGATIVE Urine Urobilinogen 0.2 (NORMAL) Ur Leukocyte Esterase NEGATIVE Ur Microscopic Review NOT INDICATED Urine Culture Comments NOT INDICATED Salicylates < 6.0 Urine Opiates Screen NEGATIVE Ur Oxycodone Screen NEGATIVE Urine Methadone Screen NEGATIVE Ur Propoxyphene Screen NEGATIVE Acetaminophen < 10 L Ur Barbiturates Screen NEGATIVE Ur Tricyclics Screen NEGATIVE Ur Phencyclidine Scrn NEGATIVE Ur Amphetamine Screen NEGATIVE U Methamphetamines Scrn NEGATIVE U Benzodiazepines Scrn NEGATIVE Urine Cocaine Screen NEGATIVE U Cannabinoids Screen NEGATIVE Ethyl Alcohol < 5.0 03/26/20 03/26/20 03/26/20 13:55 13:55 13:55 WBC RBC Hgb Hct MCV MCH MCHC RDW Plt Count MPV Neut # (Auto) Lymph # (Auto) [place] # (Auto) Eos # (Auto) Baso # (Auto) Absolute Nucleated RBC Nucleated RBC % Sodium Potassium Chloride Carbon Dioxide Anion Gap BUN Creatinine Estimated GFR (MDRD) Glucose Lactic Acid 1.5 Calcium Magnesium Total Bilirubin AST ALT Alkaline Phosphatase Troponin I High Sens 4.0 Total Protein Albumin Globulin Albumin/Globulin Ratio Lipase TSH 1.26 Urine Color Urine Clarity Urine pH Ur Specific [place] Urine Protein Urine Glucose (UA) Urine Ketones Urine Occult Blood Urine Nitrite Urine Bilirubin Urine Urobilinogen Ur Leukocyte Esterase Ur Microscopic Review Urine Culture Comments Salicylates Urine Opiates Screen Ur Oxycodone Screen Urine Methadone Screen Ur Propoxyphene Screen Acetaminophen Ur Barbiturates Screen Ur Tricyclics Screen Ur Phencyclidine Scrn Ur Amphetamine Screen U Methamphetamines Scrn U Benzodiazepines Scrn Urine Cocaine Screen U Cannabinoids Screen Ethyl Alcohol - Rads (name of study) CT head Radiology: Final report received (No acute intracranial disease process. Diffuse cerebral volume loss. Periventricular and subcortical white matter chronic microvascular ischemic changes) cxr Radiology: Final report received (There is no evidence of cardiomegaly, pneumonia or CHF.) PD MEDICAL DECISION MAKING - ED course Complexity details: reviewed old records, reviewed results, re-evaluated patient, considered differential, d/w patient, d/w family ED course: 84-year-old female presents to the emergency department for evaluation of seiz ure-like activity. Daughter reports that this afternoon when eating lunch patient slumped to the right and began to have shaking or jerking movements of all 4 extremities for about 20 seconds. At baseline daughter reports patient does have mild right-sided facial droop from an old stroke. This was noted on exam today. Her work-up included a CT of the head that did not show any acute abnormality for age. Her urine showed no signs of infection. Chest x-ray was also unremarkable. Blood chemistry and toxicology also negative. During the time here in the emergency department the patient has appeared very alert and well-appearing. We discussed that the etiology of the seizure-like activity is not known. We did discuss that this may represent new CVA though she does not appear to have any new deficits. The patient and her daughter both desire to be discharged home. I recommend very close follow-up with primary care doctor. If patient does have a return of seizure-like activity any fevers focal or changed neuro deficits she is to return to the emergency department for repeat evaluation Departure - Departure Disposition: 01 Home, Self Care Clinical Impression: Seizure Condition: Stable Record reviewed to determine appropriate education?: Yes Comments: Letty's CT of her head was essentially normal for her age today. Her labs urine EKG and chest x-ray also do not show any worrisome findings. It is unclear what caused the seizure like activity the you noticed at home. However if it returns again, she develops any fevers, if she develops sudden weakness in 1 of her arms or legs we have any concerns of stroke please return immediately to the ER. Please schedule close follow-up with her primary care doctor and continue to take all other medications as previously prescribed
--- NOTE | 2020-03-26 13:10 | CT Report ---
PROCEDURE: HEAD WO PROCEDURE: HEAD WO INDICATIONS: seizure TECHNIQUE: Noncontrast 4.5 mm thick angled axial sections acquired from the foramen magnum to the vertex. For r adiation dose reduction, the following was used: automated exposure control, adjustment of mA and/or kV according to patient size. COMPARISON: and 12/04/2019 FINDINGS: Image quality: Excellent. CSF spaces: Basal cisterns are patent. No extra-axial fluid collections. The ventricles are symmet ruth in size and shape. Brain: No intracranial bleeds or masses. There is cerebral volume loss for age, with resultant vent ricular and sulcal prominence. There are periventricular and deep white matter chronic small vessel ischemic changes. There is intracranial internal carotid artery and vertebral artery atherosclerosis . Skull and face: Calvarium and visualized facial bones appear intact, without suspicious lesions. Sinuses: Visualized sinuses and mastoids are clear. IMPRESSION: 1. No acute intracranial disease process. 2. Diffuse cerebral volume loss. 3. Periventricular and subcortical white matter chronic microvascular ischemic changes. Reviewed by: Sammi Collins MD, PhD on 03/26/2020 1:09 PM PDT Approved by: Sammi Collins MD, PhD on 03/26/2020 1:09 PM PDT Station ID: [id number]
[2020-03-26 13:19] LABS: MUDS CUTOFF CONCENTRATIONS CUTOFF CONC BELOW:
[2020-03-26 13:25] LABS: BILIRUBIN,URINE NEGATIVE (NEGATIVE); GLUCOSE, URINE (UA) NEGATIVE (NEGATIVE); KETONES,URINE (UA) NEGATIVE (NEGATIVE); LEUKOCYTE ESTERASE, URINE NEGATIVE (NEGATIVE); NITRITE,URINE NEGATIVE (NEGATIVE); OCCULT BLOOD,URINE NEGATIVE (NEGATIVE); PROTEIN,URINE NEGATIVE (NEGATIVE); UROBILINOGEN,URINE 0.2 (NORMAL) E.U./dL (NORMAL)
[2020-03-26 13:37] LABS: AMPHETAMINE SCREEN,URINE NEGATIVE (NEGATIVE); BENZODIAZEPINES SCREEN, URINE NEGATIVE (NEGATIVE); COCAINE SCREEN URINE NEGATIVE (NEGATIVE); METHADONE SCREEN, URINE NEGATIVE (NEGATIVE); METHAMPHETAMINES SCREEN, URINE NEGATIVE (NEGATIVE); OPIATE SCREEN, URINE NEGATIVE (NEGATIVE); OXYCODONE SCREEN, URINE NEGATIVE (NEGATIVE); PROPOXYPHENE SCREEN, URINE NEGATIVE (NEGATIVE); TRICYCLIC ANTIDEPRESSANT,URINE NEGATIVE (NEGATIVE)
[2020-03-26 13:39] LABS: CLARITY,URINE CLEAR (CLEAR)
[2020-03-26 13:59] LABS: BASOPHILS % (AUTO) 0.4 %; EOSINOPHILS # (AUTO) 0.1 10^3/uL (0.0-0.7); EOSINOPHILS % (AUTO) 1.1 %; HGB - HEMOGLOBIN 12.8 g/dL (12.0-16.0); LYMPHOCYTES # (AUTO) 1.3 10^3/uL (1.5-3.5); LYMPHOCYTES % (AUTO) 16.6 %; MEAN CORPUSCULAR HEMOGLOBIN 31.3 pg (27.0-31.0); MEAN CORPUSCULAR HGB CONC 32.7 g/dL (32.0-36.0); MEAN CORPUSCULAR VOLUME 95.8 fL (81.0-99.0); MEAN PLATELET VOLUME 10.7 fL (7.9-10.8); MONOCYTES # (AUTO) 0.6 10^3/uL (0.0-1.0); MONOCYTES % (AUTO) 7.5 %; NEUTROPHILS # (AUTO) 5.6 10^3/uL (1.5-6.6); NEUTROPHILS % (AUTO) 74.3 %; PLT - PLATELET COUNT 278 10^3/uL (130-450); RED BLOOD COUNT 4.09 10^6/uL (4.20-5.40); RED CELL DISTRIBUTION WIDTH 13.6 % (12.0-15.0); WHITE BLOOD COUNT 7.6 x10^3/uL (4.8-10.8)
[2020-03-26 14:18] LABS: ACETAMINOPHEN < 10 ug/mL (10-30); ALBUMIN/GLOBULIN RATIO 1.3 (1.0-2.2); ALKALINE PHOSPHATASE 40 IU/L (42-121); ALT ALANINE AMINOTRANSFERASE < 10 IU/L (10-60); AST ASPARTATE AMINOTRANSFERASE 21 IU/L (10-42); BILIRUBIN,TOTAL 0.8 mg/dL (0.2-1.0); BUN - BLOOD UREA NITROGEN 20 mg/dL (6-20); CALCIUM 9.7 mg/dL (8.5-10.3); CARBON DIOXIDE - CO2 28 mmol/L (21-32); CHLORIDE 102 mmol/L (101-111); CREATININE 0.6 mg/dL (0.4-1.0); GLUCOSE 177 mg/dL (70-100); LIPASE 84 U/L (22-51); SALICYLATE < 6.0 mg/dL; SODIUM 140 mmol/L (135-145)
--- NOTE | 2020-03-26 14:37 | XRAY Report ---
PROCEDURE: Chest 1 View X-Ray INDICATIONS: chest pain TECHNIQUE: One view of the chest was acquired. COMPARISON: 09/14/2019 single view chest FINDINGS: Surgical changes and devices: None. Lungs and pleura: No pleural effusions or pneumothorax. Lungs are clear. Mediastinum: Mediastinal contours appear normal. Heart size is normal. Bones and chest wall: No suspicious bony lesions. Overlying soft tissues appear unremarkable. IMPRESSION: Source of chest pain is not found. There is no evidence of cardiomegaly, pneumonia, or CHF. Reviewed by: Galo Venegas MD on 03/26/2020 2:36 PM PDT Approved by: Galo Venegas MD on 03/26/2020 2:36 PM PDT Station ID: [id number]
[2020-03-26 15:20] VITALS: BP 124/68
== END 2020-03-26 15:19 | disposition home or self-care (01) ==
LOC: EDUNIT# → ED 12:00
DX: R56.9 Unspecified convulsions (principal); I69.392 Facial weakness following cerebral infarction; G20 Parkinson's disease; I10 Essential (primary) hypertension; E11.9 Type 2 diabetes mellitus without complications; Z79.84 Long term (current) use of oral hypoglycemic drugs; Z79.82 Long term (current) use of aspirin
CPT/HCPCS: 36415; 51701; 70450; 71045; 80053; 80306; 80307; 80320; 80329; 81001; 81003; 83605; 83690; 83735; 84443; 84484; 85025; 87086; 93005; 99284

== ENCOUNTER 2020-04-18 11:57 | Outpatient (CLI) | payer MEDICARE, MEDICAID | END 2020-04-18 11:58 | disposition critical access hospital (66) | LOC: EMS 11:57 | PROVIDERS: ATTEND Surgery | DX: R56.9 Unspecified convulsions (principal); R11.2 Nausea with vomiting, unspecified | CPT/HCPCS: A0425; A0429 ==

== ENCOUNTER 2020-04-18 12:00 | Emergency (ER) | payer MEDICARE, MEDICAID ==
--- NOTE | 2020-04-18 12:22 | ED Physician Documentation ---
History of Present Illness - Stated complaint Stated Complaint: SZ - Chief complaint Chief Complaint: Neuro - Additonal information Additional information: 84-year-old female is brought into the emergency department via EMS for evaluation of 2 episodes of reported seizure activity early earlier this morning when patient was sitting on the couch. Each seizure lasted between 45 and 60 seconds. Per EMS they were described as [place]. Patient presents at this time post seizure. She is quiet but arouses easily and follows commands. She is able to tell me where she is out and why she is here. I did see this pleasant woman late last month for also reported seizure activity. A CT scan can of the head was unremarkable as well as the laboratory values. She did present another time to emergency department in 2018 for possible syncopal versus seizure activity as well. In the past patient had reported to me that she has a history of Parkinson's disorder for which she takes carbidopa and levodopa. At baseline she appears to have a tremor at rest on her right hand as well as some pill-rolling of her right thumb and index finger. When I asked patient today who her neurologist is she declines that she has a history of Parkinson's but they have told her to continue to take the medications anyway. pt is typically ambulatory at baseline with a walker. No recent falls, colds, fevers, congestion, n/v/d, headaches. No dysuria, urgency or frequency. In speaking with the patient's daughter she reports that after the last ED visit her primary care provider did make a referral to neurology which is pending. PMH: Diabetes, hypertension, possible Parkinson's, history of previous CVA with right-sided deficits. Meds: Metformin, propranolol, carbidopa-levodopa, Lexapro, mirtazapine, omeprazole, daily multivitamin Review of Systems Ears: reports: Reviewed and negative Nose: reports: Reviewed and negative Cardiac: reports: Reviewed and negative Respiratory: reports: Reviewed and negative GI: reports: Reviewed and negative : reports: Reviewed and negative Skin: reports: Reviewed and negative Musculoskeletal: reports: Reviewed and negative Neurologic: reports: Focal weakness (mild right sided deficits at baseline), Seizure. 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: Hysterectomy HEENT: Cataracts - Present Medications Home Medications: Ambulatory Orders Medication Instructions Recorded Confirmed Propranolol [Inderal] 10 mg PO BID 09/04/16 12/04/19 metFORMIN [Glucophage] 500 mg PO BID 09/04/16 12/04/19 Escitalopram [Lexapro] 20 mg PO DAILY 03/10/18 12/04/19 Mirtazapine 7.5 mg PO QPM 03/10/18 12/04/19 Atorvastatin Calcium 20 mg PO QPM 09/14/19 12/04/19 Primidone 25 mg PO QPM 09/14/19 12/04/19 Aspirin Chewable [[facility] 81 mg PO DAILY #10 tablet 12/06/19 Aspirin] levETIRAcetam [Keppra] 500 mg PO BID #60 udc 04/18/20 - Allergies Allergies/Adverse Reactions: Allergies Allergy/AdvReac Type Severity Reaction Status Date / Time codeine [Codeine] AdvReac Intermediate Nausea Verified 04/18/20 12:10 ssri Allergy Unknown Uncoded 01/03/20 15:20 - Social History Does the pt smoke?: No Smoking Status: Never smoker Does the pt drink ETOH?: No Does the pt have substance abuse?: No - Immunizations Immunizations are current?: Yes - POLST Patient has POLST: No PD ED PE EXPANDED - General General: Disheveled, poorly kept, Other (quiet, though arousable. ) - Eyes Eyes: PERRL, EOMI, Other (moderate amount of yellow crusting and drainage on eyelashes) - Neck Neck: Supple w/out meningeal sx. No: Adenopathy - Cardiac Cardiac: Regular Rate, Regular Rhythm, Radial strong equal, Other (Lateral lower extremities very cool to the touch. Cap refill approximately 4 seconds. DP pulses obtained Via Doppler) - Respiratory Respiratory: Clear to ausultation andrea. No: Distress, Labored - Abdomen Abdomen: Normal Bowel sounds. No: Tender to palpation - Derm Derm: Other (cool mottled lower extremities; upper extremities warm with brisk cap refill ) - Neuro Neuro: Alert and Oriented X 3, Normal speech, Other (tremor right arm at rest; ) - GCS Eye Opening: To Voice Motor: Obeys Commands Verbal: Oriented Total: 14 Results - Vitals Vitals: Vital Signs - 24 hr 04/18/20 04/18/20 04/18/20 11:59 12:10 12:28 Temperature 35.9 C L Heart Rate 62 61 61 Respiratory 16 12 12 Rate Blood Pressure 140/67 H 148/67 H 114/79 O2 Saturation 95 96 96 04/18/20 04/18/20 04/18/20 12:30 13:00 15:16 Temperature 37.0 C Heart Rate 64 64 76 Respiratory 13 12 14 Rate Blood Pressure 113/64 118/67 130/68 O2 Saturation 95 96 99 Oxygen O2 Source [] Room air O2 Source [] Room air O2 Source Room air - EKG (time done) 1216 Rate: Rate (enter#) (60) Rhythm: NSR [place]: Normal Intervals: Normal [place] QRS: Normal Ischemia: ST depression, Non specific changes Compare to prior EKG: Changed from prior EKG (previous ECG junctional) Computer interpretation: Agree with computer - Labs Labs: Laboratory Tests 04/18/20 04/18/20 04/18/20 12:26 12:26 12:26 WBC 6.6 RBC 3.86 L Hgb 12.2 Hct 37.0 MCV 95.9 MCH 31.6 H MCHC 33.0 RDW 13.8 Plt Count 282 MPV 10.3 Neut # (Auto) 4.4 Lymph # (Auto) 1.5 [place] # (Auto) 0.6 Eos # (Auto) 0.1 Baso # (Auto) 0.0 Absolute Nucleated RBC 0.00 Nucleated RBC % 0.0 PT INR APTT Sodium 139 Potassium 3.5 Chloride 100 L Carbon Dioxide 27 Anion Gap 12.0 BUN 20 Creatinine 0.4 Estimated GFR (MDRD) 152 Glucose 203 H Lactic Acid 2.0 Calcium 9.5 Total Bilirubin 0.8 AST 24 ALT < 10 L Alkaline Phosphatase 41 L Troponin I High Sens Total Protein 6.8 Albumin 3.9 Globulin 2.9 Albumin/Globulin Ratio 1.3 Lipase 35 Urine Color Urine Clarity Urine pH Ur Specific [place] Urine Protein Urine Glucose (UA) Urine Ketones Urine Occult Blood Urine Nitrite Urine Bilirubin Urine Urobilinogen Ur Leukocyte Esterase Ur Microscopic Review Urine Culture Comments 04/18/20 04/18/20 04/18/20 12:26 12:26 13:10 WBC RBC Hgb Hct MCV MCH MCHC RDW Plt Count MPV Neut # (Auto) Lymph # (Auto) [place] # (Auto) Eos # (Auto) Baso # (Auto) Absolute Nucleated RBC Nucleated RBC % PT 12.4 INR 1.1 APTT 23.9 L Sodium Potassium Chloride Carbon Dioxide Anion Gap BUN Creatinine Estimated GFR (MDRD) Glucose Lactic Acid Calcium Total Bilirubin AST ALT Alkaline Phosphatase Troponin I High Sens 3.5 Total Protein Albumin Globulin Albumin/Globulin Ratio Lipase Urine Color YELLOW Urine Clarity CLEAR Urine pH 6.0 Ur Specific [place] 1.020 Urine Protein NEGATIVE Urine Glucose (UA) 100 H Urine Ketones NEGATIVE Urine Occult Blood NEGATIVE Urine Nitrite NEGATIVE Urine Bilirubin NEGATIVE Urine Urobilinogen 0.2 (NORMAL) Ur Leukocyte Esterase NEGATIVE Ur Microscopic Review NOT INDICATED Urine Culture Comments NOT INDICATED - Rads (name of study) CXR Radiology: Final report received (no acute process) CT head Radiology: Final report received (stable study without an imaging explanation for patient's history of presenting with a seizure) PD MEDICAL DECISION MAKING - ED course Complexity details: reviewed old records, reviewed results, re-evaluated patient, considered differential, d/w patient, d/w family, d/w desktop support consultant (Dr. Emily Cope [facility]) ED course: 84-year-old female presents to the emergency department for evaluation of what sounds very classic for seizures. This a.m. she had 2 witnessed seizures at home. She was seen last month for a possible seizure activity as well. She does have a history of previous CVA with minor right-sided deficits. She does not have a history of depression. Today her screening labs and CT scan were unremarkable much like last time. However given the second close occurrence of seizures I did consult with Dr. Morocho a neurologist with [facility] neurology. She would recommend that the patient continue to follow through with neurology. However given the increasing frequency of reported seizure activity she would recommend initiating the patient on Keppra 500 mg twice a day. We did discuss the side effect profile of Keppra that [place] clued moodiness fatigue. I discussed the neurologist recommendations with the patient and her daughter at the bedside. Patient denies any history of suicidality. At this time the patient has returned to baseline. She is quite well-appearing alert and very pleasant in fact. They will continue close follow-up with primary care provider as well as neurology referral. If patient has persistent seizures or new different seizures despite taking the Keppra she is to return to the emergency department Departure - Departure Disposition: 01 Home, Self Care Clinical Impression: Seizures Condition: Stable Record reviewed to determine appropriate education?: Yes Instructions: ED Seizure Recurrent, ED Seizure Recurrent Ch Prescriptions: levETIRAcetam [Keppra] 500 mg PO BID #60 [facility] Comments: We are going to start you on a seizure medication called Keppra. Please take this twice a day. I have written you for some refills but in the long-term your neurologist or primary care doctor will have to write for this. Is very important that you continue to follow-up with the referral for neurology. I would also like you to discuss this ED visit with your primary care provider. If you have more frequent seizures or develop any fevers that are associated with seizures then please return to the emergency department. Keppra may cause moodiness and irritability. If it becomes too severe discuss alternative medications with your primary doctor
[2020-04-18 12:36] LABS: BASOPHILS % (AUTO) 0.5 %; EOSINOPHILS # (AUTO) 0.1 10^3/uL (0.0-0.7); EOSINOPHILS % (AUTO) 1.2 %; HGB - HEMOGLOBIN 12.2 g/dL (12.0-16.0); LYMPHOCYTES # (AUTO) 1.5 10^3/uL (1.5-3.5); LYMPHOCYTES % (AUTO) 22.9 %; MEAN CORPUSCULAR HEMOGLOBIN 31.6 pg (27.0-31.0); MEAN CORPUSCULAR VOLUME 95.9 fL (81.0-99.0); MEAN PLATELET VOLUME 10.3 fL (7.9-10.8); MONOCYTES # (AUTO) 0.6 10^3/uL (0.0-1.0); MONOCYTES % (AUTO) 8.8 %; NEUTROPHILS # (AUTO) 4.4 10^3/uL (1.5-6.6); NEUTROPHILS % (AUTO) 66.3 %; PLT - PLATELET COUNT 282 10^3/uL (130-450); RED BLOOD COUNT 3.86 10^6/uL (4.20-5.40); RED CELL DISTRIBUTION WIDTH 13.8 % (12.0-15.0); WHITE BLOOD COUNT 6.6 x10^3/uL (4.8-10.8)
[2020-04-18 12:41] LABS: INR 1.1 (0.8-1.2); PT - PROTHROMBIN TIME 12.4 secs (9.9-12.6)
--- NOTE | 2020-04-18 12:45 | XRAY Report ---
PROCEDURE: Chest 1 View X-Ray INDICATIONS: Seizure TECHNIQUE: One view of the chest was acquired. COMPARISON: 03/26/2020 FINDINGS: Surgical changes and devices: None. Lungs and pleura: No pleural effusions or pneumothorax. Lungs are clear. Mediastinum: Mediastinal contours appear normal. Heart size is normal. Bones and chest wall: No suspicious bony lesions. Overlying soft tissues appear unremarkable. IMPRESSION: No acute process demonstrated. Reviewed by: Griffin Pretty MD on 04/18/2020 12:44 PM PDT Approved by: Griffin Pretty MD on 04/18/2020 12:44 PM PDT Station ID: [id number]
[2020-04-18 12:46] LABS: ALBUMIN 3.9 g/dL (3.2-5.5); ALBUMIN/GLOBULIN RATIO 1.3 (1.0-2.2); ALKALINE PHOSPHATASE 41 IU/L (42-121); ALT ALANINE AMINOTRANSFERASE < 10 IU/L (10-60); AST ASPARTATE AMINOTRANSFERASE 24 IU/L (10-42); BILIRUBIN,TOTAL 0.8 mg/dL (0.2-1.0); BUN - BLOOD UREA NITROGEN 20 mg/dL (6-20); CALCIUM 9.5 mg/dL (8.5-10.3); CARBON DIOXIDE - CO2 27 mmol/L (21-32); CHLORIDE 100 mmol/L (101-111); CREATININE 0.4 mg/dL (0.4-1.0); GLUCOSE 203 mg/dL (70-100); LIPASE 35 U/L (22-51); SODIUM 139 mmol/L (135-145); TOTAL PROTEIN 6.8 g/dL (6.7-8.2)
[2020-04-18 12:48] LABS: PARTIAL THROMBOPLASTIN TIME 23.9 secs (24.9-33.3)
[2020-04-18] MEDS ORDERED: SODIUM CHLORIDE 0.9% 1,000 ML IV STA (13:04)
--- NOTE | 2020-04-18 13:30 | CT Report ---
PROCEDURE: HEAD WO INDICATIONS: seizure TECHNIQUE: Noncontrast 4.5 mm thick angled axial sections acquired from the foramen magnum to the vertex. For r adiation dose reduction, the following was used: automated exposure control, adjustment of mA and/or kV according to patient size. COMPARISON: Relation is made with prior head CTs dated 03/26/2020, 01/03/2020, 12/04/2019, and correl ation is also made with brain MRI examinations 12/05/2019 and 11/21/2014 FINDINGS: Image quality: There is streak artifact seen through the skull base. CSF spaces: Basal cisterns are patent. No extra-axial fluid collections. The ventricles are promine nt, yet symmetric. No jose guadalupe hydrocephalus is seen. Brain: No midline shift. No intracranial masses or hemorrhage. Lou-white matter interface is norm al. Brain parenchymal volume loss is seen. Chronic small vessel ischemic changes can be seen. Skull and face: Calvarium and visualized facial bones are intact, without suspicious lesions. Sinuses: Visualized sinuses and mastoids are clear. IMPRESSION: Stable study, without an imaging expiration found for the patient's presenting history of seizure. Age-appropriate brain parenchymal volume loss and chronic small vessel ischemic change can be seen. Reviewed by: Chetan Vann MD on 04/18/2020 12:28 PM JOHN Approved by: Chetan Vann MD on 04/18/2020 12:28 PM JOHN Station ID: [id number]
[2020-04-18 13:35] LABS: BILIRUBIN,URINE NEGATIVE (NEGATIVE); GLUCOSE, URINE (UA) 100 mg/dL (NEGATIVE); KETONES,URINE (UA) NEGATIVE (NEGATIVE); LEUKOCYTE ESTERASE, URINE NEGATIVE (NEGATIVE); NITRITE,URINE NEGATIVE (NEGATIVE); OCCULT BLOOD,URINE NEGATIVE (NEGATIVE); PROTEIN,URINE NEGATIVE (NEGATIVE); UROBILINOGEN,URINE 0.2 (NORMAL) E.U./dL (NORMAL)
[2020-04-18 13:37] LABS: CLARITY,URINE CLEAR (CLEAR)
[2020-04-18 15:17] VITALS: BP 130/68
== END 2020-04-18 15:58 | disposition home or self-care (01) ==
LOC: EDUNIT# → ED 12:00
DX: R56.9 Unspecified convulsions (principal); I10 Essential (primary) hypertension; E11.9 Type 2 diabetes mellitus without complications; Z79.84 Long term (current) use of oral hypoglycemic drugs
CPT/HCPCS: 36415; 51701; 70450; 71045; 80053; 81001; 81003; 83605; 83690; 84484; 85025; 85610; 85730; 87086; 93005; 99284

== ENCOUNTER 2020-05-07 09:07 | Outpatient (CLI) | payer MEDICARE, MEDICAID | END 2020-05-07 09:08 | disposition EMS.NT | LOC: EMS 09:07 | PROVIDERS: ATTEND Surgery | DX: S01.81XA Laceration without foreign body of other part of head, initial encounter (principal); W18.30XA Fall on same level, unspecified, initial encounter; Y92.032 Bedroom in apartment as the place of occurrence of the external cause ==

== ENCOUNTER 2020-05-08 12:02 | Outpatient (CLI) | payer MEDICARE, MEDICAID | END 2020-05-08 12:03 | disposition critical access hospital (66) | LOC: EMS 12:02 | PROVIDERS: ATTEND Surgery | DX: R55 Syncope and collapse (principal) | CPT/HCPCS: A0425; A0427 ==

== ENCOUNTER 2020-05-08 12:06 | Emergency (ER) | payer MEDICARE, MEDICAID ==
[2020-05-08] MEDS ORDERED: SODIUM CHLORIDE 0.9% 1,000 ML IV STA (13:04)
--- NOTE | 2020-05-08 13:35 | ED Physician Documentation ---
PD HPI SYNCOPE - Stated complaint Stated Complaint: SYNCOPE - Chief complaint Chief Complaint: Neuro - History obtained from History obtained from: Patient, Family - History of Present Illness Witnessed: Witnessed Timing - onset: Today Duration: Minutes (1) Preceding symptoms: Light headed, Generalized weakness, Other (shaking) Associated symptoms: Seizure Contributing factors: Decreased PO intake Injury occurred: None Similar symptoms before: Diagnosis (seizure) Recently seen: Emergency Dept - Additional information Additional information: 84 y/o female with a history of Parkinson's and a seizure disorder has gradually weakened this year and has had visits to the ED about once per month. She has falls and seizure. Today she was at home and getting up to go to the bathroom. She has the assistance of a care tech and her daughter that lives with her. They were behind her and she was in her walker when she had a sudden shake and collapsed. She was assisted to the ground and was unconscious for about one minute without shaking. She has come to and is normally interactive at the time of my evaluation. She was attended to last night by medics for a fall lift assist as well. She has frequent falls, she is living with her daughter and has a caregiver as well. Review of Systems Constitutional: denies: Fever Eyes: denies: Decreased vision Ears: denies: Ear pain Nose: denies: Rhinorrhea / runny nose, Congestion Throat: denies: Sore throat Cardiac: denies: Chest pain / pressure, Palpitations Respiratory: denies: Dyspnea, Cough GI: denies: Abdominal Pain, Nausea, Vomiting, Constipation, Diarrhea : denies: Dysuria, Frequency Skin: denies: Rash Musculoskeletal: denies: Neck pain, Back pain, Extremity pain Neurologic: reports: Generalized weakness. 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 : Incontinence, Chronic bladder infection HEENT: None Psych: Depression, Anxiety Musculoskeletal: None Derm: None - Past Surgical History Past Surgical History: Yes General: 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 Ortho: Other /MAINTENANCE SERVICES DISPATCHER: Hysterectomy HEENT: Cataracts - Present Medications Home Medications: Ambulatory Orders Medication Instructions Recorded Confirmed Propranolol [Inderal] 10 mg PO BID 09/04/16 12/04/19 metFORMIN [Glucophage] 500 mg PO BID 09/04/16 12/04/19 Escitalopram [Lexapro] 20 mg PO DAILY 03/10/18 12/04/19 Mirtazapine 7.5 mg PO QPM 03/10/18 12/04/19 Atorvastatin Calcium 20 mg PO QPM 09/14/19 12/04/19 Primidone 25 mg PO QPM 09/14/19 12/04/19 Aspirin Chewable [[facility] 81 mg PO DAILY #10 tablet 12/06/19 Aspirin] levETIRAcetam [Keppra] 500 mg PO BID #60 udc 04/18/20 - Allergies Allergies/Adverse Reactions: Allergies Allergy/AdvReac Type Severity Reaction Status Date / Time codeine [Codeine] AdvReac Intermediate Nausea Verified 04/18/20 12:10 ssri Allergy Unknown Uncoded 01/03/20 15:20 - Social History Does the pt smoke?: No Smoking Status: Never smoker Does the pt drink ETOH?: No Does the pt have substance abuse?: No - Immunizations Immunizations are current?: Yes - POLST Patient has POLST: No PD ED PE NORMAL - Vitals Vital signs reviewed: Yes (hypertensive mild ) - General General: No acute distress, Well developed/nourished, Other (flat affect of Parkinsons.) - HEENT HEENT: Atraumatic, PERRL, Other (dry mucous membranes) - Neck Neck: Supple, no meningeal sign - Cardiac Cardiac: RRR, No murmur - Respiratory Respiratory: No respiratory distress, Clear bilaterally - Abdomen Abdomen: Soft, Non tender, Other (thin ) - Back Back: No CVA TTP, No spinal TTP - Derm Derm: Normal color, Warm and dry, No rash - Extremities Extremities: No deformity, No edema, Other (poor cap refill to feet without edema purple color from mid foot distal. ) - Neuro Neuro: Alert and oriented X 3, roller embosser 2-12 intact, No motor deficit, No sensory deficit, Normal speech Eye Opening: Spontaneous Motor: Obeys Commands Verbal: Oriented GCS Score: 15 - Psych Psych: Normal mood, Other (flat affect of Parkinson's ) Results - Vitals Vitals: Vital Signs - 24 hr 05/08/20 05/08/20 05/08/20 12:10 14:30 16:40 Temperature 36.8 C 36.7 C 36.9 C Heart Rate 72 71 80 Respiratory 20 18 18 Rate Blood Pressure 140/74 H 150/90 H 129/73 O2 Saturation 97 99 98 Oxygen O2 Source [] Room air O2 Source [] Room air O2 Source Room air - Labs Labs: Laboratory Tests 05/08/20 05/08/20 05/08/20 13:23 13:23 15:20 WBC 7.6 RBC 3.89 L Hgb 12.0 Hct 37.8 MCV 97.2 MCH 30.8 MCHC 31.7 L RDW 13.6 Plt Count 286 MPV 10.8 Neut # (Auto) 5.7 Lymph # (Auto) 1.2 L [place] # (Auto) 0.7 Eos # (Auto) 0.1 Baso # (Auto) 0.0 Absolute Nucleated RBC 0.00 Nucleated RBC % 0.0 Sodium 142 Potassium 3.9 Chloride 99 L Carbon Dioxide 28 Anion Gap 15.0 H BUN 17 Creatinine 0.6 Estimated GFR (MDRD) 95 Glucose 242 H Calcium 9.5 Total Bilirubin 0.7 AST 23 ALT < 10 L Alkaline Phosphatase 45 Total Protein 6.7 Albumin 3.7 Globulin 3.0 Albumin/Globulin Ratio 1.2 Lipase 33 Urine Color YELLOW Urine Clarity CLEAR Urine pH 5.5 Ur Specific [place] 1.020 Urine Protein NEGATIVE Urine Glucose (UA) 250 H Urine Ketones NEGATIVE Urine Occult Blood NEGATIVE Urine Nitrite NEGATIVE Urine Bilirubin NEGATIVE Urine Urobilinogen 0.2 (NORMAL) Ur Leukocyte Esterase NEGATIVE Ur Microscopic Review NOT INDICATED Urine Culture Comments NOT INDICATED Procedures - IVC sono (time) 1245 Bedside IVC sono: IVC measures (cm) (1.3), IVC collapsed c insp (cm) (0.5), Dehydration (est <1 liter deficit) PD MEDICAL DECISION MAKING - ED course Complexity details: reviewed old records, reviewed results, re-evaluated kateryna landry, considered differential, d/w patient, d/w family ED course: 84 y/o female with a history Parkinson's and a seizure disorder has had another collapse suspected to be seizure. She is found to be mildly dehydrated and no other specific illness is uncovered. Departure - Departure Disposition: 01 Home, Self Care Clinical Impression: Dehydration Episode of syncope Qualifiers: Syncope type: unspecified Qualified Code(s): R55 - Syncope and collapse Condition: Stable Instructions: ED Dehydration Follow-Up: Oscar Bergeron MD [Primary Care Provider] -
[2020-05-08 13:40] LABS: BASOPHILS % (AUTO) 0.4 %; EOSINOPHILS # (AUTO) 0.1 10^3/uL (0.0-0.7); EOSINOPHILS % (AUTO) 0.8 %; LYMPHOCYTES # (AUTO) 1.2 10^3/uL (1.5-3.5); LYMPHOCYTES % (AUTO) 15.6 %; MEAN CORPUSCULAR HEMOGLOBIN 30.8 pg (27.0-31.0); MEAN CORPUSCULAR HGB CONC 31.7 g/dL (32.0-36.0); MEAN CORPUSCULAR VOLUME 97.2 fL (81.0-99.0); MEAN PLATELET VOLUME 10.8 fL (7.9-10.8); MONOCYTES # (AUTO) 0.7 10^3/uL (0.0-1.0); NEUTROPHILS # (AUTO) 5.7 10^3/uL (1.5-6.6); NEUTROPHILS % (AUTO) 73.9 %; PLT - PLATELET COUNT 286 10^3/uL (130-450); RED BLOOD COUNT 3.89 10^6/uL (4.20-5.40); RED CELL DISTRIBUTION WIDTH 13.6 % (12.0-15.0); WHITE BLOOD COUNT 7.6 x10^3/uL (4.8-10.8)
[2020-05-08 13:51] LABS: ALBUMIN 3.7 g/dL (3.2-5.5); ALBUMIN/GLOBULIN RATIO 1.2 (1.0-2.2); ALKALINE PHOSPHATASE 45 IU/L (42-121); ALT ALANINE AMINOTRANSFERASE < 10 IU/L (10-60); AST ASPARTATE AMINOTRANSFERASE 23 IU/L (10-42); BILIRUBIN,TOTAL 0.7 mg/dL (0.2-1.0); BUN - BLOOD UREA NITROGEN 17 mg/dL (6-20); CALCIUM 9.5 mg/dL (8.5-10.3); CARBON DIOXIDE - CO2 28 mmol/L (21-32); CHLORIDE 99 mmol/L (101-111); CREATININE 0.6 mg/dL (0.4-1.0); GLUCOSE 242 mg/dL (70-100); LIPASE 33 U/L (22-51); SODIUM 142 mmol/L (135-145); TOTAL PROTEIN 6.7 g/dL (6.7-8.2)
[2020-05-08 15:58] LABS: BILIRUBIN,URINE NEGATIVE (NEGATIVE); GLUCOSE, URINE (UA) 250 mg/dL (NEGATIVE); KETONES,URINE (UA) NEGATIVE (NEGATIVE); LEUKOCYTE ESTERASE, URINE NEGATIVE (NEGATIVE); NITRITE,URINE NEGATIVE (NEGATIVE); OCCULT BLOOD,URINE NEGATIVE (NEGATIVE); PH,URINE 5.5 PH (5.0-7.5); PROTEIN,URINE NEGATIVE (NEGATIVE); UROBILINOGEN,URINE 0.2 (NORMAL) E.U./dL (NORMAL)
[2020-05-08 16:09] LABS: CLARITY,URINE CLEAR (CLEAR)
[2020-05-08 16:41] VITALS: BP 129/73
== END 2020-05-08 17:20 | disposition home or self-care (01) ==
LOC: EDUNIT# → ED 12:06
DX: R55 Syncope and collapse (principal); E86.0 Dehydration; G40.909 Epilepsy, unspecified, not intractable, without status epilepticus; G20 Parkinson's disease; R29.6 Repeated falls; I10 Essential (primary) hypertension; E11.9 Type 2 diabetes mellitus without complications; Z79.84 Long term (current) use of oral hypoglycemic drugs; Z79.82 Long term (current) use of aspirin
CPT/HCPCS: 36415; 51701; 80053; 80177; 81001; 81003; 83690; 85025; 87086; 99282; 99283

== ENCOUNTER 2020-05-21 04:56 | Outpatient (CLI) | payer MEDICARE, MEDICAID | END 2020-05-21 04:57 | disposition EMS.NT | LOC: EMS 04:56 | PROVIDERS: ATTEND Surgery | DX: Z03.89 Encounter for observation for other suspected diseases and conditions ruled out (principal) ==

== ENCOUNTER 2020-06-13 12:34 | Outpatient (CLI) | payer MEDICARE, MEDICAID | END 2020-06-13 12:35 | disposition critical access hospital (66) | LOC: EMS 12:34 | PROVIDERS: ATTEND Surgery | DX: R56.9 Unspecified convulsions (principal) | CPT/HCPCS: A0425; A0429 ==

== ENCOUNTER 2020-06-13 12:38 | Emergency (ER) | payer MEDICARE, MEDICAID ==
--- NOTE | 2020-06-13 12:42 | ED Physician Documentation ---
PD HPI SEIZURE - Stated complaint Stated Complaint: SEIZURE - History obtained from History obtained from: Patient, Family, EMS - History of Present Illness Timing - onset: How many minutes ago (30), Today Witnessed: Witnessed Number of seizures: Single, Lasted minutes (5-10) Description of seizure activity: Generalized Injury during seizure: No: Fell, Head injury, Neck injury Associated symptoms: No: Headache, Chest pain, Palpitations, Nausea / vomiting History of seizures: Known seizure disorder (recent onset of seizures, though with prior syncope that might have been as well. Witnessed seizure 2 monthsa ago and [facility]. Was to follow up with Neurology. However daughter says insurance issues and instead have appt with Neurology [facility] next week.) Contributing factors: No: Off meds, Out of meds, Changed meds, Low blood sugar, Fever (s) Similar symptoms before: Diagnosis (newer onset seizures, with firm Dx just 2 months ago, with witnesses seizure today.) Review of Systems Constitutional: denies: Fever, Chills Nose: denies: Rhinorrhea / runny nose, Congestion Throat: reports: Other (minor lateral tongue abrasions). denies: Sore throat Cardiac: denies: Chest pain / pressure Respiratory: denies: Cough GI: denies: Abdominal Pain, Nausea, Vomiting, Diarrhea Neurologic: reports: Seizure. 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 : Incontinence, Chronic bladder infection HEENT: None Psych: Depression, Anxiety Musculoskeletal: None Derm: None - Past Surgical History Past Surgical History: Yes General: 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 Ortho: Other /DIGITAL DESIGN ENGINEER: Hysterectomy HEENT: Cataracts - Present Medications Home Medications: Ambulatory Orders Medication Instructions Recorded Confirmed Propranolol [Inderal] 10 mg PO BID 09/04/16 12/04/19 metFORMIN [Glucophage] 500 mg PO BID 09/04/16 12/04/19 Escitalopram [Lexapro] 20 mg PO DAILY 03/10/18 12/04/19 Mirtazapine 7.5 mg PO QPM 03/10/18 12/04/19 Atorvastatin Calcium 20 mg PO QPM 09/14/19 12/04/19 Primidone 25 mg PO QPM 09/14/19 12/04/19 Aspirin Chewable [[facility] 81 mg PO DAILY #10 tablet 12/06/19 Aspirin] levETIRAcetam [Keppra] 500 mg PO BID #60 udc 04/18/20 - Allergies Allergies/Adverse Reactions: Allergies Allergy/AdvReac Type Severity Reaction Status Date / Time codeine [Codeine] AdvReac Intermediate Nausea Verified 06/13/20 12:49 ssri Allergy Unknown Uncoded 06/13/20 12:49 - Social History Does the pt smoke?: No Smoking Status: Never smoker Does the pt drink ETOH?: No Does the pt have substance abuse?: No - Immunizations Immunizations are current?: Yes - POLST Patient has POLST: No PD ED PE NORMAL - Vitals Vital signs reviewed: Yes - General General: Alert and oriented X 3, Well developed/nourished - HEENT HEENT: Atraumatic, Moist mucous membranes, Pharynx benign, Other (tongue with mild abrasions left side. ) - Neck Neck: Supple, no meningeal sign, No bony TTP, No adenopathy - Cardiac Cardiac: RRR, No murmur - Respiratory Respiratory: Clear bilaterally - Abdomen Abdomen: Normal bowel sounds, Soft, Non tender, Non distended - Back Back: No CVA TTP, No spinal TTP - Derm Derm: Normal color, Warm and dry - Extremities Extremities: No deformity, No tenderness to palpate, Normal ROM s pain, No edema, No calf tenderness / cord - Neuro Neuro: Alert and oriented X 3, insights manager 2-12 intact, No motor deficit, No sensory de ficit, Normal speech Eye Opening: Spontaneous Motor: Obeys Commands Verbal: Oriented GCS Score: 15 Results - Vitals Vitals: Vital Signs - 24 hr 06/13/20 06/13/20 12:42 14:28 Temperature 35.8 C L Heart Rate 63 64 Respiratory 14 16 Rate Blood Pressure 122/73 119/61 O2 Saturation 98 100 Oxygen O2 Source [Without Activity] Room air O2 Source [With Activity] Room air O2 Source Room air - Labs Labs: Laboratory Tests 06/13/20 06/13/20 13:11 13:11 WBC 5.9 RBC 3.97 L Hgb 12.6 Hct 39.0 MCV 98.2 MCH 31.7 H MCHC 32.3 RDW 13.2 Plt Count 281 MPV 10.9 H Neut # (Auto) 3.7 Lymph # (Auto) 1.6 [place] # (Auto) 0.5 Eos # (Auto) 0.1 Baso # (Auto) 0.0 Absolute Nucleated RBC 0.00 Nucleated RBC % 0.0 Sodium 141 Potassium 3.6 Chloride 103 Carbon Dioxide 28 Anion Gap 10.0 BUN 17 Creatinine 0.5 Estimated GFR (MDRD) 118 Glucose 160 H Calcium 9.7 Magnesium 2.2 Total Bilirubin 0.5 AST 24 ALT < 10 L Alkaline Phosphatase 39 L Total Creatine Kinase 28 Total Protein 7.1 Albumin 3.9 Globulin 3.2 Albumin/Globulin Ratio 1.2 PD MEDICAL DECISION MAKING - ED course Complexity details: considered differential (known (recently) seizure disorder s/p CVA/TIA), d/w patient Departure - Departure Disposition: 01 Home, Self Care Clinical Impression: Seizure Condition: Stable Record reviewed to determine appropriate education?: Yes Instructions: ED Seizure Recurrent Comments: Usual medicines. Increase your Keppra from 500 mg twice daily to 500 mg in the morning and 1000 mg in the evening. Follow-up with the neurologist at [facility] on the as planned. Stay well-hydrated. Return as needed. Discharge Date/Time: 06/13/20 14:37
[2020-06-13] MEDS ORDERED: SODIUM CHLORIDE 0.9% 1,000 ML IV STA (13:12)
[2020-06-13] MEDS ORDERED: levETIRAcetam INJ 500 MG in SODIUM CHLORIDE 0.9% 100ML 100 ML IV STA (13:12)
[2020-06-13 13:38] LABS: BASOPHILS % (AUTO) 0.5 %; EOSINOPHILS # (AUTO) 0.1 10^3/uL (0.0-0.7); EOSINOPHILS % (AUTO) 1.7 %; HGB - HEMOGLOBIN 12.6 g/dL (12.0-16.0); LYMPHOCYTES # (AUTO) 1.6 10^3/uL (1.5-3.5); LYMPHOCYTES % (AUTO) 26.2 %; MEAN CORPUSCULAR HEMOGLOBIN 31.7 pg (27.0-31.0); MEAN CORPUSCULAR HGB CONC 32.3 g/dL (32.0-36.0); MEAN CORPUSCULAR VOLUME 98.2 fL (81.0-99.0); MEAN PLATELET VOLUME 10.9 fL (7.9-10.8); MONOCYTES # (AUTO) 0.5 10^3/uL (0.0-1.0); MONOCYTES % (AUTO) 8.4 %; NEUTROPHILS # (AUTO) 3.7 10^3/uL (1.5-6.6); PLT - PLATELET COUNT 281 10^3/uL (130-450); RED BLOOD COUNT 3.97 10^6/uL (4.20-5.40); RED CELL DISTRIBUTION WIDTH 13.2 % (12.0-15.0); WHITE BLOOD COUNT 5.9 x10^3/uL (4.8-10.8)
[2020-06-13 13:50] LABS: ALBUMIN 3.9 g/dL (3.2-5.5); ALBUMIN/GLOBULIN RATIO 1.2 (1.0-2.2); ALKALINE PHOSPHATASE 39 IU/L (42-121); ALT ALANINE AMINOTRANSFERASE < 10 IU/L (10-60); AST ASPARTATE AMINOTRANSFERASE 24 IU/L (10-42); BILIRUBIN,TOTAL 0.5 mg/dL (0.2-1.0); BUN - BLOOD UREA NITROGEN 17 mg/dL (6-20); CALCIUM 9.7 mg/dL (8.5-10.3); CARBON DIOXIDE - CO2 28 mmol/L (21-32); CHLORIDE 103 mmol/L (101-111); CK- CREATINE KINASE 28 IU/L (22-269); CREATININE 0.5 mg/dL (0.4-1.0); GLUCOSE 160 mg/dL (70-100); MAGNESIUM 2.2 mg/dL (1.7-2.8); SODIUM 141 mmol/L (135-145); TOTAL PROTEIN 7.1 g/dL (6.7-8.2)
[2020-06-13 14:28] VITALS: BP 119/61
== END 2020-06-13 14:37 | disposition home or self-care (01) ==
LOC: EDUNIT# → ED 12:38
DX: G40.909 Epilepsy, unspecified, not intractable, without status epilepticus (principal); S00.512A Abrasion of oral cavity, initial encounter; X58.XXXA Exposure to other specified factors, initial encounter; Z86.73 Personal history of transient ischemic attack (TIA), and cerebral infarction without residual deficits; G20 Parkinson's disease; I10 Essential (primary) hypertension; E11.9 Type 2 diabetes mellitus without complications; Z79.84 Long term (current) use of oral hypoglycemic drugs; Z79.82 Long term (current) use of aspirin
CPT/HCPCS: 36415; 80053; 82550; 83735; 85025; 96365; 99284

== ENCOUNTER 2020-08-03 11:53 | Outpatient (CLI) | payer MEDICARE, MEDICAID | END 2020-08-03 11:54 | disposition EMS.NT | LOC: EMS 11:53 | DX: Z03.89 Encounter for observation for other suspected diseases and conditions ruled out (principal) ==

== ENCOUNTER 2020-08-10 09:26 | Outpatient (CLI) | payer MEDICARE, MEDICAID | END 2020-08-10 09:27 | disposition EMS.NT | LOC: EMS 09:26 | DX: R56.9 Unspecified convulsions (principal) ==

== ENCOUNTER 2020-09-06 18:06 | Outpatient (CLI) | payer MEDICARE, MEDICAID | END 2020-09-06 18:07 | disposition critical access hospital (66) | LOC: EMS 18:06 | PROVIDERS: ATTEND Emergency Medicine | DX: R55 Syncope and collapse (principal) | CPT/HCPCS: A0425; A0429 ==

== ENCOUNTER 2020-09-06 18:12 | Emergency (ER) | payer MEDICARE, MEDICAID ==
--- NOTE | 2020-09-06 18:36 | ED Physician Documentation ---
PD HPI SEIZURE - Stated complaint Stated Complaint: SZ - Chief complaint Chief Complaint: Neuro - History obtained from History obtained from: Patient, EMS - Additional information Additional information: 84-year-old woman on carbidopa levodopa but states she does not have Parkinson's. She also has diabetes, hypertension, dementia. Starting to have issues with seizure-like activity in February of last year eventually was placed on Keppra. Since last night she has been having more "absence" seizures than normal. Her seizures are usually tonic-clonic. Patient describes feeling generally weak but does not remember any seizure activity. No injuries. No urinary complaints. No fevers. I spoke with her daughter Felipa by phone shortly after initial evaluation. She states that she was sitting next to her mom on the couch and she simply passed out, her head but went back and she was unconscious for a time. There was no shaking. I discussed with her that this is much more consistent with a syncopal episode than seizure and that is where we would focus. 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 : Incontinence, Chronic bladder infection HEENT: None Psych: Depression, Anxiety Musculoskeletal: None Derm: None - Past Surgical History Past Surgical History: Yes General: 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 Ortho: Other /BUILDING ADMIN: Hysterectomy HEENT: Cataracts - Present Medications Home Medications: Ambulatory Orders Medication Instructions Recorded Confirmed Propranolol [Inderal] 10 mg PO BID 09/04/16 12/04/19 metFORMIN [Glucophage] 500 mg PO BID 09/04/16 12/04/19 Escitalopram [Lexapro] 20 mg PO DAILY 03/10/18 12/04/19 Mirtazapine 7.5 mg PO QPM 03/10/18 12/04/19 Atorvastatin Calcium 20 mg PO QPM 09/14/19 12/04/19 Primidone 25 mg PO QPM 09/14/19 12/04/19 Aspirin Chewable [[facility] 81 mg PO DAILY #10 tablet 12/06/19 Aspirin] levETIRAcetam [Keppra] 500 mg PO BID #60 udc 04/18/20 Ciprofloxacin HCl [Cipro] 500 mg PO BID #20 tablet 09/06/20 - Allergies Allergies/Adverse Reactions: Allergies Allergy/AdvReac Type Severity Reaction Status Date / Time codeine [Codeine] AdvReac Intermediate Nausea Verified 09/06/20 18:19 ssri Allergy Unknown Uncoded 09/06/20 18:19 - Social History Does the pt smoke?: No Smoking Status: Never smoker Does the pt drink ETOH?: No Does the pt have substance abuse?: No - Immunizations Immunizations are current?: Yes - POLST Patient has POLST: No PD ED PE NORMAL - Vitals Vital signs reviewed: Yes - General General: No acute distress, Well developed/nourished - HEENT HEENT: PERRL, EOMI - Neck Neck: Supple, no meningeal sign, No bony TTP - Cardiac Cardiac: RRR, No murmur - Respiratory Respiratory: No respiratory distress, Clear bilaterally - Abdomen Abdomen: Normal bowel sounds, Soft, Non tender - Back Back: No CVA TTP, No spinal TTP - Derm Derm: Normal color, Warm and dry - Extremities Extremities: No edema, No calf tenderness / cord - Neuro Neuro: No motor deficit, No sensory deficit Eye Opening: Spontaneous Motor: Obeys Commands Verbal: Confused GCS Score: 14 Results - Vitals Vitals: Vital Signs - 24 hr 09/06/20 09/06/20 18:19 18:26 Temperature 36.4 C L 36.4 C L Heart Rate 71 71 Respiratory 15 15 Rate Blood Pressure 118/57 L 118/75 O2 Saturation 97 97 Oxygen O2 Source [Without Activity] Room air O2 Source [With Activity] Room air O2 Source Room air - Labs Labs: Laboratory Tests 09/06/20 09/06/20 09/06/20 19:46 19:46 19:46 WBC 10.1 RBC 3.90 L Hgb 12.2 Hct 38.0 MCV 97.4 MCH 31.3 H MCHC 32.1 RDW 13.9 Plt Count 295 MPV 9.8 Neut # (Auto) 7.6 H Lymph # (Auto) 1.3 L [place] # (Auto) 1.0 Eos # (Auto) 0.1 Baso # (Auto) 0.0 Absolute Nucleated RBC 0.00 Nucleated RBC % 0.0 Sodium 137 Potassium 4.0 Chloride 99 L Carbon Dioxide 27 Anion Gap 11.0 BUN 19 Creatinine 0.5 Estimated GFR (MDRD) 118 Glucose 150 H Calcium 9.6 Magnesium 2.0 Total Bilirubin 0.7 AST 23 ALT < 10 L Alkaline Phosphatase 43 Total Creatine Kinase 20 L Troponin I High Sens 3.8 Total Protein 7.4 Albumin 3.7 Globulin 3.7 Albumin/Globulin Ratio 1.0 Urine Color Urine Clarity Urine pH Ur Specific [place] Urine Protein Urine Glucose (UA) Urine Ketones Urine Occult Blood Urine Nitrite Urine Bilirubin Urine Urobilinogen Ur Leukocyte Esterase Urine RBC Urine WBC Ur Squamous Epith Cells Amorphous Sediment Urine Bacteria Urine Yeast Ur Microscopic Review Urine Culture Comments 09/06/20 20:14 WBC RBC Hgb Hct MCV MCH MCHC RDW Plt Count MPV Neut # (Auto) Lymph # (Auto) [place] # (Auto) Eos # (Auto) Baso # (Auto) Absolute Nucleated RBC Nucleated RBC % Sodium Potassium Chloride Carbon Dioxide Anion Gap BUN Creatinine Estimated GFR (MDRD) Glucose Calcium Magnesium Total Bilirubin AST ALT Alkaline Phosphatase Total Creatine Kinase Troponin I High Sens Total Protein Albumin Globulin Albumin/Globulin Ratio Urine Color YELLOW Urine Clarity SL. CLOUDY Urine pH 5.5 Ur Specific [place] 1.025 Urine Protein 100 H Urine Glucose (UA) NEGATIVE Urine Ketones NEGATIVE Urine Occult Blood MODERATE H Urine Nitrite POSITIVE H Urine Bilirubin NEGATIVE Urine Urobilinogen 0.2 (NORMAL) Ur Leukocyte Esterase MODERATE H Urine RBC 6-10 H Urine WBC 11-25 H Ur Squamous Epith Cells FEW Squamous Amorphous Sediment Rare Urine Bacteria Many H Urine Yeast PRESENT Ur Microscopic Review INDICATED Urine Culture Comments INDICATED PD MEDICAL DECISION MAKING - ED course ED course: This 84-year-old woman presents after syncopal episode. She has had chills today and a high normal white count. She also has mild suprapubic tenderness. Syncope work-up was negative, she does have significant pyuria and I think in combination with the above symptoms this represents UTI, especially with the chills this probably represents pyelonephritis. She is treated with Cipro pending cultures. Departure - Departure Disposition: 01 Home, Self Care Clinical Impression: UTI (urinary tract infection) Qualifiers: Urinary tract infection type: acute pyelonephritis Qualified Code(s): N10 - Acute pyelonephritis Syncope Qualifiers: Syncope type: unspecified Qualified Code(s): R55 - Syncope and collapse Condition: Stable Record reviewed to determine appropriate education?: Yes Instructions: ED Fainting Unkn Cause, ED Kidney Infec Female Prescriptions: Ciprofloxacin HCl [Cipro] 500 mg PO BID #20 tablet Comments: Call your doctor to arrange a follow-up appointment, make the next available appointment. In the interim, return anytime if worse or if new symptoms develop. We will culture your urine, the results should be done in 48-72 hours. If an antibiotic change is necessary we will call you. Return if worse in the meantime, especially if you develop increasing flank pain, fevers, or cannot keep down the medication.
--- NOTE | 2020-09-06 18:59 | XRAY Report ---
PROCEDURE: Chest 1 View X-Ray INDICATIONS: syncope TECHNIQUE: One view of the chest was acquired. COMPARISON: Chest x-ray 04/18/2020 FINDINGS: Surgical changes and devices: Clips are noted overlying the right upper quadrant. Lungs and pleura: No pleural effusions or pneumothorax. Lungs are clear. Mediastinum: Mediastinal contours appear normal. Heart size is normal. Bones and chest wall: No suspicious bony lesions. Overlying soft tissues appear unremarkable. IMPRESSION: No acute pulmonary process. Reviewed by: Nara Zamudio MD on 09/06/2020 6:58 PM [facility] Approved by: Nara Zamudio MD on 09/06/2020 6:58 PM [facility] Station ID: [id number]
--- NOTE | 2020-09-06 19:18 | CT Report ---
PROCEDURE: HEAD WO INDICATIONS: syncope TECHNIQUE: Noncontrast 4.5 mm thick angled axial sections acquired from the foramen magnum to the vertex. For r adiation dose reduction, the following was used: automated exposure control, adjustment of mA and/or kV according to patient size. COMPARISON: CT head 04/18/2020 FINDINGS: Image quality: Excellent. The ventricular system and cortical sulci demonstrate atrophy, consistent for patient's stated age. There is slight ventricular prominence in relation to gyral and sulcal atrophy, unchanged. There are areas of hypodensity in the periventricular and subcortical white matter. There is no acute intra or extra-axial fluid collection. No acute hemorrhage, mass lesion or midline shift. Brainstem is unre markable. Globes are symmetrical. Sinuses are aerated. Osseous structures are intact. IMPRESSION: 1. No acute intracranial process. 2. Moderate atrophy and chronic microvascular ischemic changes. Slight ventricular prominence in rel ation to gyral and sulcal atrophy. This could represent a more central atrophy pattern. However, in a ppropriate clinical circumstances, normal pressure hydrocephalus should be considered. Reviewed by: Nara Zamudio MD on 09/06/2020 7:16 PM PST Approved by: Nara Zamudio MD on 09/06/2020 7:16 PM PST Station ID: [id number]
[2020-09-06 19:53] LABS: BASOPHILS % (AUTO) 0.3 %; EOSINOPHILS # (AUTO) 0.1 10^3/uL (0.0-0.7); EOSINOPHILS % (AUTO) 0.8 %; HGB - HEMOGLOBIN 12.2 g/dL (12.0-16.0); LYMPHOCYTES # (AUTO) 1.3 10^3/uL (1.5-3.5); LYMPHOCYTES % (AUTO) 12.6 %; MEAN CORPUSCULAR HEMOGLOBIN 31.3 pg (27.0-31.0); MEAN CORPUSCULAR HGB CONC 32.1 g/dL (32.0-36.0); MEAN CORPUSCULAR VOLUME 97.4 fL (81.0-99.0); MEAN PLATELET VOLUME 9.8 fL (7.9-10.8); MONOCYTES % (AUTO) 10.2 %; NEUTROPHILS # (AUTO) 7.6 10^3/uL (1.5-6.6); NEUTROPHILS % (AUTO) 75.6 %; PLT - PLATELET COUNT 295 10^3/uL (130-450); RED CELL DISTRIBUTION WIDTH 13.9 % (12.0-15.0); WHITE BLOOD COUNT 10.1 x10^3/uL (4.8-10.8)
[2020-09-06 20:10] LABS: ALBUMIN 3.7 g/dL (3.2-5.5); ALKALINE PHOSPHATASE 43 IU/L (42-121); ALT ALANINE AMINOTRANSFERASE < 10 IU/L (10-60); AST ASPARTATE AMINOTRANSFERASE 23 IU/L (10-42); BILIRUBIN,TOTAL 0.7 mg/dL (0.2-1.0); BUN - BLOOD UREA NITROGEN 19 mg/dL (6-20); CALCIUM 9.6 mg/dL (8.5-10.3); CARBON DIOXIDE - CO2 27 mmol/L (21-32); CHLORIDE 99 mmol/L (101-111); CK- CREATINE KINASE 20 IU/L (22-269); CREATININE 0.5 mg/dL (0.4-1.0); GFR - MDRD 118 (>89); GLUCOSE 150 mg/dL (70-100); SODIUM 137 mmol/L (135-145); TOTAL PROTEIN 7.4 g/dL (6.7-8.2)
[2020-09-06 20:20] LABS: BILIRUBIN,URINE NEGATIVE (NEGATIVE); CLARITY,URINE SL. CLOUDY (CLEAR); GLUCOSE, URINE (UA) NEGATIVE (NEGATIVE); KETONES,URINE (UA) NEGATIVE (NEGATIVE); LEUKOCYTE ESTERASE, URINE MODERATE (NEGATIVE); NITRITE,URINE POSITIVE (NEGATIVE); OCCULT BLOOD,URINE MODERATE (NEGATIVE); PH,URINE 5.5 PH (5.0-7.5); PROTEIN,URINE 100 mg/dL (NEGATIVE); UROBILINOGEN,URINE 0.2 (NORMAL) E.U./dL (NORMAL)
[2020-09-06 20:24] LABS: BACTERIA,URINE Many /HPF (None Seen); SQUAMOUS EPITHELIAL CELL,UR FEW Squamous (<= Few)
[2020-09-06 20:25] LABS: AMORPHOUS SEDIMENT,UR Rare /LPF; YEAST,URINE PRESENT
[2020-09-06] MEDS ORDERED: CIPROFLOXACIN 250 MG TABLET PO STA (20:25)
[2020-09-06 20:56] VITALS: BP 115/74
--- NOTE | 2020-09-08 15:13 | ED Physician Documentation ---
ED Addendum - Addendum Addendum: 09/08/20 15:13 Cultures and sensitivities reviewed. Her E. coli is resistant to ciprofloxacin. We will change her to Cefpodoxime 200 mg p.o. twice daily #20
== END 2020-09-06 20:54 | disposition home or self-care (01) ==
LOC: EDUNIT# → ED 18:12
DX: N10 Acute pyelonephritis (principal); B96.20 Unspecified Escherichia coli [E. coli] as the cause of diseases classified elsewhere; Z16.23 Resistance to quinolones and fluoroquinolones; R55 Syncope and collapse; I10 Essential (primary) hypertension; E11.9 Type 2 diabetes mellitus without complications; Z79.84 Long term (current) use of oral hypoglycemic drugs; G20 Parkinson's disease; F02.80 Dementia in other diseases classified elsewhere, unspecified severity, without behavioral disturbance, psychotic disturbance, mood disturbance, and anxiety; G40.909 Epilepsy, unspecified, not intractable, without status epilepticus; Z79.82 Long term (current) use of aspirin
CPT/HCPCS: 36415; 51701; 70450; 71045; 80053; 81001; 82550; 83735; 84484; 85025; 87086; 87181; 99284; 99285; A9270; 81003

== ENCOUNTER 2020-09-15 21:13 | Outpatient (CLI) | payer MEDICARE, MEDICAID | END 2020-09-15 21:14 | disposition EMS.NT | LOC: EMS 21:13 | DX: Z03.89 Encounter for observation for other suspected diseases and conditions ruled out (principal) ==

== ENCOUNTER 2020-09-16 23:17 | Outpatient (CLI) | payer MEDICARE, MEDICAID | END 2020-09-16 23:18 | disposition EMS.NT | LOC: EMS 23:17 | DX: Z03.89 Encounter for observation for other suspected diseases and conditions ruled out (principal) ==

== ENCOUNTER 2020-09-18 21:40 | Outpatient (CLI) | payer MEDICARE, MEDICAID | END 2020-09-18 21:41 | disposition EMS.NT | LOC: EMS 21:40 | DX: S00.83XA Contusion of other part of head, initial encounter (principal); W18.39XA Other fall on same level, initial encounter; W22.03XA Walked into furniture, initial encounter; Y93.E9 Activity, other interior property and clothing maintenance; Y92.003 Bedroom of unspecified non-institutional (private) residence as the place of occurrence of the external cause ==

== ENCOUNTER 2020-09-27 21:30 | Outpatient (CLI) | payer MEDICARE, MEDICAID ==
--- OUTSIDE RECORDS SUMMARY | 2020-10-02 02:35 | EXTERNAL MEDICAL SUMMARY RPT | Continuity of Care Document ---
:1935 Demographics Phone Unavailable Preferred Language Unknown Marital Status Unknown Jew Affiliation Unknown Race Unknown Ethnic Group Unknown Author Organization [place] Address [address] [place] [address] Phone Social History date description facility [id number]
== END 2020-09-27 21:31 ==
LOC: EMS 21:30
DX: Z03.89 Encounter for observation for other suspected diseases and conditions ruled out (principal)

== ENCOUNTER 2020-10-02 11:26 | Outpatient (CLI) | payer MEDICARE, MEDICAID | END 2020-10-02 11:27 | disposition critical access hospital (66) | LOC: EMS 11:26 | PROVIDERS: ATTEND Emergency Medicine | DX: R10.9 Unspecified abdominal pain (principal) | CPT/HCPCS: A0425; A0429 ==

== ENCOUNTER 2020-10-02 11:30 | Emergency (ER) | payer MEDICARE, MEDICAID ==
--- NOTE | 2020-10-02 11:40 | ED Physician Documentation ---
PD HPI ABD PAIN - Stated complaint Stated Complaint: FEMALE /ABD PX - History obtained from History obtained from: Patient, Family (daughter reported to Medic that pt was having lower abd pain and weakness. Had similar with UTI few weeks ago.), EMS - History of Present Illness Timing - onset: How many days ago (1-2) Timing - duration: Days (1-2) Timing - details: Gradual onset, Waxing and waning Quality: Aching, Pain Location: Suprapubic, LLQ Radiation: No: Left flank Improved by: No: Laying still Worsened by: No: Moving, Position, Palpation Associated symptoms: Constipation, Other (incontinence chronic). No: Fever, Vomiting, Diarrhea Similar symptoms before: Diagnosis (UTI a month ago with similar symptoms.) Review of Systems Unable to obtain: Other (info from daughter through medics.) Constitutional: denies: Fever, Chills Cardiac: denies: Chest pain / pressure Respiratory: denies: Dyspnea, Cough GI: reports: Abdominal Pain (lower abd and suprapubic area). 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 : Incontinence, Chronic bladder infection HEENT: None Psych: Depression, Anxiety Musculoskeletal: None Derm: None - Past Surgical History Past Surgical History: Yes General: 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 Ortho: Other /SURGICAL GARMENT ASSEMBLY SUPERVISOR: Hysterectomy HEENT: Cataracts - Present Medications Home Medications: Ambulatory Orders Medication Instructions Recorded Confirmed Propranolol [Inderal] 10 mg PO BID 09/04/16 12/04/19 metFORMIN [Glucophage] 500 mg PO BID 09/04/16 12/04/19 Escitalopram [Lexapro] 20 mg PO DAILY 03/10/18 12/04/19 Mirtazapine 7.5 mg PO QPM 03/10/18 12/04/19 Atorvastatin Calcium 20 mg PO QPM 09/14/19 12/04/19 Primidone 25 mg PO QPM 09/14/19 12/04/19 Aspirin Chewable [[facility] 81 mg PO DAILY #10 tablet 12/06/19 Aspirin] levETIRAcetam [Keppra] 500 mg PO BID #60 udc 04/18/20 Ciprofloxacin HCl [Cipro] 500 mg PO BID #20 tablet 09/06/20 - Allergies Allergies/Adverse Reactions: Allergies Allergy/AdvReac Type Severity Reaction Status Date / Time codeine [Codeine] AdvReac Intermediate Nausea Verified 10/02/20 11:38 ssri Allergy Unknown Uncoded 10/02/20 11:38 - Social History Does the pt smoke?: No Smoking Status: Never smoker Does the pt drink ETOH?: No Does the pt have substance abuse?: No - Immunizations Immunizations are current?: Yes - POLST Patient has POLST: No PD ED PE NORMAL - Vitals Vital signs reviewed: Yes - General General: Alert and oriented X 3, No acute distress, Well developed/nourished - Neck Neck: Supple, no meningeal sign, No adenopathy - Cardiac Cardiac: RRR, No murmur - Respiratory Respiratory: Clear bilaterally - Abdomen Abdomen: Normal bowel sounds, Soft, Non distended, No organomegaly, Other (Tender with out any percussion rebound nor guarding at the suprapubic and lower left abdomen. No rashes seen. No hernias or masses.) - Female Female : Deferred - Rectal Rectal: Deferred - Back Back: No CVA TTP - Derm Derm: Normal color, Warm and dry, No rash - Extremities Extremities: Normal ROM s pain, No edema, No calf tenderness / cord - Neuro Neuro: No motor deficit, Normal speech. No: Alert and oriented X 3 (To person and place but not time.) Eye Opening: Spontaneous Motor: Obeys Commands Verbal: Confused GCS Score: 14 - Psych Psych: Normal mood Results - Vitals Vitals: Vital Signs - 24 hr 10/02/20 10/02/20 10/02/20 11:38 13:57 15:25 Temperature 36.9 C 37 C 37.1 C Heart Rate 77 75 76 Respiratory 18 16 20 Rate Blood Pressure 109/76 124/64 133/56 H O2 Saturation 100 97 95 Oxygen O2 Source [] Room air O2 Source [] Room air O2 Source Room air - Labs Labs: Laboratory Tests 10/02/20 10/02/20 10/02/20 11:55 11:55 14:36 WBC 6.5 RBC 3.62 L Hgb 11.6 L Hct 35.4 L MCV 97.8 MCH 32.0 H MCHC 32.8 RDW 13.7 Plt Count 245 MPV 9.6 Neut # (Auto) 3.7 Lymph # (Auto) 2.1 [place] # (Auto) 0.6 Eos # (Auto) 0.1 Baso # (Auto) 0.0 Absolute Nucleated RBC 0.00 Nucleated RBC % 0.0 Sodium 142 Potassium 4.0 Chloride 106 Carbon Dioxide 30 Anion Gap 6.0 BUN 24 H Creatinine 0.4 Estimated GFR (MDRD) 152 Glucose 144 H Calcium 10.0 Total Bilirubin 0.5 AST 21 ALT < 10 L Alkaline Phosphatase 41 L Total Protein 6.5 L Albumin 3.6 Globulin 2.9 Albumin/Globulin Ratio 1.2 Lipase 26 Urine Color YELLOW Urine Clarity CLEAR Urine pH 6.0 Ur Specific [place] 1.015 Urine Protein NEGATIVE Urine Glucose (UA) NEGATIVE Urine Ketones NEGATIVE Urine Occult Blood TRACE-INTA Urine Nitrite NEGATIVE Urine Bilirubin NEGATIVE Urine Urobilinogen 0.2 (NORMAL) Ur Leukocyte Esterase NEGATIVE Ur Microscopic Review NOT INDICATED Urine Culture Comments NOT INDICATED - Rads (name of study) abd/pelvic CT Radiology: Prelim report reviewed (The patient had had recent UTI but is having some pain in mild tenderness in the lower to left lower abdomen. Consideration for diverticula or stone and instead. will get CT scan.), See rad report PD MEDICAL DECISION MAKING - ED course Complexity details: reviewed results (no acvute on CT. UA and labs okay. ), re- evaluated patient, considered differential, d/w patient Departure - Departure Disposition: 01 Home, Self Care Clinical Impression: Lower abdominal pain, Obstipation Condition: Stable Record reviewed to determine appropriate education?: Yes Follow-Up: Oscar Bergeron MD [Primary Care Provider] - Comments: Your urine is clear at this time and your blood tests are good. CT of the abdomen shows some constipation and that may be causing your pain in the lower abdomen. I would suggest a stool softener such as docusate twice daily for the next several days and add senna if needed. Continue your other usual medicines. Tylenol if needed for pains. Discharge Date/Time: 10/02/20 15:42
--- OUTSIDE RECORDS SUMMARY | 2020-10-02 11:56 | EXTERNAL MEDICAL SUMMARY RPT | Continuity of Care Document ---
:1935 Demographics Phone Unavailable Preferred Language Unknown Marital Status Unknown Moravian Affiliation Unknown Race Unknown Ethnic Group Unknown Author Organization [facility] Address [address] [place] [address] Phone Social History date description facility [phone]
[2020-10-02 12:06] LABS: BASOPHILS % (AUTO) 0.6 %; EOSINOPHILS # (AUTO) 0.1 10^3/uL (0.0-0.7); EOSINOPHILS % (AUTO) 1.7 %; HCT - HEMATOCRIT 35.4 % (37.0-47.0); HGB - HEMOGLOBIN 11.6 g/dL (12.0-16.0); LYMPHOCYTES # (AUTO) 2.1 10^3/uL (1.5-3.5); LYMPHOCYTES % (AUTO) 31.9 %; MEAN CORPUSCULAR HGB CONC 32.8 g/dL (32.0-36.0); MEAN CORPUSCULAR VOLUME 97.8 fL (81.0-99.0); MEAN PLATELET VOLUME 9.6 fL (7.9-10.8); MONOCYTES # (AUTO) 0.6 10^3/uL (0.0-1.0); MONOCYTES % (AUTO) 8.7 %; NEUTROPHILS # (AUTO) 3.7 10^3/uL (1.5-6.6); NEUTROPHILS % (AUTO) 56.9 %; PLT - PLATELET COUNT 245 10^3/uL (130-450); RED BLOOD COUNT 3.62 10^6/uL (4.20-5.40); RED CELL DISTRIBUTION WIDTH 13.7 % (12.0-15.0); WHITE BLOOD COUNT 6.5 x10^3/uL (4.8-10.8)
[2020-10-02 12:17] LABS: ALBUMIN 3.6 g/dL (3.2-5.5); ALBUMIN/GLOBULIN RATIO 1.2 (1.0-2.2); ALKALINE PHOSPHATASE 41 IU/L (42-121); ALT ALANINE AMINOTRANSFERASE < 10 IU/L (10-60); AST ASPARTATE AMINOTRANSFERASE 21 IU/L (10-42); BILIRUBIN,TOTAL 0.5 mg/dL (0.2-1.0); BUN - BLOOD UREA NITROGEN 24 mg/dL (6-20); CARBON DIOXIDE - CO2 30 mmol/L (21-32); CHLORIDE 106 mmol/L (101-111); CREATININE 0.4 mg/dL (0.4-1.0); GFR - MDRD 152 (>89); GLUCOSE 144 mg/dL (70-100); LIPASE 26 U/L (22-51); SODIUM 142 mmol/L (135-145); TOTAL PROTEIN 6.5 g/dL (6.7-8.2)
[2020-10-02] MEDS ORDERED: IOPAMIDOL-300 100 ML VIAL ONE (12:53)
[2020-10-02] MEDS ORDERED: IOPAMIDOL-300 100 ML VIAL IVP ONE (14:18)
--- NOTE | 2020-10-02 14:32 | CT Report ---
PROCEDURE: Abdomen/Pelvis W INDICATIONS: lower abd pain CONTRAST: IV CONTRAST: Isovue 300 ml: 100 PO CONTRAST: *NO PO CONTRAST TECHNIQUE: After the administration of nonionic contrast, 5 mm thick sections acquired from the diaphragms to th e symphysis. 5 mm thick coronal and sagittal reformats were acquired. For radiation dose reduction, the following was used: automated exposure control, adjustment of mA and/or kV according to patient size. COMPARISON: None. FINDINGS: Image quality: Excellent. ABDOMEN: Lung bases: Lung bases are clear. Heart size is normal. Solid organs: Liver and spleen are normal in size and enhancement. Gallbladder appears previously r esected Biliary system is non dilated. Pancreas enhances normally. No adrenal nodules. Kidneys de monstrate normal size and enhancement, without definite hydronephrosis. Somewhat prominent extrarena l pelvis appears present on the right. Peritoneum and bowel: Bowel loops demonstrate normal wall thickness and caliber. No free fluid or a ir. Generalized colonic obstipation. Nodes and vessels: No retroperitoneal or mesenteric adenopathy by size criteria. Aorta and inferior vena cava are normal in size. Miscellaneous: No ventral hernias. PELVIS: Genitourinary: Bladder wall thickness is normal. Miscellaneous: No inguinal hernias or adenopathy. Generalized colonic obstipation. Bones: No suspicious bony lesions. No vertebral body compression fractures. IMPRESSION: Colonic obstipation. Extrarenal pelvis relatively prominent at the right kidney. Prior c holecystectomy. No definite acute disease. No diverticulitis found. Reviewed by: Galo Venegas MD on 10/02/2020 2:31 PM PDT Approved by: Galo Venegas MD on 10/02/2020 2:31 PM PDT Station ID: [id number]
[2020-10-02 14:53] LABS: BILIRUBIN,URINE NEGATIVE (NEGATIVE); CLARITY,URINE CLEAR (CLEAR); GLUCOSE, URINE (UA) NEGATIVE (NEGATIVE); KETONES,URINE (UA) NEGATIVE (NEGATIVE); LEUKOCYTE ESTERASE, URINE NEGATIVE (NEGATIVE); NITRITE,URINE NEGATIVE (NEGATIVE); OCCULT BLOOD,URINE TRACE-INTA (NEGATIVE); PROTEIN,URINE NEGATIVE (NEGATIVE); UROBILINOGEN,URINE 0.2 (NORMAL) E.U./dL (NORMAL)
[2020-10-02] MEDS ORDERED: SENNA 8.6 MG TABLET PO STA (15:18)
[2020-10-02] MEDS ORDERED: DOCUSATE SODIUM 100 MG CAPSULE PO STA (15:18)
[2020-10-02] MEDS ORDERED: ACETAMINOPHEN 325 MG TABLET PO STA (15:20)
[2020-10-02 15:26] VITALS: BP 133/56
== END 2020-10-02 15:42 | disposition home or self-care (01) ==
LOC: EDUNIT# → ED 11:30
DX: K59.00 Constipation, unspecified (principal); R10.32 Left lower quadrant pain; R35.0 Frequency of micturition; I10 Essential (primary) hypertension; E11.9 Type 2 diabetes mellitus without complications; Z79.84 Long term (current) use of oral hypoglycemic drugs; Z79.82 Long term (current) use of aspirin; G20 Parkinson's disease
CPT/HCPCS: 36415; 51701; 51798; 74177; 80053; 81003; 83690; 85025; 99284; A9270; Q9967; 81001; 87086

== ENCOUNTER 2020-10-14 21:23 | Outpatient (CLI) | payer MEDICARE, MEDICAID | END 2020-10-14 21:24 | disposition EMS.NT | LOC: EMS 21:23 | DX: Z03.89 Encounter for observation for other suspected diseases and conditions ruled out (principal) ==

== ENCOUNTER 2020-11-24 12:55 | Outpatient (CLI) | payer MEDICARE, MEDICAID | END 2020-11-24 12:56 | disposition critical access hospital (66) | LOC: EMS 12:55 | DX: R05 Cough (principal); R07.89 Other chest pain; R53.1 Weakness | CPT/HCPCS: A0425; A0427 ==

== ENCOUNTER 2020-11-24 13:00 | Emergency (ER) | payer MEDICARE, MEDICAID ==
--- NOTE | 2020-11-24 13:27 | ED Physician Documentation ---
PD HPI DYSPNEA - Stated complaint Stated Complaint: CP/ABD PX - Chief complaint Chief Complaint: Cardiac - History obtained from History obtained from: Patient, Family (daughter talked with ER nurse and conveyed concern that patient has seemed weak the past few days, and could be c/w prior UTIs.), EMS - History of Present Illness Timing - onset: Today (Patient states she had finished lunch and then was having a cookie and was given a oral medication tablet as well. She started coughing and feeling that she was having trouble breathing as she swallowed those down. No discoloration of the patient nor inability to breath. Some chest pain with cough.) Timing - onset during: Rest (sitting up after lunch, taking pill from caregiver and had been eating a cookie as well.) Timing - duration: Minutes (reportedly coughing for minute or two and then felt some dyspnea and chest pain. Concern by caregivers of aspiration/choking.) Timing - details: Abrupt onset, Now resolved Inciting event(s): Other (swallowed pill tablet.). No: URI Worsened by: Coughing Associated symptoms: No: Fever, Hemoptysis, Wheezing, Bilateral edema Similar symptoms before: Has not had sx before Recently seen: Not recently seen Review of Systems Constitutional: denies: Fever Nose: denies: Rhinorrhea / runny nose, Congestion Throat: denies: Sore throat Respiratory: reports: Cough (just with the choking episode today; had not had recent cough otherwise.). 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: Hysterectomy HEENT: Cataracts - Present Medications Home Medications: Ambulatory Orders Medication Instructions Recorded Confirmed Propranolol [Inderal] 10 mg PO BID 09/04/16 12/04/19 metFORMIN [Glucophage] 500 mg PO BID 09/04/16 12/04/19 Escitalopram [Lexapro] 20 mg PO DAILY 09/13/18 06/08/20 Mirtazapine 7.5 mg PO QPM 03/10/18 12/04/19 Atorvastatin Calcium 20 mg PO QPM 09/14/19 12/04/19 Primidone 25 mg PO QPM 09/14/19 12/04/19 Aspirin Chewable [[facility] 81 mg PO DAILY #10 tablet 12/06/19 Aspirin] levETIRAcetam [Keppra] 500 mg PO BID #60 udc 04/18/20 Ciprofloxacin HCl [Cipro] 500 mg PO BID #20 tablet 09/06/20 cephALEXin [Keflex] 500 mg PO TID 5 Days #15 cap 11/24/20 - Allergies Allergies/Adverse Reactions: Allergies Allergy/AdvReac Type Severity Reaction Status Date / Time codeine [Codeine] AdvReac Intermediate Nausea Verified 11/24/20 13:36 ssri Allergy Unknown Uncoded 11/24/20 13:36 - Social History Does the pt smoke?: No Smoking Status: Never smoker Does the pt drink ETOH?: No Does the pt have substance abuse?: No - Immunizations Immunizations are current?: Yes - POLST Patient has POLST: No PD ED PE NORMAL - Vitals Vital signs reviewed: Yes (sats are good. Afebrile. ) - General General: Alert and oriented X 3, No acute distress, Well developed/nourished - HEENT HEENT: Pharynx benign - Neck Neck: Supple, no meningeal sign, No adenopathy - Cardiac Cardiac: RRR, No murmur - Respiratory Respiratory: Other (mild chestwall tenderness sternal area without crepitance. ). No: Clear bilaterally (no coarse sounds. Mild perihilar wheezing/tightness with cough. Single episode coughing here for few seconds. ) - Abdomen Abdomen: Soft, Non tender - Back Back: No CVA TTP - Derm Derm: Normal color, Warm and dry - Extremities Extremities: No tenderness to palpate, No edema, No calf tenderness / cord - Neuro Neuro: Alert and oriented X 3, No motor deficit, Normal speech Eye Opening: Spontaneous Motor: Obeys Commands Verbal: Oriented GCS Score: 15 - Psych Psych: Normal mood Results - Vitals Vitals: Vital Signs - 24 hr 11/24/20 11/24/20 11/24/20 13:06 14:52 15:53 Temperature 37.2 C Heart Rate 84 67 Respiratory 16 12 Rate Blood Pressure 140/66 H 129/65 O2 Saturation 96 98 Oxygen O2 Source [] Room air O2 Source [] Room air O2 Source Room air - EKG (time done) 13:05 Rate: Rate (enter#) (81) Rhythm: NSR Lequire: Normal Intervals: Normal [place] QRS: Poor R wave progression Ischemia: Normal ST segments. No: ST elevation c/w ischemia, ST depression - Labs Labs: Laboratory Tests 11/24/20 11/24/20 11/24/20 14:21 14:21 14:21 WBC 5.4 RBC 3.78 L Hgb 12.2 Hct 37.5 MCV 99.2 H MCH 32.3 H MCHC 32.5 RDW 13.5 Plt Count 295 MPV 9.9 Neut # (Auto) 3.3 Lymph # (Auto) 1.4 L [place] # (Auto) 0.5 Eos # (Auto) 0.1 Baso # (Auto) 0.0 Absolute Nucleated RBC 0.00 Nucleated RBC % 0.0 Sodium 139 Potassium 4.4 Chloride 103 Carbon Dioxide 28 Anion Gap 8.0 BUN 25 H Creatinine 0.5 Estimated GFR (MDRD) 117 Glucose 289 H Calcium 9.4 Magnesium 2.0 Total Bilirubin 0.4 AST 24 ALT < 10 L Alkaline Phosphatase 41 L Troponin I High Sens 13.0 B-Natriuretic Peptide Total Protein 6.9 Albumin 3.8 Globulin 3.1 Albumin/Globulin Ratio 1.2 Lipase 35 Urine Color Urine Clarity Urine pH Ur Specific [place] Urine Protein Urine Glucose (UA) Urine Ketones Urine Occult Blood Urine Nitrite Urine Bilirubin Urine Urobilinogen Ur Leukocyte Esterase Urine RBC Urine WBC Ur Squamous Epith Cells Urine Bacteria Ur Microscopic Review Urine Culture Comments 11/24/20 11/24/20 14:21 14:43 WBC RBC Hgb Hct MCV MCH MCHC RDW Plt Count MPV Neut # (Auto) Lymph # (Auto) [place] # (Auto) Eos # (Auto) Baso # (Auto) Absolute Nucleated RBC Nucleated RBC % Sodium Potassium Chloride Carbon Dioxide Anion Gap BUN Creatinine Estimated GFR (MDRD) Glucose Calcium Magnesium Total Bilirubin AST ALT Alkaline Phosphatase Troponin I High Sens B-Natriuretic Peptide 66 Total Protein Albumin Globulin Albumin/Globulin Ratio Lipase Urine Color YELLOW Urine Clarity CLEAR Urine pH 5.0 Ur Specific [place] 1.025 Urine Protein NEGATIVE Urine Glucose (UA) 250 H Urine Ketones NEGATIVE Urine Occult Blood NEGATIVE Urine Nitrite POSITIVE H Urine Bilirubin NEGATIVE Urine Urobilinogen 0.2 (NORMAL) Ur Leukocyte Esterase NEGATIVE Urine RBC 0-5 Urine WBC 0-3 Ur Squamous Epith Cells FEW Squamous Urine Bacteria Many H Ur Microscopic Review INDICATED Urine Culture Comments INDICATED - Rads (name of study) chest xray Radiology: Prelim report reviewed ("clear lungs"), See rad report PD MEDICAL DECISION MAKING - ED course Complexity details: reviewed results, re-evaluated patient, considered differential (appears well with normal breathing and voice. Has brief coughing. Mild wheezing with that but not with rested breathing. Seems c/w brief choking but not apparent aspiration. Can check labs and urine regarding recent increased weakness. ), d/w patient Departure - Departure Disposition: Home, Self Care Clinical Impression: Choking episode Dyspnea Qualifiers: Dyspnea type: other forms of dyspnea Qualified Code(s): R06.09 - Other forms of dyspnea UTI (urinary tract infection) Qualifiers: Urinary tract infection type: acute cystitis Hematuria presence: without hematuria Qualified Code(s): N30.00 - Acute cystitis without hematuria Condition: Stable Record reviewed to determine appropriate education?: Yes Instructions: ED Choking Spell Prescriptions: cephALEXin [Keflex] 500 mg PO TID 5 Days #15 cap Comments: Your breathing here is good as are your oxygenation level and chest x-ray. No signs of aspiration or lung congestion. Sounds like you had a brief choking episode. You may have a mild cough for a day or 2. There is signs of a bladder infection on your urine test. Your other labs are good. This does not appear enough to need you to be in the hospital. Cephalexin antibiotic as directed for 5 days. Follow-up with your primary care as needed and return to the ER if worse.
--- OUTSIDE RECORDS SUMMARY | 2020-11-24 13:45 | EXTERNAL MEDICAL SUMMARY RPT | Continuity of Care Document ---
:1935 Demographics Phone Unavailable Preferred Language Unknown Marital Status Unknown Samaritan Affiliation Unknown Race Unknown Ethnic Group Unknown Author Organization [facility] Address [address] [phone] Phone Allergies Encounters Medications Problems Results
[2020-11-24] MEDS ORDERED: ALBUTEROL NEB 2.5 MG/3 ML INH STA (14:02)
[2020-11-24] MEDS ORDERED: SODIUM CHLORIDE 0.9% 1,000 ML IV STA (14:03)
[2020-11-24 14:31] LABS: BASOPHILS % (AUTO) 0.7 %; EOSINOPHILS # (AUTO) 0.1 10^3/uL (0.0-0.7); EOSINOPHILS % (AUTO) 1.3 %; HCT - HEMATOCRIT 37.5 % (37.0-47.0); HGB - HEMOGLOBIN 12.2 g/dL (12.0-16.0); LYMPHOCYTES # (AUTO) 1.4 10^3/uL (1.5-3.5); LYMPHOCYTES % (AUTO) 25.8 %; MEAN CORPUSCULAR HEMOGLOBIN 32.3 pg (27.0-31.0); MEAN CORPUSCULAR HGB CONC 32.5 g/dL (32.0-36.0); MEAN CORPUSCULAR VOLUME 99.2 fL (81.0-99.0); MEAN PLATELET VOLUME 9.9 fL (7.9-10.8); MONOCYTES # (AUTO) 0.5 10^3/uL (0.0-1.0); MONOCYTES % (AUTO) 9.9 %; NEUTROPHILS # (AUTO) 3.3 10^3/uL (1.5-6.6); NEUTROPHILS % (AUTO) 62.1 %; PLT - PLATELET COUNT 295 10^3/uL (130-450); RED BLOOD COUNT 3.78 10^6/uL (4.20-5.40); RED CELL DISTRIBUTION WIDTH 13.5 % (12.0-15.0); WHITE BLOOD COUNT 5.4 x10^3/uL (4.8-10.8)
[2020-11-24 14:44] LABS: ALBUMIN 3.8 g/dL (3.2-5.5); ALBUMIN/GLOBULIN RATIO 1.2 (1.0-2.2); ALKALINE PHOSPHATASE 41 IU/L (42-121); ALT ALANINE AMINOTRANSFERASE < 10 IU/L (10-60); AST ASPARTATE AMINOTRANSFERASE 24 IU/L (10-42); BILIRUBIN,TOTAL 0.4 mg/dL (0.2-1.0); BUN - BLOOD UREA NITROGEN 25 mg/dL (6-20); CALCIUM 9.4 mg/dL (8.5-10.3); CARBON DIOXIDE - CO2 28 mmol/L (21-32); CHLORIDE 103 mmol/L (101-111); CREATININE 0.5 mg/dL (0.4-1.0); GFR - MDRD 117 (>89); GLUCOSE 289 mg/dL (70-100); LIPASE 35 U/L (22-51); POTASSIUM 4.4 mmol/L (3.5-5.0); SODIUM 139 mmol/L (135-145); TOTAL PROTEIN 6.9 g/dL (6.7-8.2)
[2020-11-24 14:54] LABS: BILIRUBIN,URINE NEGATIVE (NEGATIVE); GLUCOSE, URINE (UA) 250 mg/dL (NEGATIVE); KETONES,URINE (UA) NEGATIVE (NEGATIVE); LEUKOCYTE ESTERASE, URINE NEGATIVE (NEGATIVE); NITRITE,URINE POSITIVE (NEGATIVE); OCCULT BLOOD,URINE NEGATIVE (NEGATIVE); PROTEIN,URINE NEGATIVE (NEGATIVE); UROBILINOGEN,URINE 0.2 (NORMAL) E.U./dL (NORMAL)
[2020-11-24 14:57] LABS: CLARITY,URINE CLEAR (CLEAR)
[2020-11-24 15:02] LABS: BACTERIA,URINE Many /HPF (None Seen); RBC,URINE 0-5 /HPF (0-5); SQUAMOUS EPITHELIAL CELL,UR FEW Squamous (<= Few); WBC,URINE 0-3 /HPF (0-5)
--- NOTE | 2020-11-24 15:08 | XRAY Report ---
PROCEDURE: Chest 1 View X-Ray INDICATIONS: chest pain TECHNIQUE: One view of the chest was acquired. COMPARISON: 09/06/2020, 04/18/2020 FINDINGS: Surgical changes and devices: Right upper quadrant clips are partially seen. Lungs and pleura: No pleural effusions or pneumothorax. Lungs are clear. Mediastinum: The aorta is prominent and tortuous. The cardiac contours are within normal limits. Bones and chest wall: No suspicious bony lesions. Degenerative changes are seen, particularly involv ing the shoulders. Mild dextroconvex scoliotic curvature is seen. Overlying soft tissues appear unre markable. IMPRESSION: Clear lungs. Reviewed by: Chetan Vann MD on 11/24/2020 2:07 PM JOHN Approved by: Chetan Vann MD on 11/24/2020 2:07 PM JOHN Station ID: [id number]
[2020-11-24] MEDS ORDERED: cefTRIAXone 1 GM VIAL IVP STA (15:13)
[2020-11-24 15:53] VITALS: BP 129/65
--- NOTE | 2020-11-27 19:31 | ED Physician Documentation ---
ED Addendum - Addendum Addendum: 11/27/20 19:28 I received a call from [facility] pharmacy regarding rx for this patient. Pharmacist says he received a call from Tammy earlier today for this patient to fill an rx for bactrim. Unfortunately, Tammy has gone home for the day and I do not see a note indicating this rx. Also, pharmacist says neither the patient's birthdate nor bactrim strength (SS or DS) were indicated on the message left for the pharmacist. In reviewing the chart, I see patient was prescribed keflex, and the culture has resistance to cephalosporins but not bactrim. Pharmacist says he only has one patient with this name on his records and they have this birthday on his records (35), and she recently filled rx for keflex; thus, this is highly likely to be the patient in question. I approved the bactrim to be filled as DS.
== END 2020-11-24 16:19 | disposition home or self-care (01) ==
LOC: EDUNIT# → ED 13:00
DX: T17.908A Unspecified foreign body in respiratory tract, part unspecified causing other injury, initial encounter (principal); X58.XXXA Exposure to other specified factors, initial encounter; R05 Cough; R06.2 Wheezing; R07.89 Other chest pain; N30.00 Acute cystitis without hematuria; G20 Parkinson's disease; I10 Essential (primary) hypertension; E11.9 Type 2 diabetes mellitus without complications; Z79.84 Long term (current) use of oral hypoglycemic drugs; Z79.82 Long term (current) use of aspirin
CPT/HCPCS: 36415; 51701; 80053; 81001; 81003; 83690; 83735; 83880; 84484; 85025; 87077; 87086; 87181; 93005; 94640; 99284

== ENCOUNTER 2021-01-07 13:45 | Outpatient (CLI) | payer MEDICARE, MEDICAID ==
--- NOTE | 2021-01-07 16:55 | CONSULTATION NOTE ---
Palliative Care Consultation - Referral Referring Provider: Dr. Oscar Bergeron Time of Visit: 4567-6251 Referral setting: Home Referral Reason: Parkinsons' Disease/Debility/Hemorrhagic Stroke - Information Sources Records reviewed: Previous records reviewed History/Review of Systems obtained from: Patient, Family (daughter, Tiesha) Exam limitations: Clinical condition (Memory Impairment noted) - History of Present Illness Brief History of Present Illness: This is an 85-year-old female who was seen and evaluated today for initial palliative care consultation within her home with her daughter, Tiesha present due to debility, Parkinson's disease, and advanced care planning. The patient had a steady decline more specifically since February 2020. And that the patient is experiencing a seizure and was started on Keppra for prophylaxis. She has not had any recent seizure activity per the daughter's r eport. The patient's daughter due to continued decline moved in with the patient in February 2020 to provide caregiving assistance. The patient has had a history of falls specifically in the bathroom and therefore she has been in provided care in the shower or having a bed bath. She has had an overall decrease in appetite. She is having difficulty with feeding herself independently due to her underlying tremor due to her essential tremor as well as her Parkinson's disease. The patient's daughter has transition to more finger foods and this has provided support. The patient unfortunately has had several [id number] urinary tract infections and this is led to further physical debility and decline. Typically when the patient has presented with a urinary tract infection she relays that she does not feel good, has increased fatigue and both the patient and daughter report that her carbidopa/levodopa is not effective in managing her Parkinson symptoms. The patient's daughter is reporting increased ability over the last several days and the patient's overall fog and fatigue "are lifting." The patient denies any hallucinations however, the patient's daughter reports to the patient having hallucinations. 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 Presently, the patient's daughter is in providing support with holding the patient up with ambulation and utilization of her walker. The patient was diagnosed with Parkinson's disease in approximately the same timeframe. The patient herself denies having any memory problems outside of forgetting "the usual things." Typically she reports to forgetting birthdays. However, during the course of the assessment the patient appears to have further short-term mem ory impairment that needs to be more adequately explored also in the setting that the patient's daughter is reporting that the patient is "sharp." The patient is seen in the living room sitting on her couch leaning towards her right side supported by a back rest with flat affect and no evidence of acute distress. Neurologist: Dr. Sundar Smyth Medical/Surgical History - Past Medical History Cardiovascular: reports: Hypertension, High cholesterol, Arrhythmia, Other Respiratory: reports: Sleep apnea Neuro: CVA (brainstem hemorrhagic stroke with right facial weakness and right hemiparesis appx 2017), Parkinson's, Seizure disorder (Dx. Feb 2020), Tremors (Essential tremor began appx age 15) Neuro: reports: Headache/migraine Endocrine/Autoimmune: reports: Type 2 diabetes (does not check blood glucose levels) GI: reports: GERD, Colon polyps ESCROW CLOSER: reports: None : reports: Incontinence, Chronic bladder infection HEENT: reports: None Psych: reports: Depression, Anxiety Musculoskeletal: reports: None Derm: reports: None MRSA Hx?: No - Past Surgical History General: reports: 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, Other (PEG insertion 08/2017 and removal 11/2017) Ortho: reports: Other (broke right foot in 5 places s/p repair) /ESCROW CLOSER: reports: Hysterectomy HEENT: reports: Cataracts - Substance History Use: Uses substance without health or social issues: NONE (Never smoked tobacco. Occasionally drank beer in the past.) Social History - Living Situation Living arrangement: At home Living Situation: With family (daughter, Tiesha) Support System: And was born in [place] where she grew up. She then lived in [place] where she and had 8 children with her . She had 6 girls and 2 boys. Her oldest and youngest child are both . 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 Her left her and she is now . She relocated to [facility] in the early . Her daughter, Tiesha moved into be a assistant sales director and offer caregiving support in February 2020. The patient's healthcare power of transactional attorney is her daughter, Felipa with contact number [phone]. [employer] is a source of support to the patient. The patient has a [place] PES patient case coordinator, Sammi with contact number [phone]. The patient has qualified for approximately 136 to 158 hours of caregiving support. The patient's daughter, Tiesha, ultimately wishes to be a assistant sales director for the patient. History as a [employer]. Family History - Family History Family History: Mother: , CVA/TIA, Father: Family History Comment/Other: Son due to aspiration pneumonia secondary to Parkinson's disease. Daughter due to uterine cancer. Medications/Allergies - Medications Home Medications: Ambulatory Orders Medication Instructions Recorded Confirmed Propranolol [Inderal] 10 mg PO BID 09/04/16 01/08/21 metFORMIN [Glucophage] 500 mg PO BID 09/04/16 01/08/21 Escitalopram [Lexapro] 20 mg PO DAILY 03/10/18 01/08/21 Mirtazapine 15 mg PO QPM 03/10/18 01/08/21 Atorvastatin Calcium 20 mg PO QPM 09/14/19 12/04/19 Primidone 25 mg PO QPM 09/14/19 01/08/21 Aspirin Chewable [[facility] 81 mg PO DAILY #10 tablet 12/06/19 01/08/21 Aspirin] Carbidopa/Levodopa [Rytary ER 3 cap PO TID 01/08/21 01/08/21 36.25 mg-145 mg Cap] Docusate Sodium 100Mg Capsule 200 mg PO DAILY 01/08/21 01/08/21 [Colace 100Mg Capsule] Docusate Sodium 100Mg Capsule 300 mg PO QPM 01/08/21 01/08/21 [Colace 100Mg Capsule] Levetiracetam [Keppra] 500 tab PO QPM 01/08/21 01/08/21 Multivitamin 1 tab PO DAILY 01/08/21 01/08/21 Senna [Senokot] 8.6 mg PO DAILY PRN 01/08/21 01/08/21 levETIRAcetam [Keppra] 1,000 mg PO DAILY 01/08/21 01/08/21 - Allergies Allergies/Adverse Reactions: Allergies Allergy/AdvReac Type Severity Reaction Status Date / Time codeine [Codeine] AdvReac Intermediate Nausea Verified 01/08/21 17:08 ssri Allergy Unknown Uncoded 01/08/21 17:08 Review of Systems - Constitutional Constitutional: reports: Fatigue, Weight loss (weight 108.4lb on 12/11/2020). denies: Fever - Eyes Eyes: reports: Corrective lenses - Ears, Nose & Throat Ears, Nose & Throat: denies: Hearing aids - Cardiovascular Cardiovascular: denies: Chest pain, Edema - Respiratory Respiratory: denies: Cough, Wheezing - Gastrointestinal Gastrointestinal: reports: Constipation (improved with colace routinely), Other (Fair appetite). denies: Abdominal pain, Nausea, Vomiting - Genitourinary Genitourinary: reports: Incontinence. denies: Dysuria - Musculoskeletal Musculoskeletal: reports: Muscle weakness, Assistive devices (walker), Transfer issues, Other (right side hemiparesis) - Integumentary Integumentary: denies: Rash - Neurological Neurological: reports: General weakness, Memory problems (see HPI) - Psychiatric Psychiatric: reports: Depression, Anxiety - Endocrine Endocrine: reports: Diabetes type 2 (on metformin) - Hematologic/Lymphatic Hematologic/Lymph: reports: Recurrent infections (UTIs) - All Other Systems All Other Systems: reports: Reviewed and negative (ROS supplemented by daughter, Tiesha) Physical Exam - Vital Signs Temperature: 36.5 C Pulse Rate: 77 O2 Saturation: 95 (on RA) Blood Pressure: 120/72 - Physical Exam General Appearance: positive: No acute distress, Alert, Other (elderly appearing female leaning to her right side on the couch) Eyes Bilateral: positive: Normal inspection, PERRL, Other (+corrective lenses) ENT: positive: No signs of dehydration Neck: positive: Trachea midline Cardiovascular: positive: Regular rate & rhythm, No murmur Respiratory: positive: No respiratory distress, Breath sounds nml. 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 She is able to self feed if foods or finger foods. No history of aspiration pneumonia. History of falls. Requires her daughter to provide physical support for assistance with ambulation with a walker. Incontinent of urine. - Palliative Care Discussion: Patient has had a progressive, functional decline due to her underlying Parkinson's disease, history of hemorrhagic stroke in 2017 and recent urinary tract infections resulting in increased weakness. The patient has a history of frequent falls. She declines support from physical therapy and occupational therapy services. The patient and the family would benefit from continued oversight for navigating the patient's symptoms and progression due to her underlying Parkinson's disease. They are being supported by a COPD ask patient case coordinator. Results - Lab Results Lab results reviewed: Yes Impression and Recommendations - Palliative Care Impression: This is an 85-year-old female with progressive functional decline in the setting of recent UTI and Parkinson's disease as well as a history of a brainstem hemorrhagic stroke with residual effects. Given the difficulty for the patient to leave her home she would benefit from additional oversight from palliative care for symptom management as well as assistance with resources in the community. Palliative care to continue to build rapport, provide care coordination, symptom management and anticipatory guidance. Recommendations/Counseling Done: 1. Functional debility. In the setting of recent urinary tract infection as well as progression of Parkinson's disease as well as history of hemorrhagic stroke with residual symptoms. The patient is requiring increased assistance from her daughter as her primary caregiver more specifically with ambulation. History of falls. Fall precautions. Discussed reordering home health services with physical therapy and Occupational Therapy for strengthening however patient declined. Also discussed outpatient therapy services at the patient prefers to do this outside of her home again, also declines. At risk for continued functional decline. Discussed with the patient daughter that given the patient's underlying comorbidities it is unlikely to have a hospital bed be covered as [employer] does not cover through Medicare or Medicaid [facility]. Recommended contacting the [facility] for a hospital bed for additional support. 2. Parkinson's disease. Continue carbidopa/levodopa as ordered by neurology. Progressive. Chronic. Would continue to expect a gradual decline. Recommended weighted utensils so the patient may have increased ability to feed herself. Fol low-up with neurology as scheduled. 3. 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 Continue routine pericare. Urine culture from 09/06/2020 grew E. coli. Urine culture from 11/24/2020 grew ESBL E. coli. May consider utilization of d-mannose in the future for prophylaxis. 4. Hallucinations. Patient herself denies however daughter supports. We will need to explore this symptomatology further in the future. Not unexpected given the patient's history of Parkinson's disease. 5. Forgetfulness. Patient demonstrates some cognitive impairment that initially was declined by the patient's daughter but was evident on history and evaluation. Will need more formal evaluation with [facility] in the future. 6. Depression and decreased appetite. Chronic. Improved. Continue mirt azapine 15 mg nightly and escitralopram 20mg daily. Continue to monitor and adjust regimen as needed to optimize the patient's support. 7. Advanced care planning. Patient has a designated healthcare power of transactional attorney as her daughter, Felipa. Patient does not have a POLST in place. Patient would benefit from discussion regarding POLST with daughter/DPVIVI Leo present as well as her daughter/caregiver, Tiesha. Provided book "hard choices for loving people" for reference for the patient and daughters prior to reevaluating POLST. We will continue to build rapport and tease out goals of care moving forward. Offered palliative care research executive for support however, the patient declines. Total time spent 75 minutes with greater than 50% of this spent in counseling and coordination of care with daughter Tiesha and patient; review of palliative philosophy; community resources ([facility] and [facility]); examination of patient; , review of symptom management and anticipatory guidan rocio. Message left for patient's KIKA patient case coordinator, Sammi and awaiting return call. Disclaimer: The chart note was formulated using voice recognition technology and unfortunately sound alike errors may occur.
== END 2021-01-07 13:46 | disposition home or self-care (01) ==
LOC: PC 13:45
PROVIDERS: ATTEND Nurse Practitioner Family
DX: Z51.5 Encounter for palliative care (principal); I69.354 Hemiplegia and hemiparesis following cerebral infarction affecting left non-dominant side; I69.392 Facial weakness following cerebral infarction; I10 Essential (primary) hypertension; N39.0 Urinary tract infection, site not specified; R41.9 Unspecified symptoms and signs involving cognitive functions and awareness; R63.0 Anorexia; F32.9 Major depressive disorder, single episode, unspecified; G20 Parkinson's disease; E11.9 Type 2 diabetes mellitus without complications; Z79.84 Long term (current) use of oral hypoglycemic drugs
CPT/HCPCS: 99345

== ENCOUNTER 2021-01-23 12:40 | Outpatient (CLI) | payer MEDICARE, MEDICAID ==
--- NOTE | 2021-01-23 13:40 | CONSULTATION NOTE ---
Palliative Care Follow Up - Referral Referring Provider: Dr. Oscar Bergeron Time of Visit: [id number] Referral setting: Home Referral Reason: Parinson's Disease/Cognitive Impairment/Frequent UTIs - Information Sources Records reviewed: Previous records reviewed History/Review of Systems obtained from: Patient, Family (daughter Tiesha) Exam limitations: Clinical condition (Cognitive Impairment) - History of Present Illness Update Brief HPI Update: This is an 85-year-old female who was seen and evaluated today in follow-up in her home with her daughter, Tiesha present due to Parkinson's disease, advance care planning, debility, and history of frequent UTIs. The patient has had a steady decline more specifically since February 2020. The patient was experiencing a seizure and was started on Keppra for [facility] full axis. New seizure report since last [facility]'s visit. The patient's daughter, Tiesha relocated and moved in with the patient in February 2020 to provide additional caregiving assistance. The patient's last work with home health physical therapy and Occupational T herapy approximately 1 year ago. She does not wish to follow through when doing the exercises and when offered about home health services with physical therapy and Occupational Therapy again today, the patient declines as she is not motivated to do so. There are no reports of hallucinations. The patient continues to require her daughter to do the extent of the work with transfers. Her daughter has experienced as a nurse aide and had some training from home services approximately 1 year ago for safety. They have utilized a lift assist in the past. The patient's daughter has obtained a bed alarm to know when the patient is attempting to get up out of bed for fall prevention. The daughter is also utilizing the wheelchair more regularly. The patient is seen in the living room sitting on the couch leaning towards her left side completing her lunch. She has a flat affect and no evidence of acute distress. 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 Social History - Living Situation Living arrangement: At home Living Situation: With family (daughter, Tiesha) Support System: Patient was born in [place]. She then lived in [place] where she was and had 8 children with her . She had 6 girls and 2 boys. 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 The patient left her and she is now a . She relocated to [facility] in the early . The patient's daughter, Tiesha moved into be a aba therapist and offer caregiving's to report February 2020 from [place]. The patient's healthcare power of employment attorney is her daughter, Felipa with contact number [phone]. They have a dog, Lzu Elena who is a source of support for the patient. The patient has [facility] rehabilitation caseworker Sammi with contact number [phone]. The patient has qualified for caregiving support however, they are having difficulty in reobtaining a caregiver. Medications/Allergies - Medications Home Medications: Ambulatory Orders Medication Instructions Recorded Confirmed Propranolol [Inderal] 10 mg PO BID 09/04/16 01/08/21 metFORMIN [Glucophage] 500 mg PO BID 09/04/16 01/08/21 Escitalopram [Lexapro] 20 mg PO DAILY 03/10/18 01/08/21 Mirtazapine 15 mg PO QPM 03/10/18 01/08/21 Atorvastatin Calcium 20 mg PO QPM 09/14/19 12/04/19 Primidone 25 mg PO QPM 09/14/19 01/08/21 Aspirin Chewable [[facility] [employer] Manuel 81 mg PO DAILY #10 tablet 12/06/19 01/08/21 Aspirin] Carbidopa/Levodopa [Rytary ER 3 cap PO TID 01/08/21 01/08/21 36.25 mg-145 mg Cap] Docusate Sodium 100Mg Capsule 200 mg PO DAILY 01/08/21 01/08/21 [Colace 100Mg Capsule] Docusate Sodium 100Mg Capsule 300 mg PO QPM 01/08/21 01/08/21 [Colace 100Mg Capsule] Levetiracetam [Keppra] 500 tab PO QPM 01/08/21 01/08/21 Multivitamin 1 tab PO DAILY 01/08/21 01/08/21 Senna [Senokot] 8.6 mg PO DAILY PRN 01/08/21 01/08/21 levETIRAcetam [Keppra] 1,000 mg PO DAILY 01/08/21 01/08/21 D-Mannose [Azo D-Mannose] 1,000 mg PO BID 01/23/21 01/23/21 - Allergies Allergies/Adverse Reactions: Allergies Allergy/AdvReac Type Severity Reaction Status Date / Time codeine [Codeine] AdvReac Intermediate Nausea Verified 01/08/21 17:08 ssri Allergy Unknown Uncoded 01/08/21 17:08 Review of Systems - Constitutional Constitutional: reports: Weight loss (weight 108.4lb on 12/11/2020). denies: Fev er - Eyes Eyes: reports: Corrective lenses - Ears, Nose & Throat Ears, Nose & Throat: denies: Hearing aids - Cardiovascular Cardiovascular: denies: Chest pain, Edema - Respiratory Respiratory: denies: Wheezing, SOB at rest - Gastrointestinal Gastrointestinal: reports: Constipation (controlled with colace), Other (Fair appetite). denies: Abdominal pain, Vomiting - Genitourinary Genitourinary: reports: Incontinence. denies: Dysuria - Musculoskeletal Musculoskeletal: reports: Muscle weakness, Assistive devices (walker or w heelchair), Transfer issues, Other (right side hemiparesis) - Integumentary Integumentary: reports: Rash (to scar on abdomen at site of hysterectomy resolved with monistat cream application) - Neurological Neurological: reports: General weakness, Memory problems (see HPI) - Psychiatric Psychiatric: reports: Depression, Anxiety - Endocrine Endocrine: reports: Diabetes type 2 (on metformin) - Hematologic/Lymphatic Hematologic/Lymph: reports: Recurrent infections (UTIs and upon review of urine culture results positive for E.coli) - All Other Systems All Other Systems: reports: Reviewed and negative (ROS supplemented by daughterTiesha) Physical Exam - Vital Signs Pulse Rate: 84 O2 Saturation: 96 Blood Pressure: 112/78 (right arm) - Physical Exam General Appearance: positive: No acute distress, Alert, Other (elderly appearing female leaning to left right side on the couch) Eyes Bilateral: positive: Other (+corrective lenses) ENT: positive: No signs of dehydration Neck: positive: Trachea midline Cardiovascular: positive: Regular rate & rhythm Respiratory: positive: No respiratory distress, Breath sounds nml. 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 Her daughter reports that her generalized weakness has now plateaued. Her daughter continues to provide the bulk of caregiving care and they are awaiting additional support from [facility] for caregiving support. The patient declined having home health nursing come into the home to provide additional support to her and her daughter with physical therapy and Occupational Therapy. Attempted to review POLST today with patient as well as daughters Tiesha and Felipa via phone and she is the DPOA however, the patient was reluctant to have a discussion regarding advanced care planning and wishes to pursue further in the future. Noted today more evidence of the patient's cognitive decline that the family does not appear to recognize. We will need to more formally assess in the future however, patient may need more assistance with medical decisions based on assessment moving forward. Impression and Recommendations - Palliative Care Impression: This is an 85-year-old female with progressive functional decline in the setting of Parkinson's disease as well as is history of brainstem hemorrhagic stroke with residual effects. She has a history of frequent urinary to UTI specifically E. coli and would benefit from introduction of d-mannose for urinary tract prophylaxis. Patient is reluctant to review advance care planning and therefore will postpone POLST discussions at this time. Palliative care to continue to build rapport, provide care support, symptom management and anticipatory guidance. Recommendations/Counseling Done: 1. Functional debility. In the setting of progression of Parkinson's disease as well as history of hemorrhagic stroke with residual symptoms. The patient is allowing transfers from her wheelchair chair to the bed or chair as opposed to utilizing a walker as this is easier for the patient's daughter. The patient declines initiation of home health services such as physical therapy and Occupational Therapy and has not followed through on exercises in the past. Fall precautions. Daughter has a bed alarm set up in the home. Continue to monitor. 2. 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 Continue routine pericare. Urine culture from 09/06/2020 and 11/24/2020 grew E. coli. Introduced utilization of d-mannose [id number] supplementation for urinary tract prophylaxis by taking 1 g twice a day. Encourage routine oral hydration. Daughter has urinary test strips in the home. Discussed that if feel s/s of UTI present then to contact Palliative Care for order for UA with microcopy and culture if indicated as indication would need to evaluate. Provided nun's cap with urine specimen cups to daughter with hygiene wipes for collection. 3. Seborrheic dermatitis to the scalp. Recommended use of Selsun Blue [id number]. 4. Parkinson's disease. Continue carbidopa/levodopa as ordered by neurology. Progressive. Chronic. Would continue to expect a gradual decline. Patient has a follow-up with neurology scheduled in February. 5. Cognitive impairment. Patient oriented only to herself today will need more formal assessment such as SL UMS in the future. Likely due to history of CVA and underlying Parkinson's disease therefore not unexpected. 6. Advanced care planning. Reviewed POLST in place however, with the patient and her daughters the patient herself was not open to having a discussion regarding advanced care planning and POLST. We will continue to build rapport and readdress in the future with all parties in agreement. Bear Motley has read the provided book "hard choices for loving people" for reference and recommended that the patient's daughter/DPVIVI Leo also read this is well. Total time spent 45 minutes with greater than 50% of the spent in counseling and coordination of care with the daughter Paige and patient; review of obtainment of urinary specimen for evaluation of UTI; examination of patient; review of POLST; review of symptom management and anticipatory guidance. Disclaimer: The chart note was formulated using voice recognition technology and unfortunately sound alike errors may occur.
== END 2021-01-23 12:41 | disposition home or self-care (01) ==
LOC: PC 12:40
PROVIDERS: ATTEND Nurse Practitioner Family
DX: Z51.5 Encounter for palliative care (principal); G20 Parkinson's disease; I69.351 Hemiplegia and hemiparesis following cerebral infarction affecting right dominant side; I69.398 Other sequelae of cerebral infarction; I10 Essential (primary) hypertension; R32 Unspecified urinary incontinence; Z87.440 Personal history of urinary (tract) infections; L21.9 Seborrheic dermatitis, unspecified; R41.89 Other symptoms and signs involving cognitive functions and awareness
CPT/HCPCS: 99349

== ENCOUNTER 2021-02-25 12:13 | Outpatient (CLI) | payer MEDICARE, MEDICAID | END 2021-02-25 12:14 | disposition critical access hospital (66) | LOC: EMS 12:13 | DX: R53.1 Weakness (principal) | CPT/HCPCS: A0425; A0429 ==

== ENCOUNTER 2021-02-25 12:19 | Emergency (ER) | payer MEDICARE, MEDICAID ==
--- NOTE | 2021-02-25 12:24 | ED Physician Documentation ---
History of Present Illness - Stated complaint Stated Complaint: WEAKNESS - Additonal information Additional information: 85-year-old female who has a history of Parkinson's disorder as well as previous CVA with right-sided deficits is brought to the emergency department for evalua tion of generalized weakness. The family had reported to EMS that the patient has been unwilling to get out of bed for the last few days as well as having a loss of appetite. The patient denies any specific complaints. She denies chest pain or shortness of air. Denies any diarrhea abdominal pain or dysuria. Review of Systems Constitutional: reports: Other (anorexia). denies: Fever, Chills Eyes: reports: Reviewed and negative Ears: reports: Reviewed and negative Nose: reports: Reviewed and negative Cardiac: reports: Reviewed and negative Respiratory: reports: Reviewed and negative GI: reports: Reviewed and negative : reports: Reviewed and negative Skin: denies: Rash, Lesions Musculoskeletal: reports: Reviewed and negative PD PAST MEDICAL HISTORY - Past Medical History Cardiovascular: Hypertension, High cholesterol, Arrhythmia, Other Respiratory: Sleep apnea Neuro: CVA (brainstem hemorrhagic stroke with right facial weakness and right hemiparesis appx 2017), Parkinson's, Seizure disorder (Dx. Feb 2020), Tremors (Essential tremor began appx age 15) Endocrine/Autoimmune: Type 2 diabetes (does not check blood glucose levels) GI: GERD, Colon polyps CASHIER HOST/HOSTESS: None : Incontinence, Chronic bladder infection HEENT: None Psych: Depression, Anxiety Musculoskeletal: None Derm: None - Past Surgical History Past Surgical History: Yes General: 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, Other (PEG insertion 08/2017 and removal 11/2017) Ortho: Other (broke right foot in 5 places s/p repair) /CASHIER HOST/HOSTESS: Hysterectomy HEENT: Cataracts - Present Medications Home Medications: Ambulatory Orders Medication Instructions Recorded Confirmed Propranolol [Inderal] 10 mg PO BID 09/04/16 01/08/21 metFORMIN [Glucophage] 500 mg PO BID 09/04/16 01/08/21 Escitalopram [Lexapro] 20 mg PO DAILY 03/10/18 01/08/21 Mirtazapine 15 mg PO QPM 03/10/18 01/08/21 Atorvastatin Calcium 20 mg PO QPM 09/14/19 12/04/19 Primidone 25 mg PO QPM 09/14/19 01/08/21 Aspirin Chewable [[facility] [employer] Manuel 81 mg PO DAILY #10 tablet 12/06/19 01/08/21 Aspirin] Carbidopa/Levodopa [Rytary ER 3 cap PO TID 01/08/21 01/08/21 36.25 mg-145 mg Cap] Docusate Sodium 100Mg Capsule 200 mg PO DAILY 01/08/21 01/08/21 [Colace 100Mg Capsule] Docusate Sodium 100Mg Capsule 300 mg PO QPM 01/08/21 01/08/21 [Colace 100Mg Capsule] Levetiracetam [Keppra] 500 tab PO QPM 01/08/21 01/08/21 Multivitamin 1 tab PO DAILY 01/08/21 01/08/21 Senna [Senokot] 8.6 mg PO DAILY PRN 01/08/21 01/08/21 levETIRAcetam [Keppra] 1,000 mg PO DAILY 01/08/21 01/08/21 D-Mannose [Azo D-Mannose] 1,000 mg PO BID 01/23/21 01/23/21 - Allergies Allergies/Adverse Reactions: Allergies Allergy/AdvReac Type Severity Reaction Status Date / Time codeine [Codeine] AdvReac Intermediate Nausea Verified 02/25/21 12:24 ssri Allergy Unknown Uncoded 01/08/21 17:08 - Social History Does the pt smoke?: No Smoking Status: Never smoker Does the pt drink ETOH?: No Does the pt have substance abuse?: No - Immunizations Immunizations are current?: Yes - POLST Patient has POLST: No PD ED PE EXPANDED - General General: Alert, No acute distress, Other (thin, chonically ill appearance) - Neck Neck: Supple w/out meningeal sx. No: Adenopathy - Cardiac Cardiac: Regular Rate, Radial strong equal, Pedal strong equal, Cap refill < 2 sec - Respiratory Respiratory: Clear to ausultation andrea. No: Distress, Labored - Abdomen Abdomen: Normal Bowel sounds. No: Tender to palpation - Extremities Extremities: Normal. No: Deformity, Tenderness - Neuro Neuro: Alert and Oriented X 3, CNII-XII intact Results - Vitals Vitals: Vital Signs - 24 hr 02/25/21 02/25/21 02/25/21 12:24 12:47 14:38 Temperature 36.4 C L Heart Rate 73 72 121 H Respiratory 18 16 Rate Blood Pressure 133/101 H 111/69 97/66 O2 Saturation 95 92 Oxygen O2 Source [] Room air O2 Source [] Room air O2 Source Room air - EKG (time done) 1242 Rate: Rate (enter#) (72) Rhythm: NSR [place]: Normal Intervals: No: Normal SD (short SD) QRS: Normal Ischemia: Non specific changes Compare to prior EKG: Old EKG unavailable Computer interpretation: Agree with computer - Labs Labs: Laboratory Tests 02/25/21 02/25/21 02/25/21 12:42 12:42 12:42 WBC 7.1 RBC 4.20 Hgb 13.7 Hct 41.8 MCV 99.5 H MCH 32.6 H MCHC 32.8 RDW 12.6 Plt Count 283 MPV 9.9 Neut # (Auto) 4.1 Lymph # (Auto) 2.0 Bladen # (Auto) 0.7 Eos # (Auto) 0.2 Baso # (Auto) 0.0 Absolute Nucleated RBC 0.00 Nucleated RBC % 0.0 Sodium 139 Potassium 3.9 Chloride 99 L Carbon Dioxide 30 Anion Gap 10.0 BUN 18 Creatinine 0.5 Estimated GFR (MDRD) 117 Glucose 152 H Calcium 9.8 Total Bilirubin 0.7 AST 30 ALT < 10 L Alkaline Phosphatase 50 Troponin I High Sens 5.1 B-Natriuretic Peptide Total Protein 6.9 Albumin 3.6 Globulin 3.3 Albumin/Globulin Ratio 1.1 Lipase 33 Urine Color Urine Clarity Urine pH Ur Specific Emmett Urine Protein Urine Glucose (UA) Urine Ketones Urine Occult Blood Urine Nitrite Urine Bilirubin Urine Urobilinogen Ur Leukocyte Esterase Urine RBC Urine WBC Ur Squamous Epith Cells Amorphous Sediment Urine Bacteria Urine Mucus Ur Microscopic Review Urine Culture Comments 02/25/21 02/25/21 12:42 14:20 WBC RBC Hgb Hct MCV MCH MCHC RDW Plt Count MPV Neut # (Auto) Lymph # (Auto) Bladen # (Auto) Eos # (Auto) Baso # (Auto) Absolute Nucleated RBC Nucleated RBC % Sodium Potassium Chloride Carbon Dioxide Anion Gap BUN Creatinine Estimated GFR (MDRD) Glucose Calcium Total Bilirubin AST ALT Alkaline Phosphatase Troponin I High Sens B-Natriuretic Peptide 35 Total Protein Albumin Globulin Albumin/Globulin Ratio Lipase Urine Color YELLOW Urine Clarity CLEAR Urine pH 5.5 Ur Specific Emmett 1.015 Urine Protein NEGATIVE Urine Glucose (UA) NEGATIVE Urine Ketones NEGATIVE Urine Occult Blood NEGATIVE Urine Nitrite NEGATIVE Urine Bilirubin NEGATIVE Urine Urobilinogen 0.2 (NORMAL) Ur Leukocyte Esterase SMALL H Urine RBC 0-5 Urine WBC 4-5 Ur Squamous Epith Cells FEW Squamous Amorphous Sediment Few Urine Bacteria Few Urine Mucus Few Strands Ur Microscopic Review INDICATED Urine Culture Comments INDICATED - Rads (name of study) CXR Radiology: Final report received (No acute cardiopulmonary process.) PD MEDICAL DECISION MAKING - ED course Complexity details: reviewed results, considered differential, d/w patient, d/w family ED course: 85-year-old female comes to the emergency department for evaluation of lack of appetite and apathy at home. This is in the setting of a history of Parkinson's as well as dementia. The family is concerned that she could have a urinary tract infection. Screening labs show no significant abnormalities. No leukocytosis. Chest x-ray without acute focal abnormality. A cath urine is not consistent with infection. Patient was given a liter of IV fluids here though overall she appears rather well and not clinically dehydrated. I spoke with her daughter Felipa on the phone who was concerned the patient may not swallow normally but here in the ER she was able to sip clear liquids without coughing and eating applesauce well. Findings were discussed with the patient daughter and patient will be discharged home. We have discussed that some anorexia and apathy can be common as dementia and Parkinson's progresses. I advised close follow-up with primary care provider. Departure - Departure Disposition: 01 Home, Self Care Clinical Impression: Generalized weakness Condition: Stable Record reviewed to determine appropriate education?: Yes Comments: Letty was seen in the emergency department today for concerns of lack of appetite over the last few days as well as apathy and unwillingness to get out of bed. Here in the emergency department her screening labs did not show any worrisome findings. Chest x-ray was normal without pneumonia. A urine that was obtained via catheterization also was not consistent with infection. Letty was given some IV fluids here in the emergency department. She was also able to sit upright and eat and drink without any coughing or concerns of dysphagia. The cause for your mom's weakness and lack of appetite over the last few days is not clear. I encourage you to offer her frequent sips of liquid as well small bites of food throughout the day. She may simply be progressing through dementia and Parkinson's. I do encourage you to discuss this ED visit with her primary care provider. If at any point you have concerns of worsening symptoms, focal weakness, fevers or uncontrolled abdominal pain then please return immediately to the ER for a second evaluation.
[2021-02-25] MEDS ORDERED: SODIUM CHLORIDE 0.9% 1,000 ML IV STA (12:31)
[2021-02-25 12:49] LABS: BASOPHILS % (AUTO) 0.4 %; EOSINOPHILS # (AUTO) 0.2 10^3/uL (0.0-0.7); EOSINOPHILS % (AUTO) 2.4 %; HCT - HEMATOCRIT 41.8 % (37.0-47.0); HGB - HEMOGLOBIN 13.7 g/dL (12.0-16.0); LYMPHOCYTES % (AUTO) 28.9 %; MEAN CORPUSCULAR HEMOGLOBIN 32.6 pg (27.0-31.0); MEAN CORPUSCULAR HGB CONC 32.8 g/dL (32.0-36.0); MEAN CORPUSCULAR VOLUME 99.5 fL (81.0-99.0); MEAN PLATELET VOLUME 9.9 fL (7.9-10.8); MONOCYTES # (AUTO) 0.7 10^3/uL (0.0-1.0); MONOCYTES % (AUTO) 9.6 %; NEUTROPHILS # (AUTO) 4.1 10^3/uL (1.5-6.6); NEUTROPHILS % (AUTO) 58.6 %; PLT - PLATELET COUNT 283 10^3/uL (130-450); RED CELL DISTRIBUTION WIDTH 12.6 % (12.0-15.0); WHITE BLOOD COUNT 7.1 x10^3/uL (4.8-10.8)
--- NOTE | 2021-02-25 12:50 | XRAY Report ---
PROCEDURE: Chest 1 View X-Ray INDICATIONS: Chest pain TECHNIQUE: One view of the chest was acquired. COMPARISON: 09/06/2020 FINDINGS: Surgical changes and devices: None. Lungs and pleura: No pleural effusions or pneumothorax. Lungs are clear. Mediastinum: Mediastinal contours appear normal. Heart size is normal. Bones and chest wall: No suspicious bony lesions. Overlying soft tissues appear unremarkable. IMPRESSION: No acute cardiopulmonary process demonstrated radiographically. Reviewed by: Griffin Pretty MD on 02/25/2021 12:49 PM PDT Approved by: Griffin Pretty MD on 02/25/2021 12:49 PM PDT Station ID: [id number]
[2021-02-25 13:07] LABS: ALBUMIN 3.6 g/dL (3.2-5.5); ALBUMIN/GLOBULIN RATIO 1.1 (1.0-2.2); ALKALINE PHOSPHATASE 50 IU/L (42-121); ALT ALANINE AMINOTRANSFERASE < 10 IU/L (10-60); AST ASPARTATE AMINOTRANSFERASE 30 IU/L (10-42); BILIRUBIN,TOTAL 0.7 mg/dL (0.2-1.0); BUN - BLOOD UREA NITROGEN 18 mg/dL (6-20); CALCIUM 9.8 mg/dL (8.5-10.3); CARBON DIOXIDE - CO2 30 mmol/L (21-32); CHLORIDE 99 mmol/L (101-111); CREATININE 0.5 mg/dL (0.4-1.0); GFR - MDRD 117 (>89); GLUCOSE 152 mg/dL (70-100); LIPASE 33 U/L (22-51); POTASSIUM 3.9 mmol/L (3.5-5.0); SODIUM 139 mmol/L (135-145); TOTAL PROTEIN 6.9 g/dL (6.7-8.2)
[2021-02-25 14:38] VITALS: BP 97/66
[2021-02-25 14:48] LABS: BILIRUBIN,URINE NEGATIVE (NEGATIVE); GLUCOSE, URINE (UA) NEGATIVE (NEGATIVE); KETONES,URINE (UA) NEGATIVE (NEGATIVE); LEUKOCYTE ESTERASE, URINE SMALL (NEGATIVE); NITRITE,URINE NEGATIVE (NEGATIVE); OCCULT BLOOD,URINE NEGATIVE (NEGATIVE); PH,URINE 5.5 PH (5.0-7.5); PROTEIN,URINE NEGATIVE (NEGATIVE); UROBILINOGEN,URINE 0.2 (NORMAL) E.U./dL (NORMAL)
[2021-02-25 14:50] LABS: CLARITY,URINE CLEAR (CLEAR)
[2021-02-25 14:55] LABS: AMORPHOUS SEDIMENT,UR Few /LPF; BACTERIA,URINE Few /HPF (None Seen); MUCUS,URINE Few Strands; RBC,URINE 0-5 /HPF (0-5); SQUAMOUS EPITHELIAL CELL,UR FEW Squamous (<= Few)
== END 2021-02-25 16:08 | disposition home or self-care (01) ==
LOC: EDUNIT# → ED 12:19
DX: R53.1 Weakness (principal); G20 Parkinson's disease; F02.80 Dementia in other diseases classified elsewhere, unspecified severity, without behavioral disturbance, psychotic disturbance, mood disturbance, and anxiety; E11.9 Type 2 diabetes mellitus without complications; I10 Essential (primary) hypertension; Z79.84 Long term (current) use of oral hypoglycemic drugs
CPT/HCPCS: 36415; 80053; 81001; 81003; 83690; 83880; 84484; 85025; 87086; 93005; 99283; 99284

== ENCOUNTER 2021-02-27 11:45 | Outpatient (CLI) | payer MEDICARE, MEDICAID ==
--- NOTE | 2021-02-27 15:07 | CONSULTATION NOTE ---
Palliative Care Follow Up - Referral Referring Provider: Dr. Oscar Bergeron Time of Visit: [id number] Referral setting: Home Referral Reason: Parkinson's Disease/Weakness - Information Sources Records reviewed: Previous records reviewed History/Review of Systems obtained from: Patient, Family Exam limitations: Clinical condition (Hypophonia and Cognitive Impairment) - History of Present Illness Update Brief HPI Update: This is a 85-year-old female who was seen and evaluated today in follow-up in her home with her daughter, Tiesha present due to Parkinson's disease, debility and recent emergency department visit due to generalized weakness. The patient presented to the emergency department on 02/25 due to generalized weakness. She was unable to get out of bed for a few days and was having a loss of appetite. Palliative care had requested a urinary specimen however, the patient's daughter was unable to get the patient out of bed to her bedside commode to obtain a specimen. The patient's emergency department visit did not demonstrate an underlying infectious process such as pneumonia or urinary tract infection. She was given some IV fluids for hydration. Since returning home, the patient's daughter reports that over the last 2 days the patient has been better and able to get out of bed. Her appetite has also improved. The patient does have a history of frequent UTIs. She has her daughter who recently was able to find d-mannose and has questions regarding the dose and administration for UTI prevention. The patient also recently obtained a hospital bed from the [employer] [facility] from the [facility] and the daughter is to follow-up with them has a head of the bed will not elevate. The patient continues to have difficulty with swallowing her pills. Patient seen in the living room out of bed in her wheelchair completing lunch. She is a flat affect and no evidence of acute distress. 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 +COVID-19 vaccine Social History - Living Situation Living arrangement: At home Living Situation: With family (daughter, Tiesha) Support System: Patient was born in [place]. She then lived in [place] where she was and had 8 children with her . She had 6 girls and 2 boys. 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 The patient left her and she is now a . She relocated to [facility] in the early . The patient's daughter, Tiesha moved into be a manufacturing controls engineer and offer caregiving since February 2020. The patient's healthcare power of patent prosecution attorney is her daughter, Felipa with contact number [phone]. They have a dog, Luz Elena who is a source of support for the patient. The patient has [facility] hospice case manager Sammi with contact number [phone]. The patient now has a caregiver 3 days/week whose name is Isaac and this has been a good fit for the household and allows the patient's daughter to run errands. Medications/Allergies - Medications Home Medications: Ambulatory Orders Medication Instructions Recorded Confirmed Propranolol [Inderal] 10 mg PO BID 09/04/16 01/08/21 metFORMIN [Glucophage] 500 mg PO BID 09/04/16 01/08/21 Escitalopram [Lexapro] 20 mg PO DAILY 03/10/18 01/08/21 Mirtazapine 15 mg PO QPM 03/10/18 01/08/21 Atorvastatin Calcium 20 mg PO QPM 09/14/19 12/04/19 Aspirin Chewable [[facility] 81 mg PO DAILY #10 tablet 12/06/19 01/08/21 Aspirin] Carbidopa/Levodopa [Rytary ER 3 cap PO TID 01/08/21 01/08/21 36.25 mg-145 mg Cap] Docusate Sodium 100Mg Capsule 200 mg PO DAILY 01/08/21 01/08/21 [Colace 100Mg Capsule] Docusate Sodium 100Mg Capsule 300 mg PO QPM 01/08/21 01/08/21 [Colace 100Mg Capsule] Levetiracetam [Keppra] 500 tab PO QPM 01/08/21 01/08/21 Multivitamin 1 tab PO DAILY 01/08/21 01/08/21 Senna [Senokot] 8.6 mg PO DAILY PRN 01/08/21 01/08/21 levETIRAcetam [Keppra] 1,000 mg PO DAILY 01/08/21 01/08/21 D-Mannose [Azo D-Mannose] 2,100 mg PO DAILY 01/23/21 01/23/21 - Allergies Allergies/Adverse Reactions: Allergies Allergy/AdvReac Type Severity Reaction Status Date / Time codeine [Codeine] AdvReac Intermediate Nausea Verified 02/25/21 12:24 ssri Allergy Unknown Uncoded 01/08/21 17:08 Review of Systems - Constitutional Constitutional: reports: Weight loss (weight 108.4lb on 12/11/2020). denies: Fever - Eyes Eyes: reports: Corrective lenses - Ears, Nose & Throat Ears, Nose & Throat: denies: Hearing aids, Dentures - Cardiovascular Cardiovascular: denies: Edema - Respiratory Respiratory: denies: Cough, Wheezing, Other (no cough during meals) - Gastrointestinal Gastrointestinal: reports: Constipation (controlled with colace), Other (Fair appetite, improved over last 2 days). denies: Diarrhea, Vomiting - Genitourinary Genitourinary: reports: Incontinence. denies: Dysuria - Musculoskeletal Musculoskeletal: reports: Muscle weakness, Assistive devices (wheelchair), Transfer issues, Other (right side hemiparesis) - Integumentary Integumentary: denies: Pruritis - Neurological Neurological: reports: General weakness, Memory problems (see HPI) - Psychiatric Psychiatric: reports: Depression, Anxiety - Endocrine Endocrine: reports: Diabetes type 2 (on metformin) - Hematologic/Lymphatic Hematologic/Lymph: reports: Recurrent infections (UTIs with history of positive culture for E.coli) - All Other Systems All Other Systems: reports: Reviewed and negative (ROS supplemented by daughter, Tiesha as patient is a poor historian) Physical Exam - Vital Signs Temperature: 36.5 C Pulse Rate: 88 O2 Saturation: 92 (on RA) Blood Pressure: 129/74 - Physical Exam General Appearance: positive: No acute distress, Alert, Other (elderly appearing female OOB in wheelchair) Eyes Bilateral: positive: Other (+corrective lenses) ENT: positive: No signs of dehydration Neck: positive: Trachea midline Cardiovascular: positive: Regular rate & rhythm Respiratory: positive: No respiratory distress, Breath sounds nml Abdomen: positive: Non-tender, Soft, Nml bowel sounds. negative: Other (bladder nondistended) Skin: positive: Bruising (Left shoulder s/p fall from couch), Other (venous stasis changes to b/l feet) Extremities: positive: No pedal edema, Other (+DJD changes to hands) Neurologic/Psychiatric: positive: Disoriented to place, Disoriented to time, Weakness (right sided hemiparesis), Flat affect, Other (Resting tremor to left hand more than right; +mouth tremor noted; Attempted to preform SLUMS today but patient had difficulty and kept saying "I don't know" or "I can't remember." M [place] recall 07/02.) Palliative Care - POLST Patient has POLST: No Pain: No pain Performance Status: Patient requires assistance with ADLs. Has progressed to increased difficulty with ambulation and using a wheelchair. She is able to self feed if finger foods. No history of aspiration pneumonia. History of falls. Incontinent of urine. - Palliative Care Discussion: Patient has had a progressive, functional decline due to her underlying Parkinson's disease, history of hemorrhagic stroke in 2017 and has demonstrated signs and symptoms of dementia. In attempt of assessing today it is clear that the patient has underlying dementia due to her Parkinson's disease versus vascular versus admixture. The patient is not on any disease modifying agents. Lengthy discussion had with the patient and her daughter today in regards to progression of dementia and signs and symptoms. Advised that this is a progressive course and given the patient's inability to fully participate in active conversations with her health care she would require assistance from her DPOA for decision making that is advanced. The patient presently does not have a POLST in place and would benefit from having this teased out based on the patient's previously reported wishes. We will need to continue to set expectations with the patient's daughter and primary caregiver, Tiesha, regarding the progression of Parkinson's as well as dementia. The patient's recent emergency department visit did not reveal any acute infectious process for the noted increased generalized weakness that was reported by the patient's daughter. This was reviewed again at length today with the patient's daughter this is likely indicative of the patient's progression but not only of her dementia but of her Parkinson's disease and will have episodes of waxing and waning function moving forward. Results - Lab Results Lab results reviewed: Yes Impression and Recommendations - Palliative Care Impression: This is an 85-year-old female with progressive functional decline in the setting of Parkinson's disease as well as a history of brainstem hemorrhagic stroke with residual effects and dementia. Patient continues to benefit from teasing out advance care planning and exploration of goals. Palliative care to continue to provide support, care coordination, symptom management and anticipatory guidance. Recommendations/Counseling Done: 1. Functional debility. In the setting of progression of Parkinson's disease, history of hemorrhagic stroke with residual symptoms, and dementia. The patient is requiring transfers to her wheelchair and is limited in her ambulatory ability. Has previously declined reinitiation of home health services such as [facility] at [facility]. History of frequent falls. Patient has a bed alarm set up in the home as well as a hospital bed. Continue to monitor. 2. Dementia. Attempted to perform formal assessment with [facility] and patient unable to fully complete memory recall 1 out of 5. Patient clearly identifies as having underlying dementia that is due to Parkinson's disease versus vascular due to history of hemorrhagic stroke with residual symptoms. On no disease modifying agents. Progressive. Chronic. Fall precautions. Discussed pathophysiology and progression at length with the patient's daughter today. 3. Constipation. Presently controlled. Patient takes 500 mg of Colace per day to achieve regular bowel movements. Advised not to exceed this dosage. In the future if needed any additional management would recommend utilizing senna starting at 8.6 mg tablet once daily and titrate to effectiveness. Reviewed titration principles with the patient's daughter. Sedentary lifestyle contributing. 4. 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 Continue routine pericare. Urine cultures from 09/06/2020 and 11/24/2020 grew E. coli. Reviewed d-mannose that has been obtained and close this dosage for desire to 1000 mg of d-mannose is 2000/100 mg dosage and advised to take this once daily for UTI prophylaxis. Daughter is aware to continue to contact palliative care if any signs and symptoms of a UTI is present and has a months And specimen cups in the home. 5. Advanced care planning. Had previously reviewed POLST however, was unable to perform. We will need to continue to tease out goals of care with the patient and her daughters 1 of which is her DPOA moving forward. Patient would require assistance from her family to make advanced healthcare decisions. Supportive listening provided. Total time spent 45 minutes with greater than 50% spent in counseling and coordination of care with the patient's daughter understand and the patient herself; review of emergency department visit records; review of dementia and Parkinson's disease pathophysiology related to cognition; review of symptom management and anticipatory guidance Disclaimer: The chart note was formulated using voice recognition technology and unfortunately sound alike errors may occur.
== END 2021-02-27 11:46 | disposition home or self-care (01) ==
LOC: PC 11:45
PROVIDERS: ATTEND Nurse Practitioner Family
DX: Z51.5 Encounter for palliative care (principal); G20 Parkinson's disease; R53.1 Weakness; I69.251 Hemiplegia and hemiparesis following other nontraumatic intracranial hemorrhage affecting right dominant side; F03.90 Unspecified dementia, unspecified severity, without behavioral disturbance, psychotic disturbance, mood disturbance, and anxiety; N30.20 Other chronic cystitis without hematuria; R62.7 Adult failure to thrive; K59.09 Other constipation; G40.909 Epilepsy, unspecified, not intractable, without status epilepticus; E11.9 Type 2 diabetes mellitus without complications; Z99.3 Dependence on wheelchair; R32 Unspecified urinary incontinence; Z79.84 Long term (current) use of oral hypoglycemic drugs; Z79.82 Long term (current) use of aspirin; Z79.899 Other long term (current) drug therapy
CPT/HCPCS: 99349

== ENCOUNTER 2021-03-18 08:34 | Outpatient (CLI) | payer MEDICARE, MEDICAID | END 2021-03-18 08:35 | disposition critical access hospital (66) | LOC: EMS 08:34 | DX: R33.9 Retention of urine, unspecified (principal) | CPT/HCPCS: A0425; A0429 ==

== ENCOUNTER 2021-03-18 08:44 | Emergency (ER) | payer MEDICARE, MEDICAID ==
--- NOTE | 2021-03-18 08:50 | ED Physician Documentation ---
History of Present Illness - Stated complaint Stated Complaint: LOW BP - History obtained from History obtained from: EMS (85-year-old woman presents by ambulance for reported inability to urinate for the last 24 hours despite pushing fluids. No history is available from the patient due to dementia. She is alert and oriented to person only.) Review of Systems Unable to obtain: Dementia PD PAST MEDICAL HISTORY - Past Medical History Cardiovascular: Hypertension, High cholesterol, Arrhythmia, Other Respiratory: Sleep apnea Neuro: CVA (brainstem hemorrhagic stroke with right facial weakness and right hemiparesis appx 2017), Parkinson's, Seizure disorder (Dx. 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: Hysterectomy HEENT: Cataracts - Present Medications Home Medications: Ambulatory Orders Medication Instructions Recorded Confirmed Propranolol [Inderal] 10 mg PO BID 09/04/16 01/08/21 metFORMIN [Glucophage] 500 mg PO BID 09/04/16 01/08/21 Escitalopram [Lexapro] 20 mg PO DAILY 03/10/18 01/08/21 Mirtazapine 15 mg PO QPM 03/10/18 01/08/21 Atorvastatin Calcium 20 mg PO QPM 09/14/19 12/04/19 Aspirin Chewable [[facility] 81 mg PO DAILY #10 tablet 12/06/19 01/08/21 Aspirin] Carbidopa/Levodopa [Rytary ER 3 cap PO TID 01/08/21 01/08/21 36.25 mg-145 mg Cap] Docusate Sodium 100Mg Capsule 200 mg PO DAILY 01/08/21 01/08/21 [Colace 100Mg Capsule] Docusate Sodium 100Mg Capsule 300 mg PO QPM 01/08/21 01/08/21 [Colace 100Mg Capsule] Levetiracetam [Keppra] 500 tab PO QPM 01/08/21 01/08/21 Multivitamin 1 tab PO DAILY 01/08/21 01/08/21 Senna [Senokot] 8.6 mg PO DAILY PRN 01/08/21 01/08/21 levETIRAcetam [Keppra] 1,000 mg PO DAILY 01/08/21 01/08/21 D-Mannose [Azo D-Mannose] 2,100 mg PO DAILY 01/23/21 01/23/21 - Allergies Allergies/Adverse Reactions: Allergies Allergy/AdvReac Type Severity Reaction Status Date / Time codeine [Codeine] AdvReac Intermediate Nausea Verified 03/18/21 09:31 ssri Allergy Unknown Uncoded 03/18/21 09:31 - Social History Does the pt smoke?: No Smoking Status: Never smoker Does the pt drink ETOH?: No Does the pt have substance abuse?: No - Immunizations Immunizations are current?: Yes - POLST Patient has POLST: No PD ED PE NORMAL - Vitals Vital signs reviewed: Yes - General General: Other (Slightly lethargic but awakens to voice, disoriented except to person.) - HEENT HEENT: PERRL, EOMI - Neck Neck: Supple, no meningeal sign, No bony TTP - Cardiac Cardiac: RRR, No murmur - Respiratory Respiratory: No respiratory distress, Clear bilaterally - Abdomen Abdomen: Normal bowel sounds, Soft, Non tender - Derm Derm: Normal color, Warm and dry - Extremities Extremities: No edema, No calf tenderness / cord Results - Vitals Vitals: Vital Signs - 24 hr 03/18/21 03/18/21 03/18/21 09:29 09:36 10:13 Temperature 36.9 C 36.4 C L Heart Rate 84 88 82 Respiratory 18 20 16 Rate Blood Pressure 133/86 H 123/74 142/69 H O2 Saturation 95 96 99 Oxygen O2 Source [Without Activity] Room air O2 Source [With Activity] Room air O2 Source Room air - Labs Labs: Laboratory Tests 03/18/21 03/18/21 03/18/21 09:09 09:09 09:45 WBC 8.1 RBC 4.24 Hgb 13.7 Hct 42.3 MCV 99.8 H MCH 32.3 H MCHC 32.4 RDW 12.6 Plt Count 340 MPV 9.7 Neut # (Auto) 5.9 Lymph # (Auto) 1.3 L [place] # (Auto) 0.7 Eos # (Auto) 0.1 Baso # (Auto) 0.0 Absolute Nucleated RBC 0.00 Nucleated RBC % 0.0 Sodium 141 Potassium 4.0 Chloride 100 L Carbon Dioxide 31 Anion Gap 10.0 BUN 21 H Creatinine 0.4 Estimated GFR (MDRD) 152 Glucose 192 H Lactic Acid 1.8 Calcium 9.9 Total Bilirubin 0.5 AST 25 ALT < 10 L Alkaline Phosphatase 63 Total Protein 7.3 Albumin 3.8 Globulin 3.5 Albumin/Globulin Ratio 1.1 Urine Color Urine Clarity Urine pH Ur Specific Roach Urine Protein Urine Glucose (UA) Urine Ketones Urine Occult Blood Urine Nitrite Urine Bilirubin Urine Urobilinogen Ur Leukocyte Esterase 03/18/21 10:12 WBC RBC Hgb Hct MCV MCH MCHC RDW Plt Count MPV Neut # (Auto) Lymph # (Auto) [place] # (Auto) Eos # (Auto) Baso # (Auto) Absolute Nucleated RBC Nucleated RBC % Sodium Potassium Chloride Carbon Dioxide Anion Gap BUN Creatinine Estimated GFR (MDRD) Glucose Lactic Acid Calcium Total Bilirubin AST ALT Alkaline Phosphatase Total Protein Albumin Globulin Albumin/Globulin Ratio Urine Color DARK YELLOW Urine Clarity CLEAR Urine pH 5.5 Ur Specific Roach >=1.030 H Urine Protein NEGATIVE Urine Glucose (UA) NEGATIVE Urine Ketones TRACE Urine Occult Blood NEGATIVE Urine Nitrite NEGATIVE Urine Bilirubin NEGATIVE Urine Urobilinogen 0.2 (NORMAL) Ur Leukocyte Esterase NEGATIVE PD MEDICAL DECISION MAKING - ED course ED course: 85-year-old woman presents by ambulance with a complaint of not being able to urinate for the last 24 hours. She had about 500 mL out on straight cath here. Urinalysis was unremarkable. Discussed with daughter by phone. We discussed options for indwelling Garrison catheter and risks and benefits of same but daughter would like to try a trial of without a catheter again but understands that she may be getting to a point where she may need a catheter. Departure - Departure Disposition: 01 Home, Self Care Clinical Impression: Urinary retention Dementia Qualifiers: Dementia type: unspecified type Dementia behavioral disturbance: without behavioral disturbance Qualified Code(s): F03.90 - Unspecified dementia without behavioral disturbance Condition: Stable Record reviewed to determine appropriate education?: Yes Instructions: ED Dementia Caregiver Support Comments: Return anytime if she retains urine again. Otherwise follow-up with palliative care nurse practitioner as per routine.
[2021-03-18 09:18] LABS: BASOPHILS % (AUTO) 0.4 %; EOSINOPHILS # (AUTO) 0.1 10^3/uL (0.0-0.7); EOSINOPHILS % (AUTO) 1.1 %; HCT - HEMATOCRIT 42.3 % (37.0-47.0); HGB - HEMOGLOBIN 13.7 g/dL (12.0-16.0); LYMPHOCYTES # (AUTO) 1.3 10^3/uL (1.5-3.5); MEAN CORPUSCULAR HEMOGLOBIN 32.3 pg (27.0-31.0); MEAN CORPUSCULAR HGB CONC 32.4 g/dL (32.0-36.0); MEAN CORPUSCULAR VOLUME 99.8 fL (81.0-99.0); MEAN PLATELET VOLUME 9.7 fL (7.9-10.8); MONOCYTES # (AUTO) 0.7 10^3/uL (0.0-1.0); NEUTROPHILS # (AUTO) 5.9 10^3/uL (1.5-6.6); NEUTROPHILS % (AUTO) 73.3 %; PLT - PLATELET COUNT 340 10^3/uL (130-450); RED BLOOD COUNT 4.24 10^6/uL (4.20-5.40); RED CELL DISTRIBUTION WIDTH 12.6 % (12.0-15.0); WHITE BLOOD COUNT 8.1 x10^3/uL (4.8-10.8)
[2021-03-18] MEDS ORDERED: SODIUM CHLORIDE 0.9% 1,000 ML IV STA (09:24)
[2021-03-18 09:30] LABS: ALBUMIN 3.8 g/dL (3.2-5.5); ALBUMIN/GLOBULIN RATIO 1.1 (1.0-2.2); ALKALINE PHOSPHATASE 63 IU/L (42-121); ALT ALANINE AMINOTRANSFERASE < 10 IU/L (10-60); AST ASPARTATE AMINOTRANSFERASE 25 IU/L (10-42); BILIRUBIN,TOTAL 0.5 mg/dL (0.2-1.0); BUN - BLOOD UREA NITROGEN 21 mg/dL (6-20); CALCIUM 9.9 mg/dL (8.5-10.3); CARBON DIOXIDE - CO2 31 mmol/L (21-32); CHLORIDE 100 mmol/L (101-111); CREATININE 0.4 mg/dL (0.4-1.0); GFR - MDRD 152 (>89); GLUCOSE 192 mg/dL (70-100); SODIUM 141 mmol/L (135-145); TOTAL PROTEIN 7.3 g/dL (6.7-8.2)
[2021-03-18 10:21] LABS: BILIRUBIN,URINE NEGATIVE (NEGATIVE); GLUCOSE, URINE (UA) NEGATIVE (NEGATIVE); KETONES,URINE (UA) TRACE mg/dL (NEGATIVE); LEUKOCYTE ESTERASE, URINE NEGATIVE (NEGATIVE); NITRITE,URINE NEGATIVE (NEGATIVE); OCCULT BLOOD,URINE NEGATIVE (NEGATIVE); PH,URINE 5.5 PH (5.0-7.5); PROTEIN,URINE NEGATIVE (NEGATIVE); UROBILINOGEN,URINE 0.2 (NORMAL) E.U./dL (NORMAL)
[2021-03-18 10:22] LABS: CLARITY,URINE CLEAR (CLEAR)
[2021-03-18 10:31] LABS: WBC,URINE 0-3 /HPF (0-5)
[2021-03-18 10:32] LABS: BACTERIA,URINE None Seen /HPF (None Seen); RBC,URINE None Seen /HPF (0-5); SQUAMOUS EPITHELIAL CELL,UR RARE Squamous (<= Few)
[2021-03-18 11:38] VITALS: BP 140/70
--- NOTE | 2021-03-19 08:35 | ED Physician Documentation ---
ED Addendum - Addendum Addendum: 03/19/21 08:34Lab had called with a positive blood culture showing gram-positive cocci likely staph aureus. Review of the chart and also the microbiology shows a PCR test showing coagulase negative staph which is highly likely contaminant. The patient had seemed well with normal vitals normal white count and negative urinalysis with urinary retention being the main symptom. As such this increases the likelihood of this being a contaminant. At this point no intervention seems indicated.
== END 2021-03-18 10:45 | disposition home or self-care (01) ==
LOC: EDUNIT# → ED 08:44
DX: R33.9 Retention of urine, unspecified (principal); F03.90 Unspecified dementia, unspecified severity, without behavioral disturbance, psychotic disturbance, mood disturbance, and anxiety; I10 Essential (primary) hypertension; E11.9 Type 2 diabetes mellitus without complications; Z79.84 Long term (current) use of oral hypoglycemic drugs
CPT/HCPCS: 36415; 51701; 80053; 81001; 83605; 85025; 87040; 87077; 87086; 87150; 87181; 99283

== ENCOUNTER 2021-03-18 11:15 | Outpatient (CLI) | payer MEDICARE, MEDICAID | END 2021-03-18 11:16 | disposition home or self-care (01) | LOC: EMS 11:15 | PROVIDERS: ATTEND Emergency Medicine | DX: F03.90 Unspecified dementia, unspecified severity, without behavioral disturbance, psychotic disturbance, mood disturbance, and anxiety (principal); R41.0 Disorientation, unspecified; R53.1 Weakness | CPT/HCPCS: A0425; A0428 ==

== ENCOUNTER 2021-03-31 13:10 | Outpatient (CLI) | payer MEDICARE, MEDICAID ==
--- NOTE | 2021-03-31 17:05 | CONSULTATION NOTE ---
Palliative Care Follow Up - Referral Referring Provider: Dr. Oscar Bergeron Time of Visit: [id number] Referral setting: Home Referral Reason: Parkinsons Disease/Dementia/Urinary Retention - Information Sources Records reviewed: Previous records reviewed History/Review of Systems obtained from: Family (daughters, Tiesha and Evie) Exam limitations: Clinical condition (Advanced Dementia) - History of Present Illness Update Brief HPI Update: This is an 85-year-old female who was seen and evaluated today in her home with her daughter Tiesha and Evie present due to Parkinson's disease, dementia, and recent emergency department visit due to urinary retention. The patient presented to the emergency department on 03/18 due to not voiding in 24 hours to despite the daughter, Tiesha pushing fluids. No prior history of urinary retention. She does have a history of frequent urinary tract infections. In the emergency department lab work did not indicate an acute infection and urinalysis was unremarkable. She had a straight cath performed that drained 500 mL of urine. A trial of a Garrison catheter was offered however, this was declined as the patient's daughter wished to see if the patient would be able to void on her own for fear of the patient potentially pulling the Garrison catheter out. Since the patient's return home her daughter, Tiesha who is her primary caregiver, reports that the patient has been voiding at least 3 times a day. She is incontinent of urine. Typically when she changes the patient she notes that she is saturating her depends and shocks. She is having a bowel movement approximately every other to every 2 days. The patient herself denies any abdominal pain. There has been no noted hematuria. The daughter is also reporting there has been some generalized itching and they have been applying moisturization intermittently as it comes and goes. The patient's daughter, Tiesha would also like for the patient left buttock to be evaluated. She is presently applying calycine body shield ointment to the affected areas. There is no skin breakdown. She has a history of Parkinson's disease and was switched to long-acting carbidopa/levodopa due to breakthrough symptoms. The daughters are reporting some increased difficulty with swallowing and chewing and have made modifications to the patient's meals. She last had a telemedicine visit with her neurologist in early February 2021 without any med changes. Patient is alert sitting up in her hospital bed. Flat affect affect and no evidence of acute distress. 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 +COVID-19 vaccine Social History - Living Situation Living arrangement: At home Living Situation: With family (daughter, Tiesha) Support System: Patient was born in [place]. She then lived in [place] where she was and had 8 children with her . She had 6 girls and 2 boys. 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 The patient left her and she is now a . She relocated to [facility] in the early . The patient's daughter, Tiesha moved into be a social service technician and offer caregiving since February 2020. The patient's healthcare power of contract attorney is her daughter, Felipa with contact number [phone]. They have a dog, Luz Elena who is a source of support for the patient. The patient has [employer] P[employer] counter caser Sammi with contact number [phone]. Caregiver, Isaac ANAND is coming Tuesdays and Wednesdays from 11AM-3pm and Fridays 9-1130AM. Patient's daughter Evie is presently visiting. Palliative care raw stock drier tender is following and next visit will bring communion for the household. Medications/Allergies - Medications Home Medications: Ambulatory Orders Medication Instructions Recorded Confirmed Propranolol [Inderal] 10 mg PO BID 09/04/16 01/08/21 metFORMIN [Glucophage] 500 mg PO BID 09/04/16 01/08/21 Escitalopram [Lexapro] 20 mg PO DAILY 03/10/18 01/08/21 Mirtazapine 15 mg PO QPM 03/10/18 01/08/21 Atorvastatin Calcium 20 mg PO QPM 09/14/19 12/04/19 Aspirin Chewable [[facility] 81 mg PO DAILY #10 tablet 12/06/19 01/08/21 Aspirin] Carbidopa/Levodopa [Rytary ER 3 cap PO TID 01/08/21 01/08/21 36.25 mg-145 mg Cap] Docusate Sodium 100Mg Capsule 200 mg PO DAILY 01/08/21 01/08/21 [Colace 100Mg Capsule] Docusate Sodium 100Mg Capsule 300 mg PO QPM 01/08/21 01/08/21 [Colace 100Mg Capsule] Levetiracetam [Keppra] 500 tab PO QPM 01/08/21 01/08/21 Multivitamin 1 tab PO DAILY 01/08/21 01/08/21 Senna [Senokot] 8.6 mg PO DAILY PRN 01/08/21 01/08/21 levETIRAcetam [Keppra] 1,000 mg PO DAILY 01/08/21 01/08/21 D-Mannose [Azo D-Mannose] 2,100 mg PO DAILY 01/23/21 01/23/21 - Allergies Allergies/Adverse Reactions: Allergies Allergy/AdvReac Type Severity Reaction Status Date / Time codeine [Codeine] AdvReac Intermediate Nausea Verified 03/18/21 09:31 ssri Allergy Unknown Uncoded 03/18/21 09:31 Review of Systems - Constitutional Constitutional: reports: Fatigue (sleeping more during the day per daughters), Weight loss (weight 108.4lb on 12/11/2020). denies: Fever - Eyes Eyes: reports: Corrective lenses - Ears, Nose & Throat Ears, Nose & Throat: reports: Dentures - Cardiovascular Cardiovascular: denies: Chest pain, Edema - Respiratory Respiratory: denies: Wheezing - Gastrointestinal Gastrointestinal: reports: Constipation (controlled with colace), Other (Fair appetite will consume 25-50% of meals). denies: Diarrhea, Vomiting - Genitourinary Genitourinary: reports: Incontinence. denies: Dysuria - Musculoskeletal Musculoskeletal: reports: Muscle weakness, Assistive devices (wheelchair), Transfer issues, Other (right side hemiparesis) - Integumentary Integumentary: denies: Pruritis - Neurological Neurological: reports: General weakness, Memory problems (see HPI) - Psychiatric Psychiatric: reports: Depression, Anxiety - Endocrine Endocrine: reports: Diabetes type 2 (on metformin) - Hematologic/Lymphatic Hematologic/Lymph: reports: Recurrent infections (UTIs with history of positive culture for E.coli) - All Other Systems All Other Systems: reports: Reviewed and negative (ROS supplemented by daughterDimitriTiesha and visiting daughter Evie as patient is a poor historian) Physical Exam - Vital Signs Temperature: 36.7 C Pulse Rate: 82 O2 Saturation: 95 (on RA) Blood Pressure: 144/80 - Physical Exam General Appearance: positive: No acute distress, Alert, Other (elderly appearing female sitting up in bed) Eyes Bilateral: positive: Other (+corrective lenses) ENT: positive: No signs of dehydration Neck: positive: Trachea midline Cardiovascular: positive: Regular rate & rhythm, No murmur Respiratory: positive: No respiratory distress, Breath sounds nml. negative: Wheezes Abdomen: positive: Non-tender, Soft, Nml bowel sounds, Other (bladder nondistended and nontender to palpation. Bladder scan preformed with appx 360mL of urine with last void appx 9AM.) Skin: positive: Pressure wound (Left SI joint irregular area appx 1cm that is blanchable with no open areas or discharge), Other (venous stasis changes to b/l feet) Extremities: positive: No pedal edema, Other (+DJD changes to hands) Neurologic/Psychiatric: positive: Disoriented to place, Disoriented to time, Weakness (right sided hemiparesis), Flat affect, Other (+Resting tremor. Poor STM recall.) Palliative Care - POLST Patient has POLST: No Pain: No pain Performance Status: Patient has had progression in her abilities most specifically since February 2020. None now bedbound. Will get up into her wheelchair every other evening. Requires assistance with feeding or able to self feed of finger foods. No history of aspiration pneumonia. Increased difficulty with swallowing noted by daughters. History of falls. Is incontinent of urine. - Palliative Care Discussion: The patient has had a progressive, functional decline due to her underlying Parkinson's disease, history of hemorrhagic stroke in 2017 as well as underlying dementia. Patient's 2 daughters that are present recognize that this is a progressive course and given the patient's frequency to be seen in the emergency department would benefit from having goals of care outlined as well as advanced care planning was specifically in the form of a POLST. Patient's daughters that are present report that the patient herself given her present state would not want heroics. However, there is some discord amongst the Patient's children and therefore the decision has not been determined at the present time. Pressed upon Judson today the importance of discussing as a family therapy goals regarding the patient's medical care and management moving forward. The patient presented to the emergency department after not being able to void for 24 hours and demonstrated urinary retention. She has no history of this. Unclear if underlying Parkinson's disease persist since CVA contributing. Patient is presently asymptomatic and voiding. Today bladder scan revealed 360 mL of urine in the bladder. Will need to be continually monitored. If her bladder scan revers greater than 400 mL of urine then recommendation would be made to have a Garrison catheter in place for comfort and management and this was reviewed with the patient's daughter today as well as the patient herself. Impression and Recommendations - Palliative Care Impression: This is an 85-year-old old female with progressive functional decline in the setting of Parkinson's disease, dementia, history of brainstem hemorrhagic stroke with residual effects, and recent urinary retention. Patient has transition to a bedbound status. She is at high risk for sequential sequelae due to her progressive Parkinson's disease, dementia, and at risk for recurrent urinary retention. Palliative care to continue to build rapport, provide care coordination, symptom management and anticipatory guidance. Recommendations/Counseling Done: 1. History of urinary retention. Seen in the emergency department on 03/18 with straight cath removing 500 cc of urine. Today, when bladder scan patient demonstrated 360 cc of urine in her bladder. Discussed at length with the patient's daughters wallet if the patient were to have a bladder scan greater than 400 or if the patient was unable to void hours then to contact palliative care office during office hours or after hours present to the emergency department for management and Agrrison catheter placement for intervention and comfort. Understanding verbalized. Will reevaluate with bladder scan at next evaluation. Discussed with patient's neurologist, Dr. Smyth regarding patient's recently urinary retention, and if needed in the future there is no contraindication to use of flomax if needed for symptoms given decreased risk of orthostatic hypotension as the patient is mainly bedbound at this time. Continue to monitor. 2. Bedbound status. Has progressed to this point due to progression of dementia and underlying Parkinson's disease. At risk for skin breakdown. Encourage the patient's daughters to turn and reposition the patient in bed every 2 hours. Continue to monitor. 3. Xerosis. Recommendation made to utilize lotion on a daily basis with localized mesh sized to moisturize the patient's skin and reduce reports of pruritus. 4. At risk for skin breakdown. Nonblanchable erythema to left SI joint. Advised to continue utilization of barrier cream to the affected area routine during the day and to turn and reposition every 2 hours while the patient is in bed. 5. Parkinson's disease. Continue carbidopa/levodopa as ordered by neurology. Presently on extended release formulation. If needed in the future per neurology could convert to carbidopa/levodopa 25/100 immediate release tablets taking 2 tablets 4 times per day as a rough equivalent. This would be in the event that the patient had increased symptoms of dysphagia or transition to hospice services. Patient's neurologist stated today that the patient is in the end stage of her Parkinson's Disease and this has been addressed with patient and daughter on last telemedicine visit. 6. Dementia. CVA and Parkinson's disease contributing so likely mixed. Chronic. Progressive. Fall precautions. On no disease modifying agents. Given the patient's chronic comorbidities and advanced age a gradual decline is expected. 7. Advance care planning. Patient has a designated healthcare power of contract attorney as her daughter, Felipa. She does not have a POLST in place or guidance regarding end of life wishes. As the patient is demonstrating continued signs and symptoms of decline it would be beneficial for the patient's children to discuss wishes regarding interventions to avoid conflict and promote the patient's wishes to the best of the family's knowledge. Continue to encourage open communication between the patient's children as there is presently some complex psychosocial dynamics and stressors. Unfortunately an event may occur before a plan is established. WIll continue to benefit from the support of the palliative care raw stock drier tender. Total time spent 60 minutes with greater than 50% of the spent in counseling and coordination of care with the patient, and patient's daughters. Utilization of bladder scanner and evaluation; examination of the patient; review of advance care planning; symptom management and anticipatory guidance. Contacted [facility] at [phone] and spoke to JOSE Munoz and then spoke to patient's neurologist, Dr. Sundar Smyth at length regarding POC. Disclaimer: The chart note was formulated using voice recognition technology and unfortunately sound alike errors may occur.
== END 2021-03-31 13:11 | disposition home or self-care (01) ==
LOC: PC 13:10
PROVIDERS: ATTEND Nurse Practitioner Family
DX: Z51.5 Encounter for palliative care (principal); G20 Parkinson's disease; F02.80 Dementia in other diseases classified elsewhere, unspecified severity, without behavioral disturbance, psychotic disturbance, mood disturbance, and anxiety; R62.7 Adult failure to thrive; K59.09 Other constipation; G40.909 Epilepsy, unspecified, not intractable, without status epilepticus; R33.9 Retention of urine, unspecified; Z87.440 Personal history of urinary (tract) infections; I69.251 Hemiplegia and hemiparesis following other nontraumatic intracranial hemorrhage affecting right dominant side; E11.9 Type 2 diabetes mellitus without complications; F41.9 Anxiety disorder, unspecified; F32.9 Major depressive disorder, single episode, unspecified; L85.3 Xerosis cutis; Z74.01 Bed confinement status; Z79.84 Long term (current) use of oral hypoglycemic drugs; Z79.82 Long term (current) use of aspirin; Z79.899 Other long term (current) drug therapy
CPT/HCPCS: 99350

== ENCOUNTER 2021-04-24 09:00 | Outpatient (CLI) | payer MEDICARE, MEDICAID ==
--- NOTE | 2021-04-24 19:16 | CONSULTATION NOTE ---
Palliative Care Follow Up - Referral Referring Provider: Dr. 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 +COVID-19 vaccine Social History - Living Situation Living arrangement: At home Living Situation: With family (daughter, Tiesha) Support System: Patient was born in [place]. She then lived in [place] where she was and had 8 children with her . She had 6 girls and 2 boys. 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 The patient left her and she is now a . She relocated to [facility] in the early . The patient's daughter, Tiesha moved into be a water filter cleaner and offer caregiving since February 2020. The patient's healthcare power of attorney law clerk is her daughter, Felipa with contact number [phone]. They have a dog, Luz Elena who is a source of support for the patient. The patient has [place] PES watch case polisher Sammi with contact number [phone]. Caregiver, Isaac ANAND is coming Tuesdays and Wednesdays from 11AM-3pm and Fridays 9-1130AM. Palliative care fuel attendant is following. Salomon shared today that her brother who resides in [place] has reported to APS in the past and sharing this information Salomon became tearful. The patient's home is tidy, clean and she is well cared for. Medications/Allergies - Medications Home Medications: Ambulatory Orders Medication Instructions Recorded Confirmed Propranolol [Inderal] 10 mg PO BID 09/04/16 01/08/21 metFORMIN [Glucophage] 500 mg PO BID 09/04/16 01/08/21 Escitalopram [Lexapro] 20 mg PO DAILY 03/10/18 01/08/21 Mirtazapine 15 mg PO QPM 03/10/18 01/08/21 Atorvastatin Calcium 20 mg PO QPM 09/14/19 12/04/19 Aspirin Chewable [[facility] [employer] Manuel 81 mg PO DAILY #10 tablet 12/06/19 01/08/21 Aspirin] Carbidopa/Levodopa [Rytary ER 3 cap PO TID 01/08/21 01/08/21 36.25 mg-145 mg Cap] Docusate Sodium 100Mg Capsule 200 mg PO DAILY 01/08/21 01/08/21 [Colace 100Mg Capsule] Levetiracetam [Keppra] 500 tab PO QPM 01/08/21 01/08/21 Multivitamin 1 tab PO DAILY 01/08/21 01/08/21 Senna [Senokot] 8.6 mg PO DAILY PRN 01/08/21 01/08/21 levETIRAcetam [Keppra] 1,000 mg PO DAILY 01/08/21 01/08/21 D-Mannose [Azo D-Mannose] 2,100 mg PO DAILY 01/23/21 01/23/21 bisacodyL [Dulcolax] 5 mg PO DAILY 04/25/21 04/25/21 - Allergies Allergies/Adverse Reactions: Allergies Allergy/AdvReac Type Severity Reaction Status Date / Time codeine [Codeine] AdvReac Intermediate Nausea Verified 03/18/21 09:31 ssri Allergy Unknown Uncoded 03/18/21 09:31 Review of Systems - Constitutional Constitutional: reports: Fatigue (sleeping more during the day per Salomon), Weight loss (left arm MAC 20cm 04/24/2021; weight 108.4lb on 12/11/2020). denies: Fever - Eyes Eyes: reports: Corrective lenses - Ears, Nose & Throat Ears, Nose & Throat: reports: Dentures - Cardiovascular Cardiovascular: denies: Edema - Respiratory Respiratory: denies: Cough, Wheezing - Gastrointestinal Gastrointestinal: reports: Constipation (controlled with colace and bisacodyl), Other (Fair appetite will consume 25-50% of meals; no noted coughing). denies: Diarrhea, Vomiting - Genitourinary Genitourinary: reports: Incontinence. denies: Dysuria, Hematuria - Musculoskeletal Musculoskeletal: reports: Muscle weakness, Assistive devices (wheelchair, only getting transferred into wheelchair every 2 days. Yesterday in w/c from 10AM-2pm before fatigued), Transfer issues, Other (right side hemiparesis) - Integumentary Integumentary: denies: Pruritis - Neurological Neurological: reports: General weakness - Psychiatric Psychiatric: reports: Depression, Anxiety - Endocrine Endocrine: reports: Diabetes type 2 (on metformin) - Hematologic/Lymphatic Hematologic/Lymph: reports: Recurrent infections (UTIs with history of positive culture for E.coli now on D-mannose) - All Other Systems All Other Systems: reports: Reviewed and negative (ROS supplemented by daughterTiesha as patient is a poor historian) Physical Exam - Vital Signs Temperature: 37.1 C Pulse Rate: 92 O2 Saturation: 94 (on RA) Blood Pressure: 153/69 - Physical Exam General Appearance: positive: No acute distress, Alert, Other (elderly appearing female sitting up in bed) Eyes Bilateral: positive: Other (+corrective lenses) ENT: positive: No signs of dehydration Neck: positive: Trachea midline Cardiovascular: positive: Regular rate & rhythm Respiratory: positive: No respiratory distress, Breath sounds nml, Diminished in bases Abdomen: positive: Non-tender, Soft, Nml bowel sounds, Other (bladder nondistended and nontender to palpation. Bladder scan preformed with 240mL today and assisted with changing the patient due to incontinence) Skin: positive: Other (venous stasis changes to b/l feet) Extremities: positive: No pedal edema, Other (+DJD changes to hands) Neurologic/Psychiatric: positive: Disoriented to place, Disoriented to time, Weakness (right sided hemiparesis), Flat affect, Other (+Resting tremor. Poor STM recall.) Palliative Care - POLST Patient has POLST: No Pain: No pain Performance Status: FAST 7C - Palliative Care Discussion: Patient has had a progressive, functional decline due to her Parkinson's since disease and history of hemorrhagic stroke in 2017 as well as underlying dementia. The patient's primary caregiver and daughter, Salomon recognizes that the patient is at the end of her Parkinson's disease and is fearful of a crisis. She relays that given there are multiple personalities within her siblings they have not wanted to come to consensus regarding management. However, the patient does have a designated healthcare power of attorney law clerk and her daughter, Felipa. Will reach out to Felipa to further tease out goals of care. Salomon expresses a desire to focus on comfort and for the patient to remain in her home setting. Early reflects that the patient was at [facility] for approximately 2 months after her hemorrhagic stroke and it is not somewhere that the patient would wish to return to as her level of engagement was reduced in that environment. Today, the patient's bladder scan demonstrated 240 mL of urine. She is voiding routinely and patient would prefer not to have a Garrison catheter inserted. Did relate to the patient that if her bladder scan is elevated for comfort measures would then need to insert a Garrison catheter and move forward with home health nursing for management when the time came on hospice services for management. We will place a Garrison catheter if the patient's bladder gain scan demonstrates 400 mL of urine. Patient's daughter is supportive of this plan. Introduced the role of hospice services to the patient's daughter Salomon today. Salomon reflects on her experience with hospice services for her sister who was on service for approximately 10 days prior to her . This is something that Salomon wishes to have for the patient when the time is appropriate and is open to an informational session and will reach out to daughter/DPVIVI Leo regarding moving forward with the informational session as it would see benefit for an extra added layer of support for not only the patient but the patient's daughter and primary caregiver Salomon as well. Impression and Recommendations - Palliative Care Impression: This is an 85-year-old female with progressive functional decline in the setting of Parkinson's disease, dementia, history of brainstem hemorrhagic stroke with residual effects, and history of urinary retention. Patient is bedbound. She is at high risk for sequential sequelae due to her progressive Parkinson's disease, dementia, and at risk for recurrent urinary retention.Palliative care to continue to build rapport, provide care coordination, symptom management and anticipatory guidance. Recommendations/Counseling Done: 1. History of urinary retention. Patient seen in the emergency department on 03/24 with straight cath removing 500 cc of urine. Today, bladder scan demonstrated 240 cc of urine in her bladder. Discussed with patient and daughter if patient does not void in 8 hours to contact palliative care during office hours or if after hours or on weekends to call EMS or PCP interventional radiology technologist with daughter verbalizing understanding. If patient has bladder scan greater than 400 cc then will require Garrison catheter management. Would then introduce low-dose Flomax 0.4 mg daily and after 1 to 2-week trial would then attempt discontinuation of Garrison catheter and keep Flomax in place and monitor for continued symptoms. Continue to monitor. 2. Parkinson's disease. Continue carbidopa/levodopa as ordered by neurology. Patient has progressed and is in the end-stage of her Parkinson's disease and patient's daughter/caregiver Salomon recognizes this decline. Progressive. Chronic. Supportive care. 3. Dementia. CVA and Parkinson's disease contributing so likely mixed in nature. Chronic. Progressive. Fall precautions. On no disease modifying agents. No evidence of dysphagia reported by patient's daughter. Given the patient's chronic comorbidities and advanced age a gradual decline is expected. 4. Advanced care planning. Patient has designated healthcare power of attorney law clerk is her daughter, Felipa. Patient does not have a POLST in place or guidance regarding end-of-life wishes. Patient's daughter/caregiver, Salomon wishes to focus on comfort measures. Given the complex dynamics within the family will reach out to Felipa to further explore goals of care. Salomon when introducing role of hospice services today is open to informational visit and will broach with daughter/DPVIVI Leo as well. Continue to be supported by palliative care janeen carmona. Total time spent 60 minutes with greater than 50% of the spent in counseling and coordination of care with the patient and patient's daughter, Salomon; utilization of bladder scanner and evaluation; examination of patient, supportive and empathetic listing for patient's daughter regarding caregiver burden; review of advance care planning introduced introduction of hospice; and anticipatory guidance. Contacted patient's daughter/DPVIVI Leo at [phone] unable to speak today and will follow up tomorrow when daughter is available to review plan of care and advanced care planning. Disclaimer: The chart note was formulated using voice recognition technology and unfortunately sound alike errors may occur.
== END 2021-04-24 09:01 | disposition home or self-care (01) ==
LOC: PC 09:00
PROVIDERS: ATTEND Nurse Practitioner Family
DX: Z51.5 Encounter for palliative care (principal); G20 Parkinson's disease; F02.80 Dementia in other diseases classified elsewhere, unspecified severity, without behavioral disturbance, psychotic disturbance, mood disturbance, and anxiety; I69.251 Hemiplegia and hemiparesis following other nontraumatic intracranial hemorrhage affecting right dominant side; R33.9 Retention of urine, unspecified; R32 Unspecified urinary incontinence; E11.9 Type 2 diabetes mellitus without complications; R62.7 Adult failure to thrive; K59.09 Other constipation; G40.909 Epilepsy, unspecified, not intractable, without status epilepticus; Z74.01 Bed confinement status; G47.30 Sleep apnea, unspecified; Z87.440 Personal history of urinary (tract) infections; Z79.84 Long term (current) use of oral hypoglycemic drugs; Z79.82 Long term (current) use of aspirin
CPT/HCPCS: 99350

== ENCOUNTER 2021-05-14 09:30 | Outpatient (CLI) | payer MEDICARE, MEDICAID ==
--- NOTE | 2021-05-14 16:19 | CONSULTATION NOTE ---
Palliative Care Follow Up - Referral Referring Provider: Dr. Oscar Bergeron Time of Visit: [id number] Referral setting: Home Referral Reason: Parkinsons's disease/Dementia - Information Sources Records reviewed: Previous records reviewed History/Review of Systems obtained from: Patient, Family (daughter, Salomon) Exam limitations: Clinical condition (Advanced dementia, hypophonia) - History of Present Illness Update Brief HPI Update: This is an 85-year-old female who was seen and evaluated today in her home with her daughter, Tiesha present due to Parkinson's disease, dementia, and history of urinary retention. Provider wore N95 mask. Patient has a history of Parkinson's disease and was switched to long-acting carbidopa/levodopa due to breakthrough symptoms. Initially, the daughter was reporting increased difficulty with swallowing and chewing that resulted in modification to the patient's meals. Now the daughter, Salomon perceives that the patient has "leveled out" with her Parkinson symptoms and she has been more engaged and alert. She is also taking back up to feeding herself however, she is unable to utilize the weighted silverware. The patient's 2 daughters, her main Felipa are in agreement for hospice informational visit however, due to the patient's daughter Felipa's work schedule who is her DPOA this is been not coordinated at the present time. Patient has been more alert and awake for the last several weeks. She is eating everything that the daughter Salomon is providing. Patient presented to the emergency department on 03/18 due to not voiding in 24 hours despite her daughter pushing fluids without a prior history of urinary retention. On evaluation with bladder scan today patient's bladder scan was approximately 314 mL. She is voiding approximately 3-4 times per day and saturating her depends and pads. Patient is not having any reports of suprapubic discomfort. Patient is seen alert, sitting up in her hospital bed watching TV. Flat affect and no evidence of acute distress. She is tracking more than previous occasions and more engaged. 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 +COVID-19 vaccine Social History - Living Situation Living arrangement: At home Living Situation: With family (daughter, Tiesha) Support System: Patient was born in [place]. She then lived in [place] where she was and had 8 children with her . She had 6 girls and 2 boys. 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 The patient left her and she is now a . She relocated to [facility] in the early . The patient's daughter, Tiesha moved into be a records analyst and offer caregiving since February 2020. The patient's healthcare power of operator is her daughter, Felipa with contact number [phone]. They have a dog, Luz Elena who is a source of support for the patient. The patient has [place] PES onsite case manager Sammi with contact number [phone]. Caregiver, Isaac ANAND is coming Tuesdays and Wednesdays from 11AM-3pm and Fridays 9-1130AM. Palliative care tierce filler is following. Medications/Allergies - Medications Home Medications: Ambulatory Orders Medication Instructions Recorded Confirmed Propranolol [Inderal] 10 mg PO BID 09/04/16 01/08/21 metFORMIN [Glucophage] 500 mg PO BID 09/04/16 01/08/21 Escitalopram [Lexapro] 20 mg PO DAILY 03/10/18 01/08/21 Mirtazapine 15 mg PO QPM 03/10/18 01/08/21 Atorvastatin Calcium 20 mg PO QPM 09/14/19 12/04/19 Aspirin Chewable [[facility] [employer] Manuel 81 mg PO DAILY #10 tablet 12/06/19 01/08/21 Aspirin] Carbidopa/Levodopa [Rytary ER 3 cap PO TID 01/08/21 01/08/21 36.25 mg-145 mg Cap] Docusate Sodium 100Mg Capsule 200 mg PO DAILY 01/08/21 01/08/21 [Colace 100Mg Capsule] Levetiracetam [Keppra] 500 tab PO QPM 01/08/21 01/08/21 Multivitamin 1 tab PO DAILY 01/08/21 01/08/21 Senna [Senokot] 8.6 mg PO DAILY PRN 01/08/21 01/08/21 levETIRAcetam [Keppra] 1,000 mg PO DAILY 01/08/21 01/08/21 D-Mannose [Azo D-Mannose] 2,100 mg PO DAILY 01/23/21 01/23/21 bisacodyL [Dulcolax] 5 mg PO DAILY 04/25/21 04/25/21 - Allergies Allergies/Adverse Reactions: Allergies Allergy/AdvReac Type Severity Reaction Status Date / Time codeine [Codeine] AdvReac Intermediate Nausea Verified 03/18/21 09:31 ssri Allergy Unknown Uncoded 03/18/21 09:31 Review of Systems - Constitutional Constitutional: reports: Weight loss (left arm MAC 20cm 04/24/2021; weight 108.4lb on 12/11/2020). denies: Fatigue (more alert per daughter), Fever - Eyes Eyes: reports: Corrective lenses, Other (crusting in the AM to eyes that impr karina after starting over the counter zyrtec per daughter) - Ears, Nose & Throat Ears, Nose & Throat: reports: Dentures - Cardiovascular Cardiovascular: denies: Edema - Respiratory Respiratory: denies: Wheezing - Gastrointestinal Gastrointestinal: reports: Other (Fair appetite that has improved; no noted coughing during meals). denies: Constipation (controlled with colace and bisacodyl with bowel movement every other day on average), Diarrhea, Vomiting - Genitourinary Genitourinary: reports: Incontinence. denies: Dysuria, Hematuria - Musculoskeletal Musculoskeletal: reports: Muscle weakness, Assistive devices (getting into wheelchair daily for appx 30 minutes), Transfer issues, Other (right side hemiparesis) - Integumentary Integumentary: denies: Pruritis - Neurological Neurological: reports: General weakness - Psychiatric Psychiatric: reports: Depression, Anxiety - Endocrine Endocrine: reports: Diabetes type 2 (on metformin) - Hematologic/Lymphatic Hematologic/Lymph: reports: Recurrent infections (UTIs with history of positive culture for E.coli now on D-mannose) - All Other Systems All Other Systems: reports: Reviewed and negative (ROS supplemented by daughterTiesha as patient is a poor historian) Physical Exam - Vital Signs Pulse Rate: 66 O2 Saturation: 96 (on RA) Blood Pressure: 105/59 (left wrist) - Physical Exam General Appearance: positive: No acute distress, Alert, Other (elderly appearing female sitting up in bed, more alert than previous occasions) Eyes Bilateral: positive: Other (+corrective lenses) ENT: positive: No signs of dehydration Neck: positive: Trachea midline Cardiovascular: positive: Regular rate & rhythm Respiratory: positive: No respiratory distress, Breath sounds nml, Diminished in bases Abdomen: positive: Non-tender, Soft, Nml bowel sounds, Other (bladder nondiste nded and nontender to palpation. Bladder scan preformed with 240mL today and assisted with changing the patient due to incontinence) Skin: positive: Other (venous stasis changes to b/l feet) Extremities: positive: No pedal edema, Other (+DJD changes to hands) Neurologic/Psychiatric: positive: Disoriented to place, Disoriented to time, Weakness (right sided hemiparesis), Flat affect, Other (+Resting tremor. Poor STM recall.) Palliative Care - POLST Patient has POLST: No Pain: No pain - Palliative Care Discussion: Patient has had a progressive, functional decline due to her Parkinson's disease and history of hemorrhagic stroke in 2017 as well as underlying dementia. The patient's primary caregiver and daughter, Salomon recognizes the patient is end of her Parkinson's disease and continues to express her desire to have a plan in place if crisis were to occur. However, a hospice informational visit has not been scheduled yet due to coordination of schedules nor has a POLST been comp leted despite this palliative care [employer] having a discussion with the patient's daughter and BIJAN Leo and blank copies of POLST left for review. This is something to continue to work on and tease out to have a plan in place. Salomon does recognize that the patient's next transition will be to hospice and she deems this appropriate. It may be amenable for the family when they gather during Thanksgiving to have discussions regarding plans moving forward to optimize the patient's goals regarding her health care as best they see fit. Impression and Recommendations - Palliative Care Impression: This is in 85-year-old female with progressive functional decline in the setting of Parkinson's disease, dementia, history of brainstem hemorrhagic stroke with residual effects and history of urinary retention.She is at high risk for sequential sequelae due to her progressive Parkinson's disease, dementia as well as urinary retention. She has had increased alertness and function over recent weeks. Palliative care to continue to build rapport, provide care coordination, symptom management and anticipatory guidance. Recommendations/Counseling Done: 1. History of urinary retention. Patient seen in emergency department on 9/27 with straight cath removing 500 cc of urine. Today bladder scan demonstrated 314 cc of urine in her bladder. Patient is asymptomatic. If the bladder scan indicates greater than 400 cc then will require Garrison catheter and management. With then introduce a low-dose Flomax 0.5 mg daily and after 1 to 2 weeks trial with an attempt discontinuation of Garrison catheter and keep Flomax in place and monitor for symptoms. Daughter is aware to contact palliative care if the patient has not voided in 88 hours during office hours or if after hours or weekends to call EMS or PCP preparation room worker for retention management. Presently stable. 2. Parkinson's disease. Continue carbidopa/levodopa as ordered by neurology. Patient has progressed and is at end-stage of her Parkinson's disease and patient's daughter/caregiver Cal recognizes this decline and see is that hospice is in the future and is open to an informational visit as is the patient's daughter/BIJAN Leo. Progressive. Chronic. Supportive care. 3. Dementia. CVA and Parkinson's disease contributing so likely mixed in nature. Chronic. Progressive. Fall precautions. On any disease modifying agents. No reports of dysphagia by daughter. Given the patient's chronic comorbidities and advanced age a gradual Daniel is expected. 4. Advanced care planning. Patient does not have a POLST in place or guidance regarding end-of-life wishes such as a living will. Daughter/MONIQUEVIVI Leo as well as daughterSalomon have expressed transitioning to a more comfort approach however, need to continue to coordinate with [employer] for completing POLST in order to have a plan in place and honor the family's wishes that would be for the patient's n.p.o. ultimate desires. Have emailed POLST to Felipa as well as left a blank copy of POLST. Encourage daughterSalomon to have a family discussion during regarding goals and palliative care will follow- up regarding this. Continue to be supported by palliative care tierce filler. Total time spent 40 minutes with greater than 50% has been in counseling and coordination of care with the patient and patient's daughterSalomon; utilization of bladder scanner and evaluation; examination of patient; supportive and empathetic listening to patient's daughter; review of advance care planning and anticipatory guidance. Disclaimer: The chart note was formulated using voice recognition technology and unfortunately sound alike errors may occur.
== END 2021-05-14 09:31 | disposition home or self-care (01) ==
LOC: PC 09:30
PROVIDERS: ATTEND Nurse Practitioner Family
DX: Z51.5 Encounter for palliative care (principal); R33.9 Retention of urine, unspecified; G20 Parkinson's disease; F02.80 Dementia in other diseases classified elsewhere, unspecified severity, without behavioral disturbance, psychotic disturbance, mood disturbance, and anxiety
CPT/HCPCS: 99349

== ENCOUNTER 2021-06-12 12:10 | Outpatient (CLI) | payer MEDICARE, MEDICAID ==
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
== END 2021-06-12 12:11 | disposition home or self-care (01) ==
LOC: PC 12:10
PROVIDERS: ATTEND Nurse Practitioner Family
DX: Z51.5 Encounter for palliative care (principal); G20 Parkinson's disease; F02.80 Dementia in other diseases classified elsewhere, unspecified severity, without behavioral disturbance, psychotic disturbance, mood disturbance, and anxiety; B37.2 Candidiasis of skin and nail; L89.311 Pressure ulcer of right buttock, stage 1; R33.9 Retention of urine, unspecified
CPT/HCPCS: 99349

== ENCOUNTER 2021-07-02 10:43 | Outpatient (CLI) | payer MEDICARE, MEDICAID | END 2021-07-02 10:44 | disposition critical access hospital (66) | LOC: EMS 10:43 | DX: R56.9 Unspecified convulsions (principal) | CPT/HCPCS: A0425; A0428; A0429 ==

== ENCOUNTER 2021-07-02 10:47 | Emergency (ER) | payer MEDICARE, MEDICAID ==
--- NOTE | 2021-07-02 10:52 | ED Physician Documentation ---
History of Present Illness - Stated complaint Stated Complaint: SZ - History obtained from History obtained from: Patient, Family, EMS - Additonal information Additional information: This is an 85-year-old woman who presents by ambulance from home after a seizure. She has a history of seizure disorder, also Parkinson's, dementia, diabetes, history of hemorrhagic stroke with right-sided deficits. Is on Keppra 500 mg at night for seizure prophylaxis. Reportedly had about a 45-second generalized tonic-clonic seizure today with postictal period. She is now awake and talking albeit confused which is her baseline. She has no specific complaints. Review of Systems Unable to obtain: Dementia PD PAST MEDICAL HISTORY - Past Medical History Cardiovascular: Hypertension, High cholesterol, Arrhythmia, Other Respiratory: Sleep apnea Neuro: CVA (brainstem hemorrhagic stroke with right facial weakness and right hemiparesis appx 2017), Parkinson's, Seizure disorder (Dx. Feb 2020), Tremors (Essential tremor began appx age 15) Endocrine/Autoimmune: Type 2 diabetes (does not check blood glucose levels) GI: GERD, Colon polyps VEHICLE PAINTER: None : Incontinence, Chronic bladder infection HEENT: None Psych: Depression, Anxiety Musculoskeletal: None Derm: None - Past Surgical History Past Surgical History: Yes General: 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, Other (PEG insertion 08/2017 and removal 11/2017) Ortho: Other (broke right foot in 5 places s/p repair) /VEHICLE PAINTER: Hysterectomy HEENT: Cataracts - Present Medications Home Medications: Ambulatory Orders Medication Instructions Recorded Confirmed Propranolol [Inderal] 10 mg PO BID 09/04/16 01/08/21 metFORMIN [Glucophage] 500 mg PO BID 09/04/16 01/08/21 Escitalopram [Lexapro] 20 mg PO DAILY 03/10/18 01/08/21 Aspirin Chewable [[facility] Manuel 81 mg PO DAILY #10 tablet 12/06/19 01/08/21 Aspirin] Carbidopa/Levodopa [Rytary ER 3 cap PO TID 01/08/21 01/08/21 36.25 mg-145 mg Cap] Docusate Sodium 100Mg Capsule 200 mg PO DAILY 01/08/21 01/08/21 [Colace 100Mg Capsule] Levetiracetam [Keppra] 500 tab PO QPM 01/08/21 01/08/21 Multivitamin 1 tab PO DAILY 01/08/21 01/08/21 Senna [Senokot] 8.6 mg PO DAILY PRN 01/08/21 01/08/21 levETIRAcetam [Keppra] 1,000 mg PO DAILY 01/08/21 01/08/21 D-Mannose [Azo D-Mannose] 2,100 mg PO DAILY 01/23/21 01/23/21 bisacodyL [Dulcolax] 5 mg PO DAILY 04/25/21 04/25/21 Fluconazole [Diflucan] MDD see insturctions 06/12/21 - Allergies Allergies/Adverse Reactions: Allergies Allergy/AdvReac Type Severity Reaction Status Date / Time codeine [Codeine] AdvReac Intermediate Nausea Verified 07/02/21 10:55 ssri Allergy Unknown Uncoded 07/02/21 10:55 - Social History Does the pt smoke?: No Smoking Status: Never smoker Does the pt drink ETOH?: No Does the pt have substance abuse?: No - Immunizations Immunizations are current?: Yes - POLST Patient has POLST: No PD ED PE NORMAL - Vitals Vital signs reviewed: Yes - General General: Other (She is alert and oriented to person and place but not time or events, follows simple commands.) - HEENT HEENT: PERRL, Other (No tongue injury) - Neck Neck: Supple, no meningeal sign, No bony TTP - Cardiac Cardiac: RRR, No murmur - Respiratory Respiratory: No respiratory distress, Clear bilaterally - Abdomen Abdomen: Non tender - Derm Derm: Normal color, Warm and dry - Neuro Eye Opening: Spontaneous Motor: Obeys Commands Verbal: Confused GCS Score: 14 Results - Vitals Vitals: Vital Signs - 24 hr 07/02/21 10:50 Temperature 36.4 C L Heart Rate 59 L Respiratory 18 Rate Blood Pressure 148/67 H O2 Saturation 95 Oxygen O2 Source [] Room air O2 Source [] Room air O2 Source Room air - EKG (time done) 1059 Rate: Rate (enter#) (60) Rhythm: NSR [place]: Normal Intervals: Other (short JAMILAH ) QRS: Normal Ischemia: Non specific changes Compare to prior EKG: Unchanged from prior EKG (no chg from 02/25/21) Computer interpretation: Agree with computer - Labs Labs: Laboratory Tests 07/02/21 07/02/21 11:10 11:10 WBC 7.5 RBC 4.16 L Hgb 13.0 Hct 40.0 MCV 96.2 MCH 31.3 H MCHC 32.5 RDW 12.6 Plt Count 294 MPV 9.8 Neut # (Auto) 5.1 Lymph # (Auto) 1.8 Robertson # (Auto) 0.5 Eos # (Auto) 0.1 Baso # (Auto) 0.0 Absolute Nucleated RBC 0.00 Nucleated RBC % 0.0 Sodium 140 Potassium 3.8 Chloride 102 Carbon Dioxide 27 Anion Gap 11.0 BUN 15 Creatinine 0.4 Estimated GFR (MDRD) 152 Glucose 197 H Calcium 9.8 - Rads (name of study) CT Head Radiology: EMP read contemporaneously (NAD) PD MEDICAL DECISION MAKING - ED course ED course: Spoke with both daughters by phone. She was on the commode and went unresponsive and brief apnea. Has shaking x 45 seconds. 85-year-old woman with recurrent seizures. It was unclear from the chart what her Keppra dosing was, but I clarified with the daughter that it is 750 mg in the morning/7.5 mL of solution and 1000 mg /10 mL in the evening. I clarified with her neurologist, Dr. Madhu Smyth by phone that this is correct dosing. Keppra level is pending. The remainder of her work-up is unremarkable. Departure - Departure Disposition: 01 Home, Self Care Clinical Impression: Seizure Condition: Good Record reviewed to determine appropriate education?: Yes Instructions: ED Seizure Recurrent Comments: Today I spoke with your neurologist, you are taking the correct Keppra dose, continue that. He will follow up on the Keppra level. Return if worsening or if she runs a fever.
[2021-07-02 11:16] LABS: BASOPHILS % (AUTO) 0.4 %; EOSINOPHILS # (AUTO) 0.1 10^3/uL (0.0-0.7); EOSINOPHILS % (AUTO) 1.7 %; LYMPHOCYTES # (AUTO) 1.8 10^3/uL (1.5-3.5); LYMPHOCYTES % (AUTO) 23.7 %; MEAN CORPUSCULAR HEMOGLOBIN 31.3 pg (27.0-31.0); MEAN CORPUSCULAR HGB CONC 32.5 g/dL (32.0-36.0); MEAN CORPUSCULAR VOLUME 96.2 fL (81.0-99.0); MEAN PLATELET VOLUME 9.8 fL (7.9-10.8); MONOCYTES # (AUTO) 0.5 10^3/uL (0.0-1.0); MONOCYTES % (AUTO) 6.5 %; NEUTROPHILS # (AUTO) 5.1 10^3/uL (1.5-6.6); NEUTROPHILS % (AUTO) 67.4 %; PLT - PLATELET COUNT 294 10^3/uL (130-450); RED BLOOD COUNT 4.16 10^6/uL (4.20-5.40); RED CELL DISTRIBUTION WIDTH 12.6 % (12.0-15.0); WHITE BLOOD COUNT 7.5 x10^3/uL (4.8-10.8)
[2021-07-02 11:24] LABS: CALCIUM 9.8 mg/dL (8.5-10.3); CREATININE 0.4 mg/dL (0.4-1.0); POTASSIUM 3.8 mmol/L (3.5-5.0)
--- NOTE | 2021-07-02 11:45 | CT Report ---
PROCEDURE: HEAD WO INDICATIONS: seizure TECHNIQUE: Noncontrast 4.5 mm thick angled axial sections acquired from the foramen magnum to the vertex. For r adiation dose reduction, the following was used: automated exposure control, adjustment of mA and/or kV according to patient size. COMPARISON: September 06, 2020 FINDINGS: BRAIN PARENCHYMA: White matter hypoattenuation, most consistent with the sequela microvascular ischem ia. No acute cortical based (large territory) infarction, intracranial hemorrhage, mass or mass effec t, or abnormal fluid collection. The density in the larger dural venous sinuses is grossly normal. VENTRICLES: No hydrocephalus. BONES/SINUSES: The skull base and calvarium demonstrate no acute abnormality. The paranasal sinuses a nd mastoid air cells are well aerated. IMPRESSION: 1.No acute intracranial abnormality. Reviewed by: Darwin Hilliard MD on 07/02/2021 11:44 AM [facility] Approved by: Darwin Hilliard MD on 07/02/2021 11:44 AM PST Station ID: [id number]
[2021-07-02 12:07] VITALS: BP 123/65
== END 2021-07-02 13:00 | disposition home or self-care (01) ==
LOC: EDUNIT# → ED 10:47
DX: R56.9 Unspecified convulsions (principal); G20 Parkinson's disease; F02.80 Dementia in other diseases classified elsewhere, unspecified severity, without behavioral disturbance, psychotic disturbance, mood disturbance, and anxiety; I62.9 Nontraumatic intracranial hemorrhage, unspecified; R29.810 Facial weakness; G81.91 Hemiplegia, unspecified affecting right dominant side; E11.9 Type 2 diabetes mellitus without complications; Z79.84 Long term (current) use of oral hypoglycemic drugs
CPT/HCPCS: 36415; 80048; 80177; 85025; 93005; 99283; 99284

== ENCOUNTER 2021-07-02 12:59 | Outpatient (CLI) | payer MEDICARE, MEDICAID | END 2021-07-02 13:00 | disposition home or self-care (01) | LOC: EMS 12:59 | PROVIDERS: ATTEND Emergency Medicine | DX: R56.9 Unspecified convulsions (principal) | CPT/HCPCS: A0425; A0428 ==

== ENCOUNTER 2021-08-07 10:30 | Outpatient (CLI) | payer MEDICARE, MEDICAID ==
--- NOTE | 2021-08-07 15:27 | CONSULTATION NOTE ---
Palliative Care Follow Up - Referral Referring Provider: Dr. Oscar Bergeron Time of Visit: [id number] Referral setting: Home Referral Reason: Candidiasis/Parkinson's Disease/Dementia - Information Sources Records reviewed: Previous records reviewed History/Review of Systems obtained from: Patient, Family (daughterSalomon) Exam limitations: Clinical condition (Advanced dementia, hypophonia) - History of Present Illness Update Brief HPI Update: This is an 85-year-old female who was seen evaluated in her home with her daughterTiesha present due to Parkinson's disease, history of candidiasis, dementia, and history of urinary retention. Provider wore N95 mask. Patient has a history of seizure disorder and was seen in the emergency department on 07/02/2021 after the daughter assisted her to the bedside commode where she became unresponsive and limp for approximately Matley 45 seconds. No medication adjustments were made to her Keppra dosing which is 750 mg in the morning and 1000 mg in the evening. The patient returned to her baseline. The patient has a history of Parkinson's disease and is on long-acting carbidopa/levodopa due to previous breakthrough symptoms. She has not had any recent medication changes by her neurologist. She continues to have good days and bad days per the daughter's report. She is mainly staying in bed except when getting out to the wheelchair when the entire bed is changed. When last evaluated in May the patient had dermatitis due to candidiasis and was extensive to her back and under abdominal folds and positive Adriano responded to Diflucan pulse therapy. She also had a pressure ulcer to her buttocks and was followed by home health nursing and was discharged this week with resolution. The daughterSalomon remains diligent regarding skin care and management and there is no evidence of candidiasis on examination today. The patient denies any pruritus or irritation to her skin. The patient is been utilizing more finger foods. Through supplementation the daughter has now been able to get [place] on the patient is having approximately 1 can/day. She does have some noted coughing at times with meals and not with liquids. The patient's daughter has transition to chopped meats and soft foods. There is Thick-It in the house. Last night, the patient's daughter reports that the patient was not able to chew the meat adequately and was pocketing it. Overall, she has noticed a decrease in the patient's overall oral intake. Daughter also reports that memory appears to be worsening overall. Recently she was unable to recall Salomon's name nor highlight any of her other children as a potential name. She has been asking more about her Sister Jeannie who is . The patient is having a bowel movement approximately every 3 days. She is doing well on her present regimen. She is voiding approximately 4 times today. No hematuria. The patient is seen resting on her left side. Flat affect with no evidence of acute distress. 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 +COVID-19 vaccine Social History - Living Situation Living arrangement: At home Living Situation: With family (daughter, Tiesha) Support System: Patient was born in [place]. She then lived in [place] where she was and had 8 children with her . She had 6 girls and 2 boys. 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 The patient left her and she is now a . She relocated to [facility] in the early . The patient's daughter, Tiesha moved into be a survey supervisor and offer caregiving since February 2020. The patient's healthcare power of family law attorney is her daughter, Felipa with contact number [phone]. They have a dog, Luz Elena. The patient has [employer] P[employer] bottle caser Sammi with contact number [phone] who recently provided advanced directive paperwork patient to complete however, due to her underlying dementia it is unlikely that she is capable of making these complex decisions and would need to rely on her designated healthcare power of family law attorney and the support of her family. Caregiver, Eliana ANAND is coming and better fit than previous caregiver. Palliative care carburetor rebuilder is following. Medications/Allergies - Medications Home Medications: Ambulatory Orders Medication Instructions Recorded Confirmed Propranolol [Inderal] 10 mg PO BID 09/04/16 01/08/21 metFORMIN [Glucophage] 500 mg PO BID 09/04/16 01/08/21 Escitalopram [Lexapro] 20 mg PO DAILY 03/10/18 01/08/21 Aspirin Chewable [[facility] [place] 81 mg PO DAILY #10 tablet 12/06/19 01/08/21 Aspirin] Carbidopa/Levodopa [Rytary ER 3 cap PO TID 01/08/21 01/08/21 36.25 mg-145 mg Cap] Docusate Sodium 100Mg Capsule 200 mg PO DAILY 01/08/21 01/08/21 [Colace 100Mg Capsule] Multivitamin 1 tab PO DAILY 01/08/21 01/08/21 Senna [Senokot] 8.6 mg PO DAILY PRN 01/08/21 01/08/21 levETIRAcetam [Keppra] 1,000 mg PO QPM 01/08/21 01/08/21 D-Mannose [Azo D-Mannose] 2,100 mg PO DAILY 01/23/21 01/23/21 bisacodyL [Dulcolax] 5 mg PO DAILY 04/25/21 04/25/21 Levetiracetam [Keppra] 750 mg PO DAILY 08/07/21 08/07/21 - Allergies Allergies/Adverse Reactions: Allergies Allergy/AdvReac Type Severity Reaction Status Date / Time codeine [Codeine] AdvReac Intermediate Nausea Verified 07/02/21 10:55 ssri Allergy Unknown Uncoded 07/02/21 10:55 Review of Systems - Constitutional Constitutional: reports: Fatigue, Poor appetite, Weight stable (left MAC 20.5cm 08/07/2021; left arm MAC 20cm 04/24/2021; weight 108.4lb on 12/11/2020). denies: Fever - Eyes Eyes: reports: Corrective lenses - Ears, Nose & Throat Ears, Nose & Throat: reports: Dentures. denies: Hearing aids, Mouth lesions - Cardiovascular Cardiovascular: denies: Edema - Respiratory Respiratory: reports: Cough (see HPI with foods, intermittent). denies: Wheezing - Gastrointestinal Gastrointestinal: reports: Other (appetite waxes and wanes). denies: Abdominal pain, Constipation (controlled), Diarrhea, Vomiting - Genitourinary Genitourinary: reports: Incontinence. denies: Hematuria - Musculoskeletal Musculoskeletal: reports: Muscle weakness, Assistive devices, Transfer issues, Other (right side hemiparesis) - Integumentary Integumentary: denies: Rash, Pruritis - Neurological Neurological: reports: General weakness, Other (Seizure disorder) - Psychiatric Psychiatric: reports: Depression, Anxiety - Endocrine Endocrine: reports: Diabetes type 2 (on metformin) - Hematologic/Lymphatic Hematologic/Lymph: reports: Recurrent infections (UTIs with history of positive culture for E.coli now on D-mannose) - All Other Systems All Other Systems: reports: Reviewed and negative (ROS supplemented by daughter, Tiesha as patient is a poor historian) Physical Exam - Vital Signs Temperature: 36.5 C Pulse Rate: 67 O2 Saturation: 95 (on RA) Blood Pressure: 108/50 - Physical Exam General Appearance: positive: No acute distress, Alert, Other (elderly appearing) Eyes Bilateral: positive: Other (+corretive lenses; mild crusting to lower eyelids) ENT: positive: No signs of dehydration Neck: positive: Trachea midline Cardiovascular: positive: Regular rate & rhythm Respiratory: positive: No respiratory distress, Breath sounds nml. negative: Ra les Abdomen: positive: Non-tender, Soft, Nml bowel sounds, Other (bladder nondistended and nontender to palpation. Bladder scan preformed with 340mL today.) Skin: positive: Other (venous stasis changes to b/l feet; mole to upper mons pubis on right without erythema or discharge). negative: Pruritis, Pressure wound Extremities: positive: No pedal edema, Other (+DJD changes to hands) Neurologic/Psychiatric: positive: Disoriented to place, Disoriented to time, Weakness (right sided hemiparesis), Flat affect, Other (+Resting tremor. Poor STM recall.) Palliative Care - POLST Patient has POLST: No Pain: No pain Performance Status: Patient has had resolution of the extensive dermatitis due to candidiasis that was found on prior examination to her back and under abdominal folds. The patient's daughter continues to provide diligent skin care. She has a mole to her right mons pubis that appears to be benign and there is no evidence of irritation and has been longstanding. Patient recent had an emergency department visit due to seizure activity with no changes made to her antielliptic medication. She continues to progress functionally and cognitively due to her underlying Parkinson's disease and Parkinson's disease dementia. Presently continues to be able to consume meals with only minimal modifications but in the future may need to transition to more refined foods that are chopped and pured and daughter is a well. Do have Thick-It within the home at a future point if this is needed. Given the patient remains quite frail and continues to decline it would be beneficial to have goals surrounding the patient's medical health. Unfortunately, the patient's primary caregiver and daughter Salomon has not elected DPOA but her daughter Felipa is. Family has much experience with hospice in the past due to previous family members. Unfortunately, the patient's daughter, Felipa as a difficult work schedule and today was able to coordinate a time for additional and advance care planning later this month. Impression and Recommendations - Palliative Care Impression: This is an 85-year-old female with progressive functional decline in the setting of Parkinson's disease, dementia, history of brainstem hemorrhagic stroke with residual effects and history of urinary retention. Status post Diflucan pulse therapy for extensive candidiasis that has resolved. She remains at high risk for sequential sequelae due to her progressive Parkinson's disease and dementia. Palliative care to continue to build rapport, provide care coordination, symptom management and anticipatory guidance. Recommendations/Counseling Done: 1. Dermatitis due to candidiasis. Status post pulse Diflucan therapy, resolved. 2. Dysphagia. Intermittent. History of hemorrhagic stroke and underlying Parkinson's disease. History of hemorrhagic stroke and underlying Parkinson's disease. Set expectations for in the future may need to further modify foods as well as add Thick-It to liquids however, at the present time the patient is not having any signs or symptoms that would warrant addition of Thick-It to liquids. Continue to monitor and encourage elevation of head of bed when consuming meals and finger foods for patient to continue to interact during mealtimes and promote increased oral intake. 3. Seizure disorder. Recent emergency department visit on 07/02/2021 without changes to Keppra medication. Continues on present regimen of Keppra as prescribed by neurology. 4. Risk for skin breakdown. History of pressure ulcer. S/p home health nursing. Continue pressure relieving mattress. Continue to turn and reposition frequently throughout the day to prevent pressure at pressure points. Continue diligent in routine skin care. 5. History of urinary retention. Patient seen in emergency department on 03/24/2021 with straight cath removing 500 cc of urine. Today bladder scan d emonstrated 340 mL of urine in the bladder. Patient remains asymptomatic. Bladder scan indicates greater than 400 cc then will require Garrison catheter for management. If Garrison catheter introduced with then consider low-dose Flomax 0.5 mg daily and then attempt a trial of discontinuation of Garrison catheter for 1 to [address] in [address]. Daughter continues to be aware to contact palliative care patient has not voided in 8 hours during office hours or if after hours or weekends to call EMS or PCP stone operator for retention management. Presently remains stable. 6. Parkinson's disease. Progressive. Chronic. Supportive care. Aspiration precautions. Continue carbidopa/levodopa as ordered by neurology. 7. Advanced care planning. Patient does not have a POLST in place or guidance regarding end-of-life wishes such as a living will. [facility] directives [facility] for patient to fill out would likely be not beneficial given the patient's underlying dementia and inability to participate in complex decision making. Therefore, decisions fall to the patient's DPOA, Felipa. Contacted daughter Felipa and plans to meet on 08/22 for advanced care planning with daughters Axel and Felipa present. Given some complexities in family dynamics requested that palliative care carburetor rebuilder refollow-up with patient and daughter Salomon. Total time spent 45 minutes with greater than 50% of the spent in counseling and coordination of care with the patient and daughter, Salomon; examination of patient; review of symptom management and anticipatory guidance. Contacted the patient's daughter/DPOA Felipa at [phone] and coordinated a time to meet for advanced care planning. Disclaimer: The chart note was formulated using voice recognition technology and unfortunately sound alike errors may occur.
== END 2021-08-07 10:31 | disposition home or self-care (01) ==
LOC: PC 10:30
PROVIDERS: ATTEND Nurse Practitioner Family
DX: Z51.5 Encounter for palliative care (principal); G20 Parkinson's disease; F02.80 Dementia in other diseases classified elsewhere, unspecified severity, without behavioral disturbance, psychotic disturbance, mood disturbance, and anxiety; R13.10 Dysphagia, unspecified; G40.909 Epilepsy, unspecified, not intractable, without status epilepticus; D28.0 Benign neoplasm of vulva; I69.351 Hemiplegia and hemiparesis following cerebral infarction affecting right dominant side; I10 Essential (primary) hypertension; Z79.899 Other long term (current) drug therapy; Z87.2 Personal history of diseases of the skin and subcutaneous tissue; Z87.440 Personal history of urinary (tract) infections; Z87.448 Personal history of other diseases of urinary system
CPT/HCPCS: 99349

== ENCOUNTER 2021-08-15 11:39 | Outpatient (CLI) | payer MEDICARE, MEDICAID ==
[2021-08-15 13:07] LABS: BILIRUBIN,URINE NEGATIVE (NEGATIVE); GLUCOSE, URINE (UA) 100 mg/dL (NEGATIVE); KETONES,URINE (UA) NEGATIVE (NEGATIVE); LEUKOCYTE ESTERASE, URINE NEGATIVE (NEGATIVE); NITRITE,URINE NEGATIVE (NEGATIVE); OCCULT BLOOD,URINE NEGATIVE (NEGATIVE); PH,URINE 6.5 PH (5.0-7.5); PROTEIN,URINE NEGATIVE (NEGATIVE); UROBILINOGEN,URINE 0.2 (NORMAL) E.U./dL (NORMAL)
[2021-08-15 13:30] LABS: CLARITY,URINE CLEAR (CLEAR); WBC,URINE 0-3 /HPF (0-5)
[2021-08-15 13:31] LABS: BACTERIA,URINE None Seen /HPF (None Seen); RBC,URINE None Seen /HPF (0-5); SQUAMOUS EPITHELIAL CELL,UR NONE SEEN (<= Few)
--- NOTE | 2021-08-15 14:28 | CONSULTATION NOTE ---
Palliative Care Follow Up - Referral Referring Provider: Dr. Oscar Bergeron Time of Visit: [id number] Referral setting: Home Referral Reason: Change in condition/Dementia/Parkinson's/Candidiasis - Information Sources Records reviewed: Previous records reviewed History/Review of Systems obtained from: Patient, Family (daughterSalomon), Caregiver (Eliana) Exam limitations: Clinical condition (+Advanced dementia, hypophonia) - History of Present Illness Update Brief HPI Update: This is an 85-year-old female who was seen and evaluated in her home with her daughter, Tiesha and caregiver, any present in acute evaluation of the daughter's request due to recent changes in condition and concern for urinary tract infection and evidence of candidiasis to right axilla in the setting of history of urinary retention. Provider wore N95 mask. Daughter and caregiver report that over 2 to 3 days the patient was not eating much and would not keep her eyelids open. She has been going back and forth between feeling hot and cold. She was only drinking half of the quantity of her nutrition drink. Yesterday, she was not engaged or wanting to talk. Daughter was also noting decreased urinary output in the setting of decreased oral intake overall. Voiding with changes approximately 3 times a day. Last bowel movement was on Wednesday. Today however the patient is displaying more energy. She was able to eat better this morning. She apparently looked the spoon independently after she received it from her caregiver. She is also more engaged and articulate. His daughter has now switched from a equate protein drink to Glucerna. The patient has tolerated this well. She has a history of candidiasis. Daughter and caregiver notes some increased redness to her right axilla and they have been applying miconazole 2% antifungal cream to the site on a daily basis and it is improving. 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 Social History - Living Situation Living arrangement: At home Living Situation: With family (daughterTiesha) Support System: Patient was born in [place]. She then landed in [place] where she was and had 8 children with her , tube boys and 6 girls. 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 She relocated to [facility] in the early . The patient's daughter, earlier this teen moved to offer caregiving support in February 2020. The patient's healthcare power of patent prosecution attorney is her daughter, Felipa with contact number [phone]. There is a dog, Luz Elena in the home. The patient is on CO PES and her skilled nursing case manager is Sammi with contact number [phone]. The patient now has a CO PES caregiver, Eliana who is coming to the home Tuesdays through Fridays to assist. Palliative care checkman is following. Patient's daughter is appreciative of palliative care checkman support. Medications/Allergies - Medications Home Medications: Ambulatory Orders Medication Instructions Recorded Confirmed Propranolol [Inderal] 10 mg PO BID 09/04/16 01/08/21 metFORMIN [Glucophage] 500 mg PO BID 09/04/16 01/08/21 Escitalopram [Lexapro] 20 mg PO DAILY 03/10/18 01/08/21 Aspirin Chewable [[facility] Victor Manuel 81 mg PO DAILY #10 tablet 12/06/19 01/08/21 Aspirin] Carbidopa/Levodopa [Rytary ER 3 cap PO TID 01/08/21 01/08/21 36.25 mg-145 mg Cap] Docusate Sodium 100Mg Capsule 200 mg PO DAILY 01/08/21 01/08/21 [Colace 100Mg Capsule] Multivitamin 1 tab PO DAILY 01/08/21 01/08/21 Senna [Senokot] 8.6 mg PO DAILY PRN 01/08/21 01/08/21 levETIRAcetam [Keppra] 1,000 mg PO QPM 01/08/21 01/08/21 D-Mannose [Azo D-Mannose] 2,100 mg PO DAILY 01/23/21 01/23/21 bisacodyL [Dulcolax] 5 mg PO DAILY 04/25/21 04/25/21 Levetiracetam [Keppra] 750 mg PO DAILY 08/07/21 08/07/21 - Allergies Allergies/Adverse Reactions: Allergies Allergy/AdvReac Type Severity Reaction Status Date / Time codeine [Codeine] AdvReac Intermediate Nausea Verified 07/02/21 10:55 ssri Allergy Unknown Uncoded 07/02/21 10:55 Review of Systems - Constitutional Constitutional: reports: Fatigue, Poor appetite, Weight stable (left MAC 20.5cm 08/07/2021; left arm MAC 20cm 04/24/2021; weight 108.4lb on 12/11/2020). denies: Fever - Eyes Eyes: reports: Corrective lenses - Ears, Nose & Throat Ears, Nose & Throat: reports: Dentures, Sore throat. denies: Hearing aids, Mouth lesions - Cardiovascular Cardiovascular: denies: Edema - Respiratory Respiratory: reports: Cough (see HPI with foods, intermittent) - Gastrointestinal Gastrointestinal: reports: Poor appetite (see HPI). denies: Abdominal pain, Constipation (controlled), Diarrhea, Vomiting - Genitourinary Genitourinary: reports: Incontinence. denies: Frequency (decreased per daughter), Hematuria - Musculoskeletal Musculoskeletal: reports: Muscle weakness, Assistive devices, Transfer issues, Other (right side hemiparesis) - Integumentary Integumentary: reports: Rash (right axilla, see HPI) - Neurological Neurological: reports: General weakness, Other (Seizure disorder) - Psychiatric Psychiatric: reports: Depression, Anxiety - Endocrine Endocrine: reports: Diabetes type 2 (on metformin) - Hematologic/Lymphatic Hematologic/Lymph: reports: Recurrent infections (UTIs with history of positive culture for E.coli now on D-mannose) - All Other Systems All Other Systems: reports: Reviewed and negative (ROS supplemented by daughterTiesha and caregiver, Eliana as patient is a poor historian) Physical Exam - Vital Signs Temperature: 36.6 C Pulse Rate: 66 O2 Saturation: 95 (on RA) Blood Pressure: 109/54 - Physical Exam General Appearance: positive: No acute distress, Alert, Other (elderly appearing, resting on right side in bed, NAD) Eyes Bilateral: positive: Other (+corrective lenses) ENT: positive: Pharynx nml, No signs of dehydration. negative: Oral lesions Neck: positive: Trachea midline. negative: Lymphadenopathy (R), Lymphadenopathy (L) Cardiovascular: positive: Regular rate & rhythm Respiratory: positive: No respiratory distress, Breath sounds nml Abdomen: positive: Non-tender, Soft, Nml bowel sounds, Other (bladder nondistended and nontender to palpation. Bladder scan preformed with 261 and 331mL today. Straight cath preformed to collect sterile urine specimen.) Skin: positive: Rash (Fading erythema under right axilla consistent with cadidasis), Pressure wound (Left buttock lena size area of blachable erythema with skin intact), Other (venous stasis changes to b/l feet; mole to upper mons pubis on right without erythema or discharge). 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 Poor STM recall.) Palliative Care - POLST Patient has POLST: No Pain: No pain - Palliative Care Discussion: The patient has had a previous history of urinary retention in the setting of acute changes noted by the patient's daughter and caregiver bladder scan was performed not demonstrating that the patient needs a Garrison catheter in place as her bladder scan indicates less than 400 cc of urine. However, she does have a history of urinary tract infections and therefore, a sterile specimen was obtained via straight cath to evaluate for urinary tract infection. We will follow with results. Did discuss with the patient, daughter and caregiver that likely behavioral changes that were noted over the preceding 2 to 3 days is likely indicative of the patient's waxing and waning regarding her Parkinson's disease and Parkinso n's dementia. Supportive and empathetic listening provided to the patient's daughter. Results - Lab Results Lab results reviewed: Yes Lab and Imaging Results: Lab Results x24hrs 08/15/21 Range/Units 11:15 Urine Color YELLOW Urine Clarity CLEAR (CLEAR) Urine pH 6.5 (5.0-7.5) PH Ur Specific [place] 1.015 (1.002-1.030) Urine Protein NEGATIVE (NEGATIVE) mg/dL Urine Glucose (UA) 100 H (NEGATIVE) mg/dL Urine Ketones NEGATIVE (NEGATIVE) mg/dL Urine Occult Blood NEGATIVE (NEGATIVE) Urine Nitrite NEGATIVE (NEGATIVE) Urine Bilirubin NEGATIVE (NEGATIVE) Urine Urobilinogen 0.2 (NORMAL) (NORMAL) E.U./dL Ur Leukocyte Esterase NEGATIVE (NEGATIVE) Urine RBC None Seen (0-5) /HPF Urine WBC 0-3 (0-5) /HPF Ur Squamous Epith Cells NONE SEEN (<= Few) Urine Bacteria None Seen (None Seen) /HPF Urine Culture Comments NOT INDICATED Impression and Recommendations - Palliative Care Impression: This is an 85-year-old female with progressive functional decline in the setting of Parkinson's disease, dementia, history of brain hemorrhagic stroke with residual effects, history of urinary retention with acute behavioral changes. She has evidence of candidiasis under her right axilla that only requires topical [id number] antifungal cream. Urine specimen obtained and will evaluate for urinary tract infection. Palliative care to continue to build rapport, provide care coordination, symptom management and anticipatory guidance. Recommendations/Counseling Done: 1. Change in condition in the setting of history of urinary retention. Straight cath obtained today for urine specimen. Reviewed results with patient's daughter, Salomon was negative for urinary tract infection and recent change in condition that has resolved is likely due to the waxing and waning pattern of the patient's underlying Parkinson's disease and dementia with understanding verbalized. Supportive and empathetic listening provided. 2. Rash to right axilla consistent with candidiasis. Improving. Status post pulse Diflucan therapy. Continue topical application of [id number] antifungal cream miconazole 2%. Would continue to apply daily until resolved. 3. Pressure ulcer stage I left buttocks. No evidence of skin breakdown. Continue to turn and reposition every 2 hours. Continue pressure reducing mattress. Continue diligence and routine skin care. 4. History of urinary retention. Patient seen in emergency department on 03/24/2021 with straight cath removing 500 cc of urine. Today bladder scan demonstrated 261 and 331 mL of urine in the bladder. Patient is asymptomatic regarding this. If bladder scan indicates greater than 400 mL then will require Garrison catheter for management. Daughter continues to be aware to contact palliative care if the patient has not voided in 8 hours during office hours or if after hours or weekends to call EMS or PCP resourcing consultant for retention management. Continue to monitor. 6. Parkinson's disease. Progressive. Chronic. Supportive. Aspiration precautions. Continue carbidopa/levodopa as ordered by neurology. Plan to have family meeting for advanced care planning with daughterFelipa who is DPOA to be present on 08/22 as well as caregiver Eliana and daughter Salomon. Total time spent 50 minutes with greater than 50% is spent in counseling coron ation of care with the patient and daughter Salomon as well as caregiver; examination of patient; straight cath; review of symptom management; review of pathophysiology of Parkinson's disease and dementia; supportive listening; and anticipatory guidance. Disclaimer: The chart note was formulated using voice recognition technology and unfortunately sound alike errors may occur.
== END 2021-08-15 11:40 | disposition home or self-care (01) ==
LOC: PC 11:39
PROVIDERS: ATTEND Nurse Practitioner Family
DX: Z51.5 Encounter for palliative care (principal); R30.0 Dysuria; G20 Parkinson's disease; F02.81 Dementia in other diseases classified elsewhere, unspecified severity, with behavioral disturbance; R33.9 Retention of urine, unspecified; B37.2 Candidiasis of skin and nail; L89.321 Pressure ulcer of left buttock, stage 1
CPT/HCPCS: 81001; 87086; 99349

== ENCOUNTER 2021-10-30 12:20 | Outpatient (CLI) | payer MEDICARE, MEDICAID ==
--- NOTE | 2021-10-30 13:45 | CONSULTATION NOTE ---
Palliative Care Follow Up - Referral Referring Provider: Dr. Oscar Bergeron Time of Visit: [id number] Referral setting: Home Referral Reason: Change in condition/Dementia/Candidiasis/Skin breakdown - Information Sources Records reviewed: Previous records reviewed History/Review of Systems obtained from: Patient, Family (daughter, Salomon and daughter/BIJAN Leo via phone), Caregiver (ELIANA) Exam limitations: Clinical condition (+hypophnia and Advanced dementia) - History of Present Illness Update Brief HPI Update: This is an 85-year-old female who was seen and evaluated in her home with her daughter, Tiesha and caregiver, any present patient had acute evaluation due to change in condition, advanced Parkinson's disease, Parkinson's dementia, and risk for skin breakdown. Provider wore N95 mask. Daughter and caregiver will the last 5 to 6 days the patient has had an increased cough and not eating to bring anything up. Sometimes she appears to have difficulty breathing and is not having any coughing fits. She has had a significant decrease in her usual oral intake. Today however, she was able to consume some food but was able to take her pills without a syringe. The last several days she has not been able to utilize of Stra[place]. For the last several weeks she has been experiencing coughing with liquids and meals and her daughter and caregiver switched her to pured diet and thickened liquids for the last several weeks to help resolve this. Her quantity at meals was typically 1 cup and has now been reduced to approximately 1/4 cup at meals. Her left MAC has decreased to 20 cm previously 20.5 cm in July 2021. She is no longer able to stand and transfer from the last few months. Has had increased generalized weakness. She also has a left hand contracture with no evidence of candidiasis. She is also developed redness to pressure points to her coccygeal and sacrum as well as between her knees medially and right elbow. Daughter and caregiver have been offloading and providing padding to reduce this. She has been sleeping typically about 20 hours/day most days. Continues to overall show signs of waxing and waning but continued generalized decline. She is also consuming her boost supplementation. Daughter also reports that the patient is not responding or engaging as she previously was and is no longer interested in her baseball games. Family recognizes that patient is having a decline and wish to see if appropriate to transition to hospice services. 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 Social History - Living Situation Living arrangement: At home Living Situation: With family (daughter, Tiesha) Support System: Patient was born in [place]. She then landed in [place] where she was and had 8 children with her , two boys and 6 girls. 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 She relocated to [facility] in the early . The patient's daughter, earlier this teen moved to offer caregiving support in February 2020. The patient's healthcare power of cytology supervisor is her daughter, Felipa with contact number [phone]. There is a dog, Luz Elena in the home. The patient is on CO PES and her foster care case manager is Sammi with contact number [phone]. The patient now has a CO PES caregiver, Eliana who is coming to the home Tuesdays through Fridays to assist. Palliative care manager emergency is following. Has a hospital bed with air pad and mattress. Recently was able to obtain a washer to have in the home. Family history milliard with hospice support as the patient's youngest daughter transition to hospice due to breast cancer. Medications/Allergies - Medications Home Medications: Ambulatory Orders Medication Instructions Recorded Confirmed Propranolol [Inderal] 10 mg PO BID 09/04/16 01/08/21 metFORMIN [Glucophage] 500 mg PO BID 09/04/16 01/08/21 Escitalopram [Lexapro] 20 mg PO DAILY 03/10/18 01/08/21 Aspirin Chewable [[facility] Victor Manuel 81 mg PO DAILY #10 tablet 12/06/19 01/08/21 Aspirin] Carbidopa/Levodopa [Rytary ER 3 cap PO QID 01/08/21 01/08/21 36.25 mg-145 mg Cap] Docusate Sodium 100Mg Capsule 200 mg PO DAILY 01/08/21 01/08/21 [Colace 100Mg Capsule] Senna [Senokot] 8.6 mg PO DAILY PRN 01/08/21 01/08/21 levETIRAcetam [Keppra] 1,000 mg PO QPM 01/08/21 01/08/21 D-Mannose [Azo D-Mannose] 2,100 mg PO DAILY 01/23/21 01/23/21 bisacodyL [Dulcolax] 5 mg PO DAILY 04/25/21 04/25/21 Levetiracetam [Keppra] 750 mg PO DAILY 08/07/21 08/07/21 Nystatin [Mycostatin] 5 ml PO QID MDD x7days 10/30/21 10/30/21 - Allergies Allergies/Adverse Reactions: Allergies Allergy/AdvReac Type Severity Reaction Status Date / Time codeine [Codeine] AdvReac Intermediate Nausea Verified 07/02/21 10:55 ssri Allergy Unknown Uncoded 07/02/21 10:55 Review of Systems - Constitutional Constitutional: reports: Fatigue (increased sleeping during the day), Poor appetite, Weight loss (left MAC 20cm 10/30/2021; left MAC 20.5cm 08/07/2021; left arm MAC 20cm 04/24/2021; weight 108.4lb on 12/11/2020). denies: Fever - Eyes Eyes: reports: Corrective lenses - Ears, Nose & Throat Ears, Nose & Throat: reports: Dentures, Sore throat. denies: Hearing aids - Cardiovascular Cardiovascular: denies: Edema - Respiratory Respiratory: reports: Cough (see HPI). denies: Wheezing - Gastrointestinal Gastrointestinal: reports: Poor appetite (see HPI). denies: Abdominal pain, Constipation (went 5 days before BM today with increase in ducolax administration), Diarrhea, Vomiting - Genitourinary Genitourinary: reports: Incontinence, Other (history of urinary retention in Fall 2020). denies: Frequency (typically being changed 3-4 times per day), Hematuria - Musculoskeletal Musculoskeletal: reports: Muscle weakness, Assistive devices, Transfer issues, Other (right side hemiparesis) - Integumentary Integumentary: reports: Other (redness to sacrum/coccyx; redness right elbow and medial aspect of knees) - Neurological Neurological: reports: General weakness, Other (Seizure disorder) - Psychiatric Psychiatric: reports: Depression, Anxiety - Endocrine Endocrine: reports: Diabetes type 2 (on metformin) - Hematologic/Lymphatic Hematologic/Lymph: reports: Recurrent infections (UTIs with history of positive culture for E.coli now on D-mannose) - All Other Systems All Other Systems: reports: Reviewed and negative (ROS supplemented by daughterTiesha and caregiver, Eliana as patient is a poor historian) Physical Exam - Vital Signs Temperature: 37.1 C Pulse Rate: 65 Respiratory Rate: 95 (on RA) Blood Pressure: 122/57 - Physical Exam General Appearance: positive: No acute distress, Alert, Cachetic, Other (elderly appearing, resting on right side in bed, NAD) Eyes Bilateral: positive: Other (+corrective lenses) ENT: positive: No signs of dehydration, Other (evidence of thrush to tongue) Neck: positive: Trachea midline. negative: Lymphadenopathy (R), Lymphadenopathy (L) Cardiovascular: positive: Regular rate & rhythm Respiratory: positive: No respiratory distress, Breath sounds nml. 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 negative: Full ROM (Contracture to left hand with skin to palm intact) Neurologic/Psychiatric: positive: Disoriented to place, Disoriented to time, Weakness (right sided hemiparesis), Flat affect, Other (+Resting tremor. Poor STM recall.) Palliative Care - POLST Patient has POLST: Yes POLST Status: DNR, Selective Treatment Pain: No pain Performance Status: Patient is no longer ambulatory and is not able to stand and pivot to hold her weight for approximately 2 months. She has no longer able to feed herself and is with quiring to be self fed. Now on a altered diet of pured and thickened due to dysphagia. Incontinent of bowel and bladder. FAS T7 C - Palliative Care Discussion: Patient was originally diagnosed with Parkinson's disease in approximately 2017 and has had continued waxing and waning decline since that time. Over the last several months her daughter, Salomon and caregiver both report that they are seeing more changes related to advancement of the patient's Parkinson disease and family wishes to focus on quality of life and comfort measures within the home environment and does not wish to have the patient go back and forth to the emergency department for management of symptoms. They wish to transition to hospice services for additional support within the home. Impression and Recommendations - Palliative Care Impression: This is an 85-year-old female with progressive functional decline in the setting of Parkinson's disease, Parkinson's dementia, history of brainstem hemorrhagic stroke with residual effects, dysphagia, and skin breakdown and a history of urinary retention. She is at high risk for sequential sequelae due to her progressive Parkinson's disease and dementia. She continues to show decline and family wishes to focus on comfort within the home setting. Therefore, we will make a transition to hospice services for symptom management and support. Recommendations/Counseling Done: 1. Oral candidiasis. Initiate nystatin 5 mL administer 4 times a day swish and swallow x7 days with Rx sent to [facility]. 2.Pressure ulcers. Noted to right elbow, coccyx, and at risk between patient's knees on the medial aspects stage I pressure ulcers. Advised to continue to offload, put a pillow between her knees, and apply barrier cream to coccyx/sacrum and require turning and repositioning. Patient is on an air mattress to offload. Patient has decreased oral intake and exposed bony prominences and make her at risk for skin breakdown. 3. Dysphagia. In the setting of Parkinson's disease and history of CVA. Continue pured diet with thickened. Advised to have elevated during meals to prevent aspiration. Aspiration precautions. 4. 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 Continue routine. Care. History of E. coli from cultures. Continue d-mannose for prophylaxis. 5. Hemorrhagic stroke with residual effects. Continue aspirin therapy and statin therapy for prophylaxis. Fall and aspiration precautions. 6. Parkinson's disease. Progressive. Chronic. Supportive care. Aspirations precautions.Continue Rytary ER and may open capsule to administer. With transition to hospice services can consider transition to carbidopa/levodopa. Previous discussed with patient's neurologist, Dr. Smyth for approximately 1 dose equivalent of carbidopa/levodopa 25/100 immediate release tablets to do 2 tablets 4 times per day. Patient has further progressed in her Parkinson's disease and noted contracture and, dysphagia, history of urinary retention and appropriate to transition to hospice services. 7. Advanced care planning. Patient has POLST in place as DN AR with selective interventions. Patient's daughters, Salomon and Felipa, both recognize with the patient has been declining and wish to focus on care within the home environment and avoid hospital and emergency department transfer. Discussion with hospice medical receptionist biller, Dr. Francine Tejada and in agreement appropriate for patient to transition to hospice services. To be admitted later today. Total time spent 60 minutes with greater than 50% spent counseling coronation of care with the patient and daughter, Salomon, caregiver Eliana, and daughter Felipa via phone; examination of patient; review of symptom management; supportive listening; contacting hospice services; and anticipatory guidance. Disclaimer: The chart note was formulated using voice recognition technology and unfortunately sound alike errors may occur.
== END 2021-10-30 12:21 | disposition home or self-care (01) ==
LOC: PC 12:20
PROVIDERS: ATTEND Nurse Practitioner Family
DX: Z51.5 Encounter for palliative care (principal); G20 Parkinson's disease; F02.80 Dementia in other diseases classified elsewhere, unspecified severity, without behavioral disturbance, psychotic disturbance, mood disturbance, and anxiety; R05.9 Cough, unspecified; R53.83 Other fatigue; R32 Unspecified urinary incontinence; I69.391 Dysphagia following cerebral infarction; I69.351 Hemiplegia and hemiparesis following cerebral infarction affecting right dominant side; L89.011 Pressure ulcer of right elbow, stage 1; L89.151 Pressure ulcer of sacral region, stage 1; B37.0 Candidal stomatitis; Z87.440 Personal history of urinary (tract) infections; Z79.899 Other long term (current) drug therapy; Z79.82 Long term (current) use of aspirin; Z66 Do not resuscitate
CPT/HCPCS: 99350